=== PATIENT | male | born 1945 | race Caucasian/White ===

== ENCOUNTER 2022-10-22 15:25 | Observation (INO) | payer MEDICARE, OTHER, SELFPAY ==
[2022-10-22] VITALS (24 sets, daily range): BP systolic 127–140; BP diastolic 65–90; PULSE 69–89; RESP 16–28; TEMP 36.5–37; O2SAT 86–94; BMI 25.2
--- NOTE | ~2022-10-22 | CT_ITS ---
EXAMINATION: CT brain wo con DATE: 10/22/2022 16:47 INDICATION: Dizziness. Multiple falls. TECHNIQUE: Computed tomography (CT) of the head was performed without intravenous contrast. Sagittal and coronal reconstructions were performed. The mA was adjusted according to patient size. Iterative reconstruction technique was employed. The dose-length product was 681.00 mGy-cm. COMPARISON: head CT dated 12/22/2015 FINDINGS: No fracture. No acute intracranial hemorrhage, acute infarction or abnormal extra axial fluid collect ion. There is moderate scattered white matter hypoattenuation consistent with chronic small vessel is chemic disease. Ventricles are normal and symmetric. No mass/mass effect. Mild mucosal thickening th e bilateral maxillary and ethmoid sinuses as well as at the left frontoethmoidal recess. The orbits a nd mastoid air cells are normal. IMPRESSION: 1. No fracture or acute intracranial process. 2. Moderate scattered white matter hypoattenuation consistent with chronic small vessel ischemic dise ase. Reviewed, dictated and finalized at location A. IMPRESSION: 1. No fracture or acute intracranial process. 2. Moderate scattered white matter hypoattenuation consistent with chronic smal l vessel ischemic disease.
--- NOTE | ~2022-10-22 | XR_ITS ---
EXAMINATION: XR chest 1V portable Exam Date/Time: 10/22/2022 16:45 CDT HISTORY: low O2 saturations Comparison: None. RESULT: Lines, tubes, and devices: None. Lungs and pleura: Patchy mid and lower lung subsegmental airspace disease. Diffuse mild reticular op acities. Mild bilateral costophrenic angle blunting. Cardiomediastinal silhouette: Unremarkable. Other: No acute osseous or upper abdominal finding. IMPRESSION: Pulmonary opacities likely represent pulmonary edema with bibasilar atelectasis and small bilateral e ffusions. Infection is not excluded. Reviewed, dictated and finalized at location K. IMPRESSION: Pulmonary opacities likely represent pulmonary edema with bibasilar atelectasis and small bilateral effusions. Infection is not excluded.
--- NOTE | ~2022-10-22 | CT_ITS ---
EXAMINATION: CTA chest PE protocol DATE: 10/23/2022 12:25 INDICATION: Shortness of breath. TECHNIQUE: Computed tomography angiography (CTA) of the chest was performed with 100 mL Omnipaque-350 intravenous contrast timed to evaluate the pulmonary arteries. Coronal maximum intensity projection 3D-reconstructions were created by the technologist. Automated exposure control and iterative reconst ruction technique were employed. The dose-length product was 348.57 mGy-cm. COMPARISON: None. FINDINGS: There are airspace and groundglass opacities in posterior segment right upper lobe. There i s mild atelectasis bilaterally. Calcified right hilar nodules and calcified right hilar and mediastin al lymph nodes are consistent with old granulomatous disease. There is a small right pleural effusion . Cardiomegaly is noted. There is a small pericardial effusion. There are acute pulmonary emboli in l eft upper lobe, superior segment right lower lobe, and right upper lobe. There are changes of cholecy stectomy. There is mild thoracic spondylosis. IMPRESSION: 1. Acute bilateral pulmonary emboli. 2. Airspace and groundglass opacities in posterior segment right upper lobe, consistent with infarct. 3. Small right pleural effusion. 4. Small pericardial effusion. Reviewed, dictated and finalized at location A. IMPRESSION: 1. Acute bilateral pulmonary emboli. 2. Airspace and groundglass opacities in posterior segment right upper lobe, co nsistent with infarct. 3. Small right pleural effusion. 4. Small pericardial effusion.
--- NOTE | 2022-10-22 15:49 | ECG_ITS ---
Measurements Intervals [place] Rate: 71 P: 4 [place]: 157 QRS: 131 QRSD: 107 T: 28 QT: 304 QTc: 330 Interpretive Statements SINUS RHYTHM RIGHTWARD AXIS POSSIBLE RIGHT VENTRICULAR HYPERTROPHY [SOME/ALL OF: PROMINENT R IN V1, LATE TRANSITION, RAD, EDWIGE, SSS] ABNORMAL ECG NO PREVIOUS ECG AVAILABLE FOR COMPARISON Electronically Signed On 10-23-2022 7:47:27 CDT by Lukas Hoff M.D.
[2022-10-22] MEDS: SODIUM CHLORIDE 0.9% IV 1,000 ML 999 ML IV CONT (16:15)
[2022-10-22 16:32] LABS: Basophils Absolute Auto 0.02 K/mm3 (0.00-0.10); Basophils Percent Auto 0.3 % (0.0-1.0); Eosinophils Absolute Auto 0.02 K/mm3 (0.02-0.50); Eosinophils Percent Auto 0.3 % (1.0-6.0); Hematocrit 37.8 % (37.0-46.0); Hemoglobin 12.9 g/dL (12.4-15.3); Immature Granulocyte Absolute 0.02 K/mm3 (0.00-0.00); Immature Granulocyte Percent A 0.3 % (0.0-0.0); Lymphocytes Absolute Auto 0.65 K/mm3 (1.10-4.50); Lymphocytes Percent Auto 8.9 % (18.0-42.0); Mean Corpuscular HGB Conc 34.1 g/dL (32.0-36.0); Mean Corpuscular Hemoglobin 32.1 pg (27.0-31.0); Mean Platelet Volume 12.4 fl (8.7-11.0); Monocytes Absolute Auto 0.84 K/mm3 (0.10-0.90); Monocytes Percent Auto 11.5 % (2.0-11.0); Neutrophils Absolute Auto 5.8 K/mm3 (1.7-7.2); Neutrophils Percent Auto 78.7 % (50.0-70.0); Platelet Count Result 139 K/mm3 (150-420); Red Blood Count 4.02 M/mm3 (4.70-6.10); Red Cell Distribution Width 12.7 % (11.6-14.4); White Blood Count 7.3 K/mm3 (4.8-10.8)
[2022-10-22 16:46] LABS: Prothrombin Time 11.3 Seconds (9.50-12.10)
[2022-10-22 16:57] LABS: Alanine Aminotransferase 72 U/L (16-63); Albumin Level 2.9 g/dL (3.4-5.0); Alkaline Phosphatase 46 U/L (46-116); Ammonia 25 umol/L (11-32); Anion Gap 9 mmol/L (8-16); Aspartate Amino Transferase 32 U/L (15-37); Bilirubin,Total 1.5 mg/dL (0.00-1.00); Blood Urea Nitrogen 24 mg/dL (7-18); Carbon Dioxide 29 mmol/L (21-32); Chloride 107 mmol/L (98-108); Estimated CRCL calculation 38 ml/min; Estimated Glomerular Filt Rate 48; Glucose 151 mg/dL (70-99); Osmolality Calculated 307 mOsm/kg (285-295); Potassium 3.6 mmol/L (3.5-5.1); Sodium 145 mmol/L (136-145); Thyroid Stimulating Hormone 2.29 uIU/mL (0.36-3.74); Total Protein 6.9 g/dL (6.4-8.2); Troponin I 59.2 ng/L (0.00-60.4)
[2022-10-22 16:59] LABS: NT Pro B Type Natriuretic Pept 725 pg/mL (0-450)
[2022-10-22 17:16] LABS: Lactic Acid Reflex 0.9 mmol/L (0.4-2.0)
[2022-10-22] MEDS: methylPREDNISolone SOD SUCC 125 MG VIAL IV PUSH (17:20)
[2022-10-22] MEDS: FUROSEMIDE INJ 40 MG/4 ML VIAL IV PUSH (17:23)
[2022-10-22 17:25] LABS: Influenza A QL RT-PCR Negative (Negative); Influenza B QL RT-PCR Negative (Negative); RSV RNA, RT-PCR Negative (Negative); SARS-CoV-2 RNA PCR Negative (Negative)
[2022-10-22] MEDS: IPRATROPIUM 0.5 MG/ALBUTEROL SULFATE 2.5 MG AMPUL.NEB 3 ML INHALATION ×2 (17:25→22:21)
[2022-10-22] MEDS: AZITHROMYCIN 500 MG/NS 250 ML 500 MG/250 ML BAG 250 MG IVPB (17:30)
[2022-10-22 17:42] LABS: Creatine Kinase 110 U/L (39-308)
--- NOTE | 2022-10-22 18:01 | ED.WEAKNESS ---
HPI - Weakness General Chief complaint: Weakness Stated complaint: fall spells; dizziness Time Seen by Provider: 10/22/22 15:48 Source: patient and family Mode of arrival: wheelchair History of Present Illness Complaint: generalized weakness Onset (ago): day(s) Duration: constant Location: generalized Severity: moderate Related Data Home Medications Medication Instructions Recorded Confirmed amlodipine 10 mg tablet 10 mg PO DAILY 10/22/22 10/22/22 cholecalciferol (vitamin D3) 25 25 mcg PO DAILY 10/22/22 10/22/22 mcg (1,000 unit) capsule ezetimibe 10 mg tablet 10 mg PO DAILY 10/22/22 10/22/22 fluticasone propionate 50 1 spray intranasal DAILY 10/22/22 10/22/22 mcg/actuation nasal spray,suspension lisinopril 20 mg tablet 40 mg .Route .COMPLEX 10/22/22 10/22/22 loratadine 10 mg tablet 10 mg PO DAILY 10/22/22 10/22/22 Allergies Allergy/AdvReac Type Severity Reaction Status Date / Time tramadol Allergy Rash Verified 10/22/22 15:41 atorvastatin AdvReac Cough Verified 10/22/22 15:41 Review of Systems Review of Systems: All systems reviewed & are unremarkable except as noted in HPI and below PMFSH Past Medical History Medical History Seizure disorder (07/20/14) Type 2 diabetes mellitus without complication, without long-term current use of insulin Family History Family History Sibling Family history of malignant neoplasm of breast Other Diabetes mellitus Social History Social History Smoking status: Never smoker Alcohol intake: never Exam Const: General: no acute distress Nutritional Appearance: well nourished Orientation/consciousness: patient oriented x3 Limitations: no limitations HENMT: Head: normal to inspection Eyes: Conjunctivae: conjunctivae normal Pupils: Equal, round and reactive pupils present Neck: Neck: normal visual inspection Chest: Chest palpation & inspection: normal inspection of the chest Resp: Auscultation: clear to auscultation bilaterally Cardio: Rate: regular rate Rhythm: regular rhythm GI: GI Palp: Yes Soft to palpation Back/Spine/Pelvis: Back: no CVA tenderness Skin: General skin exam: normal color Rashes: no rashes Wounds: no wounds Course Course Emergency Course: patient resting comfortably initially O2 sats around 86% on room air at his primary care physician's office patient currently on 4 to 6 L of oxygen and satting at 92% had a chest x-ray performed which shows that he has a mild pulmonary edema with a BNP of 725 with bilateral infiltrates patient did receive nebulizer treatment and IV steroids along with some 40mg of IV Lasix. COVID is negative, his white count is 7.3 chest x-ray shows the bilateral opacities CT scan of the brain shows no acute abnormality. Vital Signs Vital signs: Vital Signs Temperature 37.0 C 10/22/22 15:25 Pulse Rate 81 10/22/22 15:25 Respiratory Rate 18 10/22/22 15:25 Blood Pressure 137/90 10/22/22 15:25 Pulse Oximetry 86 L 10/22/22 15:25 Oxygen Delivery Room Air 10/22/22 15:25 Temperature 36.9 C 10/22/22 17:37 Pulse Rate 89 10/22/22 17:37 Respiratory Rate 18 10/22/22 17:37 Blood Pressure 127/70 10/22/22 17:37 Pulse Oximetry 89 L 10/22/22 17:45 Oxygen Delivery Room Air 10/22/22 15:25 Oxygen Flow Rate 4 10/22/22 17:31 MDM - Weakness Lab Data 10/22/22 16:22 10/22/22 16:22 Labs: Lab Results 10/22/22 Range/Units 16:22 WBC 7.3 (4.8-10.8) K/mm3 RBC 4.02 L (4.70-6.10) M/mm3 Hgb 12.9 (12.4-15.3) g/dL Hct 37.8 (37.0-46.0) % MCV 94.0 (78.0-102.0) fL MCH 32.1 H (27.0-31.0) pg MCHC 34.1 (32.0-36.0) g/dL RDW 12.7 (11.6-14.4) % Plt Count 139 L (150-420) K/mm3 MPV 12.4 H (8.7-11.0) fl Immature Gran % (Auto) 0.3 H (0.0-0.0) % Ne
[2022-10-22 18:07] LABS: Appearance Urine Clear (Clear); Bilirubin Urine Negative (Negative); Blood Urine 1+ (Negative); Color Urine Light Yellow (Yellow); Glucose Urine UA Negative (Negative); Ketones Urine Negative (Negative); Leukocyte Esterase Ur Negative LEU/UL (Negative); Nitrate Urine Negative (Negative); Protein Urine Negative (Negative); Urobilinogen Urine 0.2 mg/dL (0.2-1.0)
[2022-10-22 18:13] LABS: Add Urine Microscopic? YES; Bacteria Urine None seen /hpf; Squamous Epithelial Cell Urine None seen /hpf (Few); WBC Urine 0-3 /hpf (0-3)
[2022-10-22 18:21] LABS: Amphetamine Screen Urine Negative (Negative); Barbiturate Screen Urine Negative (Negative); Benzodiazepines Screen Urine Negative (Negative); Cannabinoid Screen Urine Negative (Negative); Cocaine Screen Urine Negative (Negative); Methadone Screen Urine Negative (Negative); Opiate Screen Urine Negative (Negative); Phencyclidine Screen Urine Negative (Negative)
--- NOTE | 2022-10-22 20:19 | ADMGEN ---
This patient, Cecilio Amanda, was admitted to 2nd Floor Room 207-1. Patient/family oriented to hospital policies and general routines including ID bracelet, bed and alarms, visiting hours, pain management, procedures, bathroom and other care routines, personal items, smoking policy, room service/diet, and visiting hours. Son has dropped off hearing aid cable armorer, both hearing aids are on charge. pt notified of need to call for assistance when getting up and that he is not to take his home medications as we will provide them from pharmacy during his stay here. RT will titrate pt off 02 if possible per francisco conditioning yard supervisor Information on how to activate the Rapid Response Team has been discussed. Patient/Family are encouraged to report perceived risks to care and to ask questions if they do not understand what they are told or what they should do.
[2022-10-22] MEDS: levETIRAcetam 250 MG TABLET 750 MG BY MOUTH (20:52)
[2022-10-22] MEDS: traZODone HCL 50 MG TABLET PO (20:53)
--- NOTE | 2022-10-22 20:55 | PC.NURSE ---
pt given jello to take meds with per wifes request
[2022-10-22 20:57] LABS: Glucose Point of Care 167 mg/dl (65-105)
[2022-10-23] VITALS (11 sets, daily range): BP systolic 113–121; BP diastolic 75–77; PULSE 71–88; RESP 16–20; TEMP 35.9–36.4; O2SAT 87–92
--- NOTE | 2022-10-23 00:16 | PC.NURSE ---
Pt asleep and respirations are even and unlabored. SAO2 is 94% with oxygen at 5 liters. No signs of respiratory distress noted.
--- NOTE | 2022-10-23 00:53 | PC.NURSE ---
Pt asleep and no signs of shortness of breath noted. Oxygen remains on at 4 liters per nasal cannula.
--- NOTE | 2022-10-23 02:01 | PC.NURSE ---
Pt asleep and no signs of respiratory distress noted. Oxygen remains on at 4 liters per nasal cannula
--- NOTE | 2022-10-23 04:10 | PC.NURSE ---
Pt asleep and no signs of respiratory distress noted. oxygen remains on at 4 liters per nasal cannula.
--- NOTE | 2022-10-23 06:00 | PC.NURSE ---
Pt sitting up at bedside and said he needed to use the bathroom. Pt wanted to change is shirt and shorts and his duffle bag was brought over to him. Pt up to the bathroom with the walker and assist of one.
--- NOTE | 2022-10-23 06:35 | PC.NURSE ---
Pt back to the chair after using the bathroom. Pt taking a duoneb treatment at this time.
[2022-10-23] MEDS: IPRATROPIUM 0.5 MG/ALBUTEROL SULFATE 2.5 MG AMPUL.NEB 3 ML INHALATION (06:52)
[2022-10-23 07:38] LABS: Glucose Point of Care 202 mg/dl (65-105)
[2022-10-23] MEDS: INSULIN HUMAN LISPRO (*BKC) 1,000 UNITS/10 ML VIAL SUB-Q (08:11)
[2022-10-23] MEDS: FUROSEMIDE INJ 20 MG/2 ML VIAL IV PUSH (08:51)
[2022-10-23] MEDS: EZETIMIBE 10 MG TABLET PO (08:51)
[2022-10-23] MEDS: CHOLECALCIFEROL 1,000 UNITS TABLET 1000 UNITS PO (08:51)
[2022-10-23] MEDS: levETIRAcetam 250 MG TABLET 750 MG BY MOUTH (08:52)
[2022-10-23] MEDS: lisinopriL 20 MG TABLET BY MOUTH (08:52)
[2022-10-23] MEDS: LORATADINE 10 MG TABLET PO (08:52)
[2022-10-23] MEDS: amLODIPine BESYLATE 5 MG TABLET 10 MG PO (08:53)
--- NOTE | 2022-10-23 11:53 | PM.SD2 ---
Same Day Admit/Disch: HPI History of Present Illness Chief complaint: PULMONARY EDEMA PNEUMONIA WEAKNESS Narrative: Cecilio Amanda is a 77 year old male HPI - Weakness General Chief complaint: Weakness Stated complaint: fall spells; dizziness Time Seen by Provider: 10/22/22 15:48 Source: patient and family Mode of arrival: wheelchair History of Present Illness MD Complaint: generalized weakness Onset (ago): day(s) Duration: constant Location: generalized Severity: moderate Related Data [facility] Past Medical History Medical History Seizure disorder (07/20/14) Type 2 diabetes mellitus without complication, without long-term current use of insulin Family History Family History Sibling Family history of malignant neoplasm of breast Other Diabetes mellitus Social History Social History Smoking status: Never smoker Second hand tobacco smoke exposure: No Alcohol intake: never Substance use: never Substance use type: does not use Lack of Transportation: No Lack of Food: Never True Current Housing: I Have Housing Concerned About Future Housing: No Difficulty Paying Gas/Electric Bills: No Difficulty Paying for Meds: No Currently Unemployed: No Education: High School Diploma/GED Difficulty w/ Childcare or Family Care: No Spiritual care concerns: No Same Day Admit/Disch: Med Pre-admit Medications Home Medications Medication Instructions Recorded Confirmed Type levetiracetam 750 mg tablet See Rx Instructions .Route 12/14/19 10/22/22 Rx .COMPLEX #180 tabs metformin 500 mg tablet See Rx Instructions .Route 12/14/19 10/22/22 Rx .COMPLEX #180 tabs amlodipine 10 mg tablet 10 mg PO DAILY 10/22/22 10/22/22 History cholecalciferol (vitamin D3) 25 25 mcg PO DAILY 10/22/22 10/22/22 History mcg (1,000 unit) capsule ezetimibe 10 mg tablet 10 mg PO DAILY 10/22/22 10/22/22 History fluticasone propionate 50 1 spray intranasal DAILY 10/22/22 10/22/22 History mcg/actuation nasal spray,suspension lisinopril 20 mg tablet 40 mg .Route .COMPLEX 10/22/22 10/22/22 History loratadine 10 mg tablet 10 mg PO DAILY 10/22/22 10/22/22 History albuterol sulfate 90 mcg/actuation 2 puff inhalation QID PRN 10/23/22 Rx aerosol inhaler shortness of breath or wheezing #8.5 grams furosemide 20 mg tablet (Lasix) 20 mg PO DAILY #3 tabs 10/23/22 Rx apixaban 5 mg (74 tabs) tablets in See Rx Instructions PO .COMPLEX 11/17/22 Rx a dose pack (Eliquis DVT-PE Treat #74 ea 30D Start) Review of Systems Review of Systems Hypoxic, pneumonia, Pulmonary edema All systems reviewed & are unremarkable except as noted in HPI and below Exam Const: General: cooperative and healthy appearing Nutritional Appearance: well nourished Other: Patient insistent on going home but nice about it states he leaving regardless. HENMT: Head: normal to inspection Ears: hearing grossly normal bilaterally Mouth: Yes Normal oral and palatal mucosa present, Yes lip normal and Yes tongue normal DS: Data Data Completed and Pending Labs on day of discharge: Labs from last 24 hours 10/23/22 10/22/22 10/22/22 07:32 20:52 16:22 WBC 7.3 RBC 4.02 L Hgb 12.9 Hct 37.8 MCV 94.0 MCH 32.1 H MCHC 34.1 RDW 12.7 Plt Count 139 L MPV 12.4 H Immature Gran % (Auto) 0.3 H Neut % (Auto) 78.7 H Lymph % (Auto) 8.9 L Graves % (Auto) 11.5 H Eos % (Auto) 0.3 L Baso % (Auto) 0.3 Lymph # (Auto) 0.65 L Graves # (Auto) 0.84 Eos # (Auto) 0.02 Baso # (Auto) 0.02 Abs Immat Gran (auto) 0.02 H Absolute Neuts (auto) 5.8 Absolute Nucleated RBC 0.00 Nucleated RBC % 0.0 PT 11.3 INR 1.0 APTT 31.0 H Sodium 145 Potassium 3.6 Chloride 107 Carbon Dioxide 29 Anion Gap 9
[2022-10-23 11:57] LABS: Glucose Point of Care 277 mg/dl (65-105)
--- NOTE | 2022-10-23 12:18 | HOMEO2EVAL ---
Evaluation was performed at [facility] Home Oxygen Evaluation RC: Home Oxygen (O2) Evaluation Start: 10/23/22 10:46 Freq: ONCE Status: Active Protocol: RPE Activity Type Activity Date Activity User E-sign Co-sign Detail Recorded Client Recorded Date Recorded By Document 10/23/22 11:33 [id number] 10/23/22 12:17 CH Document 10/23/22 11:36 [id number] 10/23/22 12:17 Document 10/23/22 11:38 [id number] 10/23/22 12:17 Document 10/23/22 11:41 [id number] 10/23/22 12:17 Document 10/23/22 11:45 [id number] 10/23/22 12:17 Document 10/23/22 11:50 [id number] 10/23/22 12:17 10/23/22 10/23/22 10/23/22 11:33 11:36 11:38 Home O2 Evaluation [Oxygen] -Test Phase Resting Exercise Resting -Oxygen Delivery Room Air Nasal Cannula -Oxygen Flow Rate (L/min) 1 [Pulse Oximetry] -Pulse Oximetry (90-100 %) 89 L 87 L 89 L [Pulse Rate] -Pulse Rate (60-100 beats/min) 79 85 72 [Evaluation] -Activity Tolerance Good Good Good -Rating of Perceived Dyspnea (PD) +1 Mild, +2 Mild, Some +2 Mild, Some Noticeable to Difficulty, Difficulty, the Participant Noticeable to Noticeable to but Not to an the Observer the Observer Observer -Rate of Perceived Exertion (PE) 10 12 12 Query Text:Click the Protocol Button to View the RPE Scale [Exercise] -Ambulation Distance (feet) 50 -Ambulation Distance (meters) 15.23 [Comments] -Home Oxygen Evaluation Comments will beg[place] walk will place pt will increase on room air on 1LPM to 2LPM [Charges] -Treatment Charges O2 Evaluation - Inpatient 10/23/22 10/23/22 10/23/22 11:41 11:45 11:50 Home O2 Evaluation [Oxygen] -Test Phase Resting Resting Exercise -Oxygen Delivery Nasal Cannula Nasal Cannula -Oxygen Flow Rate (L/min) 2 4 4 [Pulse Oximetry] -Pulse Oximetry (90-100 %) 89 L 92 92 [Pulse Rate] -Pulse Rate (60-100 beats/min) 84 85 85 [Evaluation] -Activity Tolerance Good Good Good -Rating of Perceived Dyspnea (PD) +2 Mild, Some +2 Mild, Some +2 Mild, Some Difficulty, Difficulty, Difficulty, Noticeable to Noticeable to Noticeable to the Observer the Observer the Observer -Rate of Perceived Exertion (PE) 12 12 12 Query Text:Click the Protocol Button to View the RPE Scale [Exercise] -Ambulation Distance (feet) 200 -Ambulation Distance (meters) 60.95 [Comments] -Home Oxygen Evaluation Comments increased to will begin walk patient ended 3LPM while pt again on 4LPM walk on 4LPM. was still saturations resting oxygen remained 92% saturations heart rate 88. were still 89%. patient walked increased to a total of 250 4LPM, O2 feet. placed satirations patient back increased to 92 into bed and % allowed him to rest on 1LPM, checked patient at 1200pm and saturations were 91% heart rate 76. [Charges] -Treatment Charges
[2022-10-23] MEDS: APIXABAN 2.5 MG TABLET (14:15)
[2022-10-23] MEDS: APIXABAN 2.5 MG TABLET 5 MG PO (14:15)
--- NOTE | 2022-10-23 14:16 | PC.NURSE ---
Pt given 2, 2.5mg tabs of Eliquis for total of 5mg. Pt was not given the single dose of 2.5mg. RO
--- NOTE | 2022-10-23 14:21 | PC.NURSE ---
Pt discharged to home and family care. Pt's and granddaughter here to take pt home and receive discharge instructions. Pt discharged on oxygen at home. RN reviewed O2 precautions with pt and family. New medications reviewed. Purpose, dose, time and SE. Pt and family verbalized understanding. Follow up PCP appointment reviewed as well as lab appointment. Pt assisted to the car via wc by RN.
--- NOTE | 2022-10-26 14:05 | PC.NURSE ---
Follow up call made from mt 10/23/22, reports doing well, no questions or concerns regarding visit, no question regarding instructions, advised to call back for any questions
== END 2022-10-23 14:10 | disposition home or self-care (01) ==
LOC: CHSED 18:49 → CHS2ND 19:43
PROVIDERS: Admitting Provider Internal Medicine; Emergency Provider Emergency Medicine; PCP Family Medicine; Visit Provider Internal Medicine
DX: I26.99 Other pulmonary embolism without acute cor pulmonale (principal); J18.9 Pneumonia, unspecified organism; I50.9 Heart failure, unspecified; N18.9 Chronic kidney disease, unspecified; G40.909 Epilepsy, unspecified, not intractable, without status epilepticus; E11.9 Type 2 diabetes mellitus without complications; Z20.822 Contact with and (suspected) exposure to COVID-19; J96.91 Respiratory failure, unspecified with hypoxia
CPT/HCPCS: 36415; 70450; 71045; 71275; 80053; 80307; 81001; 82140; 82550; 82948; 83605; 83880; 84443; 84484; 85025; 85610; 85730; 87040; 87637; 93005; 94618; 94640; 96361; 96365; 96366; 96367; 96375; 99285; A9270; G0378; J0456; J0696; J1815; J1940; J2930; J7030; Q9967

== ENCOUNTER 2022-10-26 09:29 | Outpatient (CLI) | payer MEDICARE, OTHER, SELFPAY ==
[2022-10-26 09:39] LABS: Hematocrit 42.9 % (37.0-46.0); Hemoglobin 14.6 g/dL (12.4-15.3); Mean Corpuscular Hemoglobin 32.2 pg (27.0-31.0); Mean Corpuscular Volume 94.5 fL (78.0-102.0); Mean Platelet Volume 11.7 fl (8.7-11.0); Platelet Count Result 192 K/mm3 (150-420); Red Blood Count 4.54 M/mm3 (4.70-6.10); Red Cell Distribution Width 12.6 % (11.6-14.4); White Blood Count 5.5 K/mm3 (4.8-10.8)
[2022-10-26 10:22] LABS: Anion Gap 7 mmol/L (8-16); Blood Urea Nitrogen 25 mg/dL (7-18); Calcium 9.6 mg/dL (8.5-10.1); Carbon Dioxide 32 mmol/L (21-32); Chloride 106 mmol/L (98-108); Estimated Glomerular Filt Rate 48; Glucose 186 mg/dL (70-99); NT Pro B Type Natriuretic Pept 169 pg/mL (0-450); Osmolality Calculated 309 mOsm/kg (285-295); Potassium 4.3 mmol/L (3.5-5.1); Sodium 145 mmol/L (136-145)
== END 2022-10-26 09:30 | disposition home or self-care (01) ==
LOC: CHSLAB 09:31
PROVIDERS: PCP Family Medicine; Visit Provider Nurse Practitioner Family
DX: E11.9 Type 2 diabetes mellitus without complications (principal); J18.9 Pneumonia, unspecified organism; J81.1 Chronic pulmonary edema; I50.30 Unspecified diastolic (congestive) heart failure
CPT/HCPCS: 36415; 80048; 83880; 85027

== ENCOUNTER 2023-05-15 11:11 | Emergency (ER) | payer OTHER, MEDICARE, SELFPAY ==
[2023-05-15] VITALS (57 sets, daily range): BP systolic 138–184; BP diastolic 88–113; PULSE 53–72; RESP 13–23; TEMP 36.8–36.9; O2SAT 89–97
--- NOTE | ~2023-05-15 | CT_ITS ---
EXAMINATION: CTA chest PE protocol DATE: 05/15/2023 13:00 INDICATION: Elevated d-dimer TECHNIQUE: Computed tomography angiography (CTA) of the chest was performed with 200 CC Omnipaque 350 intravenous contrast timed to evaluate the pulmonary arteries. Coronal maximum intensity projection 3D-reconstructions were created by the technologist. Automated exposure control and iterative reconst ruction technique were employed. Exam dose: 601.12 mGy-cm total exam DLP. COMPARISON: 10/23/2022 CTA chest FINDINGS: There is diagnostic contrast enhancement of the pulmonary arteries and no evidence of pulmo nary emboli. Cardiomegaly. Coronary artery calcification. Trace pericardial fluid. No pleural effusions. No thoracic aortic aneurysm or dissection. No hilar or mediastinal mass lesion or lymphadenopathy. Minimal focal infiltrate or atelectasis in the dependent lateral right upper lobe. Mild discoid atele ctasis of the middle lobe and to a greater extent both lower lobes. Diffuse hepatic steatosis. Status post cholecystectomy. No suspicious osteolytic or osteoblastic lesions. IMPRESSION: No evidence of pulmonary embolism Minimal right upper lobe, mild middle lobe and mild to moderate bilateral lower lobe atelectasis Reviewed, dictated and finalized at [facility]. Reviewed, dictated and finalized at location A. 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
--- NOTE | ~2023-05-15 | CT_ITS ---
EXAMINATION: CTA brain carotid DATE: 05/15/2023 13:00 INDICATION: Dysarthria. Stroke. TECHNIQUE: Computed tomographic angiography (CTA) of the head was performed with 200 mL Omnipaque-350 intravenous contrast. CTA of the neck was performed with intravenous contrast. Automated exposure co ntrol and iterative reconstruction technique were employed. The dose-length product was 1089.65 mGy-c m. Maximum intensity projection and volume rendered 3D-reconstructions were created by the technologi st on a separate workstation. COMPARISON: Head CT 05/15/2023 FINDINGS: HEAD CTA: There are scattered areas of low attenuation in the cerebral white matter. There is no intr acranial hemorrhage, acute infarction, or abnormal intracranial mass lesion. The ventricles are letty l in size. There is mild mucosal thickening in the paranasal sinuses. The mastoid air cells are letty l. The orbits are normal. The vertebral arteries dominant. There is moderate stenosis of intracranial right vertebral artery. 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 The posterior communicating marshall cori are normal. There is no significant stenosis of the posterior cerebral arteries. There is no sig nificant stenosis of the intracranial internal carotid arteries or anterior or middle cerebral arteri es. Anterior communicating artery is normal. NECK CTA: There are no pathologically enlarged lymph nodes. There is no significant stenosis of the c ervical vertebral arteries. There is plaque in the proximal internal carotid arteries. There is 0% s tenosis of the proximal right internal carotid artery relative to normal distal artery lumen diameter (NASCET criteria). There is 0% stenosis of the proximal left internal carotid artery relative to nor mal distal artery lumen diameter. There is severe cervical spondylosis. There is a chronic fracture o f C7 spinous process. IMPRESSION: 1. Moderate nonspecific cerebral white matter disease, which likely represents chronic small vessel i schemic disease. 2. 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 3. 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 4. 0% stenosis of the proximal internal carotid arteries relative to normal distal artery lumen diame ters (NASCET criteria). Reviewed, dictated and finalized at location E. AL DELEGATE IMPRESSION: 1. Moderate nonspecific cerebral white matter disease, which likely represents chronic small vessel ischemic disease. 2. 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 3. 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 4. 0% stenosis of the proximal internal carotid arteries relative to normal dis alonso artery lumen diameters (NASCET criteria).
--- NOTE | ~2023-05-15 | CT_ITS ---
EXAMINATION: CT brain wo con DATE: 05/15/2023 11:51 INDICATION: Dysarthria. Stroke. TECHNIQUE: Computed tomography (CT) of the head was performed without intravenous contrast. The mA wa s adjusted according to patient size. Iterative reconstruction technique was employed. Exam dose: 60 5.33 mGy-cm total exam DLP. COMPARISON: 10/22/2022 CT brain FINDINGS: Prominent basilar artery calcification. Bilateral carotid siphon internal carotid artery ca lcifications. Minimal bilateral basal ganglia calcification. There is nonspecific diminished attenuat ion of the cerebral white matter, likely due to chronic small vessel ischemic changes. No intracranial mass lesion or hemorrhage, midline shift or mass effect is evident. No cerebrovascular accident is evident. CT is not sensitive for detection of hyperacute nonhemorrhagi c cerebrovascular accident. No subdural or epidural hematoma is detected. The mastoid air cells and included paranasal sinuses are unremarkable other than scattered minimal mu cosal thickening of left maxillary sinus, ethmoid air cells, left frontal sinus. No fracture or bone destruction of the cranial vault. IMPRESSION: No acute intracranial finding or hemorrhage Reviewed, dictated and finalized at Location A. Reviewed, dictated and finalized at location A. ATICS PROFESSOR
--- NOTE | 2023-05-15 11:19 | ECG_ITS ---
Measurements Intervals [place] Rate: 60 P: 30 [place]: 193 QRS: -53 QRSD: 117 T: 68 QT: 408 QTc: 411 Interpretive Statements SINUS RHYTHM LEFT ANTERIOR FASCICULAR BLOCK BORDERLINE ST-T WAVE ABNORMALITY- HIGH LATERAL LEADS BASELINE ARTIFACT- I, II, III, AVR, AVL, AVF, V1-V6 ABNORMAL ECG COMPARED TO ECG 10/22/2022 16:15:39 LEFT ANTERIOR FASCICULAR BLOCK NOW PRESENT Electronically Signed On 05-15-2023 13:12:27 AUDIOLOGY DIRECTOR by Amos Velasquez D.O.
[2023-05-15 11:31] LABS: Basophils Absolute Auto 0.02 K/mm3 (0.00-0.10); Basophils Percent Auto 0.4 % (0.0-1.0); Eosinophils Absolute Auto 0.14 K/mm3 (0.02-0.50); Eosinophils Percent Auto 2.9 % (1.0-6.0); Hematocrit 46.2 % (37.0-46.0); Hemoglobin 15.5 g/dL (12.4-15.3); Immature Granulocyte Absolute 0.01 K/mm3 (0.00-0.00); Immature Granulocyte Percent A 0.2 % (0.0-0.0); Lymphocytes Percent Auto 21.1 % (18.0-42.0); Mean Corpuscular HGB Conc 33.5 g/dL (32.0-36.0); Mean Corpuscular Hemoglobin 31.3 pg (27.0-31.0); Mean Corpuscular Volume 93.3 fL (78.0-102.0); Mean Platelet Volume 12.4 fl (8.7-11.0); Monocytes Absolute Auto 0.42 K/mm3 (0.10-0.90); Monocytes Percent Auto 8.8 % (2.0-11.0); Neutrophils Absolute Auto 3.2 K/mm3 (1.7-7.2); Neutrophils Percent Auto 66.6 % (50.0-70.0); Platelet Count Result 122 K/mm3 (150-420); Red Blood Count 4.95 M/mm3 (4.70-6.10); Red Cell Distribution Width 12.9 % (11.6-14.4); White Blood Count 4.8 K/mm3 (4.8-10.8)
[2023-05-15 11:44] LABS: Partial Thromboplastin Time 28.2 SEC (23.90-30.70); Prothrombin Time 10.9 Seconds (9.50-12.10)
[2023-05-15 11:48] LABS: Alanine Aminotransferase 38 U/L (16-63); Albumin Level 3.9 g/dL (3.4-5.0); Alkaline Phosphatase 42 U/L (46-116); Anion Gap 8 mmol/L (8-16); Aspartate Amino Transferase 24 U/L (15-37); Bilirubin,Total 1.1 mg/dL (0.00-1.00); Blood Urea Nitrogen 21 mg/dL (7-18); Calcium 8.8 mg/dL (8.5-10.1); Carbon Dioxide 31 mmol/L (21-32); Chloride 107 mmol/L (98-108); Estimated Glomerular Filt Rate 53; Glucose 126 mg/dL (70-99); Osmolality Calculated 307 mOsm/kg (285-295); Potassium 3.9 mmol/L (3.5-5.1); Sodium 146 mmol/L (136-145); Total Protein 7.2 g/dL (6.4-8.2); Troponin I 15.6 ng/L (0.00-60.4)
--- NOTE | 2023-05-15 12:02 | PC.NURSE ---
pt arrives to er [address] , stat stroke called overhead per tamanna in admitting pt return to room 1125 pt family in room 1140
--- NOTE | 2023-05-15 12:04 | PC.NURSE ---
call placed to beatriz, in xray, no read at this time for head ct. asked to call radiologist to read, stat stroke status head ct.
[2023-05-15 12:07] LABS: D Dimer 0.54 mg/L (0.19-0.50)
--- NOTE | 2023-05-15 12:24 | PC.NURSE ---
Addendum entered by Jeb Freedman RN 05/15/23 12:26: omit note Original Note: 1211 ct head results reviewed per dr villalta
--- NOTE | 2023-05-15 12:26 | PC.NURSE ---
1211 ct head read per dr alva 1225 results available to chart for dr villalta to review 1226 stat stroke cancelled per dr villalta
--- NOTE | 2023-05-15 12:31 | ED.NEUROSD ---
HPI - Neuro Symptoms/Deficit General Chief Complaint: Suspected CVA Stated Complaint: possible stroke Time Seen by Provider: 05/15/23 11:15 Source: patient and EMS Mode of arrival: EMS Limitations: physical limitation History of Present Illness HPI Narrative: this is a 77-year-old male presents via EMS with stroke-like symptoms of dysarthria and ataxia started around 1038 according to family they called EMS. Patient had no motor deficits upon exam by EMS. The patient with no shortness of breath no chest pain no fever chills no nausea vomiting, his glucose level was 126. Patient has a history of diabetes hyperlipidemia and hypertension initially blood pressure was 184/111. The patient recently diagnosed with a pulmonary embolism and curly on Eliquis nose diagnosed back in October of 1022. Onset (ago): minute(s) Time: 12:32 Last Observed Normal: 10:38 Timing confirmed by: spouse and family member Location: speech and ataxia History of same: No Severity: moderate Quality: improving Relieving factors: time Exacerbating factors: none Context: sudden onset Related Data Home Medications Medication Instructions Recorded Confirmed amlodipine 10 mg tablet 10 mg PO DAILY 10/22/22 05/15/23 cholecalciferol (vitamin D3) 25 25 mcg PO DAILY 10/22/22 05/15/23 mcg (1,000 unit) capsule ezetimibe 10 mg tablet 10 mg PO DAILY 10/22/22 05/15/23 fluticasone propionate 50 1 spray intranasal DAILY 10/22/22 05/15/23 mcg/actuation nasal spray,suspension lisinopril 20 mg tablet 20 mg PO DAILY 10/22/22 05/15/23 loratadine 10 mg tablet 10 mg PO DAILY 10/22/22 05/15/23 Allergies Allergy/AdvReac Type Severity Reaction Status Date / Time cyclobenzaprine Allergy Unknown Verified 05/15/23 12:08 [From Flexeril] diclofenac [From Cataflam] Allergy Rash Verified 05/15/23 12:08 tramadol Allergy Rash Verified 03/09/23 10:11 atorvastatin AdvReac Cough Verified 03/09/23 10:11 Review of Systems Review of Systems: All systems reviewed & are unremarkable except as noted in HPI and below PMFSH Past Medical History Medical History Pulmonary edema Seizure disorder (07/20/14) Type 2 diabetes mellitus without complication, without long-term current use of insulin Family History Family History Sibling Family history of malignant neoplasm of breast Other Diabetes mellitus Social History Social History Smoking status: Never smoker Second hand tobacco smoke exposure: No Alcohol intake: never Substance use: never Substance use type: does not use Lack of Transportation: No Lack of Food: Never True Current Housing: I Have Housing Concerned About Future Housing: No Difficulty Paying Gas/Electric Bills: No Difficulty Paying for Meds: No Currently Unemployed: No Education: High School Diploma/GED Difficulty w/ Childcare or Family Care: No Spiritual care concerns: No Exam Const: General: cooperative, comfortable and no acute distress HENMT: Head: normal to inspection Ears: hearing grossly normal bilaterally Face/Nose/Sinus: Normal external nose present Face and sinus: normal facial exam Eyes: General: appearance normal, both eyes and all related structures Visual Guzman: normal visual guzman by confrontation Conjunctivae: conjunctivae normal Sclera: sclerae normal Pupils: Equal, round and reactive pupils present EOM: EOMs intact bilaterally Direct Ophthalmoscopy: normal light reflex Neck: Neck: normal visual inspection, full ROM, no lymphadenopathy and no meningeal signs Chest: Chest palpation & inspection: normal inspection of the chest Resp: Effort & Inspection: normal respiratory effort and able to speak in complete sentences Auscultation: clear to auscultation bilaterally Cardio: Jugular venous distension: no JVD Palpation: no
[2023-05-15 12:56] LABS: Bilirubin Urine Negative (Negative); Blood Urine 3+ (Negative); Color Urine Light Yellow (Yellow); Glucose Urine UA Negative (Negative); Ketones Urine Negative (Negative); Leukocyte Esterase Ur Negative LEU/UL (Negative); Nitrate Urine Negative (Negative); Protein Urine Negative (Negative); Specific Grav Ur <= 1.005 (1.010-1.020); Urobilinogen Urine 0.2 mg/dL (0.2-1.0)
[2023-05-15 13:00] LABS: Add Urine Microscopic? YES; Appearance Urine Slightly Cloudy (Clear); RBC Urine 21-50 /hpf (0-2); Squamous Epithelial Cell Urine Rare /hpf (Few); WBC Urine None seen /hpf (0-3)
[2023-05-15 13:01] LABS: Bacteria Urine Trace /hpf
--- NOTE | 2023-05-15 14:01 | PC.NURSE ---
1343 call to beatriz in xray , regarding no results of head cta. will call 1400 dr villalta called xray spoke with beatriz, states the person that reads these is at lunch. awaiting results.
--- NOTE | 2023-05-15 14:17 | PC.NURSE ---
1415 results of cta head reviewed per dr villalta . call to joaquin per family request.
== END 2023-05-15 17:53 | disposition short-term general hospital (02) ==
PROVIDERS: Emergency Provider Emergency Medicine; PCP Family Medicine
DX: G45.0 Vertebro-basilar artery syndrome (principal); I63.9 Cerebral infarction, unspecified; E11.9 Type 2 diabetes mellitus without complications; Z79.01 Long term (current) use of anticoagulants; Z86.711 Personal history of pulmonary embolism
CPT/HCPCS: 36415; 70450; 70496; 70498; 71275; 80053; 81001; 84484; 85025; 85380; 85610; 85730; 93005; 99285; Q9967

== ENCOUNTER 2024-02-04 21:02 | Emergency (ER) | payer OTHER, SELFPAY ==
[2024-02-04] VITALS (11 sets, daily range): BP systolic 127–155; BP diastolic 76–95; PULSE 72–90; RESP 16–27; TEMP 37.7–38.5; O2SAT 88–96
--- NOTE | ~2024-02-04 | XR_ITS ---
XR chest 1V portable Ordering provider: Yovanny Garcia MD History: 78 years Male with . weakness . Comparison: None. FINDINGS: MEDIASTINUM: The cardiac silhouette is moderately enlarged. Congestive tyrone. LUNGS: No effusions or pneumothorax. Opacification in the left lung base medially which may indicate atelectasis versus pneumonia. Minimal bilateral interstitial thickening. OTHER: No free air under the diaphragm. IMPRESSION: Cardiomegaly with congestive tyrone. Cardiac decompensation is not excluded. Left medial basilar atelectasis versus pneumonia. Clinical correlation and follow-up advised. Reviewed, dictated and finalized at location A. IDE DIE MAKER IMPRESSION: Cardiomegaly with congestive tyrone. Cardiac decompensation is not excluded. Left medial basilar atelectasis versus pneumonia. Clinical correlation and foll ow-up advised.
--- NOTE | ~2024-02-04 | CT_ITS ---
CT cervical spine wo con Ordering provider: Yovanny Garcia MD History: . fall/NOT SURE WHERE ON HIS BODY HE HIT . Comparison: None. Technique: CT of the cervical spine was performed without contrast. Sagittal and coronal reformatted images were also obtained and reviewed. Automated exposure control and iterative reconstruction linda hnique were employed. The dose-length product was 449.80 mGy-cm. FINDINGS: VERTEBRAE: No subluxation or acute fracture. The occipital condyles are intact. Old fracture in the spinous process of C7. DISC SPACES: Narrowing of the disc C4-C5 and C5-C6. Multilevel facet joint disease. Multilevel uncove rtebral joint osteoarthritic changes. Narrowing of the left foramina at the level of C3-C4. Bilateral narrowing of the foramina at the level of C4-C5 and C5-C6 PARASPINOUS SOFT TISSUES: Normal. IMPRESSION: No acute osseous abnormality cervical spine. Reviewed, dictated and finalized at location A. OSOFT APPLICATION DEVELOPER
--- NOTE | ~2024-02-04 | CT_ITS ---
CT brain wo con Ordering provider: Yovanny Garcia MD History: 78 years Male with . fall/NOT SURE WHERE ON HIS BODY HE HIT . Comparison: None. Technique: CT of the head without contrast. Radiation reduction technique utilized.The dose-length pr oduct was 681 mGy-cm. FINDINGS: BRAIN PARENCHYMA AND CSF SPACES: Mild leukoaraiosis and diffuse cortical atrophy. Mild atheromatous d isease. No No midline shift, mass effect or hemorrhage. The brain parenchyma and CSF spaces are othe rwise normal. VISUALIZED PARANASAL SINUSES: Bilateral ethmoid sinus disease. MASTOIDS: Well aerated. BONES: The bones appear intact. SOFT TISSUES: Visualized nasopharynx is normal. Superficial soft tissues are normal. IMPRESSION: No acute intracranial findings. Reviewed, dictated and finalized at location A. OARRAY SPECIALIST
--- NOTE | 2024-02-04 21:04 | ED.HEATRA ---
HPI - Head Injury General Chief complaint: Head Injury Stated complaint: Fall Time Seen by Provider: 02/04/24 21:02 Source: patient Mode of arrival: ambulatory Limitations: no limitations History of Present Illness HPI Narrative: patient is a 78-year-old male with 2 falls this week and generalized weakness. Patient fell and hit his head. He is on Eliquis. Unclear reasoning at this time for Eliquis. he has hypertension and diabetes type 2. He is on Lasix. He has a seizure disorder. MD Complaint: head injury Onset (ago): day(s) (1) Arrival Conditions: C-spine immobilization present ( On entry to the emergency room) Mechanism of Injury: fall Place: home ( bathroom fall) Loss of Consciousness: unsure Location of injury: frontal Severity: mild Severity scale (1-10): 1 Quality: other ( no pain) Radiation: none Other Injuries: none Context: on aspirin and other anticoagulant use ( Eliquis) Associated symptoms: weakness Related Data Home Medications Medication Instructions Recorded Confirmed amlodipine 10 mg tablet 10 mg PO DAILY 10/22/22 05/15/23 cholecalciferol (vitamin D3) 25 25 mcg PO DAILY 10/22/22 05/15/23 mcg (1,000 unit) capsule ezetimibe 10 mg tablet 10 mg PO DAILY 10/22/22 05/15/23 fluticasone propionate 50 1 spray intranasal DAILY 10/22/22 05/15/23 mcg/actuation nasal spray,suspension lisinopril 20 mg tablet 20 mg PO DAILY 10/22/22 05/15/23 loratadine 10 mg tablet 10 mg PO DAILY 10/22/22 05/15/23 Allergies Allergy/AdvReac Type Severity Reaction Status Date / Time cyclobenzaprine Allergy Unknown Verified 05/15/23 12:08 [From Flexeril] diclofenac [From Cataflam] Allergy Rash Verified 05/15/23 12:08 tramadol Allergy Rash Verified 03/09/23 10:11 atorvastatin AdvReac Cough Verified 03/09/23 10:11 Review of Systems Review of Systems: All systems reviewed & are unremarkable except as noted in HPI and below Constitutional: Constitutional: Reports no additional constitutional complaints Eyes: Eyes: Reports no additional eye complaints ENT: Reports system reviewed and no additional complaints, except as documented Cardiovascular: Cardiovascular: Reports no additional cardiovascular complaints Respiratory: Respiratory: Reports no additional respiratory complaints Gastrointestinal: Gastrointestinal: Reports no additional gastrointestinal complaints Genitourinary: Genitourinary: Reports no additional male genitourinary complaints Musculoskeletal: Musculoskeletal: Reports no additional musculoskeletal complaints Integumentary/Breasts: Skin/Breast: Reports system reviewed and no additional complaints, except as docu Neurologic: Reports system reviewed and no additional complaints, except as documented Psychiatric: Psychiatric: Reports no additional psychiatric complaints Endocrine: Endocrine: Reports no additional endocrine complaints Hematologic/Lymphatic: Hematologic/Lymphatic: Reports no additional hematologic/lymphatic complaints Allergic/Immunologic: Allergic/Immunologic: Reports no additional allergic/immunologic complaints PMFSH Past Medical History Medical History Pulmonary edema Seizure disorder (07/20/14) Type 2 diabetes mellitus without complication, without long-term current use of insulin Family History Family History Sibling Family history of malignant neoplasm of breast Other Diabetes mellitus Social History Social History Smoking status: Never smoker Second hand tobacco smoke exposure: No Alcohol intake: never Substance use: never Substance use type: does not use Lack of Transportation: No Lack of Food: Never True Current Housing: I Have Housing Concerned About Future Housing: No Difficulty Paying Gas/Electric Bills: No Difficulty Paying for Meds: No Currently Unemployed: No Education: High School Diploma/GED Difficulty w/ Childcare or Family Care: No Spiritual care concerns: No Exam Const: General: healthy appearing Nutritional Appearance: well nourished Orientation/consciousness: patient oriented x3 Limitations: no limitations HENMT: Head: normal to inspection Ears: external ears normal Face/Nose/Sinus: Normal external nose present Eyes: Conjunctivae: conjunctivae normal Pupils: Equal, round and reactive pupils present EOM: EOMs intact bilaterally Neck: Neck: normal visual inspection Chest: Chest palpation & inspection: normal inspection of the chest Resp: Effort & Inspection: normal respiratory effort and not labored Auscultation: clear to auscultation bilaterally and no crackles Cardio: Rate: regular rate Rhythm: regular rhythm Heart sounds: no murmurs GI: Inspection: non-distended GI Palp: Yes Soft to palpation and No Tenderness to palpation present (GI) Auscultation: normal bowel sounds : General: Yes bladder normal to palpation Back/Spine/Pelvis: Back: no CVA tenderness Skin: General skin exam: normal color Rashes: no rashes Wounds: no wounds Neuro: General: patient oriented x3, moves all extremities, no meningeal signs and no focal motor deficits Cranial nerves: Yes CN's II-XII intact bilaterally and Yes Nystagmus not present Speech: normal speech Other: unclear gait due to arrival by ambulance from head injury; fast exam is negative, GCS is 15, NIH score 0; chronic tremors Extrem: General: normal to inspection Psych: Mental Status: mental status grossly normal Affect: normal affect Attitude: cooperative Course Vital Signs Vital signs: Vital Signs Temperature 38.5 C H 02/04/24 21:02 Pulse Rate 88 02/04/24 21:02 Respiratory Rate 20 02/04/24 21:02 Blood Pressure 149/88 H 02/04/24 21:02 Pulse Oximetry 88 L 02/04/24 21:02 Oxygen Delivery Room Air 02/04/24 21:02 Oxygen Flow Rate 2 02/04/24 21:02 Temperature 37.7 C H 02/04/24 23:04 Pulse Rate 83 02/04/24 22:46 Respiratory Rate 27 H 02/04/24 22:46 Blood Pressure 136/80 02/04/24 22:46 Pulse Oximetry 95 02/04/24 22:46 Oxygen Delivery Nasal Cannula 02/04/24 22:46 Oxygen Flow Rate 2 02/04/24 22:46 MDM - Head Injury MDM Narrative Medical decision making narrative: patient is an 78-year-old male with a fall and requires a workup for generalized weakness. We will do a general weakness workup at this time. Workup shows multiple findings but specifically left lower lobe pneumonia with sepsis and non-STEMI. We will transfer patient for higher level medical care. Lab Data Attestation: I reviewed the patient's lab results. 02/04/24 21:47 02/04/24 21:47 Labs: Lab Results 02/04/24 Range/Units 21:47 WBC 7.5 (4.8-10.8) K/mm3 RBC 4.44 L (4.70-6.10) M/mm3 Hgb 14.6 (12.4-15.3) g/dL Hct 40.8 (37.0-46.0) % MCV 91.9 (78.0-102.0) fL MCH 32.9 H (27.0-31.0) pg MCHC 35.8 (32-36) g/dL RDW 12.9 (11.6-14.4) % Plt Count 110 L (150-420) K/mm3 MPV 12.2 H (8.7-11.0) fl Immature Gran % (Auto) 0.4 H (0.0-0.0) % Neut % (Auto) 85.1 H (50.0-70.0) % Lymph % (Auto) 4.4 L (18.0-42.0) % [place] % (Auto) 9.8 (2.0-11.0) % Eos % (Auto) 0.0 L (1.0-6.0) % Baso % (Auto) 0.3 (0.0-1.0) % Lymph # (Auto) 0.33 L (1.10-4.50) K/mm3 [place] # (Auto) 0.73 (0.10-0.90) K/mm3 Eos # (Auto) 0.00 L (0.02-0.50) K/mm3 Baso # (Auto) 0.02 (0.00-0.10) K/mm3 Abs Immat Gran (auto) 0.03 H (0.00-0.00) K/mm3 Absolute Neuts (auto) 6.37 (1.70-7.20) K/mm3 Absolute Nucleated RBC 0.00 (0.00-0.00) K/mm3 Nucleated RBC % 0.0 (0-0.0) % Sodium 141 (136-145) mmol/L Potassium 4.0 (3.5-5.1) mmol/L Chloride 104 (98-108) mmol/L Carbon Dioxide 26 (21-32) mmol/L Anion Gap 11 (4-12) mmol/L BUN 26 H (7-18) mg/dL Creatinine 1.82 H (0.70-1.30) mg/dL Estim Creat Clear Calc 31 ml/min Estimated GFR 36 L (59 - ) Glucose 187 H (70-99) mg/dL Calculated Osmolality 301 H (285-295) mOsm/kg Lactic Acid 2.3 H (0.4-2.0) mmol/L Calcium 9.4 (8.5-10.1) mg/dL Magnesium 1.4 L (1.8-2.4) mg/dL Total Bilirubin 1.0 (0.00-1.00) mg/dL AST 17 (15-37) U/L ALT 22 (16-63) U/L Alkaline Phosphatase 51 (46-116) U/L Troponin I 81.4 H* (0.00-60.4) ng/L NT-Pro-B Natriuret Pep 696 H (0-450) pg/mL Total Protein 6.9 (6.4-8.2) g/dL Albumin 3.6 (3.4-5.0) g/dL Imaging Data Attestation: I personally reviewed and interpreted this imaging study as follows: Radiologist's impression: CT scan of the head and neck were both negative for acute process chest x-ray shows early CHF pattern and left lower lobe pneumonia ECG Data EKG #1: Attestation: I personally reviewed and interpreted this ECG as follows: ECG completion date: 02/04/24 ECG completion time: 23:08 EKG Interpretation: normal rate, sinus rhythm, non-specific ST changes, widened QRS, normal QT and left axis Critical Care Time Critical Care Time Critical Care Time: Yes Total Critical Care Time: 35 Discharge Plan Discharge Clinical Impression: Acute non-ST elevation myocardial infarction (NSTEMI), Acute dehydration, Thrombocytopenia, Hypomagnesemia, HENRRY (acute kidney injury), Seizure disorder, Anticoagulant long-term use Pneumonia Qualifiers: Pneumonia type: due to unspecified organism Laterality: left Lung location: lower lobe of lung Qualified Code(s): J18.9 - Pneumonia, unspecified organism Sepsis Qualifiers: Sepsis type: sepsis due to unspecified organism Sepsis acute organ dysfunction status: with acute organ dysfunction Severe sepsis acute organ dysfunction type: acute respiratory failure Acute respiratory failure type: with hypoxia Severe sepsis shock status: without septic shock Qualified Code(s): A41.9 - Sepsis, unspecified organism Head injury Qualifiers: Encounter type: initial encounter Qualified Code(s): S09.90XA - Unspecified injury of head, initial encounter Patient Disposition: Acute Care Hospital Condition: Serious Prescriptions: No Action fluticasone propionate 50 mcg/actuation [place],Suspension 1 spray INTRANASAL DAILY Rx Instructions: administer into each nostril at bedtime albuterol sulfate 90 mcg/actuation HFA aerosol inhaler 2 puff inhalation QID PRN (Reason: shortness of breath or wheezing) Qty: 8.5 0RF furosemide [Lasix] 20 mg tablet 20 mg PO DAILY Qty: 3 0RF lisinopril 20 mg tablet 20 mg PO DAILY Rx Instructions: 20 mg; ezetimibe 10 mg tablet 10 mg PO DAILY amlodipine 10 mg tablet 10 mg PO DAILY cholecalciferol (vitamin D3) 25 mcg (1,000 unit) capsule 25 mcg PO DAILY loratadine 10 mg tablet 10 mg PO DAILY levetiracetam 750 mg tablet See Rx Instructions .ROUTE .COMPLEX Qty: 180 3RF Dose Instruction: TAKE 1 TABLET BY MOUTH EVERY 12 HOURS Rx Instructions: TAKE 1 TABLET BY MOUTH EVERY 12 HOURS metformin 500 mg tablet See Rx Instructions .ROUTE .COMPLEX Qty: 180 3RF Dose Instruction: TAKE 1 TABLET BY MOUTH TWO TIMES DAILY Rx Instructions: TAKE 1 TABLET BY MOUTH TWO TIMES DAILY Eliquis DVT-PE Treat 30D Start 5 mg (74 tabs) tablets,dose pack See Rx Instructions .ROUTE .COMPLEX Qty: 74 0RF Rx Instructions: orally per package directions ciprofloxacin HCl 0.3 % drops See Rx Instructions EACH EYE .COMPLEX Qty: 2.5 0RF Rx Instructions: put 1-2 drps in affected eye(s) every 2hr up to 8 times/day x2days; then 4 times/day x5days EACH EYE Follow-up/Referrals: UNKNOWN,DOCTOR [Primary Care Provider] - Time of Disposition: 23:10
--- NOTE | 2024-02-04 21:16 | PC.NURSE ---
PATIENT TRANSPORTED TO CT VIA STRETCHER. C SPINE PRECAUTIONS INITIATED ON ARRIVAL
--- NOTE | 2024-02-04 21:35 | PC.NURSE ---
RETURNED TO ROOM VIA STRETCHER. C SPINE PRECAUTIONS IN PLACE. PATIENT IS ABLE TO MOVE ALL EXTREMITIES WITHOUT DIFFICULTY
--- NOTE | 2024-02-04 21:37 | PC.NURSE ---
AT THE BEDSIDE.
--- NOTE | 2024-02-04 21:46 | ECG_ITS ---
Test Date: 2024-02-04 22:17:03 Measurements Intervals [place] Rate: 86 P: 58 ME: 197 QRS: -46 QRSD: 114 T: 97 QT: 368 QTc: 442 Interpretive Statements SINUS RHYTHM LEFT ANTERIOR FASCICULAR BLOCK BORDERLINE ST-T WAVE ABNORMALITY- LAT/HIGH LAT LEADS BASELINE ARTIFACT- I, V4-V6 ABNORMAL ECG No previous ECG available for comparison Electronically Signed On 02-05-2024 06:42:11 AUTO TUNE UP MECHANIC by Amos Velasquez D.O.
--- NOTE | 2024-02-04 21:50 | PC.NURSE ---
BLOOD WORK DRAWN AND TAKEN DOWN TO LAB
[2024-02-04 21:55] LABS: Basophils Absolute Auto 0.02 K/mm3 (0.00-0.10); Basophils Percent Auto 0.3 % (0.0-1.0); Hematocrit 40.8 % (37.0-46.0); Hemoglobin 14.6 g/dL (12.4-15.3); Immature Granulocyte Absolute 0.03 K/mm3 (0.00-0.00); Immature Granulocyte Percent A 0.4 % (0.0-0.0); Lymphocytes Absolute Auto 0.33 K/mm3 (1.10-4.50); Lymphocytes Percent Auto 4.4 % (18.0-42.0); Mean Corpuscular HGB Conc 35.8 g/dL (32-36); Mean Corpuscular Hemoglobin 32.9 pg (27.0-31.0); Mean Corpuscular Volume 91.9 fL (78.0-102.0); Mean Platelet Volume 12.2 fl (8.7-11.0); Monocytes Absolute Auto 0.73 K/mm3 (0.10-0.90); Monocytes Percent Auto 9.8 % (2.0-11.0); Neutrophils Absolute Auto 6.37 K/mm3 (1.70-7.20); Neutrophils Percent Auto 85.1 % (50.0-70.0); Platelet Count Result 110 K/mm3 (150-420); Red Blood Count 4.44 M/mm3 (4.70-6.10); Red Cell Distribution Width 12.9 % (11.6-14.4); White Blood Count 7.5 K/mm3 (4.8-10.8)
--- NOTE | 2024-02-04 21:57 | PC.NURSE ---
XRAY AT THE BEDSIDE
--- NOTE | 2024-02-04 21:59 | PC.NURSE ---
C COLLAR REMOVED PER DR KELLY REQUEST.
--- NOTE | 2024-02-04 22:08 | PC.NURSE ---
LAB AT THE BEDSIDE.
[2024-02-04 22:13] LABS: Alanine Aminotransferase 22 U/L (16-63); Albumin Level 3.6 g/dL (3.4-5.0); Alkaline Phosphatase 51 U/L (46-116); Anion Gap 11 mmol/L (4-12); Aspartate Amino Transferase 17 U/L (15-37); Blood Urea Nitrogen 26 mg/dL (7-18); Calcium 9.4 mg/dL (8.5-10.1); Carbon Dioxide 26 mmol/L (21-32); Chloride 104 mmol/L (98-108); Estimated CRCL calculation 31 ml/min; Estimated Glomerular Filt Rate 36; Glucose 187 mg/dL (70-99); Magnesium 1.4 mg/dL (1.8-2.4); Osmolality Calculated 301 mOsm/kg (285-295); Sodium 141 mmol/L (136-145); Total Protein 6.9 g/dL (6.4-8.2)
[2024-02-04 22:15] LABS: Troponin I 81.4 ng/L (0.00-60.4)
[2024-02-04 22:16] LABS: Lactic Acid Reflex 2.3 mmol/L (0.4-2.0)
[2024-02-04] MEDS: PIPERACILLN/TAZ 3.375GM/NS50ML 3.375 GM/50 ML BAG IVPB (22:31)
[2024-02-04] MEDS: ACETAMINOPHEN 325 MG TABLET 650 MG PO (22:32)
[2024-02-04] MEDS: ASPIRIN 81 MG CHEWABLE TABLET 324 MG PO (22:32)
[2024-02-04] MEDS: SODIUM CHLORIDE 0.9% IV 1,000 ML 999 ML IV CONT (22:32)
[2024-02-04 22:47] LABS: NT Pro B Type Natriuretic Pept 696 pg/mL (0-450)
[2024-02-04] MEDS: MAGNESIUM SULF 2 GM/WATER 50ML 2 GM/50 ML BAG IVPB (23:08)
--- NOTE | 2024-02-04 23:59 | PC.NURSE ---
PATIENT, AND SON UPDATED ON CURRENT PLAN. AWAITING RETURN CALL FROM [facility] FOR POSSIBLE ADMISSION, TRANSFER. PATIENT IS A&OX3,
[2024-02-05] VITALS (12 sets, daily range): BP systolic 109–129; BP diastolic 58–79; PULSE 60–73; RESP 16–26; TEMP 36.8–37.3; O2SAT 94–97
[2024-02-05] MEDS: SODIUM CHLORIDE 0.9% IV 1,000 ML 999 ML IV CONT (00:29)
--- NOTE | 2024-02-05 00:31 | PC.NURSE ---
PATIENT AND FAMILY UPDATED THAT PATIENT WAS ACCEPTED AT [facility]. CURRENTLY WAITING ON RETURN CALL FROM [facility] FOR ROOM ASSIGNMENT
--- NOTE | 2024-02-05 00:34 | PC.NURSE ---
LAB AT THE BEDSIDE FOR SECOND TROP
[2024-02-05 00:52] LABS: Reflex Lactic Acid Yes or No Add Lactic
[2024-02-05 01:05] LABS: Troponin I 215.6 ng/L (0.00-60.4)
[2024-02-05 01:25] LABS: Lactic Acid 1.8 mmol/L (0.4-2.0)
--- NOTE | 2024-02-05 01:48 | ED.SKABFB ---
HPI - Skin/Abscess/Foreign Bdy General Chief complaint: Head Injury Stated complaint: Fall Time Seen by Provider: 02/04/24 21:02 Source: patient Mode of arrival: ambulatory Limitations: no limitations History of Present Illness HPI narrative: error MD complaint: other ( Closed head injury) Severity: mild Related Data Home Medications Medication Instructions Recorded Confirmed amlodipine 10 mg tablet 10 mg PO DAILY 10/22/22 02/05/24 cholecalciferol (vitamin D3) 25 25 mcg PO DAILY 10/22/22 02/05/24 mcg (1,000 unit) capsule ezetimibe 10 mg tablet 10 mg PO DAILY 10/22/22 02/05/24 fluticasone propionate 50 1 spray intranasal DAILY 10/22/22 02/05/24 mcg/actuation nasal spray,suspension lisinopril 20 mg tablet 20 mg PO DAILY 10/22/22 02/05/24 loratadine 10 mg tablet 10 mg PO DAILY 10/22/22 02/05/24 Allergies Allergy/AdvReac Type Severity Reaction Status Date / Time cyclobenzaprine Allergy Unknown Verified 05/15/23 12:08 [From Flexeril] diclofenac [From Cataflam] Allergy Rash Verified 05/15/23 12:08 tramadol Allergy Rash Verified 03/09/23 10:11 atorvastatin AdvReac Cough Verified 03/09/23 10:11 erythromycin base AdvReac Rash Verified 02/05/24 02:12 PMFSH Past Medical History Medical History Pulmonary edema Seizure disorder (07/20/14) Type 2 diabetes mellitus without complication, without long-term current use of insulin Family History Family History Sibling Family history of malignant neoplasm of breast Other Diabetes mellitus Social History Social History Smoking status: Never smoker Second hand tobacco smoke exposure: No Alcohol intake: never Substance use: never Substance use type: does not use Lack of Transportation: No Lack of Food: Never True Current Housing: I Have Housing Concerned About Future Housing: No Difficulty Paying Gas/Electric Bills: No Difficulty Paying for Meds: No Currently Unemployed: No Education: High School Diploma/GED Difficulty w/ Childcare or Family Care: No Spiritual care concerns: No Course Vital Signs Vital signs: Vital Signs Temperature 38.5 C H 02/04/24 21:02 Pulse Rate 88 02/04/24 21:02 Respiratory Rate 20 02/04/24 21:02 Blood Pressure 149/88 H 02/04/24 21:02 Pulse Oximetry 88 L 02/04/24 21:02 Oxygen Delivery Room Air 02/04/24 21:02 Oxygen Flow Rate 2 02/04/24 21:02 Temperature 36.8 C 02/05/24 04:45 Pulse Rate 62 02/05/24 04:01 Respiratory Rate 23 H 02/05/24 04:01 Blood Pressure 126/74 02/05/24 04:01 Pulse Oximetry 97 02/05/24 04:01 Oxygen Delivery Nasal Cannula 02/05/24 04:01 Oxygen Flow Rate 2 02/05/24 04:01 MDM - Skin/Abscess/Foreign Bdy Lab Data 02/04/24 21:47 02/04/24 21:47 Labs: Lab Results 02/04/24 02/05/24 Range/Units 21:47 00:36 WBC 7.5 (4.8-10.8) K/mm3 RBC 4.44 L (4.70-6.10) M/mm3 Hgb 14.6 (12.4-15.3) g/dL Hct 40.8 (37.0-46.0) % MCV 91.9 (78.0-102.0) fL MCH 32.9 H (27.0-31.0) pg MCHC 35.8 (32-36) g/dL RDW 12.9 (11.6-14.4) % Plt Count 110 L (150-420) K/mm3 MPV 12.2 H (8.7-11.0) fl Immature Gran % (Auto) 0.4 H (0.0-0.0) % Neut % (Auto) 85.1 H (50.0-70.0) % Lymph % (Auto) 4.4 L (18.0-42.0) % [place] % (Auto) 9.8 (2.0-11.0) % Eos % (Auto) 0.0 L (1.0-6.0) % Baso % (Auto) 0.3 (0.0-1.0) % Lymph # (Auto) 0.33 L (1.10-4.50) K/mm3 [place] # (Auto) 0.73 (0.10-0.90) K/mm3 Eos # (Auto) 0.00 L (0.02-0.50) K/mm3 Baso # (Auto) 0.02 (0.00-0.10) K/mm3 Abs Immat Gran (auto) 0.03 H (0.00-0.00) K/mm3 Absolute Neuts (auto) 6.37 (1.70-7.20) K/mm3 Absolute Nucleated RBC 0.00 (0.00-0.00) K/mm3 Nucleated RBC % 0.0 (0-0.0) % Sodium 141 (136-145) mmol/L Potassium 4.0 (3.5-5.1) mmol/L Chloride 104 (98-108) mmol/L Carbon Dioxide 26 (21-32) mmol/L Anion Gap 11 (4-12) mmol/L BUN 26 H (7-18) mg/dL Creatinine 1.82 H (0.70-1.30) mg/dL Estim Creat Clear Calc 31 ml/min Estimated GFR 36 L (59 - ) Glucose 187 H (70-99) mg/dL Calculated Osmolality 301 H (285-295) mOsm/kg Lactic Acid 2.3 H 1.8 (0.4-2.0) mmol/L Calcium 9.4 (8.5-10.1) mg/dL Magnesium 1.4 L (1.8-2.4) mg/dL Total Bilirubin 1.0 (0.00-1.00) mg/dL AST 17 (15-37) U/L ALT 22 (16-63) U/L Alkaline Phosphatase 51 (46-116) U/L Troponin I 81.4 H* 215.6 H* (0.00-60.4) ng/L NT-Pro-B Natriuret Pep 696 H (0-450) pg/mL Total Protein 6.9 (6.4-8.2) g/dL Albumin 3.6 (3.4-5.0) g/dL Discharge Plan Discharge Clinical Impression: Acute non-ST elevation myocardial infarction (NSTEMI), Acute dehydration, Thrombocytopenia, Hypomagnesemia, HENRRY (acute kidney injury), Seizure disorder, Anticoagulant long-term use Pneumonia Qualifiers: Pneumonia type: due to unspecified organism Laterality: left Lung location: lower lobe of lung Qualified Code(s): J18.9 - Pneumonia, unspecified organism Sepsis Qualifiers: Sepsis type: sepsis due to unspecified organism Sepsis acute organ dysfunction status: unspecified Qualified Code(s): A41.9 - Sepsis, unspecified organism Head injury Qualifiers: Encounter type: initial encounter Qualified Code(s): S09.90XA - Unspecified injury of head, initial encounter Patient Disposition: Acute Care Hospital Condition: Serious Prescriptions: No Action fluticasone propionate 50 mcg/actuation [place],Suspension 1 spray INTRANASAL DAILY Rx Instructions: administer into each nostril at bedtime albuterol sulfate 90 mcg/actuation HFA aerosol inhaler 2 puff inhalation QID PRN (Reason: shortness of breath or wheezing) Qty: 8.5 0RF lisinopril 20 mg tablet 20 mg PO DAILY Rx Instructions: 20 mg; ezetimibe 10 mg tablet 10 mg PO DAILY amlodipine 10 mg tablet 10 mg PO DAILY cholecalciferol (vitamin D3) 25 mcg (1,000 unit) capsule 25 mcg PO DAILY loratadine 10 mg tablet 10 mg PO DAILY levetiracetam 750 mg tablet See Rx Instructions .ROUTE .COMPLEX Qty: 180 3RF Dose Instruction: TAKE 1 TABLET BY MOUTH EVERY 12 HOURS Rx Instructions: TAKE 1 TABLET BY MOUTH EVERY 12 HOURS metformin 500 mg tablet See Rx Instructions .ROUTE .COMPLEX Qty: 180 3RF Dose Instruction: TAKE 1 TABLET BY MOUTH TWO TIMES DAILY Rx Instructions: TAKE 1 TABLET BY MOUTH TWO TIMES DAILY Eliquis DVT-PE Treat 30D Start 5 mg (74 tabs) tablets,dose pack See Rx Instructions .ROUTE .COMPLEX Qty: 74 0RF Rx Instructions: orally per package directions Follow-up/Referrals: UNKNOWN,DOCTOR [Primary Care Provider] - Time of Disposition: 23:10
--- NOTE | 2024-02-05 02:22 | PC.NURSE ---
PATIENT REPOSITIONED FOR COMFORT. CALL LIGHT IN REACH. WAITING ON BED ASSIGNMENT FROM [facility]
--- NOTE | 2024-02-05 02:43 | PC.NURSE ---
OFFERED PATIENT HOSPITAL BED WHILE WAITING FOR ROOM ASSIGNMENT. PATIENT DOES NOT WANT A HOSPITAL BED AT THIS TIME
--- NOTE | 2024-02-05 03:08 | PC.NURSE ---
PATIENT IS RESTING ON STRETCHER. CALL LIGHT IN REACH. URINAL AT HIS SIDE. DENIES ANY NEEDS AT THIS TIME. VITAL SIGNS CHANGED TO Q 1 HOUR.
--- NOTE | 2024-02-05 03:34 | PC.NURSE ---
ATTEMPTED TO NOTIFY , [facility]. NO ANSWER AT THIS TIME
--- NOTE | 2024-02-06 12:13 | PC.NURSE ---
preliminary blood culture report reviewed. no growth to date
--- NOTE | 2024-02-11 12:43 | PC.NURSE ---
no growth noted blood culture final report
== END 2024-02-05 04:46 | disposition short-term general hospital (02) ==
PROVIDERS: Emergency Provider Emergency Medicine
DX: I21.4 Non-ST elevation (NSTEMI) myocardial infarction (principal); A41.9 Sepsis, unspecified organism; S09.90XA Unspecified injury of head, initial encounter; E86.0 Dehydration; D69.6 Thrombocytopenia, unspecified; E83.42 Hypomagnesemia; N17.9 Acute kidney failure, unspecified; J18.9 Pneumonia, unspecified organism; G40.909 Epilepsy, unspecified, not intractable, without status epilepticus; I10 Essential (primary) hypertension; E11.9 Type 2 diabetes mellitus without complications; Z79.01 Long term (current) use of anticoagulants; W18.30XA Fall on same level, unspecified, initial encounter; Y92.002 Bathroom of unspecified non-institutional (private) residence as the place of occurrence of the external cause
CPT/HCPCS: 36415; 70450; 71045; 72125; 80053; 83605; 83735; 83880; 84484; 85025; 87040; 93005; 96361; 96365; 96367; 99291; A9270; J2543; J3475; J7030; L0150

== ENCOUNTER 2024-05-02 11:10 | Emergency (ER) | payer OTHER, SELFPAY ==
--- NOTE | ~2024-05-02 | XR_ITS ---
Left foot Technique: AP, oblique, and lateral views were obtained. Clinical History: Pain Findings: No acute fracture or dislocation is seen. Prior ORIF of the medial and lateral malleoli not ed. Osseous alignment is anatomic. Joint spaces are preserved without erosive or degenerative change. Soft tissues are unremarkable. Impression: No acute abnormality. Reviewed, dictated and finalized at location . S EXPEDITER Impression: No acute abnormality.
[2024-05-02 11:14] VITALS: BP 137/85; PULSE 65; RESP 16; TEMP 36.7; O2SAT 96
--- NOTE | 2024-05-02 11:14 | ED_ITS ---
HPI - Extremity Injury (Lower) General Chief Complaint: Extremity Injury, Lower Stated Complaint: left foot pain Time Seen by Provider: 05/02/24 11:14 Source: patient and family Mode of arrival: ambulatory Limitations: no limitations History of Present Illness HPI Narrative: patient is an 78-year-old male with a left foot slight injury putting a sink together under the counter 2 days ago. He was leaning on this left foot for some time and noted the pain and redness thereafter. He also has hardware in the left foot. MD complaint: foot injury ( Left dorsum) Onset (ago): day(s) (2) Injury: Left: foot Type of Injury: blunt Place: home Severity: moderate Severity scale (1-10): 4 Relieving factors: nothing Exacerbating factors: nothing Context: direct blow Associated symptoms: swelling and able to partially bear weight Other symptoms: none Treatments prior to arrival: cold therapy Related Data Home Medications ?Medication ?Instructions ?Recorded ?Confirmed ?Last Taken ?Type amlodipine 10 mg tablet 10 mg PO DAILY 10/22/22 02/05/24 Unknown History cholecalciferol (vitamin D3) 25 25 mcg PO DAILY 10/22/22 02/05/24 Unknown History mcg (1,000 unit) capsule ezetimibe 10 mg tablet 10 mg PO DAILY 10/22/22 02/05/24 Unknown History fluticasone propionate 50 1 spray intranasal DAILY 10/22/22 02/05/24 Unknown History mcg/actuation nasal spray,suspension lisinopril 20 mg tablet 20 mg PO DAILY 10/22/22 02/05/24 Unknown History loratadine 10 mg tablet 10 mg PO DAILY 10/22/22 02/05/24 Unknown History Allergies Allergy/AdvReac Type Severity Reaction Status Date / Time cyclobenzaprine (From Allergy Unknown Verified 05/02/24 11:15 Flexeril) diclofenac (From Cataflam) Allergy Rash Verified 05/02/24 11:15 tramadol Allergy Rash Verified 05/02/24 11:15 atorvastatin AdvReac Cough Verified 05/02/24 11:15 erythromycin base AdvReac Rash Verified 05/02/24 11:15 Review of Systems Review of Systems: All systems reviewed & are unremarkable except as noted in HPI and below Constitutional: Constitutional: Reports no additional constitutional complaints Eyes: Eyes: Reports no additional eye complaints ENT: Reports system reviewed and no additional complaints, except as documented Cardiovascular: Cardiovascular: Reports no additional cardiovascular complaints Respiratory: Respiratory: Reports no additional respiratory complaints Gastrointestinal: Gastrointestinal: Reports no additional gastrointestinal complaints Genitourinary: Genitourinary: Reports no additional male genitourinary complaints Musculoskeletal: Musculoskeletal: Reports no additional musculoskeletal complaints Integumentary/Breasts: Skin/Breast: Reports system reviewed and no additional complaints, except as docu Neurologic: Reports system reviewed and no additional complaints, except as documented Psychiatric: Psychiatric: Reports no additional psychiatric complaints Endocrine: Endocrine: Reports no additional endocrine complaints Hematologic/Lymphatic: Hematologic/Lymphatic: Reports no additional hematologic/lymphatic complaints Allergic/Immunologic: Allergic/Immunologic: Reports no additional allergic/immunologic complaints PMFSH Past Medical History Medical History Pulmonary edema Seizure disorder (07/20/14) Type 2 diabetes mellitus without complication, without long-term current use of insulin Family History Family History Sibling Family history of malignant neoplasm of breast Other Diabetes mellitus Social History Social History Smoking status: Never smoker Second hand tobacco smoke exposure: No Alcohol intake: never Substance use: never Substance use type: does not use Lack of Transportation: No Lack of Food: Never True Current Housing: I Have Housing Concerned About Future Housing: No Difficulty Paying Gas/Electric Bills: No Difficulty Paying for Meds: No Currently Unemployed: No Education: High School Diploma/GED Difficulty w/ Childcare or Family Care: No Spiritual care concerns: No Exam Const: General: healthy appearing Nutritional Appearance: well nourished Orientation/consciousness: patient oriented x3 HENMT: Head: normal to inspection Ears: external ears normal Face/Nose/Sinus: Normal external nose present Eyes: Conjunctivae: conjunctivae normal Pupils: Equal, round and reactive pupils present EOM: EOMs intact bilaterally Neck: Neck: normal visual inspection Chest: Chest palpation & inspection: normal inspection of the chest Resp: Effort & Inspection: normal respiratory effort and not labored Auscultation: clear to auscultation bilaterally and no crackles Cardio: Rate: regular rate Rhythm: regular rhythm Heart sounds: no murmu rs GI: Inspection: non-distended GI Palp: Yes Soft to palpation and No Tenderness to palpation present (GI) Auscultation: normal bowel sounds : General: Yes bladder normal to palpation Back/Spine/Pelvis: Back: no CVA tenderness Skin: General skin exam: No normal color, jaundice and pallor Rashes: no rashes Wounds: no wounds Other: dorsum of left foot midfoot great toe aspect but not at the great toe has erythema Neuro: General: patient oriented x3 Cranial nerves: Yes Nystagmus not present Speech: normal speech Gait exam (Neuro): Normal gait present Extrem: General: abnormal to inspection Other: see skin exam; tender left dorsal foot midfoot region Psych: Mental Status: mental status grossly normal Affect: normal affect Attitude: cooperative Course Vital Signs Vital signs: Vital Signs Temperature 36.7 C 05/02/24 11:14 Pulse Rate 65 05/02/24 11:14 Respiratory Rate 16 05/02/24 11:14 Blood Pressure 137/85 05/02/24 11:14 Pulse Oximetry 96 05/02/24 11:14 Oxygen Delivery Room Air 05/02/24 11:14 Temperature 36.7 C 05/02/24 11:14 Pulse Rate 65 05/02/24 11:14 Respiratory Rate 16 05/02/24 11:14 Blood Pressure 137/85 05/02/24 11:14 Pulse Oximetry 96 05/02/24 11:14 Oxygen Delivery Room Air 05/02/24 11:14 MDM - Extremity Injury (Lower) MDM Narrative Medical decision making narrative: patient is an 78-year-old male with a left foot injury/ pain for 2 days. We will start with an x-ray. 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, left ankle and foot Patient Disposition: Home, Self-Care Condition: Stable Instructions: Low Purine Diet (ED), Gout (ED) Patient Language: [place] Prescriptions: New colchicine 0.6 mg capsule 0.6 mg PO DAILY 5 Days Qty: 7 0RF Rx Instructions: take 2 now, then one in 2 hours, then one daily indomethacin 25 mg capsule 25 mg PO TID PRN (Reason: pain) Qty: 20 0RF Rx Instructions: administer with food or milk prednisone 20 mg tablet 40 mg PO DAILY 3 Days Qty: 6 0RF No Action fluticasone propionate 50 mcg/actuation [place],Suspension 1 spray INTRANASAL DAILY Rx Instructions: administer into each nostril at bedtime albuterol sulfate 90 mcg/actuation HFA aerosol inhaler 2 puff inhalation QID PRN (Reason: shortness of breath or wheezing) Qty: 8.5 0RF lisinopril 20 mg tablet 20 mg PO DAILY Rx Instructions: 20 mg; ezetimibe 10 mg tablet 10 mg PO DAILY amlodipine 10 mg tablet 10 mg PO DAILY cholecalciferol (vitamin D3) 25 mcg (1,000 unit) capsule 25 mcg PO DAILY loratadine 10 mg tablet 10 mg PO DAILY levetiracetam 750 mg tablet See Rx Instructions .ROUTE .COMPLEX Qty: 180 3RF Dose Instruction: TAKE 1 TABLET BY MOUTH EVERY 12 HOURS Rx Instructions: TAKE 1 TABLET BY MOUTH EVERY 12 HOURS metformin 500 mg tablet See Rx Instructions .ROUTE .COMPLEX Qty: 180 3RF Dose Instruction: TAKE 1 TABLET BY MOUTH TWO TIMES DAILY Rx Instructions: TAKE 1 TABLET BY MOUTH TWO TIMES DAILY Eliquis DVT-PE Treat 30D Start 5 mg (74 tabs) tablets,dose pack See Rx Instructions .ROUTE .COMPLEX Qty: 74 0RF Rx Instructions: orally per package directions Follow-up/Referrals: [facility] [Primary Care Provider] - Time of Disposition: 11:48
[2024-05-02 11:54] VITALS: BP 130/75; PULSE 65; RESP 17; TEMP 36.7; O2SAT 94
--- OUTSIDE RECORDS SUMMARY | 2024-05-02 13:16 | XMS_ITS | Data Portability ---
Author Organization [facility], [address] [facility] ([place]) Address [address] 4th [place] [address] Care Team Providers Care Doughnut Glazier Name Role Phone NIURKA BOYD Primary Care Provider NIURKA BOYD Referring Provider Assessment Encounter Date Assessment Date Assessment LastModified by Organization Details LastModified Time 10/12/2023 10/12/2023 Follow up with urologist. Has a history of prostate cancer plus a stone that they are following and may need to be surgically removed, but so far just observing. He is on new medicine, the Eliquis. [facility] and we will try and make referrals to get pelvic floor training, hematology, and neurology. Follow up here in six months for a med check, sooner for problems. elham chester Not available 10/12/2023 15:58:10 11/16/2023 11/16/2023 IMPRESSION: 1. 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 2. He has done well for over a decade, but then had a brief spell that I think was probably a seizure. He had speech arrest and confusion that only lasted a few minutes. Workup was unremarkable. 3. It is possible #2 above was a TIA, but I think that is unlikely. He is already on Eliquis. 4. 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 PLAN: 1. Continue Keppra at 750 mg twice a day. 2. I am going to order a CT angiogram of his head and neck at [facility]. I think we need some baseline imaging and then we will decide whether this needs to be followed, etc. 3. He is on Eliquis, which certainly is a worry with #2 above. We will have to make sure that he is safe for this. 4. I will see him back after his scan and go from there. 5. If he has another seizure, I will probably simply increase his Keppra. He seems to tolerate it okay. I will see how he is doing when he returns and discuss his angio at that time. eli parr Not available 11/17/2023 06:41:06 Plan of Treatment Reminders Order Date Submit Date Provider Last Modified By Organization Details Last Modified Time Details Appointments None recorded. Lab None recorded. Referral pelvic floor therapy referral - Patient with incontine nce after prostate cancer surgery they would like to try physical therapy to improve his continenc e. Thank you [id number] [place] [address] Ericka Weaverdith, [address] [facility], [place], [address], 4 09:21:52 hematolog ist referral - Patient with history of pulmonary embolism. Admitted to [facility]. His pulmonolo gist is Kit Alcantar with [facility] healthcar e and [facility] y physician s. I saw him for the first time today and he is using me as a primary care doctor because he has to come up here to [facility] to get [place] [facility]. Need to know if he needs lifelong anticoagu lation or if 6-month treatment is adequate. Thank you 2023 024 jarod Dennison MD, [address], [place], [address], 4 14:55:[address] referral - Patient with a history of seizure disorder for many years and needs follow-up for his seizures. Had an evaluatio n in May at [facility]. I am his new primary care doctor in this spring feel little annoyed because he had [facility]. He wants 1 primary care doctor and gets his blood work done through [facility] but all of his specialis ts are in the [place] region. He has been maintaine d on [facility] 2023 024 MICHELE Not available 15:30:46 Procedures None recorded. Surgeries None recorded. Imaging None recorded. Medication Orders None recorded. Patient TargetsNo targets recorded. Patient InstructionsNo instructions recorded. Reason for Referral Pelvic Floor Therapy Referra l for Male urinary stress incontinence Urine leakage and incontinence after prostate cancer surgery Patient with incontinence after prostate cancer surgery they would like to try physical therapy to improve his continence. Thank you Referring Physician: Niurka Boyd [facility], Encounter Date: 10/12/2023 Patient with history of pulm onary embolism. Admitted to [facility]. 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 I saw him for the first time today and he is using me as a primary care doctor because he has to come up here to [place] to get [place] [facility]. Need to know if he needs lifelong anticoagulation or if 6-month treatment is adequate. Thank you Referring Physician: [facility], Encounter Date: 10/12/2023 Neurologist Referral for Sei zure disorder Patient with a history of seizure disorder for many years and needs follow-up for his seizures. Had an evaluation in May at [facility]. I am his new primary care doctor in this spring feel little annoyed because he had [facility]. He wants 1 primary care doctor and gets his blood work done through [place] but all of his specialists are in the [place] region. He has been maintained on [facility] Referring Physician: Niurka Boyd Family [facility], Encounter Date: 10/12/2023 Problems Name Problem SNOMED Code Status Onset Date Resolution Date Notes Provider Name and Address Organization Details Recorded Time Urinary incontinence 420028874 Active 2023 Niurka Boyd MD [address] [place] [address], [phone] [place] [address] 4 14:32:26 Seizure disorder 510595139 Active 2023 Niurka Boyd MD [address] [place], [address], [facility] 4 14:32:39 Pulmonary embolism 07251477 Active 2023 Niurka Boyd MD [address] [place] [address], [phone], [facility] 4 14:32:49 Male urinary stress incontinence 529023256 Active 2023 Niurka Boyd MD [address] [place], [address], [facility] 4 14:35:53 Allergic rhinitis 98389466 Active 2023 [facility] 4 12:48:24 Transient ischemia 99453215 Active 2023 Yelena Duffy [facility] 4 09:40:39 Seizure 67864259 Active 2023 Anushka Arreola [facility] 4 06:59:46 Hypertensive disorder 15432620 Active 2023 Anushka Arreola [facility] 4 07:01:23 Hyperlipidemia 16911507 Active 2023 Anushka Arreola [facility] 4 07:01:33 Type 2 diabetes mellitus 08434881 Active 2023 Anushka Arreola 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 Procedures Surgical History Date Name Laterality Status Provider Name and Address Organization Details Recorded Time Removal of gallbladder completed Not Available Health Note 11/10/2023 14:47:03 Imaging Results None recorded. Procedure Notes None recorded. Medical Equipment None Reported. Allergies Allergen ID Allergen Name Allergen Category Reaction Reaction Severity Criticality Documentation Date Start Date Code Code System Note Provider Name and Address Organization Details Recorded Time 0299941 tramadol Not available Not available Not available Not available 04/07/20232020 46495 RxNorm Not Available Not Available Not Available Medications Name Sig Start Date Stop Date Status Note LastModified by Organization Details LastModified Time metformin 500 mg tablet twice per day [facility] Not Available Not Available Not Available atorvasta tin 20 mg tablet TAKE 1 TABLET BY MOUTH NIGHTLY 10/11 completed Not Available Not Available Not Available pravastat in 40 mg tablet Take 1 tablet every day by oral route for 30 days. 2023 active Not Available Not Available Not Avai lable lisinopri l 20 mg tablet active [facility] Not Available Not Available Not Available potassium chloride ER 10 mEq tablet,ex tended release TAKE 1 TABLET BY MOUTH EVERY DAY 10/11 completed Not Available Not Available Not Available erythromy conner 5 mg/gram (0.5 %) eye ointment APPLY 0.5 INCH INTO EACH EYE THREE TIMES A DAY 10/03 completed Not Available Not Available Not Available levetirac etam 750 mg tablet Take 1 tablet twice a day by oral route. 2023 active Not Available Not Available Not Avai lable furosemid e 20 mg tablet TAKE 1 TABLET BY MOUTH EVERY DAY 10/11 completed Not Available Not Available Not Available albuterol sulfate HFA 90 mcg/actua tion aerosol inhaler INHALE 2 PUFFS 4 TIMES A DAY NEEDED FOR SHORTNES S OF BREATH OR FOR WHEEZE 10/11 completed Not Available Not Available Not Available fluticaso ne propionat e 50 mcg/actua tion nasal spray,oscar pension [place] 2 sprays every day by intranas al route as needed. 2023 active Not Available Not Available Not Avai lable azithromy conner 500 mg tablet TAKE 1 TABLET BY MOUTH FOR 3 DAYS 10/03 completed Not Available Not Available Not Available rosuvasta tin 10 mg tablet Take 1 tablet every day by oral route. active [facility] Not Available Not Available Not Available Vitamin C active Not Available Not Joana ilable Not Available Co Q-10 active Not Available Not Avail able Not Available Eliquis 2.5 mg tablet Take 1 tablet twice a day by oral route. 2023 active Not Available Not Available Not Avai lable cholecalc iferol (vit D3) 1,000 unit-archana min K2 (MK4) 100 mcg tablet Take by oral route. active Not Available Not Available No t Available Eliquis DVT-PE Treatment 30-Day Starter 5 mg (74 tablets) in dose pack ORALLY PER PACKAGE DIRECTIO NS 02/11 completed * dosing changed to 2.5mg bid Not Available Not Available Not Available bitter melon extract active Not Available Not Available Not Available Vitals Date Recorded Body height Body mass index (BMI) Body weight Heart rate Oxygen saturation Oxygen saturation in Arterial blood by Pulse oximetry Systolic blood pressure Diastolic blood pressure Provider Name and Address Organization Details Last Updated DateTime 4 172.72 cm 26.1 kg/m2 29021.1 g 67 /min 94 % 94 % 110 mm[Hg] 72 mm[Hg] Anushka Arreola [facility] 4 12:21:30 Date Recorded Body height Body mass index (BMI) Body weight Heart rate Oxygen saturation Oxygen saturation in Arterial blood by Pulse oximetry Systolic blood pressure Diastolic blood pressure Provider Name and Address Organization Details Last Updated DateTime 4 172.72 cm 25.7 kg/m2 02729.3 9 g 67 /min 90 % 90 % 116 mm[Hg] 82 mm[Hg] Liz Newell [facility] 4 16:00:08 Social History Question Answer Notes LastModified by Organizat ion Details LastModified Time Tobacco Smoking Status Never Smoker Not Available Health Note 11/10/2023 14:47:03 Do You Have An Advance Directive? No [email or web address] Information not available 11/10/2023 What Is Your Level Of Alcohol Consumption? None [email or web address] Information not available 11/10/2023 What Is Your Level Of Caffeine Consumption? None [email or web address] Information not available 11/10/2023 Are You Currently Employed? No [email or web address] Information not available 11/10/2023 What Is Your Occupation? Retired [email or web address] Information not available 11/10/2023 How Many Times Per Week Do You Exercise? 3-4 Times Per Week [email or web address] Information not available 11/10/2023 Do You Have A Medical Power Of Medical Instrument Technician? Yes [email or web address] Information not available 11/10/2023 What Was The Date Of Your Most Recent Tobacco Screening? 11/16/2023 [email or web address] Information not available 11/10/2023 What Is Your Relationship Status? [email or web address] Information not available 11/10/2023 Do You Use Any Illicit Or Recreational Drugs? No [email or web address] Information not available 11/10/2023 Sex: Unknown Functional Status Question Answer Note LastModified by Organizat ion Details LastModified Time What is your exercise level? Occasional [email or web address] Information not available 11/10/2023 Mental Status None recorded. Family History Relationship Description Onset Age of this Age Resolved Age Notes LastModified by Organization Details LastModified Time Mother Alzheimer's disease [email or web address] Not available 2023 14:47:01 Mother Arthritis [email or web address] Not available 11/10/2023 14:47:01 Mother Heart disease [email or web address] Not available 2023 14:47:01 Mother Hypertensive disorder [email or web address] Not available 2023 14:47:01 Father Arthritis [email or web address] Not available 11/10/2023 14:47:01 Father Family history of malignant neoplasm [email or web address] Not available 2023 14:47:01 Father Diabetes mellitus [email or web address] Not available 2023 14:47:01 Father Heart disease [email or web address] Not available 2023 14:47:01 Father Hypertensive disorder [email or web address] Not available 2023 14:47:01 Father Hypercholest erolemia [email or web address] Not available 2023 14:47:01 Daughter Arthritis [email or web address] Not availab le 11/10/2023 14:47:01 Daughter Diabetes mellitus [email or web address] Not available 2023 14:47:01 Daughter Hypertensive disorder [email or web address] Not available 2023 14:47:01 Daughter Hypercholest erolemia [email or web address] Not available 2023 14:47:01 Sister Family history of malignant neoplasm [email or web address] Not available 2023 14:47:01 Brother Diabetes mellitus [email or web address] Not available 2023 14:47:01 Brother Heart disease [email or web address] Not available 2023 14:47:01 Brother Hypertensive disorder [email or web address] Not available 2023 14:47:01 Son Hyperchliu ramos [email or web address] Not available 2023 14:47:01 Medical History Condition Response Diabetes Y Anxiety Disorder N Bleeding Disorder N Attention-deficit Hyperactivity Disorder N High Blood Pressure Y Arthritis N Hyperlipidemia N Cancer Y Stroke N Thyroid Problems N Asthma N Depression N COPD N Anemia N Seizures Y Heart Disease N Fibromyalgia N Osteoporosis N Kidney Disease Y Past Encounters Encounter ID Performer Location Encounter Start Date Encounter Closed Date Diagnosis/Indication Diagnosis SNOMED-CT Code Diagnosis ICD10 Code Diagnosis Note [id number] [address] [facility]) [address] [place] [address] 10/12/2023 11:56:02 10/12/2023 13:42:10 Seizure disorder 526520627 G40.909 Pulmonary embolism 25365 003 I26.99 Male urina ry stress incontinence 975057968 N39.3 Adult [facility] th examination 058738995 Z00.00 Hypertensive disorder 38 784615 I10 History of malignant neoplasm of prostate 071360542 Z85.46 Type 2 christiano betes mellitus 03939015 E11.9 [id number] MD Norma Ascencio [facility] ([place]) [address] [facility] [place] [address] 11/16/2023 15:46:26 11/16/2023 16:43:44 Seizure disorder 418247084 G40.909 Long-term current use of anticoagulant 257865004 Z79.01 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 Health Concerns Section Related Observation LastModified by Organization Detai ls LastModified Time None Recorded Concern Status LastModified by Organization Details LastModified Time None Recorded Advance Directives Directive N: Payers Encounter Date Sequence Insurance Name Policy Number Policy Doe Covered Member ID Doe Member ID Guarantor Name 10/12/2023 [employer] [facility] ([facility]) Cecilio Amanda [id number] Cecilio Amanda 11/16/2023 [facility] ([facility]) Cecilio Amanda [id number] Cecilio Amanda Notes Date Note Type Note Provider Name and Address Organization Details Recorded Time 10/12/2023 text/html Seizure disorder , pulmonary embolism, male urinary stress incontinence, hypertension, history of prostate cancer, type 2 diabetes. The patient is here to establish me as PCP. He had been getting his primary [facility] the [facility] [place]. He had been in the [place] for four years. He lives in [place], [place] and gets most all of his healthcare in that region. It is usually the [facility] system associated with [facility]. At the [facility], he would get a new nurse practitioner every time he came, and so there was no continuity. This past May, there was a question of TIA versus a seizure disorder. He had evaluation at [facility], which no one has been able to get records from. The thought was that it was more of a seizure than a TIA. The patient has a longstanding history of seizures and has had recurrences when he got off of his medications. The patient has had prostate cancer. Now he has some urinary incontinence and leakage, and wondering what he can do about that. The patient recently had a pulmonary embolism approximately sometime in June and was in [facility] for that. 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 HISTORY OF PRESENT ILLNESS:Mr. Amanda is a middle-aged male we were asked to see today for seizure disorder and an incidental aneurysm. He has a history of seizures for about the last 15 years. He would initially have generalized seizures and shake, etc. Workup has been unremarkable and he has had MRIs, etc. and these were unremarkable. He got put on Keppra and he has been doing well ever since. He had a brief spell that only lasted a few minutes of speech arrest and being very confused. He ended up in a hospital in [place]. Workup there was unremarkable other than a possible incidental aneurysm. He has continued to take his Keppra. He feels good. They are not sure what to make out of this aneurysm story. They saw a doctor, but they did not really tell him much. I am not sure if they had any sort of imaging done and they are not sure where it was done at.kmb Yovanny Ball MD [address] [place] [address], [phone], [facility] 11/17/2023 15:29:54
--- OUTSIDE RECORDS SUMMARY | 2024-05-02 13:16 | XMS_ITS | Patient Health Record ---
Author Organization [facility] Address [address] [place], [place] [phone] Care Team Providers Care Methods Specialist Engineer Name Role Phone LUCIA CALDERON Unavailable Unavailable Allergies Allergen (clinical drug ingredient) Drug/Non Drug Allergy documented on EMR Reaction Allergy Type Onset Date Status diclofenac Cataflam Unknown Drug Allergy Active Flexeril Unknown Drug Allergy Active tramadol Tramadol Unknown Drug Allergy Active Reason For Referral No Information Plan Of Treatment No Information Insurance Providers Payer Name Payer Address Payer Phone Subscriber Number Group Number Insured Name Patient Relationship to Insured Coverage Start Date Coverage End Date [facility] [address] [address] [place] [id number] Cecilio Amanda Self - patient is the insured Medical (General) History Medical History History ICD Code kidney stones Diabetic hypertension varicose veins Leg/Feet cramps
--- OUTSIDE RECORDS SUMMARY | 2024-05-02 13:17 | XMS_ITS | Clinical Summary ---
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 Name Role Phone Kit Alcantar MD Unavailable Ministerio Harrison MD Primary Care Provider [phone] Allergies Active Allergy Reactions Criticality Noted Date Comments Atorvastatin Muscle pain Medium 10/07/2021 Cyclobenzaprine Other (See comments) Low 09/22/2022 Diclofenac Unknown 09/22/2022 Erythromycin Hives,Eye irritation Medium 03/12/2023 Tramadol Other (See comments) Low 09/22/2022 Medications amLODIPine (NORVASC) 10 mg tablet Take 1 tablet (10 mg total) by mouth daily Active levETIRAcetam (KEPPRA) 750 mg tablet Take 1 tablet (750 mg total) by mouth 2 (two) times a day Active cholecalciferol 25 mcg (1,000 unit) tablet Take 1 tablet (1,000 Units total) by mouth daily Active lutein 6 mg tablet Take 6 mg by mouth daily Active apixaban (ELIQUIS) 2.5 mg tablet Take 1 tablet (2.5 mg total) by mouth 2 (two) times a day Active fluticasone propionate (FLONASE) 50 mcg/actuation nasal spray Administer 1 spray into each nostril daily as needed for rhinitis Active loratadine (CLARITIN) 10 mg tablet Take 1 tablet (10 mg total) by mouth daily Active metFORMIN (GLUCOPHAGE) 500 mg tablet Take 1 tablet (500 mg total) by mouth 2 (two) times a day with meals Active ascorbic acid (VITAMIN C) 100 mg tablet Take 2 tablets (200 mg total) by mouth daily Active quercetin 500 mg capsule Take 1,000 mg by mouth daily Active lisinopriL (PRINIVIL,ZESTR IL) 20 mg tablet Take 1 tablet (20 mg total) by mouth daily Active Active Problems Problem Noted Date Diagnosed Date Pneumonia due to COVID-19 virus 02/08/2024 Age-related physical debility 02/08/2024 [place], acute, non ST segment elevation (CMS/HCC) Pneumonia of left lower lobe due to infectious o rganism 02/05/2024 History of pulmonary embolism 05/16/2023 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/16/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, right 05/16/2023 Diabetes mellitus type II, non insulin dependent (CMS/HCC) 05/16/2023 Transient ischemic attack (TIA) 05/15/2023 Elevated prostate specific antigen (PSA) 014 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 Encounters Date Type Department Care Team Description 02/05/2024 6:06 AM BUSINESS PROGRAMMER - 02/09/2024 11:40 AM BUSINESS PROGRAMMER Hospital Encounter [address] [address] Samir Salazar DO Khan, Fatima A., MD Reuter, Johnnie Harrell MD [place], acute, non ST segment elevation (CMS/HCC) (HCC) (Primary Dx); Pneumonia of left lower lobe due to infectious organism; Diabetes mellitus type II, non insulin dependent (CMS/HCC) (HCC); Age-related physical debility; Pneumonia due to COVID-19 virus [U07.1, J12.82] Discharge Disposition: Discharge to home or self care 02/05/2024 Orders Only [facility] Hospitalists [facility] [place] [address] Samir Salazar DO from Last 3 Months Immunizations Immunization Administration Dates Next Due Moderna SARS-CoV-2 Monovalen t Vaccination (12+ YRS) 07/16/2021,01/29/2021,05/16/2020,04/18 Pneumococcal Polysaccharide PPV23 03/08/1949 Td, adsorbed 03/08/2001 Surgical History Surgery Date Site/Laterality Comments ID CHOLECYSTECTOMY Cholecystectomy - (Added by TW Conv) INGUINAL HERNIA REPAIR Bilateral FOOT SURGERY PROSTATECTOMY 03/08/2009 - 03/07/2010 For prostate cancer Medical History Medical History Date Comments Diabetes mellitus (HCC) Hypertension Seizures (HCC) Prostate cancer (HCC) 2009 Nephrolithiasis 2010 Gout Pulmonary embolism (HCC) 10/2022 probabl e pulmonary infarct, and PE, discharged on eliquis and did require 2L oxygen at discharge. First episode of VTE. Did injure his hip few weeks before admission and was not as mobile but no other obvious risk factors. Grade I diastolic dysfunction Pe r echocardiogram of 02/2023 which showed preserved LVEF of 60-65%. Chronic kidney disease, stage 3 (HCC) Baseline creatinine is about 1.3, as of January,. Family History Medical History Relation Name Comments Diabetes type II Father = Heart disease Father Diabetes type II Mother Prostate cancer Other 4 Family histo ry of malignant neoplasm of prostate - Relation: Uncle (Added by TW Conv) Relation Name Status Comments Father Mother Other 1 Alive Other 2 Alive Other 3 Alive Other 4 Social History Tobacco Use Types Packs/Day Years Used Date Smoking Tobacco: Never Tobacco Cessation:Counseling Given: Not Answered Alcohol Use Standard Drinks/Week Comments Yes 0 (1 standard drink = 0.6 oz pur e alcohol) [facility] Utilities Answer Date Recorded In the past 12 months has [facility]JENT, gas, oil, or water Istpika threatened to shut off services in your home? No 02/08/2024 Social Connection and Isolat ion Panel [NHANES] Answer Date Recorded In a typical week, how many times do you talk on the phone with family, friends, or neighbors? More than three times a week 02/08/2024 How often do you get togethe r with friends or relatives? Once a week 02/08/2024 How often do you attend chur ch or restoration services? Never 02/08/2024 Do you belong to any clubs o r organizations such as judaism groups, unions, fraternal or athletic groups, or school groups? Yes 02/08/2024 How often do you attend meet ings of the clubs or organizations you belong to? More than 4 times per year 02/08/2024 Are you , , di vorced, , never , or living with a partner? 02/08/2024 Overall Financial Resource Strain (CARDIA) Answe r Date Recorded How hard is it for you to pa y for the very basics like food, housing, medical care, and heating? Not very hard 02/08/2024 Hunger Vital Sign Answer Date Recorded Within the past 12 months, y ou worried that your food would run out before you got the money to buy more. Never true 02/08/20 24 Within the past 12 months, t he food you bought just didn't last and you didn't have money to get more. Never true 02/08/2024 PRAPARE - Transportation Answer Date Re corded In the past 12 months, has l ack of transportation kept you from medical appointments or from getting medications? No 05/2023 In the past 12 months, has l ack of transportation kept you from meetings, work, or from getting things needed for daily living? No 02/08/2024 Housing Stability Vital Sign Answer Baudilio e Recorded In the last 12 months, was t here a time when you were not able to pay the mortgage or rent on time? No 02/08/2024 In the past 12 months, how m any times have you moved where you were living? 0 02/08/2024 At any time in the past 12 m [facility], were you homeless or living in a chcf (including now)? No 02/08/2024 Personal Safety Answer Date Recorded Have you ever been in or are you currently in a harmful physical or emotional relationship or is someone making you feel afraid or unsafe? Denies 02/05/2024 Sex and Gender Information Value Date Recorded Sex Assigned at Not on file Legal Sex Male 1:21 AM BUSINESS PROGRAMMER Gender Identity Not on file Sexual Orientation Not on file Obstetrics History Last Filed Vital Signs Vital Sign Reading Time Taken Comments Blood Pressure 154/62 02/09/2024 8:12 AM BUSINESS PROGRAMMER Pulse 50 02/09/2024 8:12 AM BUSINESS PROGRAMMER Temperature 36.6 C (97.9 F) 02/09/2024 8:12 AM BUSINESS PROGRAMMER Respiratory Rate 18 02/09/2024 8:12 AM BUSINESS PROGRAMMER Oxygen Saturation 92% 02/09/2024 8:12 AM BUSINESS PROGRAMMER Inhaled Oxygen Concentration - - Weight 79 kg (174 lb 2.6 oz) 02/08/2024 11:00 AM BUSINESS PROGRAMMER Height 180.3 cm (5' 11 ) 02/08/2024 11:00 AM BUSINESS PROGRAMMER Body Mass Index 24.29 02/08/2024 11:00 AM BUSINESS PROGRAMMER Plan of Treatment Health Maintenance Due Date Last Done Comments Albumin Creatinine Ratio, Urine 1943 Depression Screening 1945 Dilated Eye Exam 1943 Foot Exam 1943 Pneumococcal vaccine 65+ (2 of 2 - PCV) 03/08/1950 03/08/1949 Hepatitis B Screening 08/07/1961 Zoster Vaccine (1 of 2) 08/07/1993 DTaP/Tdap/Td Vaccine (1 - Tdap) 08/11/2003 4, 03/08/2001 Well Visit 65+ 08/07/2008 Covid-19 Vaccine (6 - 2023-2 5 season) 2023 01/19/2022, 07/16/2021, 01/29/2021, Additional history exists Influenza Vaccine (#1) 2023 02/01/2022, 2021 Hemoglobin A1C 11/16/2023 05/16/2023 Lipid Panel 02/04/2025 02/05/2024, 05/16/2023 eGFR 02/07/2025 02/08/2024, 1204/2023, 02/06/2024, Additional history exists Fall Risk Assessment 02/08/2025 02/09/2024 Procedures Procedure Name Priority Date/Time Associated Diagnosis Comments POCT GLUCOSE DEVICE Routine 02/09/2024 6 :40 AM BUSINESS PROGRAMMER POCT GLUCOSE DEVICE Routine 02/08/2024 8 :35 PM BUSINESS PROGRAMMER POCT GLUCOSE DEVICE Routine 02/08/2024 6 :01 PM BUSINESS PROGRAMMER POCT GLUCOSE DEVICE Routine 02/08/2024 1 2:17 PM BUSINESS PROGRAMMER POCT GLUCOSE DEVICE Routine 02/08/2024 6 :08 AM BUSINESS PROGRAMMER EGFR Routine 02/08/2024 4:35 AM BUSINESS PROGRAMMER DIFFERENTIAL AUTO STAT 02/08/2024 4:3 5 AM BUSINESS PROGRAMMER MAGNESIUM Routine 02/08/2024 4:35 AM BUSINESS PROGRAMMER BASIC METABOLIC PANEL Routine 02/08/2024 4:35 AM BUSINESS PROGRAMMER CBC WITH AUTO DIFFERENTIAL STAT 02/08/2024 4:35 AM BUSINESS PROGRAMMER MRI BRAIN MRA HEAD MRA NECK WO CONTRAST IP Routine 02/08/2024 1:18 AM BUSINESS PROGRAMMER POCT GLUCOSE DEVICE Routine 02/07/2024 9 :40 PM BUSINESS PROGRAMMER POCT GLUCOSE DEVICE Routine 02/07/2024 5 :52 PM BUSINESS PROGRAMMER POCT GLUCOSE DEVICE Routine 02/07/2024 1 2:19 PM BUSINESS PROGRAMMER EGFR Routine 02/07/2024 11:08 AM BUSINESS PROGRAMMER MAGNESIUM Routine 02/07/2024 11:08 AM BUSINESS PROGRAMMER BASIC METABOLIC PANEL Routine 02/07/2024 11:08 AM BUSINESS PROGRAMMER XR CHEST 1 VIEW IP Routine 02/07/2024 9:31 AM BUSINESS PROGRAMMER POCT GLUCOSE DEVICE Routine 02/07/2024 6 :17 AM BUSINESS PROGRAMMER URINALYSIS, MICROSCOPIC ONLY Routine 02/06/2024 11:26 PM BUSINESS PROGRAMMER URINALYSIS AND REFLEX TO MICROSCOPIC AND CULTURE Routine 02/06/2024 11:26 PM BUSINESS PROGRAMMER POCT GLUCOSE DEVICE Routine 02/06/2024 9 :04 PM BUSINESS PROGRAMMER POCT GLUCOSE DEVICE Routine 02/06/2024 5 :50 PM BUSINESS PROGRAMMER ADD ON LAB TEST Add-On 02/06/2024 1:06 PM BUSINESS PROGRAMMER POCT GLUCOSE DEVICE Routine 02/06/2024 1 2:41 PM BUSINESS PROGRAMMER POCT GLUCOSE DEVICE Routine 02/06/2024 6 :31 AM BUSINESS PROGRAMMER EGFR Routine 02/06/2024 5:26 AM BUSINESS PROGRAMMER DIFFERENTIAL AUTO Routine 02/06/2024 5:2 6 AM BUSINESS PROGRAMMER TROPONIN T HIGH-SENSITIVITY Routine 02/06/2024 5:26 AM BUSINESS PROGRAMMER MAGNESIUM Routine 02/06/2024 5:26 AM BUSINESS PROGRAMMER BASIC METABOLIC PANEL Routine 02/06/2024 5:26 AM BUSINESS PROGRAMMER CBC WITH AUTO DIFFERENTIAL Routine 02/06/2024 5:26 AM BUSINESS PROGRAMMER ECG 12-LEAD Routine 02/06/2024 3:29 AM BUSINESS PROGRAMMER POCT GLUCOSE DEVICE Routine 02/05/2024 8 :11 PM BUSINESS PROGRAMMER BLOOD CULTURE Routine 02/05/2024 7:02 PM BUSINESS PROGRAMMER BLOOD CULTURE Routine 02/05/2024 6:57 PM BUSINESS PROGRAMMER POCT GLUCOSE DEVICE Routine 02/05/2024 5 :32 PM BUSINESS PROGRAMMER RESPIRATORY PATHOGEN PANEL Routine 02/05/2024 4:27 PM BUSINESS PROGRAMMER TRANSTHORACIC ECHO (TTE) COMPLETE W DOPPLER/CF WO CONTRAST Routine 02/05/2024 2:34 PM BUSINESS PROGRAMMER ECG 12-LEAD Routine 02/05/2024 12:49 PM BUSINESS PROGRAMMER POCT GLUCOSE DEVICE Routine 02/05/2024 1 2:37 PM BUSINESS PROGRAMMER LIPID PANEL Routine 02/05/2024 10:09 AM BUSINESS PROGRAMMER THYROID FUNCTION CASCADE Routine 02/05/2024 10:09 AM BUSINESS PROGRAMMER TROPONIN T HIGH-SENSITIVITY Routine 02/05/2024 10:09 AM BUSINESS PROGRAMMER XR CHEST 1 VIEW IP Routine 02/05/2024 9:41 AM BUSINESS PROGRAMMER TROPONIN T HIGH-SENSITIVITY STAT 02/05/2024 8:47 AM BUSINESS PROGRAMMER EGFR Routine 02/05/2024 7:05 AM BUSINESS PROGRAMMER DIFFERENTIAL AUTO Routine 02/05/2024 7:0 5 AM BUSINESS PROGRAMMER LACTATE Routine 02/05/2024 7:05 AM BUSINESS PROGRAMMER CBC WITH AUTO DIFFERENTIAL Routine 02/05/2024 7:05 AM BUSINESS PROGRAMMER COMPREHENSIVE METABOLIC PANEL Routine 02/05/2024 7:05 AM BUSINESS PROGRAMMER HEMOGLOBIN A1C Routine 05/16/2023 4:38 AM CDT from Last 3 Months or Most Recently Relevant to Health Maintenance Results * POCT glucose (02/09/2024 6:40 AM BUSINESS PROGRAMMER) [facility] Signature Glucose, POC 136 70 - 199 mg/dL Comment: For Glucose values <35 mg/dl when Hematocrit is >60 mg/dl,the test may not accurately detect significant hypoglycemia,and testing in the Laboratory should be considered if clinically indicated. Blood 02/09/2024 6:40 AM BUSINESS PROGRAMMER 02/09/2024 6:40 AM BUSINESS PROGRAMMER us Johnnie Nassar MD LAB POCT ORDERABLES - D EVICE Final Result [facility] [address] [address] * (ABNORMAL) POCT glucose (02/08/2024 8:35 PM BUSINESS PROGRAMMER) Glucose, POC 288(H) 70 - 199 mg/dL Comment: For Glucose values <35 mg/dl when Hematocrit is >60 mg/dl,the test may not accurately detect significant hypoglycemia,and testing in the Laboratory should be considered if clinically indicated. Blood 02/08/2024 8:35 PM BUSINESS PROGRAMMER 02/08/2024 8:35 PM BUSINESS PROGRAMMER Johnnie Nassar MD LAB POCT ORDERABLES - D EVICE Final Result Performing Organization Address [facility] Co de Phone Number [facility] [address] [place] [address] * (ABNORMAL) POCT glucose (02/08/2024 6:01 PM BUSINESS PROGRAMMER) Glucose, POC 229(H) 70 - 199 mg/dL Comment: For Glucose values <35 mg/dl when Hematocrit is >60 mg/dl,the test may not accurately detect significant hypoglycemia,and testing in the Laboratory should be considered if clinically indicated. Blood 02/08/2024 6:01 PM BUSINESS PROGRAMMER 02/08/2024 6:01 PM BUSINESS PROGRAMMER Johnnie Nassar MD LAB POCT ORDERABLES - D EVICE Final Result Performing Organization Address City/[facility] Co de Phone Number [facility] [address] [place] [address] * POCT glucose (02/08/2024 12:17 PM BUSINESS PROGRAMMER) Glucose, POC 190 70 - 199 mg/dL Comment: For Glucose values <35 mg/dl when Hematocrit is >60 mg/dl,the test may not accurately detect significant hypoglycemia,and testing in the Laboratory should be considered if clinically indicated. Blood 02/08/2024 12:1 7 PM BUSINESS PROGRAMMER 02/08/2024 12:17 PM BUSINESS PROGRAMMER us Johnnie Nassar MD LAB POCT ORDERABLES - D EVICE Final Result Performing Organization Address [facility] Co de Phone Number [facility] [address] Department [place] [address] * POCT glucose (02/08/2024 6:08 AM BUSINESS PROGRAMMER) Pathologist [facility] Glucose, POC 119 70 - 199 mg/dL Comment: For Glucose values <35 mg/dl when Hematocrit is >60 mg/dl,the test may not accurately detect significant hypoglycemia,and testing in the Laboratory should be considered if clinically indicated. Blood 02/08/2024 6:08 AM BUSINESS PROGRAMMER 02/08/2024 6:08 AM BUSINESS PROGRAMMER Quynh Merchant MD LAB POCT ORDERABLES - DEVICE F inal Result Performing Organization Address [facility] Co de Phone Number [facility] [address] Department [place] [address] * (ABNORMAL) eGFR (02/08/2024 4:35 AM BUSINESS PROGRAMMER) [facility] eGFR 54(L) >=60 mL/min/1. 73 m2 Comment: Interpretive Data Reference Interval Normal >/= 90 mL/min/1.73m2 Mildly decreased* 60 - 89 mL/min/1.73m2 Mildly to moderately decreased 45 - 59 mL/min/1.73m2 Moderately to severely decreased 30 - 44 mL/min/1.73m2 Severely decreased 15 - 29 mL/min/1.73m2 Kidney Failure < 15 mL/min/1.73m2 *Relative to young adult level Estimated glomerular filtration rate is determined by the 2020 CKD-EPI equation recommended by the National Kidney Foundation (A Unifying Approach to GFR Estimation: Recommendations of the NKF-ASK Task Force on Reassessing the Inclusion of Race in Diagnosing Kidney Disease, JASN 2020). The CKD-EPI equation should not be used for patients with unstable renal function and has not been validated in children and those over 70. Current interpretive data was last reviewed 2021. Blood 02/08/2024 4:35 AM BUSINESS PROGRAMMER 02/08/2024 5:59 AM BUSINESS PROGRAMMER us Quynh Merchant MD LAB BLOOD ORDERABLES Final Res ult [facility] [address] Department [place] [address] * Differential, auto (02/08/2024 4:35 AM BUSINESS PROGRAMMER) Neutrophil abs 3.0 1.5 - 6.5 K/cumm Imm gran abs 0.0 0.0 - 0.1 K/cumm [facility] Lymphocyte abs 1.0 0.8 - 3.3 K/cumm [facility] Monocyte abs 0.4 0.2 - 0.8 K/cumm [facility] Eosinophil abs 0.0 0.0 - 0.5 K/cumm [facility] Basophil abs 0.0 0.0 - 0.1 K/cumm [facility] Neutrophil pct 68.9 % [facility] Comment: Interpretive Data Percent cell count reference ranges are not reported, since discordance with absolute values may lead to misinterpretation of CBC data. Current Interpretive Data was last revised on 2017. Imm gran pct 0.0 % [facility] Comment: Interpretive Data Percent cell count reference ranges are not reported, since discordance with absolute values may lead to misinterpretation of CBC data. Current Interpretive Data was last revised on 2017. Lymphocyte pct 21.6 % [facility] Comment: Interpretive Data Percent cell count reference ranges are not reported, since discordance with absolute values may lead to misinterpretation of CBC data. Current Interpretive Data was last revised on 2017. Monocyte pct 9.3 % [facility] Comment: Interpretive Data Percent cell count reference ranges are not reported, since discordance with absolute values may lead to misinterpretation of CBC data. Current Interpretive Data was last revised on 2017. Eosinophil pct 0.0 % [facility] Comment: Interpretive Data Percent cell count reference ranges are not reported, since discordance with absolute values may lead to misinterpretation of CBC data. Current Interpretive Data was last revised on 2017. Basophil pct 0.2 % [facility] Comment: Interpretive Data Percent cell count reference ranges are not reported, since discordance with absolute values may lead to misinterpretation of CBC data. Current Interpretive Data was last revised on 2017. Blood 02/08/2024 4:35 AM BUSINESS PROGRAMMER 02/08/2024 4:35 AM BUSINESS PROGRAMMER us Quynh Merchant MD LAB BLOOD ORDERABLES Final Res ult [facility] [address] Department [place] [address] * (ABNORMAL) CBC with auto differential (02/08/2024 4:35 AM BUSINESS PROGRAMMER) WBC 4.4 3.8 - 9.9 K/cumm Hgb 13.4 13.0 - 17.5 g/dL [facility] Hct 38.8(L) 38.9 - 50.3 % [facility] Plt 118(L) 150 - 400 K/cumm [facility] MPV 13.2(H) 9.1 - 12.3 fL [facility] RBC 4.14(L) 4.30 - 5.80 M/cumm [facility] MCV 93.7 81.3 - 96.4 fL [facility] MCH 32.4 27.1 - 33.3 pg [facility] MCHC 34.5 32.3 - 35.7 g/dL [facility] RDW CV 12.7 11.1 - 14.9 % [facility] RDW SD 44.1 35.7 - 48.1 fL [facility] NRBC abs 0.00 0.00 - 0.01 K/cumm [facility] Blood 02/08/2024 4:35 AM BUSINESS PROGRAMMER 02/08/2024 6:00 AM BUSINESS PROGRAMMER Quynh Merchant MD LAB BLOOD ORDERABLES Final Res ult Performing Organization Address City/[facility]/ZIP Co de Phone Number [facility] [address] [place] [address] * Magnesium (02/08/2024 4:35 AM BUSINESS PROGRAMMER) Pathologist [facility] Magnesium 1.8 1.4 - 2.5 mg/dL Blood 02/08/2024 4:35 AM BUSINESS PROGRAMMER 02/08/2024 5:59 AM BUSINESS PROGRAMMER Quynh Merchant MD LAB BLOOD ORDERABLES Final Res ult Performing Organization Address [facility] Co de Phone Number [facility] [address] Department [place] [address] * (ABNORMAL) Basic metabolic panel (02/08/2024 4:35 AM BUSINESS PROGRAMMER) Pathologist [facility] Sodium 145 135 - 145 mmol/L Potassium, pl 3.8 3.3 - 4.9 mmol/L [facility] Chloride 108 97 - 110 mmol/L [facility] CO2 27 22 - 32 mmol/L [facility] Anion gap 10 2 - 15 mmol/L [facility] BUN 23 6 - 25 mg/dL [facility] Creatinine 1.34(H) 0.80 - 1.30 mg/dL [facility] Glucose 127 70 - 199 mg/dL [facility] Comment: Interpretive Data Fasting glucose >/= 126 mg/dl is diagnostic for diabetes. Fasting is defined as no caloric intake for at least 8 hours. Fasting glucose between 100 mg/dl to 125 mg/dl is diagnostic of prediabetes. In a patient with classic symptoms of hyperglycemia or hyperglycemic crisis, a random glucose >/= 200 mg/dl is diagnostic for diabetes. In the absence of unequivocal hyperglycemia, results should be confirmed by repeat testing. The classification and Diagnosis of Diabetes Diabetes Care 2021; 46: S19-S40. Current interpretive data was last revised 2022. Calcium 9.3 8.5 - 10.3 mg/dL [facility] Blood 02/08/2024 4:35 AM BUSINESS PROGRAMMER 02/08/2024 5:59 AM BUSINESS PROGRAMMER us Quynh Merchant MD LAB BLOOD ORDERABLES Final Res ult [facility] [address] Department [place] [address] * MRI Brain MRA Head MRA Neck WO Contrast (02/08/2024 1:18 AM BUSINESS PROGRAMMER) Anatomical Region Laterality Modality Head and Neck N/A Magnetic Resonan ce 02/08/2024 7:39 AM BUSINESS PROGRAMMER Impressions 02/08/2024 8:33 AM BUSINESS PROGRAMMER 1. No acute intracranial abnormality. Stable severe chronic ischemic microangiopathy. 2. Unchanged S-shaped segment of severe basilar artery tortuosity. 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 Calcification within stenosis is been previously demonstrated on outside CTA (05/15/2023). Small caliber P1 segments arise from the dilated basilar apex with large caliber posterior communicators touching in the midline just before insertion on the proximal P1s; possible junctional fenestration below the spatial resolution of MRA. 3. Grossly normal limited unenhanced MRA of the neck degraded by flow artifacts. Dictated by: Felicita Murillo D.O. The radiology attending physician has personally reviewed this study, and had reviewed and/or edited this written report and agrees with it. Electronically signed by: Liliana Ricardo MD Narrative 02/08/2024 8:33 AM BUSINESS PROGRAMMER EXAMINATION: 1. Magnetic resonance imaging (MRI) of the brain and brainstem without contrast 2. Magnetic resonance angiography (MRA) of the [id number] without contrast 3. Magnetic resonance angiography (MRA) of the neck without contrast HISTORY: Ataxia. Suspected stroke. TECHNIQUE: Multiplanar multi-weighted MRI of the brain and brainstem was performed without intravenous contrast using the general brain protocol. Magnetic resonance angiography of the [id number] was performed using a separate data acquisition with a non-contrast [id number] technique to produce axial thin-slice source images. These images were then used to generate maximum intensity projection (MIP) images. Magnetic resonance angiography of the neck was performed using a separate data acquisition with a non-contrast [id number] technique to produce thin-slice source images. These images were then used to generate maximum intensity projection (MIP) images. COMPARISON: MR brain 05/15/2023, MRA brain 05/16/2023 FINDINGS: MRI BRAIN: The scalp and calvarium are normal. The superior sagittal sinus demonstrates normal venous flow. The corpus callosum is normal in shape and signal intensity. The posterior fossa is unremarkable. The pituitary and sella are normal. The brainstem and craniocervical junction are unremarkable. Diffusion weighted images reveal no hyperintensities to suggest acute cerebral infarction. 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 The susceptibility weighted sequences instrumented a small focus of microhemorrhage in the right luis fernando on series 14 image 38 that was not seen on the previous study but resolution and technique are different. No other evidence for acute or chronic hemorrhage. Global parenchymal volume loss with ex vacuo dilatation of the ventricular system. Stable periventricular, subcortical and patchy pontine T2/FLAIR hyperintensities are consistent with advanced microangiopathic ischemic changes. Mucosal thickening of the bilateral maxillary sinuses.. The mucosal thickening of the bilateral anterior and posterior ethmoidal air cells.. Partial opacification of the bilateral mastoid air cells. The orbits appear normal. MRA NECK: Limitations: The study is limited by flow artifacts adherent to noncontrast technique. This limits sensitivity for the detection of arterial dissections. The aortic arch and origins of the great vessels are normal. A typical three-vessel arch is present. The common carotid and cervical internal carotid arteries of the neck are of normal caliber. The carotid bifurcations are of normal caliber without vascular narrowing. Cervical vertebral arteries are of normal caliber. Dominant left vertebral artery. Although MRA is a screening examination, catheter angiography remains the definitive study for small aneurysms, vasculitis, and other vascular abnormalities. There is no soft tissue abnormality in the neck on limited imaging of the neck included in this MR angiogram. MRA HEAD: There is an S-shaped segment of severe basilar artery tortuosity. At the apex of the more superior turn, there is severe stenosis followed by a short 4.5 mm longitudinal segment of irregular poststenotic aneurysmal dilatation measuring up to 2.4 mm AP. Calcification within stenosis is been previously demonstrated on outside CTA (05/15/2023). Small caliber P1 segments arise from the dilated basilar apex with large caliber posterior communicators touching in the midline just before insertion on the proximal P1s with possible junctional fenestration below the spatial resolution of MRA. The appearance of the basilar artery is unchanged compared to 05/16/2023 MRA. 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 The dominant left vertebral artery is normal throughout its course. The left inferior cerebellum is fed by a variant large caliber AICA-PICA branch. Posterior cerebral arteries are normal. Within the anterior circulation, there is minor atherosclerotic irregularity of the carotid siphons without stenosis the intracranial internal carotid arteries are otherwise normal. Incidental tortuous loop of the distal cervical right ICA just inferior to the skull base. 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 The right A2 is fed marrow a by a large caliber anterior communicator from left to right. The left A1 is large caliber. PHIL, MCA and branches are otherwise unremarkable as visualized. No other aneurysm or MR evidence for arteriovenous shunting. Procedure Note Liliana Ricardo MD PhD - 02/08/2024 EXAMINATION: 1. Magnetic resonance imaging (MRI) of the brain and brainstem without contrast 2. Magnetic resonance angiography (MRA) of the [id number]-zk-[id number] without contrast 3. Magnetic resonance angiography (MRA) of the neck without contrast HISTORY: Ataxia. Suspected stroke. TECHNIQUE: Multiplanar multi-weighted MRI of the brain and brainstem was performed without intravenous contrast using the general brain protocol. Magnetic resonance angiography of the [id number]-ph-[id number] was performed using a separate data acquisition with a non-contrast qzjv-bm-[id number] technique to produce axial thin-slice source images. These images were then used to generate maximum intensity projection (MIP) images. Magnetic resonance angiography of the neck was performed using a separate data acquisition with a non-contrast [id number] technique to produce thin-slice source images. These images were then used to generate maximum intensity projection (MIP) images. COMPARISON: MR brain 05/15/2023, MRA brain 05/16/2023 FINDINGS: MRI BRAIN: The scalp and calvarium are normal. The superior sagittal sinus demonstrates normal venous flow. The corpus callosum is normal in shape and signal intensity. The posterior fossa is unremarkable. The pituitary and sella are normal. The brainstem and craniocervical junction are unremarkable. Diffusion weighted images reveal no hyperintensities to suggest acute cerebral infarction. 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 The susceptibility weighted sequences instrumented a small focus of microhemorrhage in the right luis fernando on series 14 image 38 that was not seen on the previous study but resolution and technique are different. No other evidence for acute or chronic hemorrhage. Global parenchymal volume loss with ex vacuo dilatation of the ventricular system. Stable periventricular, subcortical and patchy pontine T2/FLAIR hyperintensities are consistent with advanced microangiopathic ischemic changes. Mucosal thickening of the bilateral maxillary sinuses.. The mucosal thickening of the bilateral anterior and posterior ethmoidal air cells.. Partial opacification of the bilateral mastoid air cells. The orbits appear normal. MRA NECK: Limitations: The study is limited by flow artifacts adherent to noncontrast technique. This limits sensitivity for the detection of arterial dissections. The aortic arch and origins of the great vessels are normal. A typical three-vessel arch is present. The common carotid and cervical internal carotid arteries of the neck are of normal caliber. The carotid bifurcations are of normal caliber without vascular narrowing. Cervical vertebral arteries are of normal caliber. Dominant left vertebral artery. Although MRA is a screening examination, catheter angiography remains the definitive study for small aneurysms, vasculitis, and other vascular abnormalities. There is no soft tissue abnormality in the neck on limited imaging of the neck included in this MR angiogram. MRA HEAD: There is an S-shaped segment of severe basilar artery tortuosity. At the apex of the more superior turn, there is severe stenosis followed by a short 4.5 mm longitudinal segment of irregular poststenotic aneurysmal dilatation measuring up to 2.4 mm AP. Calcification within stenosis is been previously demonstrated on outside CTA (05/15/2023). Small caliber P1 segments arise from the dilated basilar apex with large caliber posterior communicators touching in the midline just before insertion on the proximal P1s with possible junctional fenestration below the spatial resolution of MRA. The appearance of the basilar artery is unchanged compared to 05/16/2023 MRA. 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 The dominant left vertebral artery is normal throughout its course. The left inferior cerebellum is fed by a variant large caliber AICA-PICA branch. Posterior cerebral arteries are normal. Within the anterior circulation, there is minor atherosclerotic irregularity of the carotid siphons without stenosis the intracranial internal carotid arteries are otherwise normal. Incidental tortuous loop of the distal cervical right ICA just inferior to the skull base. 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 The right A2 is fed marrow a by a large caliber anterior communicator from left to right. The left A1 is large caliber. PHIL, MCA and branches are otherwise unremarkable as visualized. No other aneurysm or MR evidence for arteriovenous shunting. IMPRESSION: 1. No acute intracranial abnormality. Stable severe chronic ischemic microangiopathy. 2. Unchanged S-shaped segment of severe basilar artery tortuosity. 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 Calcification within stenosis is been previously demonstrated on outside CTA (05/15/2023). Small caliber P1 segments arise from the dilated basilar apex with large caliber posterior communicators touching in the midline just before insertion on the proximal P1s; possible junctional fenestration below the spatial resolution of MRA. 3. Grossly normal limited unenhanced MRA of the neck degraded by flow artifacts. Dictated by: Felicita Murillo D.O. The radiology attending physician has personally reviewed this study, and had reviewed and/or edited this written report and agrees with it. Electronically signed by: Liliana Ricardo MD Jose Spaulding NP IMG MRI PROCEDURES Final Result * POCT glucose (02/07/2024 9:40 PM BUSINESS PROGRAMMER) [facility] Signature Glucose, POC 174 70 - 199 mg/dL Comment: For Glucose values <35 mg/dl when Hematocrit is >60 mg/dl,the test may not accurately detect significant hypoglycemia,and testing in the Laboratory should be considered if clinically indicated. Blood 02/07/2024 9:40 PM BUSINESS PROGRAMMER 02/07/2024 9:40 PM BUSINESS PROGRAMMER Quynh Merchant MD LAB POCT ORDERABLES - DEVICE F inal Result Performing Organization Address [facility] Co de Phone Number [facility] [address] [place] [address] * (ABNORMAL) POCT glucose (02/07/2024 5:52 PM BUSINESS PROGRAMMER) Glucose, POC 248(H) 70 - 199 mg/dL Comment: For Glucose values <35 mg/dl when Hematocrit is >60 mg/dl,the test may not accurately detect significant hypoglycemia,and testing in the Laboratory should be considered if clinically indicated. Blood 02/07/2024 5:52 PM BUSINESS PROGRAMMER 02/07/2024 5:52 PM BUSINESS PROGRAMMER Result [facility] Quynh Merchant MD LAB POCT ORDERABLES - DEVICE F inal Result Performing Organization Address [facility] de Phone Number [facility] [address] [place] [place] [address] * POCT glucose (02/07/2024 12:19 PM BUSINESS PROGRAMMER) [facility] Signature Glucose, POC 193 70 - 199 mg/dL Comment: For Glucose values <35 mg/dl when Hematocrit is >60 mg/dl,the test may not accurately detect significant hypoglycemia,and testing in the Laboratory should be considered if clinically indicated. Blood 02/07/2024 12:1 9 PM BUSINESS PROGRAMMER 02/07/2024 12:19 PM BUSINESS PROGRAMMER Result [facility] Quynh Merchant MD LAB POCT ORDERABLES - DEVICE F inal Result Performing Organization Address [facility] Co de Phone Number [facility] [address] [place] [address] * (ABNORMAL) eGFR (02/07/2024 11:08 AM BUSINESS PROGRAMMER) eGFR 55(L) >=60 mL/min/1. 73 m2 Comment: Interpretive Data Reference Interval Normal >/= 90 mL/min/1.73m2 Mildly decreased* 60 - 89 mL/min/1.73m2 Mildly to moderately decreased 45 - 59 mL/min/1.73m2 Moderately to severely decreased 30 - 44 mL/min/1.73m2 Severely decreased 15 - 29 mL/min/1.73m2 Kidney Failure < 15 mL/min/1.73m2 *Relative to young adult level Estimated glomerular filtration rate is determined by the 2020 CKD-EPI equation recommended by the National Kidney [employer] (A Unifying Approach to GFR Estimation: Recommendations of the NKF-ASK Task Force on Reassessing the Inclusion of Race in Diagnosing Kidney Disease, JASN 2020). The CKD-EPI equation should not be used for patients with unstable renal function and has not been validated in children and those over 70. Current interpretive data was last reviewed 2021. Blood 02/07/2024 11:0 8 AM BUSINESS PROGRAMMER 02/07/2024 11:56 AM BUSINESS PROGRAMMER Quynh Merchant MD LAB BLOOD ORDERABLES Final Res ult Performing Organization Address City/[facility]/ZIP Co de Phone Number [facility] [address] [employer] [place], [place] [id number] * Magnesium (02/07/2024 11:08 AM BUSINESS PROGRAMMER) Pathologist [facility] Magnesium 1.8 1.4 - 2.5 mg/dL Blood 02/07/2024 11:0 8 AM BUSINESS PROGRAMMER 02/07/2024 11:56 AM BUSINESS PROGRAMMER Quynh Merchant MD LAB BLOOD ORDERABLES Final Res ult [facility] [address] [place] [employer] [place] [address] * (ABNORMAL) Basic metabolic panel (02/07/2024 11:08 AM BUSINESS PROGRAMMER) Sodium 143 135 - 145 mmol/L Potassium, pl 3.6 3.3 - 4.9 mmol/L [facility] Chloride 107 97 - 110 mmol/L [facility] CO2 25 22 - 32 mmol/L [facility] Anion gap 11 2 - 15 mmol/L [facility] BUN 24 6 - 25 mg/dL [facility] Creatinine 1.32(H) 0.80 - 1.30 mg/dL [facility] Glucose 216(H) 70 - 199 mg/dL [facility] Comment: Interpretive Data Fasting glucose >/= 126 mg/dl is diagnostic for diabetes. Fasting is defined as no caloric intake for at least 8 hours. Fasting glucose between 100 mg/dl to 125 mg/dl is diagnostic of prediabetes. In a patient with classic symptoms of hyperglycemia or hyperglycemic crisis, a random glucose >/= 200 mg/dl is diagnostic for diabetes. In the absence of unequivocal hyperglycemia, results should be confirmed by repeat testing. The classification and Diagnosis of Diabetes Diabetes Care 2021; 46: S19-S40. Current interpretive data was last revised 2022. Calcium 9.2 8.5 - 10.3 mg/dL [facility] Blood 02/07/2024 11:0 8 AM BUSINESS PROGRAMMER 02/07/2024 11:56 AM BUSINESS PROGRAMMER us Quynh Merchant MD LAB BLOOD ORDERABLES Final Res ult [facility] [address] Department [place] [address] * XR Chest 1 Vw (02/07/2024 9:31 AM BUSINESS PROGRAMMER) Anatomical Region Laterality Modality Body, Chest N/A Computed Radiogr aphy 02/07/2024 10:1 0 AM BUSINESS PROGRAMMER Impressions 02/07/2024 10:24 AM BUSINESS PROGRAMMER Small lung volume. No pneumothorax. No focal consolidation. No pleural effusion. Right greater than left basilar atelectasis. Stable cardiomediastinal silhouette. Dictated by: Valentine Acuña MD The radiology attending physician has personally reviewed this study, and had reviewed and/or edited this written report and agrees with it. Electronically signed by: Cayetano Guzman M.D. Narrative 02/07/2024 10:24 AM BUSINESS PROGRAMMER EXAMINATION: XR CHEST 1 VIEW HISTORY: Fever COMPARISON: Multiple prior studies most recently 02/05/2024 radiograph and 05/15/2023 CT Procedure Note Cayetano Guzman MD - 02/07/2024 EXAMINATION: XR CHEST 1 VIEW HISTORY: Fever COMPARISON: Multiple prior studies most recently 02/05/2024 radiograph and 05/15/2023 CT IMPRESSION: Small lung volume. No pneumothorax. No focal consolidation. No pleural effusion. Right greater than left basilar atelectasis. Stable cardiomediastinal silhouette. Dictated by: Valentine Acuña MD The radiology attending physician has personally reviewed this study, and had reviewed and/or edited this written report and agrees with it. Electronically signed by: Cayetano Guzman M.D. Quynh Merchant MD IMG XR PROCEDURES Final Result * POCT glucose (02/07/2024 6:17 AM BUSINESS PROGRAMMER) [facility] Glucose, POC 126 70 - 199 mg/dL Comment: For Glucose values <35 mg/dl when Hematocrit is >60 mg/dl,the test may not accurately detect significant hypoglycemia,and testing in the Laboratory should be considered if clinically indicated. Blood 02/07/2024 6:17 AM BUSINESS PROGRAMMER 02/07/2024 6:17 AM BUSINESS PROGRAMMER Quynh Merchant MD LAB POCT ORDERABLES - DEVICE F inal Result [facility] [address] Department [place] [address] * (ABNORMAL) Urinalysis reflex to microscopic and culture Urine, in and out catheter (02/06/2024 11:26 PM BUSINESS PROGRAMMER) Color, ur Mitzi Yellow Clarity, ur Turbid(A) Clear [facility] Specific gravity, ur 1.026 1.003 - 1.030 [facility] pH, urine 5.5 [facility] Comment: Interpretive Data U rine pH is affected by diet, medications, systemic acid-base disturbances, and renal tubular function. pH may affect urinary stone formation. For example, urine pH below 6.0 may help reduce the tendency for calcium phosphate stones and pH greater than 6.0 may reduce the tendency for uric acid stone formation. Source: [facility] Current Interpretive Data was last revised on 2017 Protein, ur ql 2+(A) Negative [facility] Glucose, ur ql 4+(A) Negative [facility] Ketones, ur Negative Negative [facility] Bilirubin, ur Negative Negative [facility] Blood, ur 3+(A) Negative [facility] Urobilinogen, ur <2.0 <2.0 mg/dL [facility] Nitrite, ur Negative Negative [facility] Leukocyte esterase, ur Negative Negative [facility] UA reflex comment Reflex to microscopic UA will be performed. [facility] Urine, in and out catheter 02/06/2024 11:26 PM BUSINESS PROGRAMMER 02/06/2024 11:42 PM BUSINESS PROGRAMMER us Quynh Merchant MD LAB MICROBIOLOGY - GENERAL ORD ERABLES Final Result [facility] [address] Department [place] [address] * (ABNORMAL) Urinalysis, microscopic only (02/06/2024 11:26 PM BUSINESS PROGRAMMER) WBC, ur 0-5 0 - 5 /HPF RBC, ur >50(A) 0 - 2 /HPF [facility] Mucous, ur Present(A) [facility] Uric acid crystals, ur 2+(A) [facility] Culture Reflex Comment Reflex conditions for urine culture (WBC >10) not met. [facility] Urine, in and out catheter 02/06/2024 11:26 PM BUSINESS PROGRAMMER 02/06/2024 11:42 PM BUSINESS PROGRAMMER us Quynh Merchant MD LAB URINE ORDERABLES Final Res ult Performing Organization Address [facility] Co de Phone Number [facility] [id number] [facility] [place] [place] [address] * (ABNORMAL) POCT glucose (02/06/2024 9:04 PM BUSINESS PROGRAMMER) Glucose, POC 287(H) 70 - 199 mg/dL Comment: For Glucose values <35 mg/dl when Hematocrit is >60 mg/dl,the test may not accurately detect significant hypoglycemia,and testing in the Laboratory should be considered if clinically indicated. Blood 02/06/2024 9:04 PM BUSINESS PROGRAMMER 02/06/2024 9:04 PM BUSINESS PROGRAMMER Quynh Merchant MD LAB POCT ORDERABLES - DEVICE F inal Result Performing Organization Address [facility] de Phone Number [facility] [address] [employer] [place], [place] [id number] * (ABNORMAL) POCT glucose (02/06/2024 5:50 PM BUSINESS PROGRAMMER) Glucose, POC 210(H) 70 - 199 mg/dL Comment: For Glucose values <35 mg/dl when Hematocrit is >60 mg/dl,the test may not accurately detect significant hypoglycemia,and testing in the Laboratory should be considered if clinically indicated. Blood 02/06/2024 5:50 PM BUSINESS PROGRAMMER 02/06/2024 5:50 PM BUSINESS PROGRAMMER Quynh Merchant MD LAB POCT ORDERABLES - DEVICE F inal Result Performing Organization Address [facility] Co de Phone Number [facility] [address] [facility] [place] [place] [address] * Troponin T HS (single order) - Add on lab test (02/06/2024 1:06 PM BUSINESS PROGRAMMER) Acceptable No Comment:Trop has already bee n run on earlier sample Blood 02/06/2024 1:06 PM BUSINESS PROGRAMMER 02/06/2024 1:06 PM BUSINESS PROGRAMMER Narrative [facility] - 02/06/2024 1:08 PM BUSINESS PROGRAMMER Name of Test->Troponin T HS (single order) Result [facility] Rocky Oscar MD LAB BLOOD ORDERABLES Fin al Result Performing Organization Address [facility] Co de Phone Number [facility] [address] [place] [place] [place] [address] * POCT glucose (02/06/2024 12:41 PM BUSINESS PROGRAMMER) Glucose, POC 146 70 - 199 mg/dL Comment: For Glucose values <35 mg/dl when Hematocrit is >60 mg/dl,the test may not accurately detect significant hypoglycemia,and testing in the Laboratory should be considered if clinically indicated. Blood 02/06/2024 12:4 1 PM BUSINESS PROGRAMMER 02/06/2024 12:41 PM BUSINESS PROGRAMMER Result [facility] Quynh Merchant MD LAB POCT ORDERABLES - DEVICE F inal Result Performing Organization Address [facility] de Phone Number [facility] [address] [facility] [place] [place] [address] * POCT glucose (02/06/2024 6:31 AM BUSINESS PROGRAMMER) Glucose, POC 115 70 - 199 mg/dL Comment: For Glucose values <35 mg/dl when Hematocrit is >60 mg/dl,the test may not accurately detect significant hypoglycemia,and testing in the Laboratory should be considered if clinically indicated. Blood 02/06/2024 6:31 AM BUSINESS PROGRAMMER 02/06/2024 6:31 AM BUSINESS PROGRAMMER Result [facility] Quynh Merchant MD LAB POCT ORDERABLES - DEVICE F inal Result Performing Organization Address [facility] Co de Phone Number [facility] [address] [facility] [place] [place] [address] * (ABNORMAL) Troponin T high-sensitivity (02/06/2024 5:26 AM BUSINESS PROGRAMMER) Trop T hs 46(H) <=22 ng/L Comment: Interpretive Data For further hscTnT resources including the diagnostic algorithm and an aid in interpretation, copy and paste this link: https://nrl.testcatalog.org/show/hsTrop Current Interpretive Data last revised 2020. Blood 02/06/2024 5:26 AM BUSINESS PROGRAMMER 02/06/2024 7:03 AM BUSINESS PROGRAMMER Rocky Oscar MD LAB BLOOD ORDERABLES Fin al Result [facility] [address] Department [place] [address] * (ABNORMAL) eGFR (02/06/2024 5:26 AM BUSINESS PROGRAMMER) eGFR 49(L) >=60 mL/min/1. 73 m2 Comment: Interpretive Data Reference Interval Normal >/= 90 mL/min/1.73m2 Mildly decreased* 60 - 89 mL/min/1.73m2 Mildly to moderately decreased 45 - 59 mL/min/1.73m2 Moderately to severely decreased 30 - 44 mL/min/1.73m2 Severely decreased 15 - 29 mL/min/1.73m2 Kidney Failure < 15 mL/min/1.73m2 *Relative to young adult level Estimated glomerular filtration rate is determined by the 2020 CKD-EPI equation recommended by the National Kidney Foundation (A Unifying Approach to GFR Estimation: Recommendations of the NKF-ASK Task Force on Reassessing the Inclusion of Race in Diagnosing Kidney Disease, JASN 2020). The CKD-EPI equation should not be used for patients with unstable renal function and has not been validated in children and those over 70. Current interpretive data was last reviewed 2021. Blood 02/06/2024 5:26 AM BUSINESS PROGRAMMER 02/06/2024 7:09 AM BUSINESS PROGRAMMER us Quynh Merchant MD LAB BLOOD ORDERABLES Final Res ult [facility] [address] Department [place] [address] * Differential, auto (02/06/2024 5:26 AM BUSINESS PROGRAMMER) Neutrophil abs 2.4 1.5 - 6.5 K/cumm Imm gran abs 0.0 0.0 - 0.1 K/cumm [facility] Lymphocyte abs 0.8 0.8 - 3.3 K/cumm [facility] Monocyte abs 0.6 0.2 - 0.8 K/cumm [facility] Eosinophil abs 0.0 0.0 - 0.5 K/cumm [facility] Basophil abs 0.0 0.0 - 0.1 K/cumm [facility] Neutrophil pct 62.9 % [facility] Comment: Interpretive Data Percent cell count reference ranges are not reported, since discordance with absolute values may lead to misinterpretation of CBC data. Current Interpretive Data was last revised on 2017. Imm gran pct 0.3 % [facility] Comment: Interpretive Data Percent cell count reference ranges are not reported, since discordance with absolute values may lead to misinterpretation of CBC data. Current Interpretive Data was last revised on 2017. Lymphocyte pct 20.6 % [facility] Comment: Interpretive Data Percent cell count reference ranges are not reported, since discordance with absolute values may lead to misinterpretation of CBC data. Current Interpretive Data was last revised on 2017. Monocyte pct 15.4 % [facility] Comment: Interpretive Data Percent cell count reference ranges are not reported, since discordance with absolute values may lead to misinterpretation of CBC data. Current Interpretive Data was last revised on 2017. Eosinophil pct 0.5 % [facility] Comment: Interpretive Data Percent cell count reference ranges are not reported, since discordance with absolute values may lead to misinterpretation of CBC data. Current Interpretive Data was last revised on 2017. Basophil pct 0.3 % [facility] Comment: Interpretive Data Percent cell count reference ranges are not reported, since discordance with absolute values may lead to misinterpretation of CBC data. Current Interpretive Data was last revised on 2017. Blood 02/06/2024 5:26 AM BUSINESS PROGRAMMER 02/06/2024 7:03 AM BUSINESS PROGRAMMER Quynh Merchant MD LAB BLOOD ORDERABLES Final Res ult Performing Organization Address [facility]/ZIP Co de Phone Number [facility] [address] [place] [address] * (ABNORMAL) CBC with auto differential (02/06/2024 5:26 AM BUSINESS PROGRAMMER) WBC 3.8 3.8 - 9.9 K/cumm Hgb 13.0 13.0 - 17.5 g/dL [facility] Hct 37.9(L) 38.9 - 50.3 % [facility] Plt 103(L) 150 - 400 K/cumm [facility] MPV 12.8(H) 9.1 - 12.3 fL [facility] RBC 3.97(L) 4.30 - 5.80 M/cumm [facility] MCV 95.5 81.3 - 96.4 fL [facility] MCH 32.7 27.1 - 33.3 pg [facility] MCHC 34.3 32.3 - 35.7 g/dL [facility] RDW CV 13.2 11.1 - 14.9 % [facility] RDW SD 46.4 35.7 - 48.1 fL [facility] NRBC abs 0.00 0.00 - 0.01 K/cumm [facility] Blood 02/06/2024 5:26 AM BUSINESS PROGRAMMER 02/06/2024 7:03 AM BUSINESS PROGRAMMER Quynh Merchant MD LAB BLOOD ORDERABLES Final Res ult Performing Organization Address [facility]/ZIP Co de Phone Number [facility] [address] [place] [place] [address] * Magnesium (02/06/2024 5:26 AM BUSINESS PROGRAMMER) Pathologist [facility] Magnesium 2.0 1.4 - 2.5 mg/dL Blood 02/06/2024 5:26 AM BUSINESS PROGRAMMER 02/06/2024 7:03 AM BUSINESS PROGRAMMER Quynh Merchant MD LAB BLOOD ORDERABLES Final Res ult Performing Organization Address City/[facility]/ZIP Co de Phone Number [facility] [address] [place] [place] [address] * (ABNORMAL) Basic metabolic panel (02/06/2024 5:26 AM BUSINESS PROGRAMMER) [facility] Sodium 140 135 - 145 mmol/L Potassium, pl 3.5 3.3 - 4.9 mmol/L [facility] Chloride 105 97 - 110 mmol/L [facility] CO2 24 22 - 32 mmol/L [facility] Anion gap 11 2 - 15 mmol/L [facility] BUN 20 6 - 25 mg/dL [facility] Creatinine 1.45(H) 0.80 - 1.30 mg/dL [facility] Glucose 144 70 - 199 mg/dL [facility] Comment: Interpretive Data Fasting glucose >/= 126 mg/dl is diagnostic for diabetes. Fasting is defined as no caloric intake for at least 8 hours. Fasting glucose between 100 mg/dl to 125 mg/dl is diagnostic of prediabetes. In a patient with classic symptoms of hyperglycemia or hyperglycemic crisis, a random glucose >/= 200 mg/dl is diagnostic for diabetes. In the absence of unequivocal hyperglycemia, results should be confirmed by repeat testing. The classification and Diagnosis of Diabetes Diabetes Care 2021; 46: S19-S40. Current interpretive data was last revised 2022. Calcium 9.0 8.5 - 10.3 mg/dL [facility] Blood 02/06/2024 5:26 AM BUSINESS PROGRAMMER 02/06/2024 7:03 AM BUSINESS PROGRAMMER Quynh Merchant MD LAB BLOOD ORDERABLES Final Res ult Performing Organization Address City/[facility]/ZIP Co de Phone Number [facility] [address] [place] [address] * ECG 12 lead (02/06/2024 3:29 AM BUSINESS PROGRAMMER) 02/06/2024 3:29 AM BUSINESS PROGRAMMER Narrative [facility] - 02/07/2024 7:32 PM BUSINESS PROGRAMMER Vent Rate: 56 bpm RR Interval: 1063 msec ID Interval: 188 msec QRS Duration: 120 msec QT Interval: 424 msec QTC Interval: 415 msec P-R-T Vici: 44 - -47 - 128 degrees IMPRESSION: SINUS BRADYCARDIA LEFT ANTERIOR FASCICULAR BLOCK [QRS AXIS <= -45, QR IN I, RS IN II] Nonspecific ST-T abnormality Electronically Signed By: Julio Cesar Vasquez MD PhD us Rocky Oscar MD ECG ORDERABLES Final Re sult Performing Organization Address City/[facility]/ZIP Co de Phone Number [facility] * POCT glucose (02/05/2024 8:11 PM BUSINESS PROGRAMMER) Glucose, POC 152 70 - 199 mg/dL Comment: For Glucose values <35 mg/dl when Hematocrit is >60 mg/dl,the test may not accurately detect significant hypoglycemia,and testing in the Laboratory should be considered if clinically indicated. Blood 02/05/2024 8:11 PM BUSINESS PROGRAMMER 02/05/2024 8:11 PM BUSINESS PROGRAMMER us Quynh Merchant MD LAB POCT ORDERABLES - DEVICE F inal Result Performing Organization Address City/[facility]/ZIP Co de Phone Number [facility] [address] [place] [address] * Blood culture Blood (02/05/2024 7:02 PM BUSINESS PROGRAMMER) Report Final Report: No growth Blood 02/05/2024 7:02 PM BUSINESS PROGRAMMER 02/05/2024 7:11 PM BUSINESS PROGRAMMER Narrative [facility] - 02/11/2024 7:01 AM BUSINESS PROGRAMMER From a different site than #1. Collection->Peripheral Interpretive Data 1. Blood cultures are incubated and monitored continuously for 5 days (120 hours). The first negative report is issued within 24 hours of receipt in the laboratory. 2. All positive cultures are resulted and called to physicians/care providers as soon as they are detected. 3. A rapid molecular test for organism identification may be performed using the [employer] FilmArray Blood Culture Identification panel. This assay detects microbial DNA in a blood culture broth. This assay has been cleared by the [place] Food and Drug Administration and its performance characteristics have been verified by the [facility]. Interpretive data was last revised on April 09, 2022. Quynh Merchant MD LAB MICROBIOLOGY - GENERAL ORD ERABLES Final Result Performing Organization Address City/[facility]/ZIP Co de Phone Number [facility] [address] [place] [address] * Blood culture Blood (02/05/2024 6:57 PM BUSINESS PROGRAMMER) Report Final Report: No growth Blood 02/05/2024 6:57 PM BUSINESS PROGRAMMER 02/05/2024 7:11 PM BUSINESS PROGRAMMER Narrative [facility] - 02/11/2024 7:01 AM BUSINESS PROGRAMMER Collection->Peripheral Interpretive Data 1. Blood cultures are incubated and monitored continuously for 5 days (120 hours). The first negative report is issued within 24 hours of receipt in the laboratory. 2. All positive cultures are resulted and called to physicians/care providers as soon as they are detected. 3. A rapid molecular test for organism identification may be performed using the [employer] FilmArray Blood Culture Identification panel. This assay detects microbial DNA in a blood culture broth. This assay has been cleared by the [place] Food and Drug Administration and its performance characteristics have been verified by the [facility]. Interpretive data was last revised on April 09, 2022. Qyunh Merchant MD LAB MICROBIOLOGY - GENERAL ORD ERABLES Final Result Performing Organization Address City/[facility]/ZIP Co de Phone Number [facility] [address] [place] [place] [address] * POCT glucose (02/05/2024 5:32 PM BUSINESS PROGRAMMER) [facility] Glucose, POC 156 70 - 199 mg/dL Comment: For Glucose values <35 mg/dl when Hematocrit is >60 mg/dl,the test may not accurately detect significant hypoglycemia,and testing in the Laboratory should be considered if clinically indicated. Blood 02/05/2024 5:32 PM BUSINESS PROGRAMMER 02/05/2024 5:32 PM BUSINESS PROGRAMMER us Quynh Merchant MD LAB POCT ORDERABLES - DEVICE F inal Result [facility] [address] Department [place] [address] * (ABNORMAL) Respiratory pathogen panel Nasopharyngeal (02/05/2024 4:27 PM BUSINESS PROGRAMMER) [facility] Influenza A RNA Not Detected Not Detected [facility] Influenza B RNA Not Detected Not Detected [facility] RSV RNA Not Detected Not Detected [facility] COVID-19 RNA Detected(A) Not Detected [facility] Coronavirus 229E RNA Not Detected Not Detected [facility] Coronavirus HKU1 RNA Not Detected Not Detected [facility] Coronavirus NL63 RNA Not Detected Not Detected [facility] Coronavirus OC43 RNA Not Detected Not Detected [facility] Adenovirus DNA Not Detected Not Detected [facility] Metapneumovirus RNA Not Detected Not Detected [facility] Rhinovirus/Enterov irus RNA Not Detected Not Detected [facility] Parainfluenza 1 RNA Not Detected Not Detected [facility] Parainfluenza 2 RNA Not Detected Not Detected [facility] Parainfluenza 3 RNA Not Detected Not Detected [facility] Parainfluenza 4 RNA Not Detected Not Detected [facility] B. pertussis DNA Not Detected Not Detected [facility] B. parapertussis DNA Not Detected Not Detected [facility] C. pneumoniae DNA Not Detected Not Detected [facility] M. pneumoniae DNA Not Detected Not Detected [facility] Comment: Interpretive Data The [employer] FilmArray Respiratory Panel (RP2.1) assay is a multiplexed real-time PCR based nucleic acid test capable of simultaneous qualitative detection and identification of multiple respiratory viral and bacterial nucleic acids, including SARS Coronavirus 2 (the causative agent of COVID-19). The following bacteria, viruses and virus subtypes can be identified using the FilmArray RP2.1 assay: Bordetella pertussis, Bordetella parapertussis, Chlamydia pneumoniae, Mycoplasma pneumoniae, Adenovirus, SARS Coronavirus 2, seasonal coronaviruses (Coronavirus HKU1, Coronavirus NL63, Coronavirus 229E, and Coronavirus OC43), Influenza A, Influenza A subtype H1, Influenza A subtype H3, Influenza A subtype 2009 H1, Influenza B, Metapneumovirus, Parainfluenza 1, Parainfluenza 2, Parainfluenza 3, Parainfluenza 4, RSV, Rhinovirus/Enterovirus. Due to the genetic similarity between human Rhinovirus and Enterovirus, the FilmArray RP2.1 assay cannot reliably differentiate them. Coronavirus OC43 may cross-react with some isolates of Coronavirus HKU1. A dual positive result may be due to cross-reactivity or may indicate a co- infection. The detection and identification of specific viral and bacterial nucleic acids from individuals exhibiting signs and symptoms of a respiratory infection aids in the diagnosis of respiratory infection if used in conjunction with other clinical and epidemiological information. The results of this test should not be used as the sole basis for diagnosis, treatment, or other management decisions. Negative results in the setting of a respiratory illness may be due to infection with pathogens that are not detected by this test. Positive results do not rule out infection/co-infection with other organisms. The agent(s) detected by the FilmArray RP2.1 may not be the definite cause of disease. Additional testing (lab, imaging, etc.) may be necessary when evaluating a patient with possible respiratory tract infection. The FilmArray RP2.1 assay has FDA clearance for testing of R[employer] SITE [employer] swabs. The performance characteristics of this assay have been determined by [facility]. Current interpretive data was last revised on 2020. Nasopharyngeal 02/05/2024 4: 27 PM BUSINESS PROGRAMMER 02/05/2024 4:30 PM BUSINESS PROGRAMMER Jaqui PEREZ [facility] - 02/05/2024 5:27 PM BUSINESS PROGRAMMER Is the Patient experiencing symptoms consistent with COVID?->Unknown Surveillance testing for transplant patient?->No Quynh Merchant MD LAB MICROBIOLOGY - GENERAL ORD ERABLES Final Result [facility] [address] [place] [address] [facility] * TRANSTHORACIC ECHO (TTE) COMPLETE W DOPPLER/CF WO CONTRAST (02/05/2024 2:34 PM BUSINESS PROGRAMMER) Anatomical Region Laterality Modality Ultrasound 02/05/2024 11:4 7 AM BUSINESS PROGRAMMER Narrative 02/05/2024 7:20 PM BUSINESS PROGRAMMER [facility] [address] [address] ECHOCARDIOGRAM Patient Name: LILIANA AMANDA F : 1945 Study Date: 02/05/2024 11:47:52 AM Gender: M Tech: US[facility] Location: [id number] Ref Provider: QUYNH MERCHANT Height(Cm): 180 BSA: 1.99 Weight(Kg): 78.9 BP: 161/82 Order Provider: QUYNH MERCHANT - PROCEDURES: Echocardiographic Report: Transthoracic Echocardiogram with complete 2D, M-Mode, Spectral and Color Flow Doppler examination. INDICATIONS: Acute coronary syndrome. Measurements: 2D/M Mode Doppler Measurement Value Normal Range Measurement Value Normal Range IVSd 2D 0.98 [ 0.60 - 1.00 ] cm AV Peak Sloan 1.2 [ 1.0 - 1.7 ] m/s LVIDd 2D 5.09 [ 4.20 - 5.80 ] cm AV Peak PG 6 mmHg LVIDs 2D 3.37 [ 2.50 - 4.00 ] cm AV Mean PG 4 mmHg LVPWd 2D 1.20 [ 0.60 - 1.00 ] cm AV VTI 22.8 cm LA Dimension 2D 4.31 [ 3.00 - 4.00 ] cm NASIM Vmax 3.2 cm2 AoR Diam 2D 3.01 [ 3.10 - 3.70 ] cm NASIM VTI 3.0 cm2 AoR Diam 2D Index 1.51 LVOT Peak Slaon 1.02 [ 0.70 - 1.10 ] m/s LA Volume Index 47.15 [ 16.00 - 34.00 ] ml/m2 LVOT Diam 2.2 cm TAPSE 1.27 [ >= 1.71 ] cm LVOT Peak PG 4.1 mmHg ___ ___ ___ LVOT VTI 17.9 cm ___ ___ ___ MV Peak PG 4 mmHg ___ ___ ___ MV Mean PG 1 mmHg ___ ___ ___ MV E Peak Sloan 0.6 [ 0.6 - 1.3 ] m/s ___ ___ ___ MV A Peak Sloan 0.9 [ 1.0 - 1.2 ] m/s ___ ___ ___ MV PHT 56.4 [ 20.0 - 100.0 ] ms ___ ___ ___ MV Decel Time 173.5 [ 104.0 - 258.0 ] ms ___ ___ ___ MVA PHT 3.9 ms MV E/A Ratio 0.7 RA Pressure 3.0 mmHg PV Peak Sloan 1.0 [ 0.4 - 0.8 ] m/s PV Peak PG 4 mmHg Lat E` Sloan 0.04 [ 0.10 - 0.15 ] m/s Septal E` 0.05 [ 0.08 - 0.15 ] m/s E/E` 15.00 RV S` 0.10 m/s Measurement Value Normal Range Measurement Value Normal Range 2D/M Mode Doppler - FINDINGS: Study Quality: The study was technically adequate. BP: Blood pressure: 161/82 mmHg. Left Ventricle: Normal global and regional left ventricular systolic function. Ejection Fraction is estimated at 55-60 %. There is at least grade I diastolic dysfunction (impaired myocardial relaxation). Normal left ventricular cavity size. LV wall thickness is within normal limits. Right Ventricle: Low normal right ventricular systolic function. Normal right ventricular size. Left Atrium: There is moderate enlargement of the left atrium. Right Atrium: There is mild enlargement of the right atrium. Atrial Septum: The interatrial septum bows towards the right atrium consistent with elevated left atrial pressures. Mitral Valve: Normal appearance of the mitral valve leaflets. Trace mitral valve regurgitation. Aortic Valve: Normal appearance of the aortic valve. Aortic valve appears tricuspid in configuration. There is no aortic stenosis. There is no aortic regurgitation. Tricuspid Valve: Normal appearance of the tricuspid leaflets. Trace tricuspid regurgitation. TR envelope inadequate to estimate RVSP. Pulmonic Valve: Normal appearance and function of the pulmonic valve. Pericardium: No significant pericardial effusion. Aortic Root and Aorta: The sinuses of Valsalva are normal. Aortic Arch: Normal caliber aortic arch. IVC: The IVC is not well visualized. Exam Interpreted: Read by Professor Of Public Administration of the day to expedite patient care. CONCLUSIONS: 1. Normal global and regional left ventricular systolic function. Ejection Fraction is estimated at 55-60 %. There is at least grade I diastolic dysfunction (impaired myocardial relaxation). Normal left ventricular cavity size. LV wall thickness is within normal limits. 2. Low normal right ventricular systolic function. Normal right ventricular size. 3. There is moderate enlargement of the left atrium. 4. There is mild enlargement of the right atrium. 5. The interatrial septum bows towards the right atrium consistent with elevated left atrial pressures. 6. Normal appearance of the mitral valve leaflets. Trace mitral valve regurgitation. 7. Normal appearance of the aortic valve. Aortic valve appears tricuspid in configuration. There is no aortic stenosis. There is no aortic regurgitation. 8. Normal appearance of the tricuspid leaflets. Trace tricuspid regurgitation. TR envelope inadequate to estimate RVSP. 9. Normal appearance and function of the pulmonic valve. Electronically Signed By: Brenton Cantu MD [facility] 2024-02-05 19:19:58 BUSINESS PROGRAMMER Procedure Note Brenton Cantu MD - 02/05/2024 [place] [id number] [place] [address] ECHOCARDIOGRAM Patient Name: LILIANA AMANDA F : 1945 Study Date: 02/05/2024 11:47:52 AM Gender: M Tech: [facility] Location: [address] Ref Provider: QUYNH MERCHANT Height(Cm): 180 BSA: 1.99 Weight(Kg): 78.9 BP: 161/82 Order Provider: QUYNH MERCHANT - PROCEDURES: Echocardiographic Report: Transthoracic Echocardiogram with complete 2D, M-Mode, Spectral and ColorFlow Doppler examination. INDICATIONS: Acute coronary syndrome. Measurements: 2D/M ModeDoppler Measurement Value Normal RangeMeasurement Value Normal Range IVSd 2D 0.98 [ 0.60 - 1.00 ] cm AV PeakVel 1.2 [ 1.0 - 1.7 ] m/s LVIDd 2D 5.09 [ 4.20 - 5.80 ] cm AV Peak PG6 mmHg LVIDs 2D 3.37 [ 2.50 - 4.00 ] cm AV Mean PG4 mmHg LVPWd 2D 1.20 [ 0.60 - 1.00 ] cm AV VTI22.8 cm LA Dimension 2D 4.31 [ 3.00 - 4.00 ] cm NASIM Vmax3.2 cm2 AoR Diam 2D 3.01 [ 3.10 - 3.70 ] cm NASIM VTI3.0 cm2 AoR Diam 2D Index 1.51 LVOT PeakVel 1.02 [ 0.70 - 1.10 ] m/s LA Volume Index 47.15 [ 16.00 - 34.00 ] ml/m2 LVOT Diam2.2 cm TAPSE 1.27 [ >= 1.71 ] cm LVOT PeakPG 4.1 mmHg ___ ___ ___ LVOT VTI17.9 cm ___ ___ ___ MV Peak PG4 mmHg ___ ___ ___ MV Mean PG1 mmHg ___ ___ ___ MV E PeakVel 0.6 [ 0.6 - 1.3 ] m/s ___ ___ ___ MV A PeakVel 0.9 [ 1.0 - 1.2 ] m/s ___ ___ ___ MV PHT56.4 [ 20.0 - 100.0 ] ms ___ ___ ___ MV DecelTime 173.5 [ 104.0 - 258.0 ] ms ___ ___ ___ MVA PHT3.9 ms MV E/A Ratio 0.7 RA Pressure 3.0 mmHg PV Peak Sloan 1.0 [ 0.4 - 0.8 ] m/s PV Peak PG 4 mmHg Lat E` Sloan 0.04 [ 0.10 - 0.15 ] m/s Septal E` 0.05 [ 0.08 - 0.15 ] m/s E/E` 15.00 RV S` 0.10 m/s Measurement Value Normal RangeMeasurement Value Normal Range 2D/M ModeDoppler - FINDINGS: Study Quality: The study was technically adequate. BP: Blood pressure: 161/82 mmHg. Left Ventricle: Normal global and regional left ventricular systolic function. EjectionFraction is estimated at 55-60 %. There is at least grade I diastolic dysfunction(impaired myocardial relaxation). Normal left ventricular cavity size. LV wallthickness is within normal limits. Right Ventricle: Low normal right ventricular systolic function. Normal right ventricularsize. Left Atrium: There is moderate enlargement of the left atrium. Right Atrium: There is mild enlargement of the right atrium. Atrial Septum: The interatrial septum bows towards the right atrium consistent withelevated left atrial pressures. Mitral Valve: Normal appearance of the mitral valve leaflets. Trace mitral valveregurgitation. Aortic Valve: Normal appearance of the aortic valve. Aortic valve appears tricuspid inconfiguration. There is no aortic stenosis. There is no aortic regurgitation. Tricuspid Valve: Normal appearance of the tricuspid leaflets. Trace tricuspidregurgitation. TR envelope inadequate to estimate RVSP. Pulmonic Valve: Normal appearance and function of the pulmonic valve. Pericardium: No significant pericardial effusion. Aortic Root and Aorta: The sinuses of Valsalva are normal. Aortic Arch: Normal caliber aortic arch. IVC: The IVC is not well visualized. Exam Interpreted: Read by Professor Of Public Administration of the day to expedite patient care. CONCLUSIONS: 1. Normal global and regional left ventricular systolic function. EjectionFraction is estimated at 55-60 %. There is at least grade I diastolic dysfunction(impaired myocardial relaxation). Normal left ventricular cavity size. LV wallthickness is within normal limits. 2. Low normal right ventricular systolic function. Normal rightventricular size. 3. There is moderate enlargement of the left atrium. 4. There is mild enlargement of the right atrium. 5. The interatrial septum bows towards the right atrium consistent withelevated left atrial pressures. 6. Normal appearance of the mitral valve leaflets. Trace mitral valveregurgitation. 7. Normal appearance of the aortic valve. Aortic valve appears tricuspidin configuration. There is no aortic stenosis. There is no aorticregurgitation. 8. Normal appearance of the tricuspid leaflets. Trace tricuspidregurgitation. TR envelope inadequate to estimate RVSP. 9. Normal appearance and function of the pulmonic valve. Electronically Signed By: Brenton Cantu MD [facility] 2024-02-05 19:19:58 BUSINESS PROGRAMMER Quynh Merchant MD CV ECHO PROCEDURES Final Resul t * ECG 12 lead (02/05/2024 12:49 PM BUSINESS PROGRAMMER) 02/05/2024 12:4 9 PM BUSINESS PROGRAMMER Narrative [facility] - 02/05/2024 9:31 PM BUSINESS PROGRAMMER Vent Rate: 70 bpm RR Interval: 848 msec ID Interval: 204 msec QRS Duration: 120 msec QT Interval: 375 msec QTC Interval: 396 msec P-R-T Vici: 42 - -57 - 117 degrees IMPRESSION: SINUS RHYTHM LEFT ANTERIOR FASCICULAR BLOCK [QRS AXIS <= -45, QR IN I, RS IN II] ST DEVIATION AND MODERATE T-WAVE ABNORMALITY, CONSIDER LATERAL ISCHEMIA [-0.1+ mV T WAVE IN I/aVL/V5/V6] ABNORMAL ECG Electronically Signed By: Rocky Oscar MD, [facility] Quynh Merchant MD ECG ORDERABLES Final Result [facility] * POCT glucose (02/05/2024 12:37 PM BUSINESS PROGRAMMER) Pathologist [facility] [facility] [place] Glucose, POC 131 70 - 199 mg/dL Comment: For Glucose values <35 mg/dl when Hematocrit is >60 mg/dl,the test may not accurately detect significant hypoglycemia,and testing in the Laboratory should be considered if clinically indicated. Blood 02/05/2024 12:3 7 PM BUSINESS PROGRAMMER 02/05/2024 12:37 PM BUSINESS PROGRAMMER Quynh Merchant MD LAB POCT ORDERABLES - DEVICE F inal Result [facility] [address] Department [place] [address] * (ABNORMAL) Troponin T high-sensitivity (02/05/2024 10:09 AM BUSINESS PROGRAMMER) Trop T hs 61(H) <=22 ng/L Comment: Interpretive Data For further hscTnT resources including the diagnostic algorithm and an aid in interpretation, copy and paste this link: https://nrl.testcatalog.org/show/hsTrop Current Interpretive Data last revised 2020. Blood 02/05/2024 10:0 9 AM BUSINESS PROGRAMMER 02/05/2024 10:21 AM BUSINESS PROGRAMMER Quynh Merchant MD LAB BLOOD ORDERABLES Final Res ult Performing Organization Address City/[facility] Co de Phone Number [facility] [address] Department of Laboratories [place], [place] [id number] * Thyroid Function Miner (02/05/2024 10:09 AM BUSINESS PROGRAMMER) TSH 1.12 0.30 - 4.20 mcIUnit/mL Blood 02/05/2024 10:0 9 AM BUSINESS PROGRAMMER 02/05/2024 10:21 AM BUSINESS PROGRAMMER Quynh Merchant MD LAB BLOOD ORDERABLES Final Res ult Performing Organization Address [facility] Co de Phone Number [facility] [address] [employer] [place], [place] [id number] * (ABNORMAL) Lipid panel (02/05/2024 10:09 AM BUSINESS PROGRAMMER) Cholesterol 222(H) 30 - 199 mg/dL Comment: Interpretive Data Ages < or = 19 years Acceptable: <170 mg/dL Borderline high: 170-199 mg/dL High: >or= 200 mg/dL Ages > or = 20 years Desirable: <200 mg/dL Borderline high: 200-239 mg/dL High: >or= 240 mg/dL Literature References: 1. Expert Panel on Integrated Guidelines for Cardiovascular Health and Risk Reduction in Children and Adolescents. Pediatrics 2011;128:S213 2. NCEP Expert Panel. Circulation 2004;110:227 Current Interpretive Data was last revised on 2017. Triglycerides 114 <=149 mg/dL [facility] Comment: Interpretive Data Ages < or = 9 years Acceptable: <75 mg/dL Borderline high: 75-99 mg/dL High: >or= 100 mg/dL Ages 10 to 20 years Acceptable: <90 mg/dL Borderline high: 90-129 mg/dL High: >or= 130 mg/dL Ages > or = 20 years Desirable: <150 mg/dL Borderline high: 150-199 mg/dL High: 200-499 mg/dL Very high: >or= 499 mg/dL Literature References: 1. Expert Panel on Integrated Guidelines for Cardiovascular Health and Risk Reduction in Children and Adolescents. Pediatrics 2011;128:S213 2. NCEP Expert Panel. Circulation 2004;110:227 Current Interpretive Data was last revised on 2017. HDL 45 >=40 mg/dL [facility] Comment: Interpretive Data Ages < or = 19 years Acceptable: >45 mg/dL Borderline low: 40-45 mg/dL Low: <40 mg/dL Ages > or = 20 years Desirable: >or= 60 mg/dL Low: <40 mg/dL Literature References: 1. Expert Panel on Integrated Guidelines for Cardiovascular Health and Risk Reduction in Children and Adolescents. Pediatrics 2011;128:S213 2. NCEP Expert Panel. Circulation 2004;110:227 Current Interpretive Data was last revised on 2017. LDL, calculated 156(H) <=129 mg/dL [facility] Comment: Interpretive Data Ages < or = 19 years Acceptable: <110 mg/dL Borderline high: 110-129 mg/dL High: >or= 130 mg/dL Ages > or = 20 years Optimal: <100 mg/dL Near optimal: 100-129 mg/dL Borderline high: 130-159 mg/dL High: >160 mg/dL Calculated using the Joseluis LDL-C estimating equation. This equation was implemented on 2023. Prior to this date LDL-C was estimated using the Friedewald equation. Literature References: 1. Expert Panel on Integrated Guidelines for Cardiovascular Health and Risk Reduction in Children and Adolescents. Pediatrics 2011;128:S213 2. NCEP Expert Panel. Circulation 2004;110:227 3. Joseluis Rodriguez al. DUANE Cardiol. 2020 July 06;5(5):540-548. doi: 10.1001/[email or web address] Current Interpretive Data was last revised on 2023. Non-HDL Cholesterol 177 mg/dL [facility] Comment: Interpretive Data Ages < or = 19 years Acceptable: <120 mg/dL Borderline high: 120-144 mg/dL High: >145 mg/dL Ages > or = 20 years When triglycerides are >200 mg/dL, Non-HDL cholesterol is a secondary target of therapy with treatment goals that are 30 mg/dL greater than the LDL cholesterol target. Literature References: 1. Expert Panel on Integrated Guidelines for Cardiovascular Health and Risk Reduction in Children and Adolescents. Pediatrics 2011;128:S213 2. NCEP Expert Panel. Circulation 2004;110:227 Current Interpretive Data was last revised on 2017. Chol/HDL ratio 5 [facility] Blood 02/05/2024 10:0 9 AM BUSINESS PROGRAMMER 02/05/2024 10:21 AM BUSINESS PROGRAMMER us Quynh Merchant MD LAB BLOOD ORDERABLES Final Res ult [facility] [address] Department [place] [address] * XR Chest 1 Vw (02/05/2024 9:41 AM BUSINESS PROGRAMMER) Anatomical Region Laterality Modality Body, Chest N/A Computed Radiogr aphy 02/05/2024 9:47 AM BUSINESS PROGRAMMER Impressions 02/05/2024 9:47 AM BUSINESS PROGRAMMER The lines are small. There is no pneumonic consolidation, pleural effusion, pulmonary edema or pneumothorax. Heart and mediastinal contours are within normal limits. Electronically signed by: Portillo Herring MD, PHD Narrative 02/05/2024 9:47 AM BUSINESS PROGRAMMER EXAMINATION: XR CHEST 1 VIEW HISTORY: hypoxia COMPARISON: CT chest 05/15/2023 Procedure Note Portillo Herring MD PhD - 02/05/2024 EXAMINATION: XR CHEST 1 VIEW HISTORY: hypoxia COMPARISON: CT chest 05/15/2023 IMPRESSION: The lines are small. There is no pneumonic consolidation, pleural effusion, pulmonary edema or pneumothorax. Heart and mediastinal contours are within normal limits. Electronically signed by: Portillo Herring MD, PHD Quynh Merchant MD IMG XR PROCEDURES Final Result * (ABNORMAL) Troponin T high-sensitivity (02/05/2024 8:47 AM BUSINESS PROGRAMMER) Pathologist [facility] [place] Trop T hs 60(H) <=22 ng/L Comment: Interpretive Data For further hscTnT resources including the diagnostic algorithm and an aid in interpretation, copy and paste this link: https://nrl.testcatalog.org/show/hsTrop Current Interpretive Data last revised 2020. Blood 02/05/2024 8:47 AM BUSINESS PROGRAMMER 02/05/2024 8:47 AM BUSINESS PROGRAMMER Quynh Merchant MD LAB BLOOD ORDERABLES Final Res ult Performing Organization Address [facility] Co de Phone Number [facility] [address] [place] [address] * Lactate (02/05/2024 7:05 AM BUSINESS PROGRAMMER) [facility] Lactate 1.0 0.7 - 2.0 mmol/L Blood 02/05/2024 7:05 AM BUSINESS PROGRAMMER 02/05/2024 7:05 AM BUSINESS PROGRAMMER Samir Salazar DO LAB BLOOD ORDERABLES F inal Result Performing Organization Address [facility] Co de Phone Number [facility] [address] [place] [place] [address] * (ABNORMAL) eGFR (02/05/2024 7:05 AM BUSINESS PROGRAMMER) [facility] eGFR 43(L) >=60 mL/min/1. 73 m2 Comment: Interpretive Data Reference Interval Normal >/= 90 mL/min/1.73m2 Mildly decreased* 60 - 89 mL/min/1.73m2 Mildly to moderately decreased 45 - 59 mL/min/1.73m2 Moderately to severely decreased 30 - 44 mL/min/1.73m2 Severely decreased 15 - 29 mL/min/1.73m2 Kidney Failure < 15 mL/min/1.73m2 *Relative to young adult level Estimated glomerular filtration rate is determined by the 2020 CKD-EPI equation recommended by the National Kidney Foundation (A Unifying Approach to GFR Estimation: Recommendations of the NKF-ASK Task Force on Reassessing the Inclusion of Race in Diagnosing Kidney Disease, JASN 202). The CKD-EPI equation should not be used for patients with unstable renal function and has not been validated in children and those over 70. Current interpretive data was last reviewed 2021. Blood 02/05/2024 7:05 AM BUSINESS PROGRAMMER 02/05/2024 7:13 AM BUSINESS PROGRAMMER us Samir Salazar DO LAB BLOOD ORDERABLES F inal Result [facility] [address] Department [place] [address] * (ABNORMAL) Differential, auto (02/05/2024 7:05 AM BUSINESS PROGRAMMER) Neutrophil abs 3.4 1.5 - 6.5 K/cumm Imm gran abs 0.0 0.0 - 0.1 K/cumm [facility] Lymphocyte abs 0.7(L) 0.8 - 3.3 K/cumm [facility] Monocyte abs 0.7 0.2 - 0.8 K/cumm [facility] Eosinophil abs 0.0 0.0 - 0.5 K/cumm [facility] Basophil abs 0.0 0.0 - 0.1 K/cumm [facility] Neutrophil pct 71.0 % [facility] Comment: Interpretive Data Percent cell count reference ranges are not reported, since discordance with absolute values may lead to misinterpretation of CBC data. Current Interpretive Data was last revised on 2017. Imm gran pct 0.2 % [facility] Comment: Interpretive Data Percent cell count reference ranges are not reported, since discordance with absolute values may lead to misinterpretation of CBC data. Current Interpretive Data was last revised on 2017. Lymphocyte pct 14.3 % [facility] Comment: Interpretive Data Percent cell count reference ranges are not reported, since discordance with absolute values may lead to misinterpretation of CBC data. Current Interpretive Data was last revised on 2017. Monocyte pct 14.1 % [facility] Comment: Interpretive Data Percent cell count reference ranges are not reported, since discordance with absolute values may lead to misinterpretation of CBC data. Current Interpretive Data was last revised on 2017. Eosinophil pct 0.0 % [facility] Comment: Interpretive Data Percent cell count reference ranges are not reported, since discordance with absolute values may lead to misinterpretation of CBC data. Current Interpretive Data was last revised on 2017. Basophil pct 0.4 % [facility] Comment: Interpretive Data Percent cell count reference ranges are not reported, since discordance with absolute values may lead to misinterpretation of CBC data. Current Interpretive Data was last revised on 2017. Blood 02/05/2024 7:05 AM BUSINESS PROGRAMMER 02/05/2024 7:05 AM BUSINESS PROGRAMMER us Samir Salazar DO LAB BLOOD ORDERABLES F inal Result [facility] [address] Department [place] [address] * (ABNORMAL) CBC with auto differential (02/05/2024 7:05 AM BUSINESS PROGRAMMER) WBC 4.8 3.8 - 9.9 K/cumm Hgb 13.7 13.0 - 17.5 g/dL [facility] Hct 40.3 38.9 - 50.3 % [facility] Plt 115(L) 150 - 400 K/cumm [facility] MPV 12.8(H) 9.1 - 12.3 fL [facility] RBC 4.18(L) 4.30 - 5.80 M/cumm [facility] MCV 96.4 81.3 - 96.4 fL [facility] MCH 32.8 27.1 - 33.3 pg [facility] MCHC 34.0 32.3 - 35.7 g/dL [facility] RDW CV 13.2 11.1 - 14.9 % [facility] RDW SD 47.3 35.7 - 48.1 fL [facility] NRBC abs 0.00 0.00 - 0.01 K/cumm [facility] Blood 02/05/2024 7:05 AM BUSINESS PROGRAMMER 02/05/2024 7:05 AM BUSINESS PROGRAMMER us Samir Salazar DO LAB BLOOD ORDERABLES F inal Result [facility] [address] [place] [address] * (ABNORMAL) Comprehensive metabolic panel (02/05/2024 7:05 AM BUSINESS PROGRAMMER) Sodium 142 135 - 145 mmol/L Potassium, pl 4.3 3.3 - 4.9 mmol/L [facility] Comment:Hemolyzed; potassium value may be falsely elevated by as much as 0.6 - 1.0 mmol/L. Suggest redraw and reanalysis Chloride 108 97 - 110 mmol/L [facility] CO2 24 22 - 32 mmol/L [facility] Anion gap 10 2 - 15 mmol/L [facility] BUN 23 6 - 25 mg/dL [facility] Creatinine 1.62(H) 0.80 - 1.30 mg/dL [facility] Glucose 107 70 - 199 mg/dL [facility] Comment: Interpretive Data Fasting glucose >/= 126 mg/dl is diagnostic for diabetes. Fasting is defined as no caloric intake for at least 8 hours. Fasting glucose between 100 mg/dl to 125 mg/dl is diagnostic of prediabetes. In a patient with classic symptoms of hyperglycemia or hyperglycemic crisis, a random glucose >/= 200 mg/dl is diagnostic for diabetes. In the absence of unequivocal hyperglycemia, results should be confirmed by repeat testing. The classification and Diagnosis of Diabetes Diabetes Care 2021; 46: S19-S40. Current interpretive data was last revised 2022. Calcium 8.9 8.5 - 10.3 mg/dL [facility] Bilirubin, total 0.7 0.1 - 1.2 mg/dL [facility] Protein, pl 6.3(L) 6.5 - 8.5 g/dL [facility] Albumin 3.8 3.5 - 5.0 g/dL [facility] Alk phos 40 40 - 130 Units/L [facility] ALT 23 7 - 55 Units/L [facility] Comment:Moderately Hemolyzed Specimen AST 53(H) 10 - 50 Units/L [facility] Comment:Moderately Hemolyzed Specimen Blood 02/05/2024 7:05 AM BUSINESS PROGRAMMER 02/05/2024 7:05 AM BUSINESS PROGRAMMER Samir Salazar DO LAB BLOOD ORDERABLES F inal Result Performing Organization Address [facility] Co de Phone Number [facility] [address] [place] [place] [address] * (ABNORMAL) Hemoglobin A1c (05/16/2023 4:38 AM CDT) [facility] Hgb A1C 6.8(H) 4.0 - 5.6 % Estimated Average Glucose 148 mg/dL [facility] Comment: The ADA recommends reporting an estimated Average Glucose (eAG) with all Hemoglobin A1c results using the equation derived from a study of 507 normal and diabetic adults. Minority populations were underrepresented and children were not included. (Diabetes Care 31:4589-1942, 2008). The eAG is not equivalent to a fasting glucose. Blood 05/16/2023 4:38 AM CDT 05/16/2023 5:21 AM CDT Kanchan Merchant DO LAB BLOOD ORDERABLES Final Result Performing Organization Address City/[facility]/ZIP Co de Phone Number [facility] [address] [place] [place] [address] from Last 3 Months or Most Recently Relevant to Health Maintenance Insurance [place] [employer] [place] [employer] Advance Directives For more information, please contact: [phone] * Full Code (Latest Code Status on File) Date Activated Date Inactivated Comments 02/05/2024 6:07 AM 02/09/2024 3:45 PM * Full Code Date Activated Date Inactivated Comments 05/15/2023 7:34 PM 05/16/2023 10:03 PM Care Teams Hoisting Engine Operator Relationship Specialty Start Date End Date Ministerio Harrison MD [address] [place] [id number] PCP - General Family Medicine 02/08/24 Kit Alcantar MD [facility] [address] [address] Consulting Physician Pulmonary Disease 12/07/22
--- OUTSIDE RECORDS SUMMARY | 2024-05-02 13:17 | XMS_ITS | Encounter Summary ---
Author Organization [facility] Address [address] [place] [address] Care Team Providers Care Mining Analyst Name Role Phone Yovanny Archer PA-C Primary Care Provider [phone] Ministerio Harrison MD Primary Care Provider [phone] Encounter Details Date Type Department Care Team (Late Contact Info) Description 07/26/2023 MyChart Message Enc [facility] - [address] [place] [address] Maile Gay MD [address] [place] [id number] Kidney Function Social History Tobacco Use Types Packs/Day Years Used Date Smoking Tobacco: Never Passive Smoke Exposure: Never Smokeless Tobacco: Never Alcohol Use Standard Drinks/Week Comments Yes 0 (1 standard drink = 0.6 oz pur e alcohol) seldom PHQ-2 Answer Date Recorded Patient Health Questionnaire-2 Score 0 01/26/2023 Sex and Gender Information Value Date Recorded Sex Assigned at Not on file Legal Sex Male 11:11 PM 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 AIDE TEACHER Gender Identity Not on file Sexual Orientation Not on file documented as of this encounter Plan of Treatment Upcoming Encounters Date Type Department Care Team (Late Contact Info) Description 02/12/2025 1:00 PM CORRECTIVE THERAPY AIDE TEACHER Office Visit [facility] [address] [place] [address] Pati Longo APNP [address] [place] [phone] documented as of this encounter Visit Diagnoses Not on filedocumented in this encounter Care Teams Mining Analyst Relationship Specialty Start Date End Date Yovanny Archer PA-C [address] [place] [address] PCP - General PHYSICIAN GARDEN IMPLEMENT MECHANIC 06/30/22 12/14/23 Ministerio Harrison MD [address] [place] [address] PCP - General FAMILY PRACTICE 12/15/23 documented as of this encounter
--- OUTSIDE RECORDS SUMMARY | 2024-05-02 13:17 | XMS_ITS | Clinical Summary ---
Author Organization [facility] Address [address] [place] [address] Care Team Providers Care Mangle Tender Cloth Name Role Phone Ministerio Harrison MD Primary Care Provider [phone] Allergies Active Allergy Reactions Criticality Noted Date Comments Cyclobenzaprine Other (see comment) 09/22/2022 Diclofenac Unknown 09/22/2022 Tramadol Other (see comment) 09/22/2022 Medications metFORMIN ER, OSM, (FORTAMET) 500 MG 24 hr tablet Take 1 tablet (500 mg total) by mouth 2 (two) times a day. Active levETIRAcetam (KEPPRA) 750 MG tablet Take 1 tablet (750 mg total) by mouth 2 (two) times daily. Active lisinopril (PRINIVIL) 20 MG tablet Take 1 tablet (20 mg total) by mouth daily. Active amLODIPine (NORVASC) 10 MG tablet Take 1 tablet (10 mg total) by mouth daily. Active apixaban (ELIQUIS) 5 MG tablet Take 1 tablet (5 mg total) by mouth. Active cholecalciferol (VITAMIN D-[address]) 25 mcg Tab tablet Take 1 tablet (1,000 Units total) by mouth daily. Active ezetimibe (ZETIA) 10 MG tablet Take 1 tablet (10 mg total) by mouth daily. Active furosemide (LASIX) 20 MG tablet Take 1 tablet (20 mg total) by mouth daily. 10/23/2022 Active Lutein 6 MG Tab Take by mouth Active Multiple Vitamins-Minera ls (SAVISION) Tab Take by mouth Active albuterol sulfate HFA 108 (90 Base) MCG/ACT inhaler Inhale 2 puffs into the lungs. 10/23/2022 Active loratadine (CLARITIN) 10 MG tablet Take 1 tablet (10 mg total) by mouth daily. Active rosuvastatin (CRESTOR) 10 MG tablet Take 1 tablet (10 mg total) by mouth nightly at bedtime. Active Active Problems Problem Noted Date Diagnosed Date History of pulmonary embolus (PE) 02/01/2024 Encounters Date Type Department Care Team Description 04/14/2024 8:00 AM ADVERTISEMENT DISTRIBUTOR - 04/14/2024 11:59 PM ADVERTISEMENT DISTRIBUTOR Hospital Encounter [facility] [place] [address] Zulay Mcmanus FNP-BC Discharge Disposition: Home or Self Care (Routine Discharge) 04/14/2024 Orders Only [facility] [place] [address] Zulay Mcmanus FNP-BC 04/14/2024 Travel 02/01/2024 1:10 PM ADVERTISEMENT DISTRIBUTOR - 02/01/2024 11:59 PM ADVERTISEMENT DISTRIBUTOR Hospital Encounter [facility] [place] [address] Stephany English MD Discharge Disposition: Home or Self Care (Routine Discharge) 02/01/2024 12:00 PM ADVERTISEMENT DISTRIBUTOR Initial Consult [facility] [place] [address] [id number] Stephany English MD New Patient (PE) 02/01/2024 Orders Only [facility] [place] [id number] Stephany English MD 02/01/2024 Orders Only [facility] [place] [id number] Stephany English MD 02/01/2024 Travel from Last 3 Months Social History Tobacco Use Types Packs/Day Years Used Date Smoking Tobacco: Never Passive Smoke Exposure: Never Smokeless Tobacco: Never Tobacco Cessation:Counseling Given: No Alcohol Use Standard Drinks/Week Comments Yes 0 (1 standard drink = 0.6 oz pur e alcohol) seldom PHQ-2 Answer Date Recorded Patient Health Questionnaire-2 Score 0 01/26/2023 Sex and Gender Information Value Date Recorded Sex Assigned at Not on file Legal Sex Male 11:11 PM ADVERTISEMENT DISTRIBUTOR Gender Identity Not on file Sexual Orientation Not on file Last Filed Vital Signs Vital Sign Reading Time Taken Comments Blood Pressure 132/74 02/01/2024 12:14 PM ADVERTISEMENT DISTRIBUTOR Pulse 56 02/01/2024 12:14 PM ADVERTISEMENT DISTRIBUTOR Temperature 36.1 C (96.9 F) 02/01/2024 12:14 PM ADVERTISEMENT DISTRIBUTOR Respiratory Rate 18 02/01/2024 12:14 PM ADVERTISEMENT DISTRIBUTOR Oxygen Saturation 99% 02/01/2024 12:14 PM ADVERTISEMENT DISTRIBUTOR Inhaled Oxygen Concentration - - Weight 76.3 kg (168 lb 3.2 oz) 02/01/2024 12:14 PM ADVERTISEMENT DISTRIBUTOR Height 172.7 cm (5' 8 ) 02/01/2024 12:14 PM ADVERTISEMENT DISTRIBUTOR Body Mass Index 25.57 02/01/2024 12:14 PM ADVERTISEMENT DISTRIBUTOR Plan of Treatment Upcoming Encounters Date Type Department Care Team (Late st Contact Info) Description 02/12/2025 1:00 PM ADVERTISEMENT DISTRIBUTOR Office Visit [address] [place] [address] Pati Longo, APNP [address] [place] [id number] Health Maintenance Due Date Last Done Comments Zoster Vaccines (1 of 2) 08/07/1993 DTaP, Tdap and Td Vaccines (1 - Tdap) 08/11/2003 08/10/2003, 03/08/2001 Annual Medicare Wellness Visit 08/07/2008 Pneumococcal Vaccine: 65+ Years (1 of 1 - PCV) 08/07/2008 03/08/1949 RSV Immunization or 60+ Years (1 - 1-dose 75+ series) 08/07/2018 COVID-19 Vaccine ( - season) 2023 01/19/2022, 07/16/2021, 01/29/2021, Additional history exists Influenza Adult (#1) 2023 PHQ-2 (Physician Lorraine) 03/08/2024 01/26/2023 Meningococcal B Vaccine Aged Out No l onger eligible based on patient's age to complete this topic Meningococcal Vaccine Aged Out No eve enoc eligible based on patient's age to complete this topic RSV Immunizations Under 20 Months Aged Out No longer eligible based on patient's age to complete this topic Procedures Procedure Name Priority Date/Time Associated Diagnosis Comments HC URINALYSIS AUTO W/MICRO Routine 04/14/2024 8:30 AM ADVERTISEMENT DISTRIBUTOR Hyperlipidemia ALBUMIN URINE RANDOM W/CREATININE Routine 04/14/2024 8:30 AM ADVERTISEMENT DISTRIBUTOR Hyperlipidemia HEMOGLOBIN, GLYCOSYLATED Routine 04/14/2024 8:28 AM ADVERTISEMENT DISTRIBUTOR VITAMIN D, 25 OH Routine 04/14/2024 8:28 AM ADVERTISEMENT DISTRIBUTOR MAGNESIUM Routine 04/14/2024 8:28 AM ADVERTISEMENT DISTRIBUTOR Hyperlipidemia FOLIC ACID SERUM Routine 04/14/2024 8:28 AM ADVERTISEMENT DISTRIBUTOR Hyperlipidemia VITAMIN B-12 Routine 04/14/2024 8:28 AM ADVERTISEMENT DISTRIBUTOR Hyperlipidemia LIPID PANEL Routine 04/14/2024 8:28 AM ADVERTISEMENT DISTRIBUTOR Hyperlipidemia THYROID STIM HORMONE TSH Routine 04/14/2024 8:28 AM ADVERTISEMENT DISTRIBUTOR Hyperlipidemia COMPREHENSIVE METABOLIC PANEL Routine 04/14/2024 8:28 AM ADVERTISEMENT DISTRIBUTOR Hyperlipidemia CBC W/DIFF AUTOMATED Routine 04/14/2024 8:28 AM ADVERTISEMENT DISTRIBUTOR Hyperlipidemia FERRITIN Routine 02/01/2024 1:32 PM ADVERTISEMENT DISTRIBUTOR Abnormal blood chemistry HEMOCHROMATOSIS DNA Routine 02/01/2024 1 :32 PM ADVERTISEMENT DISTRIBUTOR 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 IRON SAT PANEL (IRON,IBC,%SAT) Routine 02/01/2024 1:32 PM ADVERTISEMENT DISTRIBUTOR History of pulmonary embolus (PE) Other specified abnormal findings of blood chemistry PROSTATE SPECIFIC ANTIGEN,TOTAL Routine 02/01/2024 1:32 PM ADVERTISEMENT DISTRIBUTOR History of pulmonary embolus (PE) 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 COMPREHENSIVE METABOLIC PANEL Routine 02/01/2024 1:32 PM ADVERTISEMENT DISTRIBUTOR History of pulmonary embolus (PE) CBC W/DIFF AUTOMATED Routine 02/01/2024 1:32 PM ADVERTISEMENT DISTRIBUTOR History of pulmonary embolus (PE) from Last 3 Months Results * (ABNORMAL) URINALYSIS (04/14/2024 8:30 AM ADVERTISEMENT DISTRIBUTOR) COLOR (U) DARK YELLOW 04/14/2024 8:59 AM ADVERTISEMENT DISTRIBUTOR [facility] TRANSPARENCY CLOUDY 04/14/2024 8:59 AM ADVERTISEMENT DISTRIBUTOR [facility] SPECIFIC GRAVITY (U) 1.020 1.000 - 1.025 04/14/2024 8:59 AM ADVERTISEMENT DISTRIBUTOR [facility] U PH 7.0 5.0 - 8.0 04/14/2024 8:59 AM ADVERTISEMENT DISTRIBUTOR [facility] LEUKOCYTES (U) NEGATIVE NEGATIVE 04/14/2024 8:59 AM ADVERTISEMENT DISTRIBUTOR [facility] NITRITES NEGATIVE NEGATIVE 04/14/2024 8:59 AM ADVERTISEMENT DISTRIBUTOR [facility] PROTEIN RANDOM (U) 2+(A) NEGATIVE 04/14/2024 8:59 AM ADVERTISEMENT DISTRIBUTOR [facility] GLUCOSE (U) NEGATIVE NEGATIVE 04/14/2024 8:59 AM ADVERTISEMENT DISTRIBUTOR [facility] KETONES MG/DL (U) NEGATIVE NEGATIVE 04/14/2024 8:59 AM ADVERTISEMENT DISTRIBUTOR [facility] UROBILINOGEN 0.2 <1.0 EU/DL 04/14/2024 8:59 AM ADVERTISEMENT DISTRIBUTOR [facility] BILIRUBIN (U) NEGATIVE NEGATIVE 04/14/2024 8:59 AM ADVERTISEMENT DISTRIBUTOR [facility] BLOOD (U) 3+(A) NEGATIVE 04/14/2024 8:59 AM ADVERTISEMENT DISTRIBUTOR [facility] WBC/HPF RARE(A) 0 - 5 /HPF 04/14/2024 8:59 AM ADVERTISEMENT DISTRIBUTOR [facility] RBC/HPF 50-100(A) 0 - 5 /HPF 04/14/2024 8:59 AM ADVERTISEMENT DISTRIBUTOR [facility] AMORPHOUS SEDIMENT PHOSPHATES 04/14/2024 8:59 AM ADVERTISEMENT DISTRIBUTOR [facility] COMMENT (U) TOTAL URINE VOLUME IS 3.0 MLS. 04/14/2024 8:59 AM ADVERTISEMENT DISTRIBUTOR [facility] URINE SPECIMEN OBTAINED BY CLEAN CATCH PROCEDURE / Unknown 04/14/2024 8:30 AM ADVERTISEMENT DISTRIBUTOR Zulay Mcmanus METAL MINE INSPECTOR-BC URINE ORDERABLES Final Result Performing Organization Address [facility] [place] [place] [address], * (ABNORMAL) ALBUMIN CREATININE URINE RANDOM (04/14/2024 8:30 AM ADVERTISEMENT DISTRIBUTOR) ALBUMIN (U) 14.2 MG/DL 04/14/2024 9:14 AM [facility] Comment:REFERENCE RANGE NOT ESTABLISHED CREATININE RANDOM (U) 122.8 MG/DL 04/14/2024 9:14 AM [facility] Comment:REFERENCE RANGE NOT ESTABLISHED ALBUMIN/CREAT RATIO 115.7(H) <30 MG/G 04/14/2024 9:14 AM [facility] Comment: NORMAL TO MILDLY INCREASED ALBUMINURIA: <30 MG/G MODERATELY INCREASED ALBUMINURIA: 30 TO 300 MG/G SEVERELY INCREASED ALBUMINURIA: >300 MG/G PER KDIGO URINE SPECIMEN / Unknown 04/14/2024 8:30 AM ADVERTISEMENT DISTRIBUTOR Zulay Mcmanus METAL MINE INSPECTOR-BC URINE ORDERABLES Final Result Performing Organization Address [facility] Co de Phone Number [facility] [address] [place] [address], [place] [phone] * (ABNORMAL) HEMOGLOBIN, GLYCOSYLATED (04/14/2024 8:28 AM ADVERTISEMENT DISTRIBUTOR) HGB A1C 6.1(H) <5.7 % 04/14/2024 7:04 PM ADVERTISEMENT DISTRIBUTOR [facility] ESTIMATED AVG GLUCOSE 128(H) 74 - 114 MG/DL 04/14/2024 7:04 PM [facility] 04/14/2024 8:28 AM ADVERTISEMENT DISTRIBUTOR Zulay Lujansolitario [facility] Final Result Performing Organization Address City/[facility] Co de Phone Number [facility] [address] [place] [address], [place] [phone] * VITAMIN B-12 (04/14/2024 8:28 AM ADVERTISEMENT DISTRIBUTOR) Pathologist [facility] [place] VITAMIN B12 S/P/B 227 193 - 986 PG/ML 04/14/2024 4:01 PM [facility] 04/14/2024 8:28 AM ADVERTISEMENT DISTRIBUTOR Zulay Andrews Yonathan [facility] Final Result Performing Organization Address [facility] de Phone Number [facility] [address] [place] [address], [place] [phone] * (ABNORMAL) COMPREHENSIVE METABOLIC PANEL (04/14/2024 8:28 AM ADVERTISEMENT DISTRIBUTOR) Only the most recent of2 resultswithin the time period is included. SODIUM S/P/B 149(H) 136 - 145 MMOL/L 04/14/2024 9:26 AM [facility] POTASSIUM S/P/B 4.2 3.5 - 5.1 MMOL/L 04/14/2024 9:26 AM [facility] CHLORIDE S/P/B 111(H) 98 - 107 MMOL/L 04/14/2024 9:26 AM [facility] CO2 30.6 21.0 - 32.0 MMOL/L 04/14/2024 9:26 AM [facility] GLUCOSE 117(H) 70 - 99 MG/DL 04/14/2024 9:26 AM [facility] Comment: FASTING GLUCOSE 100 TO 125 MG/DL IS CONSISTENT WITH IMPAIRED FASTING GLUCOSE. FASTING GLUCOSE >125 MG/DL IS CONSISTENT WITH DIABETES. RANDOM GLUCOSE >200 MG/DL WITH HYPERGLYCEMIC SYMPTOMS IS CONSISTENT WITH DIABETES. PER ADA GUIDELINES BUN 26(H) 6 - 24 MG/DL 04/14/2024 9:26 AM [facility] CREATININE S/P/B 1.39(H) 0.70 - 1.30 MG/DL 04/14/2024 9:26 AM [facility] CALCIUM S/P/B 9.0 8.4 - 10.5 MG/DL 04/14/2024 9:26 AM [facility] BILIRUBIN TOTAL S/P/B 0.9 0.2 - 1.0 MG/DL 04/14/2024 9:26 AM [facility] Comment: THIS ASSAY IS NOT RECOMMENDED FOR PATIENTS UNDERGOING TREATMENT WITH ELTROMBOPAG DUE TO THE POTENTIAL FOR FALSELY ELEVATED RESULTS. ALKALINE PHOSPHATASE S/P/B 42(L) 45 - 115 U/L 04/14/2024 9:26 AM [facility] AST 14(L) 15 - 37 U/L 04/14/2024 9:26 AM [facility] ALT 20 16 - 63 U/L 04/14/2024 9:26 AM [facility] TOTAL PROTEIN S/P/B 7.2 6.4 - 8.2 G/DL 04/14/2024 9:26 AM [facility] ALBUMIN S/P/B 3.7 3.4 - 5.0 G/DL 04/14/2024 9:26 AM [facility] ANION GAP 7.4 5.0 - 15.0 MMOL/L 04/14/2024 9:26 AM [facility] OSMOLALITY (CALC) 314 MOSM/KG 025 9:26 AM [facility] Comment:REFERENCE RANGE NOT ESTABLISHED GFR ESTIMATE 51(L) >89 ML/MIN/1. 73 M2 04/14/2024 9:26 AM ADVERTISEMENT DISTRIBUTOR [facility] GFR NOTES GFR REFERENCE S: 04/14/2024 9:26 AM ADVERTISEMENT DISTRIBUTOR [facility] Comment: THE ESTIMATED GFR IS CALCULATED USING THE 2020 CKD-EPI EQUATION. THE FOLLOWING CATEGORIES FOR GRADING RENAL FUNCTION ARE RECOMMENDED BY THE INTERNATIONAL SOCIETY OF NEPHROLOGY (KDIGO 2012 CLINICAL PRACTICE GUIDELINE). G1,NORMAL OR HIGH: >89 ml/min/1.73 m2 G2,MILDLY DECREASED: 60-89 ml/min/1.73 m2 G3A,MILDLY TO MODERATELY DECREASED: 45-59 ml/min/1.73 m2 G3B,MODERATELY TO SEVERELY DECREASED: 30-44 ml/min/1.73 m2 G4,SEVERELY DECREASED: 15-29 ml/min/1.73 m2 G5,KIDNEY FAILURE: <15 ml/min/1.73 m2 04/14/2024 8:28 AM ADVERTISEMENT DISTRIBUTOR Zulay Mcmanus [facility] Final Result [facility] [place] [address], * LIPID PANEL (04/14/2024 8:28 AM ADVERTISEMENT DISTRIBUTOR) CHOLESTEROL 258 MG/DL 04/14/2024 12:27 PM [facility] Comment:HIGH: > OR = 240 TRIGLYCERIDES 145 MG/DL 04/14/2024 12:27 PM [facility] Comment:<150 NORMAL HDL 55 >39 MG/DL 04/14/2024 12:27 PM [facility] LDL-C 174 MG/DL 04/14/2024 12:27 PM [facility] Comment:160-189 HIGH VLDL CALCULATION 29 MG/DL 04/14/19 12:27 PM [facility] Comment:REFERENCE RANGE NOT ESTABLISHED CHOL/HDL RATIO 4.7 04/14/2024 12:27 PM [facility] Comment:REFERENCE RANGE NOT ESTABLISHED LDL/HDL 3.2 04/14/2024 12:27 PM ADVERTISEMENT DISTRIBUTOR [facility] Comment:REFERENCE RANGE NOT ESTABLISHED NON HDL CHOLESTEROL 203 MG/DL 04/14/2024 12:27 PM ADVERTISEMENT DISTRIBUTOR [facility] Comment:REFERENCE RANGE NOT ESTABLISHED 04/14/2024 8:28 AM ADVERTISEMENT DISTRIBUTOR Zulay Lujansolitario [facility] Final Result Performing Organization Address [facility]/ZIP Co de Phone Number [facility] [address] [place] [address], [place] [phone] * FOLIC ACID SERUM (04/14/2024 8:28 AM ADVERTISEMENT DISTRIBUTOR) Pathologist [facility] [place] FOLATE 8.4 3.1 - 17.5 NG/ML 04/14/2024 4:01 PM ADVERTISEMENT DISTRIBUTOR [facility] 04/14/2024 8:28 AM ADVERTISEMENT DISTRIBUTOR Zulay Andrews oYnathan [facility] Final Result Performing Organization Address [facility] de Phone Number [facility] [address] [place] [address], [place] [phone] * (ABNORMAL) CBC W/DIFF AUTOMATED (04/14/2024 8:28 AM ADVERTISEMENT DISTRIBUTOR) Only the most recent of2 resultswithin the time period is included. WBC 4.70 4.00 - 10.80 x10'3/uL 04/14/2024 8:42 AM ADVERTISEMENT DISTRIBUTOR [facility] RBC 4.55 4.50 - 6.10 x10'6/uL 04/14/2024 8:42 AM [facility] HGB 14.6 13.0 - 18.0 G/DL 04/14/2024 8:42 AM [facility] HCT 43.1 37.0 - 52.0 % 04/14/2024 8:42 AM [facility] MCV 94.7 78.0 - 100.0 FL 04/14/2024 8:42 AM [facility] MCH 32.1(H) 27.0 - 31.0 PG 04/14/2024 8:42 AM [facility] MCHC 33.9 33.0 - 36.0 G/DL 04/14/2024 8:42 AM [facility] RDW 13.2 11.5 - 14.5 % 04/14/2024 8:42 AM [facility] PLT 131(L) 150 - 350 x10'3/uL 04/14/2024 8:42 AM [facility] MPV 12.4(H) 7.4 - 10.4 FL 04/14/2024 8:42 AM [facility] CBC COMMENT NORMAL REFERENCE RANGE NOT ESTABLISHED FOR THE PROPORTIONAL LEUKOCYTE DIFFERENTIAL. 04/14/2024 8:42 AM [facility] NEUTROPHILS % 66.4 % 04/14/2024 8:42 AM [facility] LYMPHOCYTES % 20.0 % 04/14/2024 8:42 AM [facility] MONOCYTES % 10.2 % 04/14/2024 8:42 AM [facility] EOSINOPHILS % 2.8 % 04/14/2024 8:42 AM [facility] BASOPHILS % 0.4 % 04/14/2024 8:42 AM [facility] IMMATURE GRANS % 0.2 % 04/14/19 8:42 AM [facility] NRBC % 0.0 % 04/14/2024 8:42 AM [facility] ABS. NEUTROPHILS 3.12 1.60 - 8.30 x10'3/uL 04/14/2024 8:42 AM [facility] ABS. LYMPHOCYTES 0.94 0.80 - 4.70 x10'3/uL 04/14/2024 8:42 AM [facility] ABS. MONOCYTES 0.48 0.00 - 1.50 x10'3/uL 04/14/2024 8:42 AM [facility] ABS. EOSINOPHILS 0.13 0.00 - 0.40 x10'3/uL 04/14/2024 8:42 AM ADVERTISEMENT DISTRIBUTOR [facility] ABS. BASOPHILS 0.02 0.00 - 0.20 x10'3/uL 04/14/2024 8:42 AM ADVERTISEMENT DISTRIBUTOR [facility] ABS. IMMATURE GRANULOCYTES 0.01 0.00 - 0.03 x10'3/uL 04/14/2024 8:42 AM ADVERTISEMENT DISTRIBUTOR [facility] ABS. NUCLEATED RBC'S 0.00 0.00 - 0.01 x10'3/uL 04/14/2024 8:42 AM ADVERTISEMENT DISTRIBUTOR [facility] 04/14/2024 8:28 AM ADVERTISEMENT DISTRIBUTOR Zulay Mcmanus [facility] Final Result Performing Organization Address [facility]/ZIP Co de Phone Number [facility] [address] [place] [address], * THYROID STIM HORMONE TSH (04/14/2024 8:28 AM ADVERTISEMENT DISTRIBUTOR) TSH 2.852 0.358 - 3.740 uIU/ML 04/14/2024 9:26 AM [facility] Comment: ASSAY PERFORMED BY CHEMILUMINESCENT IMMUNOASSAY METHODOLOGY USING SIEMENS DIMENSION REAGENT. PATIENT RESULTS DETERMINED BY ASSAYS FROM DIFFERENT MANUFACTURERS AND/OR BY DIFFERENT METHODS MAY NOT BE COMPARABLE. 04/14/2024 8:28 AM ADVERTISEMENT DISTRIBUTOR Zulay Mcmanus [facility] Final Result Performing Organization Address [facility]/ZIP Co de Phone Number [facility] [address] [place] [address], * VITAMIN D, 25 OH (04/14/2024 8:28 AM ADVERTISEMENT DISTRIBUTOR) VITAMIN D 25 HYDROXY TOTAL S/P/B 35.9 20.0 - 50.0 NG/ML 04/14/2024 6:55 PM ADVERTISEMENT DISTRIBUTOR [facility] Comment: <10 ng/mL (Severe deficiency) 10 TO 19 ng/mL (Mild to Moderate deficiency) 20 TO 50 ng/mL (Optimum levels) 51 TO 80 ng/mL (Increased risk of hypercalciuria) >80 ng/mL (Toxicity possible) 04/14/2024 8:28 AM ADVERTISEMENT DISTRIBUTOR Zulay Broussardkadie METAL MINE INSPECTOR- LABORATORY Final Result Performing Organization Address City/[facility]/ZIP Co de Phone Number [facility] [address] [place] [address], [place] [phone] * MAGNESIUM (04/14/2024 8:28 AM ADVERTISEMENT DISTRIBUTOR) Pathologist [facility] [place] MAGNESIUM 1.9 1.8 - 2.4 MG/DL 04/14/2024 9:26 AM ADVERTISEMENT DISTRIBUTOR [facility] 04/14/2024 8:28 AM ADVERTISEMENT DISTRIBUTOR Zulay Lujansolitario [facility] Final Result Performing Organization Address City/[facility] Co de Phone Number [facility] [address] [place] [address], [place] [phone] * HEMOCHROMATOSIS DNA (02/01/2024 1:32 PM ADVERTISEMENT DISTRIBUTOR) Pathologist [facility] [place] HEMOCHROMATOSIS DNA REPORT 02/16 12:22 PM ADVERTISEMENT DISTRIBUTOR [employer] ANGELES JACOBO Comment: 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 Approximately 3%-8% of individuals with a biochemical diagnosis of hereditary hemochromatosis (HH) have this genotype. Therefore, this result is consistent with a diagnosis of HH in an individual with clinical evidence of HH. However, this genotype does not predict a diagnosis of HH in an asymptomatic individual, as only 0.5% to 2% of individuals with this genotype will develop symptoms or clinical evidence of this disorder. Disease diagnosis can only be made by demonstration of elevated iron stores. Genetic counseling is recommended to discuss the potential clinical implications of this result. Laboratory results and submitted clinical information reviewed by Pamella Chavez, Ph.D., KRISTIN. DETAILED ASSAY INFORMATION: Hereditary hemochromatosis (HH) is an autosomal recessive disorder of iron metabolism that can result in iron overload and potential organ failure. It is one of the most common genetic disorders in individuals of - ancestry, with an estimated carrier frequency of 10%. HH is caused by pathogenic variants in the HFE gene. Most individuals with HH (60-90%) are homozygous for the C282Y pathogenic variant. A smaller percentage of affected individuals are either compound heterozygous for the C282Y and H63D pathogenic variants (3%-8%), or homozygous for the H63D pathogenic variant (approximately 1%). METHODOLOGY: This assay detects two pathogenic variants in the HFE gene, C282Y (NM 656262.2: c.845G>A, p.[id number]) and H63D (NM 751369.2: c.187C>G, p.[id number]), that are commonly associated with HH. These variants are detected by multiplex-polymerase chain reaction (PCR) amplification, followed by restriction enzyme digestion and capillary electrophoresis. LIMITATIONS: This assay does not detect other pathogenic variants in the HFE gene that may be associated with HH. Although rare, false positive or false negative results may occur. All results should be interpreted in the context of clinical findings, relevant history, and other laboratory data. Health care providers, please contact your local [employer]' genetic counselor or call [phone] for assistance with the interpretation of these results. This test was developed and its analytical performance characteristics have been determined by [employer] [facility]. It has not been cleared or approved by FDA. This assay has been validated pursuant to the CLIA regulations and is used for clinical purposes. For more information, please refer to [email or web address]/[email or web address] matosis. (This link is being provided for informational/educational purposes only.) A portion of the testing [place] [facility] Reviewed and signed by Laboratory results and submitted clinical information reviewed by Pamella Chavez, Ph.D., KRISTIN, Signed on 02/17/2024 at 08:58 Test performed by [employer] [place] [address] [place] [address] Marketing Services Coordinator: Argelia Melgar MD,PHD,GOLDIE Test Reported by [facility] [place], [employer] [facility], [address] [place] [address] Irving Duque M.D., Ph.D., Director of Laboratories , [facility] [id number] 02/01/2024 1:32 PM ADVERTISEMENT DISTRIBUTOR Stephany English MD LABORATORY Final Result [facility] [address] , [place] [phone] * IRON SATURATION PNL (FE/TIBC/SAT) (02/01/2024 1:32 PM ADVERTISEMENT DISTRIBUTOR) IRON 134 65 - 175 MCG/DL 02/01/2024 2:30 PM ADVERTISEMENT DISTRIBUTOR [facility] IRON BINDING CAPACITY 335 250 - 450 MCG/DL 02/01/2024 2:30 PM ADVERTISEMENT DISTRIBUTOR [facility] IRON SATURATION 40 % 2:30 PM ADVERTISEMENT DISTRIBUTOR [facility] Comment:REFERENCE RANGE NOT ESTABLISHED 02/01/2024 1:32 PM ADVERTISEMENT DISTRIBUTOR Stephany English MD LABORATORY Final Result [facility] [facility] [address] [place] [address], [place] [phone] * PROSTATE SPECIFIC ANTIGEN, DIAG (02/01/2024 1:32 PM ADVERTISEMENT DISTRIBUTOR) PSA 0.37 <4.00 NG/ML 02/01/2024 2:04 PM ADVERTISEMENT DISTRIBUTOR [facility] Comment: ASSAY PERFORMED BY [employer] IMMUNOASSAY METHODOLOGY USING [employer] DIMENSION REAGENT. PATIENT RESULTS DETERMINED BY ASSAYS FROM DIFFERENT MANUFACTURERS AND/OR BY DIFFERENT METHODS MAY NOT BE COMPARABLE. 02/01/2024 1:32 PM ADVERTISEMENT DISTRIBUTOR Stephany English MD LABORATORY Final Result [facility] [address] [place] [address], [place] [phone] * FERRITIN (02/01/2024 1:32 PM ADVERTISEMENT DISTRIBUTOR) FERRITIN 59.4 26 - 388 NG/ML 02/01/2024 2:04 PM ADVERTISEMENT DISTRIBUTOR [facility] 02/01/2024 1:32 PM ADVERTISEMENT DISTRIBUTOR Stephany English MD LABORATORY Final Result Performing Organization Address City/[facility]/ZIP Co de Phone Number [facility] [address] [place] [address], from Last 3 Months Insurance [facility] OFFICE OF COMMUNITY CARE Care Teams Mangle Tender Cloth Relationship Specialty Start Date End Date Ministerio Harrison MD [address] [facility] [address] [place] [id number] PCP - General FAMILY PRACTICE 12/15/23
--- OUTSIDE RECORDS SUMMARY | 2024-05-02 13:17 | XMS_ITS | Referral Summary ---
Author Organization [facility] [address] Address [address] [place] [id number] Care Team Providers Care Hydroblaster Name Role Phone Kit Alcantar MD Unavailable [phone] Ministerio Harrison MD Primary Care Provider [phone] Encounters Date Type Department Care Team Description 02/05/2024 6:06 AM COMPOSITION MIXER - 02/09/2024 11:40 AM COMPOSITION MIXER Hospital Encounter [address] [phone] Samir Salazar DO Khan, Fatima A., MD Reuter, Johnnie Harrell MD SD, acute, non ST segment elevation (CMS/HCC) (HCC) (Primary Dx); Pneumonia of left lower lobe due to infectious organism; Diabetes mellitus type II, non insulin dependent (CMS/HCC) (HCC); Age-related physical debility; Pneumonia due to COVID-19 virus [U07.1, J12.82] Discharge Disposition: Discharge to home or self care 02/05/2024 Orders Only [facility] [address] [place] [phone] Samir Salazar DO from Last 3 Months Allergies Active Allergy Reactions Criticality Noted Date [...] COVID-19 virus 02/08/2024 Age-related physical debility 02/08/2024 SD, acute, non ST segment elevation (CMS/HCC) Pneumonia of left lower lobe due to infectious o rganism 02/05/2024 History of pulmonary embolism 05/16/2023 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/16/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, right 05/16/2023 Diabetes mellitus type II, non insulin dependent ([facility]) 05/16/2023 Transient ischemic attack (TIA) 05/15/2023 Elevated prostate specific antigen (PSA) 014 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] often do you attend chur ch or denominational services? Never 02/08/2024 Do you belong to any clubs o r organizations such as amish groups, unions, fraternal or athletic groups, or [...] any time in the past 12 m [facility], were you homeless or living in a [place] health care facility (including now)? No 02/08/2024 Personal Safety Answer Date Recorded Have you ever been in or are you currently in a harmful physical or emotional relationship or is someone making you feel afraid or unsafe? Denies 02/05/2024 Sex and Gender Information Value Date Recorded Sex Assigned at Not on file Legal Sex Male 1:21 AM COMPOSITION MIXER Gender Identity Not on file Sexual Orientation Not on file Last Filed Vital Signs Vital Sign Reading Time Taken Comments Blood Pressure 154/62 02/09/2024 8:12 AM COMPOSITION MIXER Pulse 50 02/09/2024 8:12 AM COMPOSITION MIXER Temperature 36.6 C (97.9 F) 02/09/2024 8:12 AM COMPOSITION MIXER Respiratory Rate 18 02/09/2024 8:12 AM COMPOSITION MIXER Oxygen Saturation 92% 02/09/2024 8:12 AM COMPOSITION MIXER Inhaled Oxygen Concentration - - Weight 79 kg (174 lb 2.6 oz) 02/08/2024 11:00 AM COMPOSITION MIXER Height 180.3 cm (5' 11 ) 02/08/2024 11:00 AM COMPOSITION MIXER Body Mass Index 24.29 02/08/2024 11:00 AM COMPOSITION MIXER Plan of Treatment Not on file Procedures Procedure Name Priority Date/Time Associated Diagnosis Comments POCT GLUCOSE DEVICE Routine 02/09/2024 6 :40 AM COMPOSITION MIXER POCT GLUCOSE DEVICE Routine 02/08/2024 8 :35 PM COMPOSITION MIXER POCT GLUCOSE DEVICE Routine 02/08/2024 6 :01 PM COMPOSITION MIXER POCT GLUCOSE DEVICE Routine 02/08/2024 1 2:17 PM COMPOSITION MIXER POCT GLUCOSE DEVICE Routine 02/08/2024 6 :08 AM COMPOSITION MIXER EGFR Routine 02/08/2024 4:35 AM COMPOSITION MIXER DIFFERENTIAL AUTO STAT 02/08/2024 4:3 5 AM COMPOSITION MIXER MAGNESIUM Routine 02/08/2024 4:35 AM COMPOSITION MIXER BASIC METABOLIC PANEL Routine 02/08/2024 4:35 AM COMPOSITION MIXER CBC WITH AUTO DIFFERENTIAL STAT 02/08/2024 4:35 AM COMPOSITION MIXER MRI BRAIN MRA HEAD MRA NECK WO CONTRAST IP Routine 02/08/2024 1:18 AM COMPOSITION MIXER POCT GLUCOSE DEVICE Routine 02/07/2024 9 :40 PM COMPOSITION MIXER POCT GLUCOSE DEVICE Routine 02/07/2024 5 :52 PM COMPOSITION MIXER POCT GLUCOSE DEVICE Routine 02/07/2024 1 2:19 PM COMPOSITION MIXER EGFR Routine 02/07/2024 11:08 AM COMPOSITION MIXER MAGNESIUM Routine 02/07/2024 11:08 AM COMPOSITION MIXER BASIC METABOLIC PANEL Routine 02/07/2024 11:08 AM COMPOSITION MIXER XR CHEST 1 VIEW IP Routine 02/07/2024 9:31 AM COMPOSITION MIXER POCT GLUCOSE DEVICE Routine 02/07/2024 6 :17 AM COMPOSITION MIXER URINALYSIS, MICROSCOPIC ONLY Routine 02/06/2024 11:26 PM COMPOSITION MIXER URINALYSIS AND REFLEX TO MICROSCOPIC AND CULTURE Routine 02/06/2024 11:26 PM COMPOSITION MIXER POCT GLUCOSE DEVICE Routine 02/06/2024 9 :04 PM COMPOSITION MIXER POCT GLUCOSE DEVICE Routine 02/06/2024 5 :50 PM COMPOSITION MIXER ADD ON LAB TEST Add-On 02/06/2024 1:06 PM COMPOSITION MIXER POCT GLUCOSE DEVICE Routine 02/06/2024 1 2:41 PM COMPOSITION MIXER POCT GLUCOSE DEVICE Routine 02/06/2024 6 :31 AM COMPOSITION MIXER EGFR Routine 02/06/2024 5:26 AM COMPOSITION MIXER DIFFERENTIAL AUTO Routine 02/06/2024 5:2 6 AM COMPOSITION MIXER TROPONIN T HIGH-SENSITIVITY Routine 02/06/2024 5:26 AM COMPOSITION MIXER MAGNESIUM Routine 02/06/2024 5:26 AM COMPOSITION MIXER BASIC METABOLIC PANEL Routine 02/06/2024 5:26 AM COMPOSITION MIXER CBC WITH AUTO DIFFERENTIAL Routine 02/06/2024 5:26 AM COMPOSITION MIXER ECG 12-LEAD Routine 02/06/2024 3:29 AM COMPOSITION MIXER POCT GLUCOSE DEVICE Routine 02/05/2024 8 :11 PM COMPOSITION MIXER BLOOD CULTURE Routine 02/05/2024 7:02 PM COMPOSITION MIXER BLOOD CULTURE Routine 02/05/2024 6:57 PM COMPOSITION MIXER POCT GLUCOSE DEVICE Routine 02/05/2024 5 :32 PM COMPOSITION MIXER RESPIRATORY PATHOGEN PANEL Routine 02/05/2024 4:27 PM COMPOSITION MIXER TRANSTHORACIC ECHO (TTE) COMPLETE W DOPPLER/CF WO CONTRAST Routine 02/05/2024 2:34 PM COMPOSITION MIXER ECG 12-LEAD Routine 02/05/2024 12:49 PM COMPOSITION MIXER POCT GLUCOSE DEVICE Routine 02/05/2024 1 2:37 PM COMPOSITION MIXER LIPID PANEL Routine 02/05/2024 10:09 AM COMPOSITION MIXER THYROID FUNCTION CASCADE Routine 02/05/2024 10:09 AM COMPOSITION MIXER TROPONIN T HIGH-SENSITIVITY Routine 02/05/2024 10:09 AM COMPOSITION MIXER XR CHEST 1 VIEW IP Routine 02/05/2024 9:41 AM COMPOSITION MIXER TROPONIN T HIGH-SENSITIVITY STAT 02/05/2024 8:47 AM COMPOSITION MIXER EGFR Routine 02/05/2024 7:05 AM COMPOSITION MIXER DIFFERENTIAL AUTO Routine 02/05/2024 7:0 5 AM COMPOSITION MIXER LACTATE Routine 02/05/2024 7:05 AM COMPOSITION MIXER CBC WITH AUTO DIFFERENTIAL Routine 02/05/2024 7:05 AM COMPOSITION MIXER COMPREHENSIVE METABOLIC PANEL Routine 02/05/2024 7:05 AM COMPOSITION MIXER HEMOGLOBIN A1C Routine 05/16/2023 4:38 AM CDT from Last 3 Months or Most Recently Relevant to Health Maintenance Results * POCT glucose (02/09/2024 6:40 AM COMPOSITION MIXER) [facility] Glucose, POC 136 70 - 199 mg/dL Comment: For Glucose values <35 mg/dl when Hematocrit is >60 mg/dl,the test may not accurately detect significant hypoglycemia,and testing in the Laboratory should be considered if clinically indicated. Blood 02/09/2024 6:40 AM COMPOSITION MIXER 02/09/2024 6:40 AM COMPOSITION MIXER us Johnnie Nassar MD LAB POCT ORDERABLES - D EVICE Final Result ANA [facility] [address] [place] [address] * (ABNORMAL) POCT glucose (02/08/2024 8:35 PM COMPOSITION MIXER) Glucose, POC 288(H) 70 - 199 mg/dL Comment: For Glucose values <35 mg/dl when Hematocrit is >60 mg/dl,the test may not accurately detect significant hypoglycemia,and testing in the Laboratory should be considered if clinically indicated. Blood 02/08/2024 8:35 PM COMPOSITION MIXER 02/08/2024 8:35 PM COMPOSITION MIXER Johnnie Nassar MD LAB POCT ORDERABLES - D EVICE Final Result Performing Organization Address [facility] de Phone Number [facility] [address] [place] [address] * (ABNORMAL) POCT glucose (02/08/2024 6:01 PM COMPOSITION MIXER) Glucose, POC 229(H) 70 - 199 mg/dL Comment: For Glucose values <35 mg/dl when Hematocrit is >60 mg/dl,the test may not accurately detect significant hypoglycemia,and testing in the Laboratory should be considered if clinically indicated. Blood 02/08/2024 6:01 PM COMPOSITION MIXER 02/08/2024 6:01 PM COMPOSITION MIXER Johnnie Nassar MD LAB POCT ORDERABLES - D EVICE Final Result Performing Organization Address [facility] de Phone Number [facility] [address] [place] [address] * POCT glucose (02/08/2024 12:17 PM COMPOSITION MIXER) Glucose, POC 190 70 - 199 mg/dL Comment: For Glucose values <35 mg/dl when Hematocrit is >60 mg/dl,the test may not accurately detect significant hypoglycemia,and testing in the Laboratory should be considered if clinically indicated. Blood 02/08/2024 12:1 7 PM COMPOSITION MIXER 02/08/2024 12:17 PM COMPOSITION MIXER us Johnnie Nassar MD LAB POCT ORDERABLES - D EVICE Final Result Performing Organization Address [facility]/ZIP Co de Phone Number ANA [facility] [address] [place] [address] * POCT glucose (02/08/2024 6:08 AM COMPOSITION MIXER) [facility] Glucose, POC 119 70 - 199 mg/dL Comment: For Glucose values <35 mg/dl when Hematocrit is >60 mg/dl,the test may not accurately detect significant hypoglycemia,and testing in the Laboratory should be considered if clinically indicated. Blood 02/08/2024 6:08 AM COMPOSITION MIXER 02/08/2024 6:08 AM COMPOSITION MIXER Quynh Merchant MD LAB POCT ORDERABLES - DEVICE F inal Result Performing Organization Address [facility] Co de Phone Number ANA [facility] [address] [place] [address] * (ABNORMAL) eGFR (02/08/2024 4:35 AM COMPOSITION MIXER) [facility] eGFR 54(L) >=60 mL/min/1. 73 m2 Comment: [...] last reviewed 2021. Blood 02/08/2024 4:35 AM COMPOSITION MIXER 02/08/2024 5:59 AM COMPOSITION MIXER us Quynh Merchant MD LAB BLOOD ORDERABLES Final Res ult [facility] [address] Department [place] [address] * Differential, auto (02/08/2024 4:35 AM COMPOSITION MIXER) Neutrophil abs 3.0 1.5 - 6.5 K/cumm Imm gran abs 0.0 0.0 - 0.1 K/cumm [facility] Lymphocyte abs 1.0 0.8 - 3.3 K/cumm [facility] Monocyte abs 0.4 0.2 - 0.8 K/cumm [facility] Eosinophil abs 0.0 0.0 - 0.5 K/cumm [facility] Basophil abs 0.0 0.0 - 0.1 K/cumm [facility] Neutrophil pct 68.9 % [facility] Comment: Interpretive Data Percent cell count reference ranges are not reported, since discordance with absolute values may lead to misinterpretation of CBC data. Current Interpretive Data was last revised on 2017. Imm gran pct 0.0 % [facility] Comment: Interpretive Data Percent cell count reference ranges are not reported, since discordance with absolute values may lead to misinterpretation of CBC data. Current Interpretive Data was last revised on 2017. Lymphocyte pct 21.6 % [facility] Comment: Interpretive Data Percent cell count reference ranges are not reported, since discordance with absolute values may lead to misinterpretation of CBC data. Current Interpretive Data was last revised on 2017. Monocyte pct 9.3 % [facility] Comment: Interpretive Data Percent cell count reference ranges are not reported, since discordance with absolute values may lead to misinterpretation of CBC data. Current Interpretive Data was last revised on 2017. Eosinophil pct 0.0 % [facility] Comment: Interpretive Data Percent cell count reference ranges are not reported, since discordance with absolute values may lead to misinterpretation of CBC data. Current Interpretive Data was last revised on 2017. Basophil pct 0.2 % [facility] Comment: Interpretive Data Percent cell count reference ranges are not reported, since discordance with absolute values may lead to misinterpretation of CBC data. Current Interpretive Data was last revised on 2017. Blood 02/08/2024 4:35 AM COMPOSITION MIXER 02/08/2024 4:35 AM COMPOSITION MIXER Quynh Merchant MD LAB BLOOD ORDERABLES Final Res ult [facility] [address] Department of Laboratories [place], [place] [id number] * (ABNORMAL) CBC with auto differential (02/08/2024 4:35 AM COMPOSITION MIXER) WBC 4.4 3.8 - 9.9 K/cumm Hgb 13.4 13.0 - 17.5 g/dL [facility] Hct 38.8(L) 38.9 - 50.3 % [facility] Plt 118(L) 150 - 400 K/cumm [facility] MPV 13.2(H) 9.1 - 12.3 fL [facility] RBC 4.14(L) 4.30 - 5.80 M/cumm [facility] MCV 93.7 81.3 - 96.4 fL [facility] MCH 32.4 27.1 - 33.3 pg [facility] MCHC 34.5 32.3 - 35.7 g/dL [facility] RDW CV 12.7 11.1 - 14.9 % [facility] RDW SD 44.1 35.7 - 48.1 fL [facility] NRBC abs 0.00 0.00 - 0.01 K/cumm [facility] Blood 02/08/2024 4:35 AM COMPOSITION MIXER 02/08/2024 6:00 AM COMPOSITION MIXER Quynh Merchant MD LAB BLOOD ORDERABLES Final Res ult Performing Organization Address City/[facility]/ZIP Co de Phone Number [facility] [address] [place] [address] * Magnesium (02/08/2024 4:35 AM COMPOSITION MIXER) [facility] Magnesium 1.8 1.4 - 2.5 mg/dL Blood 02/08/2024 4:35 AM COMPOSITION MIXER 02/08/2024 5:59 AM COMPOSITION MIXER Quynh Merchant MD LAB BLOOD ORDERABLES Final Res ult Performing Organization Address [facility] Co de Phone Number [facility] [address] [place] [address] * (ABNORMAL) Basic metabolic panel (02/08/2024 4:35 AM COMPOSITION MIXER) [facility] Sodium 145 135 - 145 mmol/L Potassium, pl 3.8 3.3 - 4.9 mmol/L [facility] Chloride 108 97 - 110 mmol/L [facility] CO2 27 22 - 32 mmol/L [facility] Anion gap 10 2 - 15 mmol/L [facility] BUN 23 6 - 25 mg/dL [facility] Creatinine 1.34(H) 0.80 - 1.30 mg/dL [facility] Glucose 127 70 - 199 mg/dL [facility] Comment: Interpretive Data Fasting glucose >/= 126 [...] classification and Diagnosis of Diabetes Diabetes Care 202; 46: S19-S40. Current interpretive data was last revised 2022. Calcium 9.3 8.5 - 10.3 mg/dL [facility] Blood 02/08/2024 4:35 AM COMPOSITION MIXER 02/08/2024 5:59 AM COMPOSITION MIXER us Quynh Merchant MD LAB BLOOD ORDERABLES Final Res ult [facility] [address] Department [place] [address] * MRI Brain MRA Head MRA Neck WO Contrast (02/08/2024 1:18 AM COMPOSITION MIXER) Anatomical Region Laterality Modality Head and Neck N/A Magnetic Resonan ce 02/08/2024 7:39 AM COMPOSITION MIXER Impressions 02/08/2024 8:33 AM COMPOSITION MIXER 1. No acute intracranial abnormality. Stable severe [...] Liliana Ricardo MD Narrative 02/08/2024 8:33 AM COMPOSITION MIXER EXAMINATION: 1. Magnetic resonance imaging (MRI) of the brain and brainstem without contrast 2. Magnetic resonance angiography (MRA) of the vhdmpy-[id number] without contrast 3. Magnetic resonance angiography (MRA) of the neck without contrast HISTORY: Ataxia. Suspected stroke. TECHNIQUE: Multiplanar multi-weighted MRI of the brain and brainstem was performed without intravenous contrast using the general brain protocol. Magnetic resonance angiography of the [id number]-[id number] was performed using a separate data acquisition with a non-contrast ltcw-pb-auoldn technique to produce axial thin-slice source images. These images were then used to generate maximum intensity projection (MIP) images. Magnetic resonance angiography of the neck was performed using a separate data acquisition with a non-contrast kvfq-ij-adcgar technique to produce thin-slice source images. These [...] 2. Magnetic resonance angiography (MRA) of the [id number]-yl-[id number] without contrast 3. Magnetic resonance angiography (MRA) of the neck without contrast HISTORY: Ataxia. Suspected stroke. TECHNIQUE: Multiplanar multi-weighted MRI of the brain and brainstem was performed without intravenous contrast using the general brain protocol. Magnetic resonance angiography of the uboheq-rf-Gvepwm was performed using a separate data acquisition with a non-contrast wljc-ks-vilpnc technique to produce axial thin-slice source images. These images were then used to generate maximum intensity projection (MIP) images. Magnetic resonance angiography of the neck was performed using a separate data acquisition with a non-contrast gktp-qx-mlzvrn technique to produce thin-slice source images. These [...] Result * POCT glucose (02/07/2024 9:40 PM COMPOSITION MIXER) Glucose, POC 174 70 - 199 mg/dL Comment: For Glucose values <35 mg/dl when Hematocrit is >60 mg/dl,the test may not accurately detect significant hypoglycemia,and testing in the Laboratory should be considered if clinically indicated. Blood 02/07/2024 9:40 PM COMPOSITION MIXER 02/07/2024 9:40 PM COMPOSITION MIXER Quynh Merchant MD LAB POCT ORDERABLES - DEVICE F inal Result Performing Organization Address [facility] de Phone Number [facility] [address] Department [place] [address] * (ABNORMAL) POCT glucose (02/07/2024 5:52 PM COMPOSITION MIXER) Glucose, POC 248(H) 70 - 199 mg/dL Comment: For Glucose values <35 mg/dl when Hematocrit is >60 mg/dl,the test may not accurately detect significant hypoglycemia,and testing in the Laboratory should be considered if clinically indicated. Blood 02/07/2024 5:52 PM COMPOSITION MIXER 02/07/2024 5:52 PM COMPOSITION MIXER Quynh Merchant MD LAB POCT ORDERABLES - DEVICE F inal Result Performing Organization Address [facility] de Phone Number [facility] [address] [place] [address] * POCT glucose (02/07/2024 12:19 PM COMPOSITION MIXER) [facility] Glucose, POC 193 70 - 199 mg/dL Comment: For Glucose values <35 mg/dl when Hematocrit is >60 mg/dl,the test may not accurately detect significant hypoglycemia,and testing in the Laboratory should be considered if clinically indicated. Blood 02/07/2024 12:1 9 PM COMPOSITION MIXER 02/07/2024 12:19 PM COMPOSITION MIXER Result [facility] Quynh Merchant MD LAB POCT ORDERABLES - DEVICE F inal Result Performing Organization Address [facility] de Phone Number [facility] [address] [place] [address] * (ABNORMAL) eGFR (02/07/2024 11:08 AM COMPOSITION MIXER) eGFR 55(L) >=60 mL/min/1. 73 m2 Comment: [...] reviewed 2021. Blood 02/07/2024 11:0 8 AM COMPOSITION MIXER 02/07/2024 11:56 AM COMPOSITION MIXER Quynh Merchant MD LAB BLOOD ORDERABLES Final Res ult Performing Organization Address City/[facility] Co de Phone Number [facility] [address] [employer] [place], [place] [id number] * Magnesium (02/07/2024 11:08 AM COMPOSITION MIXER) Magnesium 1.8 1.4 - 2.5 mg/dL Blood 02/07/2024 11:0 8 AM COMPOSITION MIXER 02/07/2024 11:56 AM COMPOSITION MIXER Quynh Merchant MD LAB BLOOD ORDERABLES Final Res ult [facility] [address] [place] [address] * (ABNORMAL) Basic metabolic panel (02/07/2024 11:08 AM COMPOSITION MIXER) Sodium 143 135 - 145 mmol/L Potassium, pl 3.6 3.3 - 4.9 mmol/L [facility] Chloride 107 97 - 110 mmol/L [facility] CO2 25 22 - 32 mmol/L [facility] Anion gap 11 2 - 15 mmol/L [facility] BUN 24 6 - 25 mg/dL [facility] Creatinine 1.32(H) 0.80 - 1.30 mg/dL [facility] Glucose 216(H) 70 - 199 mg/dL [facility] Comment: Interpretive Data Fasting glucose >/= 126 [...] 2022. Calcium 9.2 8.5 - 10.3 mg/dL [facility] Blood 02/07/2024 11:0 8 AM COMPOSITION MIXER 02/07/2024 11:56 AM COMPOSITION MIXER us Quynh Merchnat MD LAB BLOOD ORDERABLES Final Res ult [facility] [address] Department [place] [address] * XR Chest 1 Vw (02/07/2024 9:31 AM COMPOSITION MIXER) Anatomical Region Laterality Modality Body, Chest N/A Computed Radiogr aphy 02/07/2024 10:1 0 AM COMPOSITION MIXER Impressions 02/07/2024 10:24 AM COMPOSITION MIXER Small lung volume. No pneumothorax. No focal consolidation. No pleural effusion. Right greater than left basilar atelectasis. Stable cardiomediastinal silhouette. Dictated by: Valentine Acuña MD The radiology attending physician has personally reviewed this study, and had reviewed and/or edited this written report and agrees with it. Electronically signed by: Cayetano Guzman M.D. Narrative 02/07/2024 10:24 AM COMPOSITION MIXER EXAMINATION: XR CHEST 1 VIEW HISTORY: Fever [...] Result * POCT glucose (02/07/2024 6:17 AM COMPOSITION MIXER) [facility] Glucose, POC 126 70 - 199 mg/dL Comment: For Glucose values <35 mg/dl when Hematocrit is >60 mg/dl,the test may not accurately detect significant hypoglycemia,and testing in the Laboratory should be considered if clinically indicated. Blood 02/07/2024 6:17 AM COMPOSITION MIXER 02/07/2024 6:17 AM COMPOSITION MIXER Quynh Merchant MD LAB POCT ORDERABLES - DEVICE F inal Result [facility] [address] Department [place] [address] * (ABNORMAL) Urinalysis reflex to microscopic and culture Urine, in and out catheter (02/06/2024 11:26 PM COMPOSITION MIXER) Color, ur Mitzi Yellow Clarity, ur Turbid(A) Clear [facility] Specific gravity, ur 1.026 1.003 - 1.030 [facility] pH, urine 5.5 [facility] Comment: Interpretive Data U rine pH is affected by diet, medications, systemic acid-base disturbances, and renal tubular function. pH may affect urinary stone formation. For example, urine pH below 6.0 may help reduce the tendency for calcium phosphate stones and pH greater than 6.0 may reduce the tendency for uric acid stone formation. Source: [facility] Current Interpretive Data was last revised on 2017 Protein, ur ql 2+(A) Negative [facility] Glucose, ur ql 4+(A) Negative [facility] Ketones, ur Negative Negative [facility] [facility] Bilirubin, ur Negative Negative [facility] Blood, ur 3+(A) Negative [facility] Urobilinogen, ur <2.0 <2.0 mg/dL [facility] Nitrite, ur Negative Negative [facility] Leukocyte esterase, ur Negative Negative [facility] UA reflex comment Reflex to microscopic UA will be performed. [facility] Urine, in and out catheter 02/06/2024 11:26 PM COMPOSITION MIXER 02/06/2024 11:42 PM COMPOSITION MIXER Quynh Merchant MD LAB MICROBIOLOGY - GENERAL ORD ERABLES Final Result [facility] [address] Department [place] [address] * (ABNORMAL) Urinalysis, microscopic only (02/06/2024 11:26 PM COMPOSITION MIXER) WBC, ur 0-5 0 - 5 /HPF RBC, ur >50(A) 0 - 2 /HPF [facility] Mucous, ur Present(A) [facility] Uric acid crystals, ur 2+(A) [facility] Culture Reflex Comment Reflex conditions for urine culture (WBC >10) not met. [facility] Urine, in and out catheter 02/06/2024 11:26 PM COMPOSITION MIXER 02/06/2024 11:42 PM COMPOSITION MIXER Quynh Merchant MD LAB URINE ORDERABLES Final Res ult Performing Organization Address [facility] Co de Phone Number ANA [facility] [address] [facility] [place] [address] * (ABNORMAL) POCT glucose (02/06/2024 9:04 PM COMPOSITION MIXER) Glucose, POC 287(H) 70 - 199 mg/dL Comment: For Glucose values <35 mg/dl when Hematocrit is >60 mg/dl,the test may not accurately detect significant hypoglycemia,and testing in the Laboratory should be considered if clinically indicated. Blood 02/06/2024 9:04 PM COMPOSITION MIXER 02/06/2024 9:04 PM COMPOSITION MIXER Quynh Merchant MD LAB POCT ORDERABLES - DEVICE F inal Result Performing Organization Address [facility] Co de Phone Number ANA [facility] [address] [facility] [employer] [place], [place] [phone] * (ABNORMAL) POCT glucose (02/06/2024 5:50 PM COMPOSITION MIXER) Glucose, POC 210(H) 70 - 199 mg/dL Comment: For Glucose values <35 mg/dl when Hematocrit is >60 mg/dl,the test may not accurately detect significant hypoglycemia,and testing in the Laboratory should be considered if clinically indicated. Blood 02/06/2024 5:50 PM COMPOSITION MIXER 02/06/2024 5:50 PM COMPOSITION MIXER Quynh Merchant MD LAB POCT ORDERABLES - DEVICE F inal Result Performing Organization Address [facility] Co de Phone Number [facility] [address] [facility] [place] [address] * Troponin T HS (single order) - Add on lab test (02/06/2024 1:06 PM COMPOSITION MIXER) Acceptable No Comment:Trop has already bee n run on earlier sample Blood 02/06/2024 1:06 PM COMPOSITION MIXER 02/06/2024 1:06 PM COMPOSITION MIXER Narrative [facility] - 02/06/2024 1:08 PM COMPOSITION MIXER Name of Test->Troponin T HS (single order) Result [facility] Rocky Oscar MD LAB BLOOD ORDERABLES Fin al Result Performing Organization Address [facility] Co de Phone Number [facility] [address] Department [employer] [place], [place] [phone] * POCT glucose (02/06/2024 12:41 PM COMPOSITION MIXER) Glucose, POC 146 70 - 199 mg/dL Comment: For Glucose values <35 mg/dl when Hematocrit is >60 mg/dl,the test may not accurately detect significant hypoglycemia,and testing in the Laboratory should be considered if clinically indicated. Blood 02/06/2024 12:4 1 PM COMPOSITION MIXER 02/06/2024 12:41 PM COMPOSITION MIXER Result [facility] Quynh Merchant MD LAB POCT ORDERABLES - DEVICE F inal Result Performing Organization Address [facility] de Phone Number [facility] [address] [facility] [employer] [place], [place] [phone] * POCT glucose (02/06/2024 6:31 AM COMPOSITION MIXER) Glucose, POC 115 70 - 199 mg/dL Comment: For Glucose values <35 mg/dl when Hematocrit is >60 mg/dl,the test may not accurately detect significant hypoglycemia,and testing in the Laboratory should be considered if clinically indicated. Blood 02/06/2024 6:31 AM COMPOSITION MIXER 02/06/2024 6:31 AM COMPOSITION MIXER Result [facility] Quynh Merchant MD LAB POCT ORDERABLES - DEVICE F inal Result Performing Organization Address [facility] Co de Phone Number [facility] [address] Department [employer] [place], [place] [phone] * (ABNORMAL) Troponin T high-sensitivity (02/06/2024 5:26 AM COMPOSITION MIXER) Trop T hs 46(H) <=22 ng/L Comment: Interpretive Data For further hscTnT resources including the diagnostic algorithm and an aid in interpretation, copy and paste this link: https://nrl.testcatalog.org/show/[email or web address] Current Interpretive Data last revised 2020. Blood 02/06/2024 5:26 AM COMPOSITION MIXER 02/06/2024 7:03 AM COMPOSITION MIXER us Rocky Oscar MD LAB BLOOD ORDERABLES Fin al Result [facility] [address] Department [place] [address] * (ABNORMAL) eGFR (02/06/2024 5:26 AM COMPOSITION MIXER) eGFR 49(L) >=60 mL/min/1. 73 m2 Comment: [...] last reviewed 2021. Blood 02/06/2024 5:26 AM COMPOSITION MIXER 02/06/2024 7:09 AM COMPOSITION MIXER us Quynh Merchant MD LAB BLOOD ORDERABLES Final Res ult [facility] [address] Department [place] [address] * Differential, auto (02/06/2024 5:26 AM COMPOSITION MIXER) Neutrophil abs 2.4 1.5 - 6.5 K/cumm Imm gran abs 0.0 0.0 - 0.1 K/cumm [facility] Lymphocyte abs 0.8 0.8 - 3.3 K/cumm [facility] Monocyte abs 0.6 0.2 - 0.8 K/cumm [facility] Eosinophil abs 0.0 0.0 - 0.5 K/cumm [facility] Basophil abs 0.0 0.0 - 0.1 K/cumm [facility] Neutrophil pct 62.9 % [facility] Comment: Interpretive Data Percent cell count reference ranges are not reported, since discordance with absolute values may lead to misinterpretation of CBC data. Current Interpretive Data was last revised on 2017. Imm gran pct 0.3 % [facility] Comment: Interpretive Data Percent cell count reference ranges are not reported, since discordance with absolute values may lead to misinterpretation of CBC data. Current Interpretive Data was last revised on 2017. Lymphocyte pct 20.6 % [facility] Comment: Interpretive Data Percent cell count reference ranges are not reported, since discordance with absolute values may lead to misinterpretation of CBC data. Current Interpretive Data was last revised on 2017. Monocyte pct 15.4 % [facility] Comment: Interpretive Data Percent cell count reference ranges are not reported, since discordance with absolute values may lead to misinterpretation of CBC data. Current Interpretive Data was last revised on 2017. Eosinophil pct 0.5 % [facility] Comment: Interpretive Data Percent cell count reference ranges are not reported, since discordance with absolute values may lead to misinterpretation of CBC data. Current Interpretive Data was last revised on 2017. Basophil pct 0.3 % [facility] Comment: Interpretive Data Percent cell count reference ranges are not reported, since discordance with absolute values may lead to misinterpretation of CBC data. Current Interpretive Data was last revised on 2017. Blood 02/06/2024 5:26 AM COMPOSITION MIXER 02/06/2024 7:03 AM COMPOSITION MIXER Quynh Merchant MD LAB BLOOD ORDERABLES Final Res ult Performing Organization Address City/[facility]/ZIP Co de Phone Number [facility] [address] [place] [address] * (ABNORMAL) CBC with auto differential (02/06/2024 5:26 AM COMPOSITION MIXER) WBC 3.8 3.8 - 9.9 K/cumm Hgb 13.0 13.0 - 17.5 g/dL [facility] Hct 37.9(L) 38.9 - 50.3 % [facility] Plt 103(L) 150 - 400 K/cumm [facility] MPV 12.8(H) 9.1 - 12.3 fL [facility] RBC 3.97(L) 4.30 - 5.80 M/cumm [facility] MCV 95.5 81.3 - 96.4 fL [facility] MCH 32.7 27.1 - 33.3 pg [facility] MCHC 34.3 32.3 - 35.7 g/dL [facility] RDW CV 13.2 11.1 - 14.9 % [facility] RDW SD 46.4 35.7 - 48.1 fL [facility] NRBC abs 0.00 0.00 - 0.01 K/cumm [facility] Blood 02/06/2024 5:26 AM COMPOSITION MIXER 02/06/2024 7:03 AM COMPOSITION MIXER us Quynh Merchant MD LAB BLOOD ORDERABLES Final Res ult [facility] [address] [place] [address] * Magnesium (02/06/2024 5:26 AM COMPOSITION MIXER) Pathologist [facility] Magnesium 2.0 1.4 - 2.5 mg/dL Blood 02/06/2024 5:26 AM COMPOSITION MIXER 02/06/2024 7:03 AM COMPOSITION MIXER Quynh Merchant MD LAB BLOOD ORDERABLES Final Res ult Performing Organization Address City/[facility]/ZIP Co de Phone Number [facility] [address] [place] [address] * (ABNORMAL) Basic metabolic panel (02/06/2024 5:26 AM COMPOSITION MIXER) [facility] Sodium 140 135 - 145 mmol/L Potassium, pl 3.5 3.3 - 4.9 mmol/L [facility] Chloride 105 97 - 110 mmol/L [facility] CO2 24 22 - 32 mmol/L [facility] Anion gap 11 2 - 15 mmol/L [facility] BUN 20 6 - 25 mg/dL [facility] Creatinine 1.45(H) 0.80 - 1.30 mg/dL [facility] Glucose 144 70 - 199 mg/dL [facility] Comment: Interpretive Data Fasting glucose >/= 126 [...] 2022. Calcium 9.0 8.5 - 10.3 mg/dL [facility] Blood 02/06/2024 5:26 AM COMPOSITION MIXER 02/06/2024 7:03 AM COMPOSITION MIXER Quynh Merchant MD LAB BLOOD ORDERABLES Final Res ult Performing Organization Address City/[facility] Co de Phone Number [facility] [address] Department [place] [address] * ECG 12 lead (02/06/2024 3:29 AM COMPOSITION MIXER) 02/06/2024 3:29 AM COMPOSITION MIXER Narrative [facility] - 02/07/2024 7:32 PM COMPOSITION MIXER Vent Rate: 56 bpm RR Interval: [address] Interval: 188 msec QRS Duration: 120 msec QT Interval: 424 msec QTC Interval: 415 msec P-R-T [place]: 44 - -[phone] 128 degrees IMPRESSION: SINUS BRADYCARDIA LEFT ANTERIOR FASCICULAR BLOCK [QRS AXIS <= -45, QR IN I, RS IN II] Nonspecific ST-T abnormality Electronically Signed By: Julio Cesar Vasquez MD PhD us Rocky Oscar MD ECG ORDERABLES Final Re sult Performing Organization Address City/[facility] Co de Phone Number [facility] * POCT glucose (02/05/2024 8:11 PM COMPOSITION MIXER) Glucose, POC 152 70 - 199 mg/dL Comment: For Glucose values <35 mg/dl when Hematocrit is >60 mg/dl,the test may not accurately detect significant hypoglycemia,and testing in the Laboratory should be considered if clinically indicated. Blood 02/05/2024 8:11 PM COMPOSITION MIXER 02/05/2024 8:11 PM COMPOSITION MIXER Quynh Merchant MD LAB POCT ORDERABLES - DEVICE F inal Result [facility] [address] Department [place] [address] * Blood culture Blood (02/05/2024 7:02 PM COMPOSITION MIXER) Report Final Report: No growth Blood 02/05/2024 7:02 PM COMPOSITION MIXER 02/05/2024 7:11 PM COMPOSITION MIXER Narrative [facility] - 02/11/2024 7:01 AM COMPOSITION MIXER From a different site than #1. Collection->Peripheral [...] organism identification may be performed using the [employer] FilmArray Blood Culture Identification panel. This assay detects microbial DNA in a blood culture broth. This assay has been cleared by the [facility] Food and Drug Administration and its performance characteristics have been verified by the [facility] Laboratory. Interpretive data was last revised on April 09, 2022. Quynh Merchant MD LAB MICROBIOLOGY - GENERAL ORD ERABLES Final Result Performing Organization Address City/[facility]/ZIP Co de Phone Number [facility] [address] [place] [address] * Blood culture Blood (02/05/2024 6:57 PM COMPOSITION MIXER) Report Final Report: No growth Blood 02/05/2024 6:57 PM COMPOSITION MIXER 02/05/2024 7:11 PM [facility]POSITION MIXER [facility] - 02/11/2024 7:01 AM COMPOSITION MIXER Collection->Peripheral Interpretive Data 1. Blood cultures are incubated and monitored continuously for 5 days (120 hours). The first negative report is issued within 24 hours of receipt in the laboratory. 2. All positive cultures are resulted and called to physicians/care providers as soon as they are detected. 3. A rapid molecular test for organism identification may be performed using the [employer] FilmArray Blood Culture Identification panel. This assay detects microbial DNA in a blood culture broth. This assay has been cleared by the [place] Food and Drug Administration and its performance characteristics have been verified by the [facility]. Interpretive data was last revised on April 09, 2022. Quynh Merchant MD LAB MICROBIOLOGY - GENERAL ORD ERABLES Final Result Performing Organization Address City/[facility]/ZIP Co de Phone Number [facility] [address] [place] [address] * POCT glucose (02/05/2024 5:32 PM COMPOSITION MIXER) [facility] Glucose, POC 156 70 - 199 mg/dL Comment: For Glucose values <35 mg/dl when Hematocrit is >60 mg/dl,the test may not accurately detect significant hypoglycemia,and testing in the Laboratory should be considered if clinically indicated. Blood 02/05/2024 5:32 PM COMPOSITION MIXER 02/05/2024 5:32 PM COMPOSITION MIXER us Quynh Merchant MD LAB POCT ORDERABLES - DEVICE F inal Result [facility] [address] Department [place] [address] * (ABNORMAL) Respiratory pathogen panel Nasopharyngeal (02/05/2024 4:27 PM COMPOSITION MIXER) [facility] Influenza A RNA Not Detected Not Detected [facility] Influenza B RNA Not Detected Not Detected [facility] RSV RNA Not Detected Not Detected [facility] COVID-19 RNA Detected(A) Not Detected [facility] Coronavirus 229E RNA Not Detected Not Detected [facility] Coronavirus HKU1 RNA Not Detected Not Detected [facility] Coronavirus NL63 RNA Not Detected Not Detected [facility] Coronavirus OC43 RNA Not Detected Not Detected [facility] Adenovirus DNA Not Detected Not Detected [facility] Metapneumovirus RNA Not Detected Not Detected [facility] Rhinovirus/Enterov irus RNA Not Detected Not Detected [facility] Parainfluenza 1 RNA Not Detected Not Detected [facility] Parainfluenza 2 RNA Not Detected Not Detected [facility] Parainfluenza 3 RNA Not Detected Not Detected [facility] Parainfluenza 4 RNA Not Detected Not Detected [facility] B. pertussis DNA Not Detected Not Detected [facility] B. parapertussis DNA Not Detected Not Detected [facility] C. pneumoniae DNA Not Detected Not Detected [facility] M. pneumoniae DNA Not Detected Not Detected [facility] Comment: Interpretive Data The [employer] FilmArray Respiratory Panel (RP2.1) assay is a [...] assay has FDA clearance for testing of SMT TECHNICIAN swabs. The performance characteristics of this assay have been determined by [facility]. Current interpretive data was last revised on 2020. Nasopharyngeal 02/05/2024 4: 27 PM COMPOSITION MIXER 02/05/2024 4:30 PM COMPOSITION MIXER Jaqui PEREZ [facility] - 02/05/2024 5:27 PM COMPOSITION MIXER Is the Patient experiencing symptoms consistent with COVID?->Unknown Surveillance testing for transplant patient?->No us Quynh Merchant MD LAB MICROBIOLOGY - GENERAL ORD ERABLES Final Result [facility] [address] [place] [address] [facility] * TRANSTHORACIC ECHO (TTE) COMPLETE W DOPPLER/CF WO CONTRAST (02/05/2024 2:34 PM COMPOSITION MIXER) Anatomical Region Laterality Modality Ultrasound 02/05/2024 11:4 7 AM COMPOSITION MIXER Narrative 02/05/2024 7:20 PM COMPOSITION MIXER [facility] [address] [address] ECHOCARDIOGRAM Patient Name: LILIANA AMANDA F : 1945 Study Date: 02/05/2024 11:47:52 AM Gender: M Tech: US[employer] Location: [id number] Ref Provider: QUYNH MERCHANT Height(Cm): 180 BSA: [...] AoR Diam 2D Index 1.51 LVOT Peak Sloan 1.02 [ 0.70 - 1.10 ] m/s [...] not well visualized. Exam Interpreted: Read by Chemical Waste Management Technician of the day to expedite patient care. [...] valve. Electronically Signed By: Brenton Cantu MD [facility] 2024-02-05 19:19:58 COMPOSITION MIXER Procedure Note Brenton Cantu MD - 02/05/2024 [place] [id number] [place] [address] ECHOCARDIOGRAM Patient Name: LILIANA AMANDA F : 1945 Study Date: 02/05/2024 11:47:52 AM Gender: M Tech: [facility] Location: [id number] Ref Provider: QUYNH MERCHANT Height(Cm): 180 BSA: [...] not well visualized. Exam Interpreted: Read by Chemical Waste Management Technician of the day to expedite patient care. [...] valve. Electronically Signed By: Brenton Cantu MD [facility] 2024-02-05 19:19:58 COMPOSITION MIXER Quynh Merchant MD CV ECHO PROCEDURES Final Resul t * ECG 12 lead (02/05/2024 12:49 PM COMPOSITION MIXER) 02/05/2024 12:4 9 PM COMPOSITION MIXER Narrative [facility] - 02/05/2024 9:31 PM COMPOSITION MIXER Vent Rate: 70 bpm RR Interval: [address] Interval: 204 msec QRS Duration: 120 msec QT Interval: 375 msec QTC Interval: 396 msec P-R-T [place]: 42 - -57 - 117 degrees IMPRESSION: SINUS RHYTHM LEFT ANTERIOR FASCICULAR BLOCK [QRS AXIS <= -45, QR IN I, RS IN II] ST DEVIATION AND MODERATE T-WAVE ABNORMALITY, CONSIDER LATERAL ISCHEMIA [-0.1+ mV T WAVE IN I/aVL/V5/V6] ABNORMAL ECG Electronically Signed By: Rocky Oscar MD, [facility] Quynh Merchant MD ECG ORDERABLES Final Result [facility] * POCT glucose (02/05/2024 12:37 PM COMPOSITION MIXER) Glucose, POC 131 70 - 199 mg/dL Comment: For Glucose values <35 mg/dl when Hematocrit is >60 mg/dl,the test may not accurately detect significant hypoglycemia,and testing in the Laboratory should be considered if clinically indicated. Blood 02/05/2024 12:3 7 PM COMPOSITION MIXER 02/05/2024 12:37 PM COMPOSITION MIXER Quynh Merchant MD LAB POCT ORDERABLES - DEVICE F inal Result [facility] [address] Department [place] [address] * (ABNORMAL) Troponin T high-sensitivity (02/05/2024 10:09 AM COMPOSITION MIXER) Trop T hs 61(H) <=22 ng/L Comment: Interpretive Data For further hscTnT resources including the diagnostic algorithm and an aid in interpretation, copy and paste this link: https://nrl.testcatalog.org/show/[email or web address] Current Interpretive Data last revised 2020. Blood 02/05/2024 10:0 9 AM COMPOSITION MIXER 02/05/2024 10:21 AM COMPOSITION MIXER Quyhn Merchant MD LAB BLOOD ORDERABLES Final Res ult Performing Organization Address City/[facility]/ZIP Co de Phone Number [facility] [address] Department of [employer] [place], [place] [id number] * Thyroid Function Ada (02/05/2024 10:09 AM COMPOSITION MIXER) TSH 1.12 0.30 - 4.20 mcIUnit/mL Blood 02/05/2024 10:0 9 AM COMPOSITION MIXER 02/05/2024 10:21 AM COMPOSITION MIXER Quynh Merchant MD LAB BLOOD ORDERABLES Final Res ult Performing Organization Address [facility] Co de Phone Number [facility] [address] [employer] [place], [place] [id number] * (ABNORMAL) Lipid panel (02/05/2024 10:09 AM COMPOSITION MIXER) Cholesterol 222(H) 30 - 199 mg/dL Comment: [...] revised on 2017. Triglycerides 114 <=149 mg/dL [facility] Comment: Interpretive Data Ages < or = [...] revised on 2017. HDL 45 >=40 mg/dL [facility] Comment: Interpretive Data Ages < or = [...] on 2017. LDL, calculated 156(H) <=129 mg/dL [facility] Comment: Interpretive Data Ages < or = [...] revised on 2023. Non-HDL Cholesterol 177 mg/dL [facility] Comment: Interpretive Data Ages < or = [...] last revised on 2017. Chol/HDL ratio 5 [facility] Blood 02/05/2024 10:0 9 AM COMPOSITION MIXER 02/05/2024 10:21 AM COMPOSITION MIXER us Quynh Merchant MD LAB BLOOD ORDERABLES Final Res ult [facility] [address] Department [place] [address] * XR Chest 1 Vw (02/05/2024 9:41 AM COMPOSITION MIXER) Anatomical Region Laterality Modality Body, Chest N/A Computed Radiogr aphy 02/05/2024 9:47 AM COMPOSITION MIXER Impressions 02/05/2024 9:47 AM COMPOSITION MIXER The lines are small. There is no pneumonic consolidation, pleural effusion, pulmonary edema or pneumothorax. Heart and mediastinal contours are within normal limits. Electronically signed by: Portillo Herring MD, PHD Narrative 02/05/2024 9:47 AM COMPOSITION MIXER EXAMINATION: XR CHEST 1 VIEW HISTORY: hypoxia [...] (ABNORMAL) Troponin T high-sensitivity (02/05/2024 8:47 AM COMPOSITION MIXER) Pathologist [facility] Trop T hs 60(H) <=22 ng/L Comment: Interpretive Data For further hscTnT resources including the diagnostic algorithm and an aid in interpretation, copy and paste this link: https://nrl.testcatalog.org/show/[email or web address] Current Interpretive Data last revised 2020. Blood 02/05/2024 8:47 AM COMPOSITION MIXER 02/05/2024 8:47 AM COMPOSITION MIXER Quynh Merchant MD LAB BLOOD ORDERABLES Final Res ult Performing Organization Address [facility] Co de Phone Number [facility] [address] [place] [address] * Lactate (02/05/2024 7:05 AM COMPOSITION MIXER) [facility] Lactate 1.0 0.7 - 2.0 mmol/L Blood 02/05/2024 7:05 AM COMPOSITION MIXER 02/05/2024 7:05 AM COMPOSITION MIXER Samir Salazar DO LAB BLOOD ORDERABLES F inal Result Performing Organization Address [facility] Systems/[facility] Co de Phone Number [facility] [address] [place] [address] * (ABNORMAL) eGFR (02/05/2024 7:05 AM COMPOSITION MIXER) [facility] eGFR 43(L) >=60 mL/min/1. 73 m2 Comment: [...] last reviewed 2021. Blood 02/05/2024 7:05 AM COMPOSITION MIXER 02/05/2024 7:13 AM COMPOSITION MIXER Samir Salazar DO LAB BLOOD ORDERABLES F inal Result [facility] [address] [place] [address] * (ABNORMAL) Differential, auto (02/05/2024 7:05 AM COMPOSITION MIXER) Neutrophil abs 3.4 1.5 - 6.5 K/cumm Imm gran abs 0.0 0.0 - 0.1 K/cumm [facility] Lymphocyte abs 0.7(L) 0.8 - 3.3 K/cumm [facility] Monocyte abs 0.7 0.2 - 0.8 K/cumm [facility] Eosinophil abs 0.0 0.0 - 0.5 K/cumm [facility] Basophil abs 0.0 0.0 - 0.1 K/cumm [facility] Neutrophil pct 71.0 % [facility] Comment: Interpretive Data Percent cell count reference ranges are not reported, since discordance with absolute values may lead to misinterpretation of CBC data. Current Interpretive Data was last revised on 2017. Imm gran pct 0.2 % [facility] Comment: Interpretive Data Percent cell count reference ranges are not reported, since discordance with absolute values may lead to misinterpretation of CBC data. Current Interpretive Data was last revised on 2017. Lymphocyte pct 14.3 % [facility] Comment: Interpretive Data Percent cell count reference ranges are not reported, since discordance with absolute values may lead to misinterpretation of CBC data. Current Interpretive Data was last revised on 2017. Monocyte pct 14.1 % [facility] Comment: Interpretive Data Percent cell count reference ranges are not reported, since discordance with absolute values may lead to misinterpretation of CBC data. Current Interpretive Data was last revised on 2017. Eosinophil pct 0.0 % [facility] Comment: Interpretive Data Percent cell count reference ranges are not reported, since discordance with absolute values may lead to misinterpretation of CBC data. Current Interpretive Data was last revised on 2017. Basophil pct 0.4 % [facility] Comment: Interpretive Data Percent cell count reference ranges are not reported, since discordance with absolute values may lead to misinterpretation of CBC data. Current Interpretive Data was last revised on 2017. Blood 02/05/2024 7:05 AM COMPOSITION MIXER 02/05/2024 7:05 AM COMPOSITION MIXER us Samir Salazar DO LAB BLOOD ORDERABLES F inal Result [facility] [address] [place] [address] * (ABNORMAL) CBC with auto differential (02/05/2024 7:05 AM COMPOSITION MIXER) WBC 4.8 3.8 - 9.9 K/cumm Hgb 13.7 13.0 - 17.5 g/dL [facility] Hct 40.3 38.9 - 50.3 % [facility] Plt 115(L) 150 - 400 K/cumm [facility] MPV 12.8(H) 9.1 - 12.3 fL [facility] RBC 4.18(L) 4.30 - 5.80 M/cumm [facility] MCV 96.4 81.3 - 96.4 fL [facility] MCH 32.8 27.1 - 33.3 pg [facility] MCHC 34.0 32.3 - 35.7 g/dL [facility] RDW CV 13.2 11.1 - 14.9 % [facility] RDW SD 47.3 35.7 - 48.1 fL [facility] NRBC abs 0.00 0.00 - 0.01 K/cumm [facility] Blood 02/05/2024 7:05 AM COMPOSITION MIXER 02/05/2024 7:05 AM COMPOSITION MIXER us Samir Salazar DO LAB BLOOD ORDERABLES F inal Result [facility] [address] [place] [address] * (ABNORMAL) Comprehensive metabolic panel (02/05/2024 7:05 AM COMPOSITION MIXER) Sodium 142 135 - 145 mmol/L Potassium, pl 4.3 3.3 - 4.9 mmol/L [facility] Comment:Hemolyzed; potassium value may be falsely elevated by as much as 0.6 - 1.0 mmol/L. Suggest redraw and reanalysis Chloride 108 97 - 110 mmol/L [facility] CO2 24 22 - 32 mmol/L [facility] Anion gap 10 2 - 15 mmol/L [facility] BUN 23 6 - 25 mg/dL [facility] Creatinine 1.62(H) 0.80 - 1.30 mg/dL [facility] Glucose 107 70 - 199 mg/dL [facility] Comment: Interpretive Data Fasting glucose >/= 126 [...] 2022. Calcium 8.9 8.5 - 10.3 mg/dL [facility] Bilirubin, total 0.7 0.1 - 1.2 mg/dL [facility] Protein, pl 6.3(L) 6.5 - 8.5 g/dL [facility] Albumin 3.8 3.5 - 5.0 g/dL [facility] Alk phos 40 40 - 130 Units/L [facility] ALT 23 7 - 55 Units/L [facility] Comment:Moderately Hemolyzed Specimen AST 53(H) 10 - 50 Units/L [facility] Comment:Moderately Hemolyzed Specimen Blood 02/05/2024 7:05 AM COMPOSITION MIXER 02/05/2024 7:05 AM COMPOSITION MIXER Samir Salazar DO LAB BLOOD ORDERABLES F inal Result Performing Organization Address [facility]/ZIP Co de Phone Number [facility] [address] [place] [address] * (ABNORMAL) Hemoglobin A1c (05/16/2023 4:38 AM CDT) Hgb A1C 6.8(H) 4.0 - 5.6 % Estimated Average Glucose 148 mg/dL [facility] Comment: The ADA recommends reporting an estimated Average Glucose (eAG) with all Hemoglobin A1c results using the equation derived from a study of 507 normal and diabetic adults. Minority populations were underrepresented and children were not included. (Diabetes Care 31:4939-0642, 2008). The eAG is not equivalent to a fasting glucose. Blood 05/16/2023 4:38 AM CDT 05/16/2023 5:21 AM CDT Kanchan Merchant DO LAB BLOOD ORDERABLES Final Result [facility] [address] [place] [address] from Last 3 Months or Most Recently Relevant to Health Maintenance Insurance [place] [employer] [facility] Address: [facility] [address] [place] [address] [place] [employer] [facility] Address: [address] [address] [place] [address] Advance Directives For more information, please contact: [phone] * Full Code (Latest Code Status on File) Date Activated Date Inactivated Comments 02/05/2024 6:07 AM 02/09/2024 3:45 PM * Full Code Date Activated Date Inactivated Comments 05/15/2023 7:34 PM 05/16/2023 10:03 PM Care Teams Hydroblaster Relationship Specialty Start Date End Date Ministerio Harrison MD [facility] [place] [id number] PCP - General Family Medicine 02/08/24 Kit Alcantar MD [address] [place] [address] [address] Consulting Physician Pulmonary Disease 12/07/22
--- OUTSIDE RECORDS SUMMARY | 2024-05-02 13:17 | XMS_ITS | Encounter Summary ---
Author Organization [facility] Address [facility] [place] [address] Care Team Providers Care Ceramics Teacher Name Role Phone Yovanny Archer PA-C Primary Care Provider Ministerio Harrison MD Primary Care Provider [phone] Encounter Details Date Type Department Care Team (Late Contact Info) Description 05/28/2023 Taggify Message Enc [facility] Multispecialty Care - [facility] [address] [address] Joanna, [facility] Provider Add to HIPPA Social History Tobacco Use Types Packs/Day Years [...] on file Legal Sex Male 11:11 PM CPA TAX Gender Identity Not on file Sexual Orientation Not on file documented as of this encounter Plan of Treatment Upcoming Encounters Date Type Department Care Team (Late Contact Info) Description 02/12/2025 1:00 PM CPA TAX Office Visit [address] [place] [address] Pati Longo, AMELAINP [address] [place] [phone] documented as of this encounter Visit Diagnoses Not on filedocumented in this encounter Care Teams Ceramics Teacher Relationship Specialty Start Date End Date Yovanny Archer PA-C [address] [place] [address] PCP - General PHYSICIAN VP STRATEGIC PLANNING 06/30/22 12/14/23 Ministerio Harrison MD [address] [facility] [address] [place] [phone] PCP - General FAMILY PRACTICE 12/15/23 documented as of this encounter
--- OUTSIDE RECORDS SUMMARY | 2024-05-02 13:17 | XMS_ITS | Clinical Summary ---
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
--- OUTSIDE RECORDS SUMMARY | 2024-05-02 13:17 | XMS_ITS | Patient Health Record ---
Author Organization [facility] Address [address] [address] Support Name Relationship Address Phone LILIANA URBANO Guarantor Unknown [phone] Reason For Referral No Information Problems Problem Type SNOMED Code ICD Code Onset Dates Problem Status W/U Status Risk Notes Problem Inguinal hernia (285928113) Unilateral inguinal hernia, without obstruction or gangrene, not specified as recurrent (K40.90) Active confirmed [id number] -Snomed Descriptio n:Inguinal hernia Plan Of Treatment No Information Insurance Providers Payer Name Payer Address Payer Phone Subscriber Number Group Number Insured Name Patient Relationship to Insured Coverage Start Date Coverage End Date [employer] /Medicare Part B [facility] [address] [place] [phone] [id number] LILIANA URBANO Self - patient is the insured
--- OUTSIDE RECORDS SUMMARY | 2024-05-02 13:17 | XMS_ITS | Encounter Summary ---
Author Organization [facility] Address [address] [place] [address] Care Team Providers Care Marketing Editor Name Role Phone Unavailable Primary Care Provider Unavailabl e Encounter Details Date Type Department Care Team (Late st Contact Info) Description 03/20/2004 Outpatient [facility] [address] [facility] 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
--- OUTSIDE RECORDS SUMMARY | 2024-05-02 13:17 | XMS_ITS | Encounter Summary ---
Author Organization [facility] [facility] Address [address] [place] [address] Care Team Providers Care Manufacturing Supervisor 2Nd Shift Name Role Phone Yovanny Archer PA-C Primary Care Provider Ministerio Harrison MD Primary Care Provider [phone] Encounter Details Date Type Department Care Team (Late Contact Info) Description 05/17/[address] 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 Gender Identity Not on file Sexual Orientation Not on file documented as of this encounter Plan of Treatment Upcoming Encounters Date Type Department Care Team (Late Contact Info) Description 02/12/2025 1:00 PM UPPER LINING CEMENTER Office Visit [facility] [address] [place] [address] Pati Longo APNP [address] [place] [phone] documented as of this encounter Visit Diagnoses Not on filedocumented in this encounter Care Teams Manufacturing Supervisor 2Nd Shift Relationship Specialty Start Date End Date Yovanny Archer PACristianoC [address] [place], [place] [phone] PCP - General PHYSICIAN RIPENING ROOM HAND 06/30/22 12/14/23 Ministerio Harrison MD [address] [place] [address] PCP - General FAMILY PRACTICE 12/15/23 documented as of this encounter
--- OUTSIDE RECORDS SUMMARY | 2024-05-02 13:39 | XMS_ITS | Referral Summary ---
Author Organization [facility] [address] Address [address] [place] [id number] Care Team Providers Care Retail Operations Manager Name Role Phone Kit Alcantar MD Unavailable [phone] Ministerio Harrison MD Primary Care Provider [phone] Encounters Date Type Department Care Team Description 02/05/2024 6:06 AM CAMOUFLAGE SPECIALIST - 02/09/2024 11:40 AM CAMOUFLAGE SPECIALIST Hospital Encounter [address] [id number] Samir Salazar DO Khan, Fatima A., MD Reuter, Johnnie Harrell MD [place], acute, non ST segment elevation (CMS/HCC) (HCC) (Primary Dx); Pneumonia of left lower lobe due to infectious organism; Diabetes mellitus type II, non insulin dependent (CMS/HCC) (HCC); Age-related physical debility; Pneumonia due to COVID-19 virus [U07.1, J12.82] Discharge Disposition: Discharge to home or self care 02/05/2024 Orders Only [facility] Hospitalists [address] [place] [id number] Samir Salazar DO from Last 3 [...] COVID-19 virus 02/08/2024 Age-related physical debility 02/08/2024 NH, acute, non ST segment elevation (CMS/HCC) Pneumonia of left lower lobe due to infectious o rganism 02/05/2024 History of pulmonary embolism 05/16/2023 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 Never 02/08/2024 Do you belong to any clubs o r organizations such as sabianist groups, unions, fraternal or athletic groups, or [...] any time in the past 12 [facility], were you homeless or living in a fdc (including now)? No 02/08/2024 Personal Safety Answer Date Recorded Have you ever been in or are you currently in a harmful physical or emotional relationship or is someone making you feel afraid or unsafe? Denies 02/05/2024 Sex and Gender Information Value Date Recorded Sex Assigned at Not on file Legal Sex Male 1:21 AM CAMOUFLAGE SPECIALIST Gender Identity Not on file Sexual Orientation Not on file Last Filed Vital Signs Vital Sign Reading Time Taken Comments Blood Pressure 154/62 02/09/2024 8:12 AM CAMOUFLAGE SPECIALIST Pulse 50 02/09/2024 8:12 AM CAMOUFLAGE SPECIALIST Temperature 36.6 C (97.9 F) 02/09/2024 8:12 AM CAMOUFLAGE SPECIALIST Respiratory Rate 18 02/09/2024 8:12 AM CAMOUFLAGE SPECIALIST Oxygen Saturation 92% 02/09/2024 8:12 AM CAMOUFLAGE SPECIALIST Inhaled Oxygen Concentration - - Weight 79 kg (174 lb 2.6 oz) 02/08/2024 11:00 AM CAMOUFLAGE SPECIALIST Height 180.3 cm (5' 11 ) 02/08/2024 11:00 AM CAMOUFLAGE SPECIALIST Body Mass Index 24.29 02/08/2024 11:00 AM CAMOUFLAGE SPECIALIST Plan of Treatment Not on file Procedures Procedure Name Priority Date/Time Associated Diagnosis Comments POCT GLUCOSE DEVICE Routine 02/09/2024 6 :40 AM CAMOUFLAGE SPECIALIST POCT GLUCOSE DEVICE Routine 02/08/2024 8 :35 PM CAMOUFLAGE SPECIALIST POCT GLUCOSE DEVICE Routine 02/08/2024 6 :01 PM CAMOUFLAGE SPECIALIST POCT GLUCOSE DEVICE Routine 02/08/2024 1 2:17 PM CAMOUFLAGE SPECIALIST POCT GLUCOSE DEVICE Routine 02/08/2024 6 :08 AM CAMOUFLAGE SPECIALIST EGFR Routine 02/08/2024 4:35 AM CAMOUFLAGE SPECIALIST DIFFERENTIAL AUTO STAT 02/08/2024 4:3 5 AM CAMOUFLAGE SPECIALIST MAGNESIUM Routine 02/08/2024 4:35 AM CAMOUFLAGE SPECIALIST BASIC METABOLIC PANEL Routine 02/08/2024 4:35 AM CAMOUFLAGE SPECIALIST CBC WITH AUTO DIFFERENTIAL STAT 02/08/2024 4:35 AM CAMOUFLAGE SPECIALIST MRI BRAIN MRA HEAD MRA NECK WO CONTRAST IP Routine 02/08/2024 1:18 AM CAMOUFLAGE SPECIALIST POCT GLUCOSE DEVICE Routine 02/07/2024 9 :40 PM CAMOUFLAGE SPECIALIST POCT GLUCOSE DEVICE Routine 02/07/2024 5 :52 PM CAMOUFLAGE SPECIALIST POCT GLUCOSE DEVICE Routine 02/07/2024 1 2:19 PM CAMOUFLAGE SPECIALIST EGFR Routine 02/07/2024 11:08 AM CAMOUFLAGE SPECIALIST MAGNESIUM Routine 02/07/2024 11:08 AM CAMOUFLAGE SPECIALIST BASIC METABOLIC PANEL Routine 02/07/2024 11:08 AM CAMOUFLAGE SPECIALIST XR CHEST 1 VIEW IP Routine 02/07/2024 9:31 AM CAMOUFLAGE SPECIALIST POCT GLUCOSE DEVICE Routine 02/07/2024 6 :17 AM CAMOUFLAGE SPECIALIST URINALYSIS, MICROSCOPIC ONLY Routine 02/06/2024 11:26 PM CAMOUFLAGE SPECIALIST URINALYSIS AND REFLEX TO MICROSCOPIC AND CULTURE Routine 02/06/2024 11:26 PM CAMOUFLAGE SPECIALIST POCT GLUCOSE DEVICE Routine 02/06/2024 9 :04 PM CAMOUFLAGE SPECIALIST POCT GLUCOSE DEVICE Routine 02/06/2024 5 :50 PM CAMOUFLAGE SPECIALIST ADD ON LAB TEST Add-On 02/06/2024 1:06 PM CAMOUFLAGE SPECIALIST POCT GLUCOSE DEVICE Routine 02/06/2024 1 2:41 PM CAMOUFLAGE SPECIALIST POCT GLUCOSE DEVICE Routine 02/06/2024 6 :31 AM CAMOUFLAGE SPECIALIST EGFR Routine 02/06/2024 5:26 AM CAMOUFLAGE SPECIALIST DIFFERENTIAL AUTO Routine 02/06/2024 5:2 6 AM CAMOUFLAGE SPECIALIST TROPONIN T HIGH-SENSITIVITY Routine 02/06/2024 5:26 AM CAMOUFLAGE SPECIALIST MAGNESIUM Routine 02/06/2024 5:26 AM CAMOUFLAGE SPECIALIST BASIC METABOLIC PANEL Routine 02/06/2024 5:26 AM CAMOUFLAGE SPECIALIST CBC WITH AUTO DIFFERENTIAL Routine 02/06/2024 5:26 AM CAMOUFLAGE SPECIALIST ECG 12-LEAD Routine 02/06/2024 3:29 AM CAMOUFLAGE SPECIALIST POCT GLUCOSE DEVICE Routine 02/05/2024 8 :11 PM CAMOUFLAGE SPECIALIST BLOOD CULTURE Routine 02/05/2024 7:02 PM CAMOUFLAGE SPECIALIST BLOOD CULTURE Routine 02/05/2024 6:57 PM CAMOUFLAGE SPECIALIST POCT GLUCOSE DEVICE Routine 02/05/2024 5 :32 PM CAMOUFLAGE SPECIALIST RESPIRATORY PATHOGEN PANEL Routine 02/05/2024 4:27 PM CAMOUFLAGE SPECIALIST TRANSTHORACIC ECHO (TTE) COMPLETE W DOPPLER/CF WO CONTRAST Routine 02/05/2024 2:34 PM CAMOUFLAGE SPECIALIST ECG 12-LEAD Routine 02/05/2024 12:49 PM CAMOUFLAGE SPECIALIST POCT GLUCOSE DEVICE Routine 02/05/2024 1 2:37 PM CAMOUFLAGE SPECIALIST LIPID PANEL Routine 02/05/2024 10:09 AM CAMOUFLAGE SPECIALIST THYROID FUNCTION CASCADE Routine 02/05/2024 10:09 AM CAMOUFLAGE SPECIALIST TROPONIN T HIGH-SENSITIVITY Routine 02/05/2024 10:09 AM CAMOUFLAGE SPECIALIST XR CHEST 1 VIEW IP Routine 02/05/2024 9:41 AM CAMOUFLAGE SPECIALIST TROPONIN T HIGH-SENSITIVITY STAT 02/05/2024 8:47 AM CAMOUFLAGE SPECIALIST EGFR Routine 02/05/2024 7:05 AM CAMOUFLAGE SPECIALIST DIFFERENTIAL AUTO Routine 02/05/2024 7:0 5 AM CAMOUFLAGE SPECIALIST LACTATE Routine 02/05/2024 7:05 AM CAMOUFLAGE SPECIALIST CBC WITH AUTO DIFFERENTIAL Routine 02/05/2024 7:05 AM CAMOUFLAGE SPECIALIST COMPREHENSIVE METABOLIC PANEL Routine 02/05/2024 7:05 AM CAMOUFLAGE SPECIALIST HEMOGLOBIN A1C Routine 05/16/2023 4:38 AM CDT from Last 3 Months or Most Recently Relevant to Health Maintenance Results * POCT glucose (02/09/2024 6:40 AM CAMOUFLAGE SPECIALIST) [facility] Glucose, POC 136 70 - 199 mg/dL Comment: For Glucose values <35 mg/dl when Hematocrit is >60 mg/dl,the test may not accurately detect significant hypoglycemia,and testing in the Laboratory should be considered if clinically indicated. Blood 02/09/2024 6:40 AM CAMOUFLAGE SPECIALIST 02/09/2024 6:40 AM CAMOUFLAGE SPECIALIST us Johnnie Nassar MD LAB POCT ORDERABLES - D EVICE Final Result [facility]NA [facility] [address] [place] [address] * (ABNORMAL) POCT glucose (02/08/2024 8:35 PM CAMOUFLAGE SPECIALIST) Glucose, POC 288(H) 70 - 199 mg/dL Comment: For Glucose values <35 mg/dl when Hematocrit is >60 mg/dl,the test may not accurately detect significant hypoglycemia,and testing in the Laboratory should be considered if clinically indicated. Blood 02/08/2024 8:35 PM CAMOUFLAGE SPECIALIST 02/08/2024 8:35 PM CAMOUFLAGE SPECIALIST Johnnie Nassar MD LAB POCT ORDERABLES - D EVICE Final Result Performing Organization Address [facility] de Phone Number [facility] [address] [place] [address] * (ABNORMAL) POCT glucose (02/08/2024 6:01 PM CAMOUFLAGE SPECIALIST) Glucose, POC 229(H) 70 - 199 mg/dL Comment: For Glucose values <35 mg/dl when Hematocrit is >60 mg/dl,the test may not accurately detect significant hypoglycemia,and testing in the Laboratory should be considered if clinically indicated. Blood 02/08/2024 6:01 PM CAMOUFLAGE SPECIALIST 02/08/2024 6:01 PM CAMOUFLAGE SPECIALIST Johnnie Nassar MD LAB POCT ORDERABLES - D EVICE Final Result Performing Organization Address [facility] de Phone Number [facility] [address] [place] [address] * POCT glucose (02/08/2024 12:17 PM CAMOUFLAGE SPECIALIST) Glucose, POC 190 70 - 199 mg/dL Comment: For Glucose values <35 mg/dl when Hematocrit is >60 mg/dl,the test may not accurately detect significant hypoglycemia,and testing in the Laboratory should be considered if clinically indicated. Blood 02/08/2024 12:1 7 PM CAMOUFLAGE SPECIALIST 02/08/2024 12:17 PM CAMOUFLAGE SPECIALIST us Johnnie Nassar MD LAB POCT ORDERABLES - D EVICE Final Result Performing Organization Address [facility]/ZIP Co de Phone Number [facility] [address] [place] [address] * POCT glucose (02/08/2024 6:08 AM CAMOUFLAGE SPECIALIST) [facility] Glucose, POC 119 70 - 199 mg/dL Comment: For Glucose values <35 mg/dl when Hematocrit is >60 mg/dl,the test may not accurately detect significant hypoglycemia,and testing in the Laboratory should be considered if clinically indicated. Blood 02/08/2024 6:08 AM CAMOUFLAGE SPECIALIST 02/08/2024 6:08 AM CAMOUFLAGE SPECIALIST Quynh Merchant MD LAB POCT ORDERABLES - DEVICE F inal Result Performing Organization Address [facility] Co de Phone Number [facility] [address] [place] [address] * (ABNORMAL) eGFR (02/08/2024 4:35 AM CAMOUFLAGE SPECIALIST) [facility] eGFR 54(L) >=60 mL/min/1. 73 m2 Comment: [...] last reviewed 2021. Blood 02/08/2024 4:35 AM CAMOUFLAGE SPECIALIST 02/08/2024 5:59 AM CAMOUFLAGE SPECIALIST us Quynh Merchant MD LAB BLOOD ORDERABLES Final Res ult [facility] [address] [place] [address] * Differential, auto (02/08/2024 4:35 AM CAMOUFLAGE SPECIALIST) Neutrophil abs 3.0 1.5 - 6.5 K/cumm Imm gran abs 0.0 0.0 - 0.1 K/cumm [facility] Lymphocyte abs 1.0 0.8 - 3.3 K/cumm [facility] Monocyte abs 0.4 0.2 - 0.8 K/cumm [facility] Eosinophil abs 0.0 0.0 - 0.5 K/cumm [facility] Basophil abs 0.0 0.0 - 0.1 K/cumm [facility] Neutrophil pct 68.9 % [facility] Comment: Interpretive Data Percent cell count reference ranges are not reported, since discordance with absolute values may lead to misinterpretation of CBC data. Current Interpretive Data was last revised on 2017. Imm gran pct 0.0 % [facility] Comment: Interpretive Data Percent cell count reference ranges are not reported, since discordance with absolute values may lead to misinterpretation of CBC data. Current Interpretive Data was last revised on 2017. Lymphocyte pct 21.6 % [facility] Comment: Interpretive Data Percent cell count reference ranges are not reported, since discordance with absolute values may lead to misinterpretation of CBC data. Current Interpretive Data was last revised on 2017. Monocyte pct 9.3 % [facility] Comment: Interpretive Data Percent cell count reference ranges are not reported, since discordance with absolute values may lead to misinterpretation of CBC data. Current Interpretive Data was last revised on 2017. Eosinophil pct 0.0 % [facility] Comment: Interpretive Data Percent cell count reference ranges are not reported, since discordance with absolute values may lead to misinterpretation of CBC data. Current Interpretive Data was last revised on 2017. Basophil pct 0.2 % [facility] Comment: Interpretive Data Percent cell count reference ranges are not reported, since discordance with absolute values may lead to misinterpretation of CBC data. Current Interpretive Data was last revised on 2017. Blood 02/08/2024 4:35 AM CAMOUFLAGE SPECIALIST 02/08/2024 4:35 AM CAMOUFLAGE SPECIALIST Quynh Merchant MD LAB BLOOD ORDERABLES Final Res ult [facility] [address] Department of Laboratories [place], [place] [id number] * (ABNORMAL) CBC with auto differential (02/08/2024 4:35 AM CAMOUFLAGE SPECIALIST) WBC 4.4 3.8 - 9.9 K/cumm Hgb 13.4 13.0 - 17.5 g/dL [facility] Hct 38.8(L) 38.9 - 50.3 % [facility] Plt 118(L) 150 - 400 K/cumm [facility] MPV 13.2(H) 9.1 - 12.3 fL [facility] RBC 4.14(L) 4.30 - 5.80 M/cumm [facility] MCV 93.7 81.3 - 96.4 fL [facility] MCH 32.4 27.1 - 33.3 pg [facility] MCHC 34.5 32.3 - 35.7 g/dL [facility] RDW CV 12.7 11.1 - 14.9 % [facility] RDW SD 44.1 35.7 - 48.1 fL [facility] NRBC abs 0.00 0.00 - 0.01 K/cumm [facility] Blood 02/08/2024 4:35 AM CAMOUFLAGE SPECIALIST 02/08/2024 6:00 AM CAMOUFLAGE SPECIALIST Quynh Merchant MD LAB BLOOD ORDERABLES Final Res ult Performing Organization Address City/[facility]/ZIP Co de Phone Number [facility] [address] [place] [address] * Magnesium (02/08/2024 4:35 AM CAMOUFLAGE SPECIALIST) [facility] Magnesium 1.8 1.4 - 2.5 mg/dL Blood 02/08/2024 4:35 AM CAMOUFLAGE SPECIALIST 02/08/2024 5:59 AM CAMOUFLAGE SPECIALIST Quynh Merchant MD LAB BLOOD ORDERABLES Final Res ult Performing Organization Address [facility] Co de Phone Number [facility] [address] [place] [address] * (ABNORMAL) Basic metabolic panel (02/08/2024 4:35 AM CAMOUFLAGE SPECIALIST) [facility] Sodium 145 135 - 145 mmol/L Potassium, pl 3.8 3.3 - 4.9 mmol/L [facility] Chloride 108 97 - 110 mmol/L [facility] CO2 27 22 - 32 mmol/L [facility] Anion gap 10 2 - 15 mmol/L [facility] BUN 23 6 - 25 mg/dL [facility] Creatinine 1.34(H) 0.80 - 1.30 mg/dL [facility] Glucose 127 70 - 199 mg/dL [facility] Comment: Interpretive Data Fasting glucose >/= 126 [...] 2022. Calcium 9.3 8.5 - 10.3 mg/dL [facility] Blood 02/08/2024 4:35 AM CAMOUFLAGE SPECIALIST 02/08/2024 5:59 AM CAMOUFLAGE SPECIALIST us Quynh Merchant MD LAB BLOOD ORDERABLES Final Res ult [facility] [address] Department [place] [address] * MRI Brain MRA Head MRA Neck WO Contrast (02/08/2024 1:18 AM CAMOUFLAGE SPECIALIST) Anatomical Region Laterality Modality Head and Neck N/A Magnetic Resonan ce 02/08/2024 7:39 AM CAMOUFLAGE SPECIALIST Impressions 02/08/2024 8:33 AM CAMOUFLAGE SPECIALIST 1. No acute intracranial abnormality. Stable severe [...] Liliana Ricardo MD Narrative 02/08/2024 8:33 AM CAMOUFLAGE SPECIALIST EXAMINATION: 1. Magnetic resonance imaging (MRI) of the brain and brainstem without contrast 2. Magnetic resonance angiography (MRA) of the wtvxsb-io-Sojenw without contrast 3. Magnetic resonance angiography (MRA) of the neck without contrast HISTORY: Ataxia. Suspected stroke. TECHNIQUE: Multiplanar multi-weighted MRI of the brain and brainstem was performed without intravenous contrast using the general brain protocol. Magnetic resonance angiography of the cjibnj-lq-Xobpey was performed using a separate data acquisition with a non-contrast fbmt-tg-oesgae technique to produce axial thin-slice source images. These images were then used to generate maximum intensity projection (MIP) images. Magnetic resonance angiography of the neck was performed using a separate data acquisition with a non-contrast uzfx-jn-nxxojc technique to produce thin-slice source images. These [...] 2. Magnetic resonance angiography (MRA) of the bskudu-wr-Gppjpe without contrast 3. Magnetic resonance angiography (MRA) of the neck without contrast HISTORY: Ataxia. Suspected stroke. TECHNIQUE: Multiplanar multi-weighted MRI of the brain and brainstem was performed without intravenous contrast using the general brain protocol. Magnetic resonance angiography of the wagbfz-fo-Kohxsa was performed using a separate data acquisition with a non-contrast ixov-vw-eeppxa technique to produce axial thin-slice source images. These images were then used to generate maximum intensity projection (MIP) images. Magnetic resonance angiography of the neck was performed using a separate data acquisition with a non-contrast lfwa-ko-erwpij technique to produce thin-slice source images. These [...] Result * POCT glucose (02/07/2024 9:40 PM CAMOUFLAGE SPECIALIST) Glucose, POC 174 70 - 199 mg/dL Comment: For Glucose values <35 mg/dl when Hematocrit is >60 mg/dl,the test may not accurately detect significant hypoglycemia,and testing in the Laboratory should be considered if clinically indicated. Blood 02/07/2024 9:40 PM CAMOUFLAGE SPECIALIST 02/07/2024 9:40 PM CAMOUFLAGE SPECIALIST Quynh Merchant MD LAB POCT ORDERABLES - DEVICE F inal Result Performing Organization Address [facility] de Phone Number [facility] [address] [place] [address] * (ABNORMAL) POCT glucose (02/07/2024 5:52 PM CAMOUFLAGE SPECIALIST) Glucose, POC 248(H) 70 - 199 mg/dL Comment: For Glucose values <35 mg/dl when Hematocrit is >60 mg/dl,the test may not accurately detect significant hypoglycemia,and testing in the Laboratory should be considered if clinically indicated. Blood 02/07/2024 5:52 PM CAMOUFLAGE SPECIALIST 02/07/2024 5:52 PM CAMOUFLAGE SPECIALIST Quynh Merchant MD LAB POCT ORDERABLES - DEVICE F inal Result Performing Organization Address [facility] de Phone Number [facility] [address] [place] [address] * POCT glucose (02/07/2024 12:19 PM CAMOUFLAGE SPECIALIST) [facility] Glucose, POC 193 70 - 199 mg/dL Comment: For Glucose values <35 mg/dl when Hematocrit is >60 mg/dl,the test may not accurately detect significant hypoglycemia,and testing in the Laboratory should be considered if clinically indicated. Blood 02/07/2024 12:1 9 PM CAMOUFLAGE SPECIALIST 02/07/2024 12:19 PM CAMOUFLAGE SPECIALIST Result [facility] Quynh Merchant MD LAB POCT ORDERABLES - DEVICE F inal Result Performing Organization Address [facility] de Phone Number [facility] [address] [place] [address] * (ABNORMAL) eGFR (02/07/2024 11:08 AM CAMOUFLAGE SPECIALIST) eGFR 55(L) >=60 mL/min/1. 73 m2 Comment: [...] reviewed 2021. Blood 02/07/2024 11:0 8 AM CAMOUFLAGE SPECIALIST 02/07/2024 11:56 AM CAMOUFLAGE SPECIALIST Quynh Merchant MD LAB BLOOD ORDERABLES Final Res ult Performing Organization Address City/[facility] Co de Phone Number [facility] [address] [employer] [place], [place] [id number] * Magnesium (02/07/2024 11:08 AM CAMOUFLAGE SPECIALIST) Magnesium 1.8 1.4 - 2.5 mg/dL Blood 02/07/2024 11:0 8 AM CAMOUFLAGE SPECIALIST 02/07/2024 11:56 AM CAMOUFLAGE SPECIALIST Quynh Merchant MD LAB BLOOD ORDERABLES Final Res ult [facility] [address] [place] [address] * (ABNORMAL) Basic metabolic panel (02/07/2024 11:08 AM CAMOUFLAGE SPECIALIST) Sodium 143 135 - 145 mmol/L Potassium, pl 3.6 3.3 - 4.9 mmol/L [facility] Chloride 107 97 - 110 mmol/L [facility] CO2 25 22 - 32 mmol/L [facility] Anion gap 11 2 - 15 mmol/L [facility] BUN 24 6 - 25 mg/dL [facility] Creatinine 1.32(H) 0.80 - 1.30 mg/dL [facility] Glucose 216(H) 70 - 199 mg/dL [facility] Comment: Interpretive Data Fasting glucose >/= 126 [...] 2022. Calcium 9.2 8.5 - 10.3 mg/dL [facility] Blood 02/07/2024 11:0 8 AM CAMOUFLAGE SPECIALIST 02/07/2024 11:56 AM CAMOUFLAGE SPECIALIST us Quynh Merchant MD LAB BLOOD ORDERABLES Final Res ult [facility] [address] Department [place] [address] * XR Chest 1 Vw (02/07/2024 9:31 AM CAMOUFLAGE SPECIALIST) Anatomical Region Laterality Modality Body, Chest N/A Computed Radiogr aphy 02/07/2024 10:1 0 AM CAMOUFLAGE SPECIALIST Impressions 02/07/2024 10:24 AM CAMOUFLAGE SPECIALIST Small lung volume. No pneumothorax. No focal consolidation. No pleural effusion. Right greater than left basilar atelectasis. Stable cardiomediastinal silhouette. Dictated by: Valentine Acuña MD The radiology attending physician has personally reviewed this study, and had reviewed and/or edited this written report and agrees with it. Electronically signed by: Cayetano Guzman M.D. Narrative 02/07/2024 10:24 AM CAMOUFLAGE SPECIALIST EXAMINATION: XR CHEST 1 VIEW HISTORY: Fever [...] Result * POCT glucose (02/07/2024 6:17 AM CAMOUFLAGE SPECIALIST) [facility] Glucose, POC 126 70 - 199 mg/dL Comment: For Glucose values <35 mg/dl when Hematocrit is >60 mg/dl,the test may not accurately detect significant hypoglycemia,and testing in the Laboratory should be considered if clinically indicated. Blood 02/07/2024 6:17 AM CAMOUFLAGE SPECIALIST 02/07/2024 6:17 AM CAMOUFLAGE SPECIALIST Quynh Merchant MD LAB POCT ORDERABLES - DEVICE F inal Result [facility] [address] Department [place] [address] * (ABNORMAL) Urinalysis reflex to microscopic and culture Urine, in and out catheter (02/06/2024 11:26 PM CAMOUFLAGE SPECIALIST) Color, ur Mitzi Yellow Clarity, ur Turbid(A) Clear [facility] Specific gravity, ur 1.026 1.003 - 1.030 [facility], urine 5.5 [facility] Comment: Interpretive Data U rine pH is affected by diet, medications, systemic acid-base disturbances, and renal tubular function. pH may affect urinary stone formation. For example, urine pH below 6.0 may help reduce the tendency for calcium phosphate stones and pH greater than 6.0 may reduce the tendency for uric acid stone formation. Source: [facility] Current Interpretive Data was last revised on 2017 Protein, ur ql 2+(A) Negative [facility] Glucose, ur ql 4+(A) Negative [facility] Ketones, ur Negative Negative [facility] Bilirubin, ur Negative Negative [facility] Blood, ur 3+(A) Negative [facility] Urobilinogen, ur <2.0 <2.0 mg/dL [facility] Nitrite, ur Negative Negative [facility] Leukocyte esterase, ur Negative Negative [facility] UA reflex comment Reflex to microscopic UA will be performed. [facility] Urine, in and out catheter 02/06/2024 11:26 PM [employer]OUFLAGE SPECIALIST 02/06/2024 11:42 PM [employer]OUFLAGE SPECIALIST Quynh Merchant MD LAB MICROBIOLOGY - GENERAL ORD ERABLES Final Result [facility] [address] [place] [address] * (ABNORMAL) Urinalysis, microscopic only (02/06/2024 11:26 PM CAMOUFLAGE SPECIALIST) WBC, ur 0-5 0 - 5 /HPF RBC, ur >50(A) 0 - 2 /HPF [facility] Mucous, ur Present(A) [facility] Uric acid crystals, ur 2+(A) [facility] Culture Reflex Comment Reflex conditions for urine culture (WBC >10) not met. [facility] Urine, in and out catheter 02/06/2024 11:26 PM CAMOUFLAGE SPECIALIST 02/06/2024 11:42 PM [employer]OUFLAGE SPECIALIST Quynh Merchant MD LAB URINE ORDERABLES Final Res ult Performing Organization Address [facility] Co de Phone Number ANA [facility] [address] [facility] [address] * (ABNORMAL) POCT glucose (02/06/2024 9:04 PM CAMOUFLAGE SPECIALIST) Glucose, POC 287(H) 70 - 199 mg/dL Comment: For Glucose values <35 mg/dl when Hematocrit is >60 mg/dl,the test may not accurately detect significant hypoglycemia,and testing in the Laboratory should be considered if clinically indicated. Blood 02/06/2024 9:04 PM CAMOUFLAGE SPECIALIST 02/06/2024 9:04 PM [employer]OUFLAGE SPECIALIST Quynh Merchant MD LAB POCT ORDERABLES - DEVICE F inal Result Performing Organization Address [facility] Co de Phone Number ANA [facility] [address] [facility] [place], [place] [id number] * (ABNORMAL) POCT glucose (02/06/2024 5:50 PM CAMOUFLAGE SPECIALIST) Glucose, POC 210(H) 70 - 199 mg/dL Comment: For Glucose values <35 mg/dl when Hematocrit is >60 mg/dl,the test may not accurately detect significant hypoglycemia,and testing in the Laboratory should be considered if clinically indicated. Blood 02/06/2024 5:50 PM CAMOUFLAGE SPECIALIST 02/06/2024 5:50 PM CAMOUFLAGE SPECIALIST Quynh Merchant MD LAB POCT ORDERABLES - DEVICE F inal Result Performing Organization Address [facility] Co de Phone Number [facility] [address] [facility] [address] * Troponin T HS (single order) - Add on lab test (02/06/2024 1:06 PM CAMOUFLAGE SPECIALIST) Acceptable No Comment:Trop has already bee n run on earlier sample Blood 02/06/2024 1:06 PM CAMOUFLAGE SPECIALIST 02/06/2024 1:06 PM CAMOUFLAGE SPECIALIST Narrative [facility] - 02/06/2024 1:08 PM CAMOUFLAGE SPECIALIST Name of Test->Troponin T HS (single order) Result [facility] Rocky Oscar MD LAB BLOOD ORDERABLES Fin al Result Performing Organization Address [facility] Co de Phone Number [facility] [address] Department [place], [place] [id number] * POCT glucose (02/06/2024 12:41 PM CAMOUFLAGE SPECIALIST) Glucose, POC 146 70 - 199 mg/dL Comment: For Glucose values <35 mg/dl when Hematocrit is >60 mg/dl,the test may not accurately detect significant hypoglycemia,and testing in the Laboratory should be considered if clinically indicated. Blood 02/06/2024 12:4 1 PM CAMOUFLAGE SPECIALIST 02/06/2024 12:41 PM CAMOUFLAGE SPECIALIST Result [facility] Quynh Merchant MD LAB POCT ORDERABLES - DEVICE F inal Result Performing Organization Address [facility] de Phone Number [facility] [address] [facility] [place], [place] [id number] * POCT glucose (02/06/2024 6:31 AM CAMOUFLAGE SPECIALIST) Glucose, POC 115 70 - 199 mg/dL Comment: For Glucose values <35 mg/dl when Hematocrit is >60 mg/dl,the test may not accurately detect significant hypoglycemia,and testing in the Laboratory should be considered if clinically indicated. Blood 02/06/2024 6:31 AM CAMOUFLAGE SPECIALIST 02/06/2024 6:31 AM CAMOUFLAGE SPECIALIST Result [facility] Quynh Merchant MD LAB POCT ORDERABLES - DEVICE F inal Result Performing Organization Address [facility] Co de Phone Number [facility] [address] Department [place], [place] [phone] * (ABNORMAL) Troponin T high-sensitivity (02/06/2024 5:26 AM CAMOUFLAGE SPECIALIST) Trop T hs 46(H) <=22 ng/L Comment: Interpretive Data For further hscTnT resources including the diagnostic algorithm and an aid in interpretation, copy and paste this link: https://nrl.testcatalog.org/show/hsTrop Current Interpretive Data last revised 2020. Blood 02/06/2024 5:26 AM CAMOUFLAGE SPECIALIST 02/06/2024 7:03 AM CAMOUFLAGE SPECIALIST us Rocky Oscar MD LAB BLOOD ORDERABLES Fin al Result [facility]NA [facility] [address] [place] [address] * (ABNORMAL) eGFR (02/06/2024 5:26 AM CAMOUFLAGE SPECIALIST) eGFR 49(L) >=60 mL/min/1. 73 m2 Comment: [...] last reviewed 2021. Blood 02/06/2024 5:26 AM CAMOUFLAGE SPECIALIST 02/06/2024 7:09 AM CAMOUFLAGE SPECIALIST us Quynh Merchant MD LAB BLOOD ORDERABLES Final Res ult [facility] [address] [place] [address] * Differential, auto (02/06/2024 5:26 AM CAMOUFLAGE SPECIALIST) Neutrophil abs 2.4 1.5 - 6.5 K/cumm Imm gran abs 0.0 0.0 - 0.1 K/cumm [facility] Lymphocyte abs 0.8 0.8 - 3.3 K/cumm [facility] Monocyte abs 0.6 0.2 - 0.8 K/cumm [facility] Eosinophil abs 0.0 0.0 - 0.5 K/cumm [facility] Basophil abs 0.0 0.0 - 0.1 K/cumm [facility] Neutrophil pct 62.9 % [facility] Comment: Interpretive Data Percent cell count reference ranges are not reported, since discordance with absolute values may lead to misinterpretation of CBC data. Current Interpretive Data was last revised on 2017. Imm gran pct 0.3 % [facility] Comment: Interpretive Data Percent cell count reference ranges are not reported, since discordance with absolute values may lead to misinterpretation of CBC data. Current Interpretive Data was last revised on 2017. Lymphocyte pct 20.6 % [facility] Comment: Interpretive Data Percent cell count reference ranges are not reported, since discordance with absolute values may lead to misinterpretation of CBC data. Current Interpretive Data was last revised on 2017. Monocyte pct 15.4 % [facility] Comment: Interpretive Data Percent cell count reference ranges are not reported, since discordance with absolute values may lead to misinterpretation of CBC data. Current Interpretive Data was last revised on 2017. Eosinophil pct 0.5 % [facility] Comment: Interpretive Data Percent cell count reference ranges are not reported, since discordance with absolute values may lead to misinterpretation of CBC data. Current Interpretive Data was last revised on 2017. Basophil pct 0.3 % [facility] Comment: Interpretive Data Percent cell count reference ranges are not reported, since discordance with absolute values may lead to misinterpretation of CBC data. Current Interpretive Data was last revised on 2017. Blood 02/06/2024 5:26 AM CAMOUFLAGE SPECIALIST 02/06/2024 7:03 AM CAMOUFLAGE SPECIALIST Quynh Merchant MD LAB BLOOD ORDERABLES Final Res ult Performing Organization Address City/[facility]/ZIP Co de Phone Number [facility] [address] [place] [address] * (ABNORMAL) CBC with auto differential (02/06/2024 5:26 AM CAMOUFLAGE SPECIALIST) WBC 3.8 3.8 - 9.9 K/cumm Hgb 13.0 13.0 - 17.5 g/dL [facility] Hct 37.9(L) 38.9 - 50.3 % [facility] Plt 103(L) 150 - 400 K/cumm [facility] MPV 12.8(H) 9.1 - 12.3 fL [facility] RBC 3.97(L) 4.30 - 5.80 M/cumm [facility] MCV 95.5 81.3 - 96.4 fL [facility] MCH 32.7 27.1 - 33.3 pg [facility] MCHC 34.3 32.3 - 35.7 g/dL [facility] RDW CV 13.2 11.1 - 14.9 % [facility] RDW SD 46.4 35.7 - 48.1 fL [facility] NRBC abs 0.00 0.00 - 0.01 K/cumm [facility] Blood 02/06/2024 5:26 AM CAMOUFLAGE SPECIALIST 02/06/2024 7:03 AM CAMOUFLAGE SPECIALIST us Quynh Merchant MD LAB BLOOD ORDERABLES Final Res ult [facility] [address] [place] [address] * Magnesium (02/06/2024 5:26 AM CAMOUFLAGE SPECIALIST) Pathologist [facility] Magnesium 2.0 1.4 - 2.5 mg/dL Blood 02/06/2024 5:26 AM CAMOUFLAGE SPECIALIST 02/06/2024 7:03 AM CAMOUFLAGE SPECIALIST Quynh Merchant MD LAB BLOOD ORDERABLES Final Res ult Performing Organization Address City/[facility]/ZIP Co de Phone Number [facility] [address] [place] [address] * (ABNORMAL) Basic metabolic panel (02/06/2024 5:26 AM CAMOUFLAGE SPECIALIST) [facility] Sodium 140 135 - 145 mmol/L Potassium, pl 3.5 3.3 - 4.9 mmol/L [facility] Chloride 105 97 - 110 mmol/L [facility] CO2 24 22 - 32 mmol/L [facility] Anion gap 11 2 - 15 mmol/L [facility] BUN 20 6 - 25 mg/dL [facility] Creatinine 1.45(H) 0.80 - 1.30 mg/dL [facility] Glucose 144 70 - 199 mg/dL [facility] Comment: Interpretive Data Fasting glucose >/= 126 [...] 2022. Calcium 9.0 8.5 - 10.3 mg/dL [facility] Blood 02/06/2024 5:26 AM CAMOUFLAGE SPECIALIST 02/06/2024 7:03 AM CAMOUFLAGE SPECIALIST Quynh Merchant MD LAB BLOOD ORDERABLES Final Res ult Performing Organization Address City/[facility] Co de Phone Number [facility] [address] [place] [address] * ECG 12 lead (02/06/2024 3:29 AM CAMOUFLAGE SPECIALIST) 02/06/2024 3:29 AM CAMOUFLAGE SPECIALIST Narrative [facility] - 02/07/2024 7:32 PM CAMOUFLAGE SPECIALIST Vent Rate: 56 bpm RR Interval: 1063 msec [place] Interval: 188 msec QRS Duration: 120 msec QT Interval: 424 msec QTC Interval: 415 msec P-R-T [place]: 44 - -47 - 128 degrees IMPRESSION: SINUS BRADYCARDIA LEFT ANTERIOR FASCICULAR BLOCK [QRS AXIS <= -45, QR IN I, RS IN II] Nonspecific ST-T abnormality Electronically Signed By: Julio Cesar Vasquez MD PhD us Rocky Oscar MD ECG ORDERABLES Final Re sult Performing Organization Address City/[facility] Co de Phone Number [facility] * POCT glucose (02/05/2024 8:11 PM CAMOUFLAGE SPECIALIST) Glucose, POC 152 70 - 199 mg/dL Comment: For Glucose values <35 mg/dl when Hematocrit is >60 mg/dl,the test may not accurately detect significant hypoglycemia,and testing in the Laboratory should be considered if clinically indicated. Blood 02/05/2024 8:11 PM CAMOUFLAGE SPECIALIST 02/05/2024 8:11 PM CAMOUFLAGE SPECIALIST Quynh Merchant MD LAB POCT ORDERABLES - DEVICE F inal Result [facility] [address] [place] [address] * Blood culture Blood (02/05/2024 7:02 PM CAMOUFLAGE SPECIALIST) Report Final Report: No growth Blood 02/05/2024 7:02 PM CAMOUFLAGE SPECIALIST 02/05/2024 7:11 PM CAMOUFLAGE SPECIALIST Narrative [facility] - 02/11/2024 7:01 AM CAMOUFLAGE SPECIALIST From a different site than #1. Collection->Peripheral [...] organism identification may be performed using the Digi[employer] FilmArray Blood Culture Identification panel. This assay detects microbial DNA in a blood culture broth. This assay has been cleared by the [facility] Food and Drug Administration and its performance characteristics have been verified by the [facility]. Interpretive data was last revised on April 09, 2022. Quynh Merchant MD LAB MICROBIOLOGY - GENERAL ORD ERABLES Final Result Performing Organization Address City/[facility]/ZIP Co de Phone Number [facility] [address] [place] [address] * Blood culture Blood (02/05/2024 6:57 PM CAMOUFLAGE SPECIALIST) Report Final Report: No growth Blood 02/05/2024 6:57 PM CAMOUFLAGE SPECIALIST 02/05/2024 7:11 PM CAMOUFLAGE SPECIALIST [facility] - 02/11/2024 7:01 AM CAMOUFLAGE SPECIALIST Collection->Peripheral Interpretive Data 1. Blood cultures are incubated and monitored continuously for 5 days (120 hours). The first negative report is issued within 24 hours of receipt in the laboratory. 2. All positive cultures are resulted and called to physicians/care providers as soon as they are detected. 3. A rapid molecular test for organism identification may be performed using the DigiPath FilmArray Blood Culture Identification panel. This assay [...] ORD ERABLES Final Result Performing Organization Address City/[facility]/ZIP Co de Phone Number [facility] [address] [place] [address] * POCT glucose (02/05/2024 5:32 PM CAMOUFLAGE SPECIALIST) [facility] Glucose, POC 156 70 - 199 mg/dL Comment: For Glucose values <35 mg/dl when Hematocrit is >60 mg/dl,the test may not accurately detect significant hypoglycemia,and testing in the Laboratory should be considered if clinically indicated. Blood 02/05/2024 5:32 PM CAMOUFLAGE SPECIALIST 02/05/2024 5:32 PM CAMOUFLAGE SPECIALIST us Quynh Merchant MD LAB POCT ORDERABLES - DEVICE F inal Result [facility] [address] [place] [address] * (ABNORMAL) Respiratory pathogen panel Nasopharyngeal (02/05/2024 4:27 PM CAMOUFLAGE SPECIALIST) [facility] Influenza A RNA Not Detected Not Detected [facility] Influenza B RNA Not Detected Not Detected [facility] RSV RNA Not Detected Not Detected [facility] COVID-19 RNA Detected(A) Not Detected [facility] Coronavirus 229E RNA Not Detected Not Detected [facility] Coronavirus HKU1 RNA Not Detected Not Detected [facility] Coronavirus NL63 RNA Not Detected Not Detected [facility] Coronavirus OC43 RNA Not Detected Not Detected [facility] Adenovirus DNA Not Detected Not Detected [facility] Metapneumovirus RNA Not Detected Not Detected [facility] Rhinovirus/Enterov irus RNA Not Detected Not Detected [facility] Parainfluenza 1 RNA Not Detected Not Detected [facility] Parainfluenza 2 RNA Not Detected Not Detected [facility] Parainfluenza 3 RNA Not Detected Not Detected [facility] Parainfluenza 4 RNA Not Detected Not Detected [facility] B. pertussis DNA Not Detected Not Detected [facility] B. parapertussis DNA Not Detected Not Detected [facility] C. pneumoniae DNA Not Detected Not Detected [facility] M. pneumoniae DNA Not Detected Not Detected [facility] Comment: Interpretive Data The [employer] FilmArray Respiratory Panel (RP2.1) assay is a [...] assay has FDA clearance for testing of UNIT AIDE swabs. The performance characteristics of this assay have been determined by [facility]. Current interpretive data was last revised on 2020. Nasopharyngeal 02/05/2024 4: 27 PM CAMOUFLAGE SPECIALIST 02/05/2024 4:30 PM CAMOUFLAGE SPECIALIST Jaqui PEREZ [facility] - 02/05/2024 5:27 PM CAMOUFLAGE SPECIALIST Is the Patient experiencing symptoms consistent with COVID?->Unknown Surveillance testing for transplant patient?->No us Quynh Merchant MD LAB MICROBIOLOGY - GENERAL ORD ERABLES Final Result ANA [facility] [address] [place] [address] [facility] * TRANSTHORACIC ECHO (TTE) COMPLETE W DOPPLER/CF WO CONTRAST (02/05/2024 2:34 PM CAMOUFLAGE SPECIALIST) Anatomical Region Laterality Modality Ultrasound 02/05/2024 11:4 7 AM CAMOUFLAGE SPECIALIST Narrative 02/05/2024 7:20 PM CAMOUFLAGE SPECIALIST [facility] [address] [address] ECHOCARDIOGRAM Patient Name: LILIANA AMANDA F : 1945 Study Date: 02/05/2024 11:47:52 AM Gender: M Tech: [employer] Location: [id number] Ref Provider: QUYNH MRECHANT Height(Cm): 180 BSA: 1.99 Weight(Kg): 78.9 BP: [...] not well visualized. Exam Interpreted: Read by Bagger And Stock Handler Helper of the day to expedite patient care. [...] valve. Electronically Signed By: Brenton Cantu MD [facility] 2024-02-05 19:19:58 CAMOUFLAGE SPECIALIST Procedure Note Brenton Cantu MD - 02/05/2024 [place] [id number] [place] [address] ECHOCARDIOGRAM Patient Name: LILIANA AMANDA F : 1945 Study Date: 02/05/2024 11:47:52 AM Gender: M Tech: [facility] Location: [id number] Ref Provider: QUYNH MERCHANT Height(Cm): 180 BSA: [...] not well visualized. Exam Interpreted: Read by Bagger And Stock Handler Helper of the day to expedite patient care. [...] valve. Electronically Signed By: Brenton Cantu MD [facility] 2024-02-05 19:19:58 CAMOUFLAGE SPECIALIST Quynh Merchant MD CV ECHO PROCEDURES Final Resul t * ECG 12 lead (02/05/2024 12:49 PM CAMOUFLAGE SPECIALIST) 02/05/2024 12:4 9 PM CAMOUFLAGE SPECIALIST Narrative [facility] - 02/05/2024 9:31 PM CAMOUFLAGE SPECIALIST Vent Rate: 70 bpm RR Interval: 848 msec [place] Interval: 204 msec QRS Duration: 120 msec QT Interval: 375 msec QTC Interval: 396 msec P-R-T [place]: 42 - -57 - 117 degrees IMPRESSION: SINUS RHYTHM LEFT ANTERIOR FASCICULAR BLOCK [QRS AXIS <= -45, QR IN I, RS IN II] ST DEVIATION AND MODERATE T-WAVE ABNORMALITY, CONSIDER LATERAL ISCHEMIA [-0.1+ mV T WAVE IN I/aVL/V5/V6] ABNORMAL ECG Electronically Signed By: Rocky Oscar MD, [facility] Quynh Merchant MD ECG ORDERABLES Final Result [facility] * POCT glucose (02/05/2024 12:37 PM CAMOUFLAGE SPECIALIST) Glucose, POC 131 70 - 199 mg/dL Comment: For Glucose values <35 mg/dl when Hematocrit is >60 mg/dl,the test may not accurately detect significant hypoglycemia,and testing in the Laboratory should be considered if clinically indicated. Blood 02/05/2024 12:3 7 PM CAMOUFLAGE SPECIALIST 02/05/2024 12:37 PM CAMOUFLAGE SPECIALIST uQynh Merchant MD LAB POCT ORDERABLES - DEVICE F inal Result [facility] [address] [place] [address] * (ABNORMAL) Troponin T high-sensitivity (02/05/2024 10:09 AM CAMOUFLAGE SPECIALIST) Trop T hs 61(H) <=22 ng/L Comment: Interpretive Data For further hscTnT resources including the diagnostic algorithm and an aid in interpretation, copy and paste this link: https://nrl.testcatalog.org/show/hsTrop Current Interpretive Data last revised 2020. Blood 02/05/2024 10:0 9 AM CAMOUFLAGE SPECIALIST 02/05/2024 10:21 AM CAMOUFLAGE SPECIALIST Quynh Merchant MD LAB BLOOD ORDERABLES Final Res ult Performing Organization Address City/[facility]/ZIP Co de Phone Number [facility] [address] [place], [place] [id number] * Thyroid Function [place] (02/05/2024 10:09 AM CAMOUFLAGE SPECIALIST) TSH 1.12 0.30 - 4.20 mcIUnit/mL Blood 02/05/2024 10:0 9 AM CAMOUFLAGE SPECIALIST 02/05/2024 10:21 AM CAMOUFLAGE SPECIALIST Quynh Merchant MD LAB BLOOD ORDERABLES Final Res ult Performing Organization Address [facility] Co de Phone Number [facility] [address] [place], [place] [id number] * (ABNORMAL) Lipid panel (02/05/2024 10:09 AM CAMOUFLAGE SPECIALIST) Cholesterol 222(H) 30 - 199 mg/dL Comment: [...] revised on 2017. Triglycerides 114 <=149 mg/dL [facility] Comment: Interpretive Data Ages < or = [...] revised on 2017. HDL 45 >=40 mg/dL [facility] Comment: Interpretive Data Ages < or = [...] on 2017. LDL, calculated 156(H) <=129 mg/dL [facility] Comment: Interpretive Data Ages < or = [...] revised on 2023. Non-HDL Cholesterol 177 mg/dL [facility] Comment: Interpretive Data Ages < or = [...] last revised on 2017. Chol/HDL ratio 5 [facility] Blood 02/05/2024 10:0 9 AM CAMOUFLAGE SPECIALIST 02/05/2024 10:21 AM CAMOUFLAGE SPECIALIST us Quynh Merchant MD LAB BLOOD ORDERABLES Final Res ult [facility] [address] [place] [address] * XR Chest 1 Vw (02/05/2024 9:41 AM CAMOUFLAGE SPECIALIST) Anatomical Region Laterality Modality Body, Chest N/A Computed Radiogr aphy 02/05/2024 9:47 AM CAMOUFLAGE SPECIALIST Impressions 02/05/2024 9:47 AM CAMOUFLAGE SPECIALIST The lines are small. There is no pneumonic consolidation, pleural effusion, pulmonary edema or pneumothorax. Heart and mediastinal contours are within normal limits. Electronically signed by: Portillo Herring MD, PHD Narrative 02/05/2024 9:47 AM CAMOUFLAGE SPECIALIST EXAMINATION: XR CHEST 1 VIEW HISTORY: hypoxia [...] (ABNORMAL) Troponin T high-sensitivity (02/05/2024 8:47 AM CAMOUFLAGE SPECIALIST) Pathologist [facility] Trop T hs 60(H) <=22 ng/L Comment: Interpretive Data For further hscTnT resources including the diagnostic algorithm and an aid in interpretation, copy and paste this link: https://nrl.testcatalog.org/show/hsTrop Current Interpretive Data last revised 2020. Blood 02/05/2024 8:47 AM CAMOUFLAGE SPECIALIST 02/05/2024 8:47 AM CAMOUFLAGE SPECIALIST Quynh Merchant MD LAB BLOOD ORDERABLES Final Res ult Performing Organization Address [facility] Co de Phone Number [facility] [address] [place] [address] * Lactate (02/05/2024 7:05 AM CAMOUFLAGE SPECIALIST) [facility] Lactate 1.0 0.7 - 2.0 mmol/L Blood 02/05/2024 7:05 AM CAMOUFLAGE SPECIALIST 02/05/2024 7:05 AM CAMOUFLAGE SPECIALIST Samir Salazar DO LAB BLOOD ORDERABLES F inal Result Performing Organization Address [facility] Co de Phone Number [facility] [address] [place] [address] * (ABNORMAL) eGFR (02/05/2024 7:05 AM CAMOUFLAGE SPECIALIST) [facility] eGFR 43(L) >=60 mL/min/1. 73 m2 Comment: [...] last reviewed 2021. Blood 02/05/2024 7:05 AM CAMOUFLAGE SPECIALIST 02/05/2024 7:13 AM CAMOUFLAGE SPECIALIST Samir Salazar DO LAB BLOOD ORDERABLES F inal Result [facility] [address] [place] [address] * (ABNORMAL) Differential, auto (02/05/2024 7:05 AM CAMOUFLAGE SPECIALIST) Neutrophil abs 3.4 1.5 - 6.5 K/cumm Imm gran abs 0.0 0.0 - 0.1 K/cumm [facility] Lymphocyte abs 0.7(L) 0.8 - 3.3 K/cumm [facility] Monocyte abs 0.7 0.2 - 0.8 K/cumm [facility] Eosinophil abs 0.0 0.0 - 0.5 K/cumm [facility] Basophil abs 0.0 0.0 - 0.1 K/cumm [facility] Neutrophil pct 71.0 % [facility] Comment: Interpretive Data Percent cell count reference ranges are not reported, since discordance with absolute values may lead to misinterpretation of CBC data. Current Interpretive Data was last revised on 2017. Imm gran pct 0.2 % [facility] Comment: Interpretive Data Percent cell count reference ranges are not reported, since discordance with absolute values may lead to misinterpretation of CBC data. Current Interpretive Data was last revised on 2017. Lymphocyte pct 14.3 % [facility] Comment: Interpretive Data Percent cell count reference ranges are not reported, since discordance with absolute values may lead to misinterpretation of CBC data. Current Interpretive Data was last revised on 2017. Monocyte pct 14.1 % [facility] Comment: Interpretive Data Percent cell count reference ranges are not reported, since discordance with absolute values may lead to misinterpretation of CBC data. Current Interpretive Data was last revised on 2017. Eosinophil pct 0.0 % [facility] Comment: Interpretive Data Percent cell count reference ranges are not reported, since discordance with absolute values may lead to misinterpretation of CBC data. Current Interpretive Data was last revised on 2017. Basophil pct 0.4 % [facility] Comment: Interpretive Data Percent cell count reference ranges are not reported, since discordance with absolute values may lead to misinterpretation of CBC data. Current Interpretive Data was last revised on 2017. Blood 02/05/2024 7:05 AM CAMOUFLAGE SPECIALIST 02/05/2024 7:05 AM CAMOUFLAGE SPECIALIST us Samir Salazar DO LAB BLOOD ORDERABLES F inal Result [facility] [address] [place] [address] * (ABNORMAL) CBC with auto differential (02/05/2024 7:05 AM CAMOUFLAGE SPECIALIST) WBC 4.8 3.8 - 9.9 K/cumm Hgb 13.7 13.0 - 17.5 g/dL [facility] Hct 40.3 38.9 - 50.3 % [facility] Plt 115(L) 150 - 400 K/cumm [facility] MPV 12.8(H) 9.1 - 12.3 fL [facility] RBC 4.18(L) 4.30 - 5.80 M/cumm [facility] MCV 96.4 81.3 - 96.4 fL [facility] MCH 32.8 27.1 - 33.3 pg [facility] MCHC 34.0 32.3 - 35.7 g/dL [facility] RDW CV 13.2 11.1 - 14.9 % [facility] RDW SD 47.3 35.7 - 48.1 fL [facility] NRBC abs 0.00 0.00 - 0.01 K/cumm [facility] Blood 02/05/2024 7:05 AM CAMOUFLAGE SPECIALIST 02/05/2024 7:05 AM CAMOUFLAGE SPECIALIST us Samir Salazar DO LAB BLOOD ORDERABLES F inal Result [facility] [address] [place] [address] * (ABNORMAL) Comprehensive metabolic panel (02/05/2024 7:05 AM CAMOUFLAGE SPECIALIST) Sodium 142 135 - 145 mmol/L Potassium, pl 4.3 3.3 - 4.9 mmol/L [facility] Comment:Hemolyzed; potassium value may be falsely elevated by as much as 0.6 - 1.0 mmol/L. Suggest redraw and reanalysis Chloride 108 97 - 110 mmol/L [facility] CO2 24 22 - 32 mmol/L [facility] Anion gap 10 2 - 15 mmol/L [facility] BUN 23 6 - 25 mg/dL [facility] Creatinine 1.62(H) 0.80 - 1.30 mg/dL [facility] Glucose 107 70 - 199 mg/dL [facility] Comment: Interpretive Data Fasting glucose >/= 126 [...] 2022. Calcium 8.9 8.5 - 10.3 mg/dL [facility] Bilirubin, total 0.7 0.1 - 1.2 mg/dL [facility] Protein, pl 6.3(L) 6.5 - 8.5 g/dL [facility] Albumin 3.8 3.5 - 5.0 g/dL [facility] Alk phos 40 40 - 130 Units/L [facility] ALT 23 7 - 55 Units/L [facility] Comment:Moderately Hemolyzed Specimen AST 53(H) 10 - 50 Units/L [facility] Comment:Moderately Hemolyzed Specimen Blood 02/05/2024 7:05 AM CAMOUFLAGE SPECIALIST 02/05/2024 7:05 AM CAMOUFLAGE SPECIALIST Samir Salazar DO LAB BLOOD ORDERABLES F inal Result Performing Organization Address [facility]/ZIP Co de Phone Number [facility] [address] [place] [address] * (ABNORMAL) Hemoglobin A1c (05/16/2023 4:38 AM CDT) Hgb A1C 6.8(H) 4.0 - 5.6 % Estimated Average Glucose 148 mg/dL [facility] Comment: The ADA recommends reporting an estimated Average Glucose (eAG) with all Hemoglobin A1c results using the equation derived from a study of 507 normal and diabetic adults. Minority populations were underrepresented and children were not included. (Diabetes Care 31:7045-5681, 2008). The eAG is not equivalent to a fasting glucose. Blood 05/16/2023 4:38 AM CDT 05/16/2023 5:21 AM CDT Kanchan Merchant DO LAB BLOOD ORDERABLES Final Result [facility] [address] [place] [address] from Last 3 Months or Most Recently Relevant to Health Maintenance Insurance [employer] Advance Directives For more information, please contact: [phone] * Full Code (Latest Code Status on File) Date Activated Date Inactivated Comments 02/05/2024 6:07 AM 02/09/2024 3:45 PM * Full Code Date Activated Date Inactivated Comments 05/15/2023 7:34 PM 05/16/2023 10:03 PM Care Teams Retail Operations Manager Relationship Specialty Start Date End Date Ministerio Harrison MD [facility] [place] [id number] PCP - General Family Medicine 02/08/24 Kit Alcantar MD [address] [place] [address] [address] Consulting Physician Pulmonary Disease 12/07/22
--- OUTSIDE RECORDS SUMMARY | 2024-05-02 13:40 | XMS_ITS | Encounter Summary ---
Author Organization [employer] Address [address] [place] [address] Care Team Providers Care Transaction Processor Name Role Phone Unavailable Primary Care Provider Unavailabl e Encounter Details Date Type Department Care Team (Late st Contact Info) Description 03/20/2004 Outpatient [facility] [address] [facility] 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
--- OUTSIDE RECORDS SUMMARY | 2024-05-02 13:40 | XMS_ITS | Clinical Summary ---
Author Organization [facility] [address] Address [facility] [place] [address] Care Team Providers Care Glass Curvature Gauger Name Role Phone Kit Alcantar MD Unavailable [phone] Ministerio Harrison MD Primary Care Provider [phone] Allergies Active Allergy Reactions Criticality Noted Date [...] COVID-19 virus 02/08/2024 Age-related physical debility 02/08/2024 MA, acute, non ST segment elevation (CMS/HCC) Pneumonia [...] Department Care Team Description 02/05/2024 6:06 AM CAREER PROFESSIONAL - 02/09/2024 11:40 AM CAREER PROFESSIONAL Hospital Encounter [address] [address] Samir Salazar DO Khan, Fatima A., MD Reuter, Johnnie Harrell MD MA, acute, non ST segment elevation (CMS/HCC) (HCC) (Primary Dx); Pneumonia of left lower lobe due to infectious organism; Diabetes mellitus type II, non insulin dependent (CMS/HCC) (HCC); Age-related physical debility; Pneumonia due to COVID-19 virus [U07.1, J12.82] Discharge Disposition: Discharge to home or self care 02/05/2024 Orders Only [facility] Hospitalists [facility] [place] [address] Samir Salazar DO from Last 3 Months Immunizations Immunization Administration Dates Next Due Moderna SARS-CoV-2 Monovalen t Vaccination (12+ YRS) 07/16/2021,01/29/2021,05/16/2020,04/18 Pneumococcal Polysaccharide PPV23 03/08/1949 Td, adsorbed 03/08/2001 Surgical History Surgery Date Site/Laterality Comments DC CHOLECYSTECTOMY Cholecystectomy - (Added by TW Conv) [...] drink = 0.6 oz pur e alcohol) [facility] Utilities Answer Date Recorded In the past 12 months has [facility] Just Eat, gas, oil, or water [employer] threatened to shut off services in your [...] often do you attend chur ch or methodist services? Never 02/08/2024 Do you belong to any clubs o r organizations such as sikh groups, unions, fraternal or athletic groups, or [...] any time in the past 12 m [facility], were you homeless or living in [...] on file Legal Sex Male 1:21 AM CAREER PROFESSIONAL Gender Identity Not on file Sexual Orientation Not on file Obstetrics History Last Filed Vital Signs Vital Sign Reading Time Taken Comments Blood Pressure 154/62 02/09/2024 8:12 AM CAREER PROFESSIONAL Pulse 50 02/09/2024 8:12 AM CAREER PROFESSIONAL Temperature 36.6 C (97.9 F) 02/09/2024 8:12 AM CAREER PROFESSIONAL Respiratory Rate 18 02/09/2024 8:12 AM CAREER PROFESSIONAL Oxygen Saturation 92% 02/09/2024 8:12 AM CAREER PROFESSIONAL Inhaled Oxygen Concentration - - Weight 79 kg (174 lb 2.6 oz) 02/08/2024 11:00 AM CAREER PROFESSIONAL Height 180.3 cm (5' 11 ) 02/08/2024 11:00 AM CAREER PROFESSIONAL Body Mass Index 24.29 02/08/2024 11:00 AM CAREER PROFESSIONAL Plan of Treatment Health Maintenance Due Date [...] GLUCOSE DEVICE Routine 02/09/2024 6 :40 AM CAREER PROFESSIONAL POCT GLUCOSE DEVICE Routine 02/08/2024 8 :35 PM CAREER PROFESSIONAL POCT GLUCOSE DEVICE Routine 02/08/2024 6 :01 PM CAREER PROFESSIONAL POCT GLUCOSE DEVICE Routine 02/08/2024 1 2:17 PM CAREER PROFESSIONAL POCT GLUCOSE DEVICE Routine 02/08/2024 6 :08 AM CAREER PROFESSIONAL EGFR Routine 02/08/2024 4:35 AM CAREER PROFESSIONAL DIFFERENTIAL AUTO STAT 02/08/2024 4:3 5 AM CAREER PROFESSIONAL MAGNESIUM Routine 02/08/2024 4:35 AM CAREER PROFESSIONAL BASIC METABOLIC PANEL Routine 02/08/2024 4:35 AM CAREER PROFESSIONAL CBC WITH AUTO DIFFERENTIAL STAT 02/08/2024 4:35 AM CAREER PROFESSIONAL MRI BRAIN MRA HEAD MRA NECK WO CONTRAST IP Routine 02/08/2024 1:18 AM CAREER PROFESSIONAL POCT GLUCOSE DEVICE Routine 02/07/2024 9 :40 PM CAREER PROFESSIONAL POCT GLUCOSE DEVICE Routine 02/07/2024 5 :52 PM CAREER PROFESSIONAL POCT GLUCOSE DEVICE Routine 02/07/2024 1 2:19 PM CAREER PROFESSIONAL EGFR Routine 02/07/2024 11:08 AM CAREER PROFESSIONAL MAGNESIUM Routine 02/07/2024 11:08 AM CAREER PROFESSIONAL BASIC METABOLIC PANEL Routine 02/07/2024 11:08 AM CAREER PROFESSIONAL XR CHEST 1 VIEW IP Routine 02/07/2024 9:31 AM CAREER PROFESSIONAL POCT GLUCOSE DEVICE Routine 02/07/2024 6 :17 AM CAREER PROFESSIONAL URINALYSIS, MICROSCOPIC ONLY Routine 02/06/2024 11:26 PM CAREER PROFESSIONAL URINALYSIS AND REFLEX TO MICROSCOPIC AND CULTURE Routine 02/06/2024 11:26 PM CAREER PROFESSIONAL POCT GLUCOSE DEVICE Routine 02/06/2024 9 :04 PM CAREER PROFESSIONAL POCT GLUCOSE DEVICE Routine 02/06/2024 5 :50 PM CAREER PROFESSIONAL ADD ON LAB TEST Add-On 02/06/2024 1:06 PM CAREER PROFESSIONAL POCT GLUCOSE DEVICE Routine 02/06/2024 1 2:41 PM CAREER PROFESSIONAL POCT GLUCOSE DEVICE Routine 02/06/2024 6 :31 AM CAREER PROFESSIONAL EGFR Routine 02/06/2024 5:26 AM CAREER PROFESSIONAL DIFFERENTIAL AUTO Routine 02/06/2024 5:2 6 AM CAREER PROFESSIONAL TROPONIN T HIGH-SENSITIVITY Routine 02/06/2024 5:26 AM CAREER PROFESSIONAL MAGNESIUM Routine 02/06/2024 5:26 AM CAREER PROFESSIONAL BASIC METABOLIC PANEL Routine 02/06/2024 5:26 AM CAREER PROFESSIONAL CBC WITH AUTO DIFFERENTIAL Routine 02/06/2024 5:26 AM CAREER PROFESSIONAL ECG 12-LEAD Routine 02/06/2024 3:29 AM CAREER PROFESSIONAL POCT GLUCOSE DEVICE Routine 02/05/2024 8 :11 PM CAREER PROFESSIONAL BLOOD CULTURE Routine 02/05/2024 7:02 PM CAREER PROFESSIONAL BLOOD CULTURE Routine 02/05/2024 6:57 PM CAREER PROFESSIONAL POCT GLUCOSE DEVICE Routine 02/05/2024 5 :32 PM CAREER PROFESSIONAL RESPIRATORY PATHOGEN PANEL Routine 02/05/2024 4:27 PM CAREER PROFESSIONAL TRANSTHORACIC ECHO (TTE) COMPLETE W DOPPLER/CF WO CONTRAST Routine 02/05/2024 2:34 PM CAREER PROFESSIONAL ECG 12-LEAD Routine 02/05/2024 12:49 PM CAREER PROFESSIONAL POCT GLUCOSE DEVICE Routine 02/05/2024 1 2:37 PM CAREER PROFESSIONAL LIPID PANEL Routine 02/05/2024 10:09 AM CAREER PROFESSIONAL THYROID FUNCTION CASCADE Routine 02/05/2024 10:09 AM CAREER PROFESSIONAL TROPONIN T HIGH-SENSITIVITY Routine 02/05/2024 10:09 AM CAREER PROFESSIONAL XR CHEST 1 VIEW IP Routine 02/05/2024 9:41 AM CAREER PROFESSIONAL TROPONIN T HIGH-SENSITIVITY STAT 02/05/2024 8:47 AM CAREER PROFESSIONAL EGFR Routine 02/05/2024 7:05 AM CAREER PROFESSIONAL DIFFERENTIAL AUTO Routine 02/05/2024 7:0 5 AM CAREER PROFESSIONAL LACTATE Routine 02/05/2024 7:05 AM CAREER PROFESSIONAL CBC WITH AUTO DIFFERENTIAL Routine 02/05/2024 7:05 AM CAREER PROFESSIONAL COMPREHENSIVE METABOLIC PANEL Routine 02/05/2024 7:05 AM CAREER PROFESSIONAL HEMOGLOBIN A1C Routine 05/16/2023 4:38 AM CDT from Last 3 Months or Most Recently Relevant to Health Maintenance Results * POCT glucose (02/09/2024 6:40 AM CAREER PROFESSIONAL) [facility] Signature Glucose, POC 136 70 - 199 mg/dL Comment: For Glucose values <35 mg/dl when Hematocrit is >60 mg/dl,the test may not accurately detect significant hypoglycemia,and testing in the Laboratory should be considered if clinically indicated. Blood 02/09/2024 6:40 AM CAREER PROFESSIONAL 02/09/2024 6:40 AM CAREER PROFESSIONAL us Johnnie Nassar MD LAB POCT ORDERABLES - D EVICE Final Result [facility] [address] [address] * (ABNORMAL) POCT glucose (02/08/2024 8:35 PM CAREER PROFESSIONAL) Glucose, POC 288(H) 70 - 199 mg/dL Comment: For Glucose values <35 mg/dl when Hematocrit is >60 mg/dl,the test may not accurately detect significant hypoglycemia,and testing in the Laboratory should be considered if clinically indicated. Blood 02/08/2024 8:35 PM CAREER PROFESSIONAL 02/08/2024 8:35 PM CAREER PROFESSIONAL Johnnie Nassar MD LAB POCT ORDERABLES - D EVICE Final Result Performing Organization Address [place]/[facility] Co de Phone Number [facility] [address] [place] [address] * (ABNORMAL) POCT glucose (02/08/2024 6:01 PM CAREER PROFESSIONAL) Glucose, POC 229(H) 70 - 199 mg/dL Comment: For Glucose values <35 mg/dl when Hematocrit is >60 mg/dl,the test may not accurately detect significant hypoglycemia,and testing in the Laboratory should be considered if clinically indicated. Blood 02/08/2024 6:01 PM CAREER PROFESSIONAL 02/08/2024 6:01 PM CAREER PROFESSIONAL Johnnie Nassar MD LAB POCT ORDERABLES - D EVICE Final Result Performing Organization Address City/[facility] Co de Phone Number [facility] [address] [place] [address] * POCT glucose (02/08/2024 12:17 PM CAREER PROFESSIONAL) Glucose, POC 190 70 - 199 mg/dL Comment: For Glucose values <35 mg/dl when Hematocrit is >60 mg/dl,the test may not accurately detect significant hypoglycemia,and testing in the Laboratory should be considered if clinically indicated. Blood 02/08/2024 12:1 7 PM CAREER PROFESSIONAL 02/08/2024 12:17 PM CAREER PROFESSIONAL us Johnnie Nassar MD LAB POCT ORDERABLES - D EVICE Final Result Performing Organization Address [place]/[facility] Co de Phone Number [facility] [address] Department [place] [address] * POCT glucose (02/08/2024 6:08 AM CAREER PROFESSIONAL) Pathologist [facility] Glucose, POC 119 70 - 199 mg/dL Comment: For Glucose values <35 mg/dl when Hematocrit is >60 mg/dl,the test may not accurately detect significant hypoglycemia,and testing in the Laboratory should be considered if clinically indicated. Blood 02/08/2024 6:08 AM CAREER PROFESSIONAL 02/08/2024 6:08 AM CAREER PROFESSIONAL Quynh Merchant MD LAB POCT ORDERABLES - DEVICE F inal Result Performing Organization Address [place]/[facility] Co de Phone Number [facility] [address] Department [place] [address] * (ABNORMAL) eGFR (02/08/2024 4:35 AM CAREER PROFESSIONAL) [facility] eGFR 54(L) >=60 mL/min/1. 73 m2 Comment: [...] last reviewed 2021. Blood 02/08/2024 4:35 AM CAREER PROFESSIONAL 02/08/2024 5:59 AM CAREER PROFESSIONAL us Quynh Merchant MD LAB BLOOD ORDERABLES Final Res ult [facility] [address] Department [place] [address] * Differential, auto (02/08/2024 4:35 AM CAREER PROFESSIONAL) Neutrophil abs 3.0 1.5 - 6.5 K/cumm Imm gran abs 0.0 0.0 - 0.1 K/cumm [facility] Lymphocyte abs 1.0 0.8 - 3.3 K/cumm [facility] Monocyte abs 0.4 0.2 - 0.8 K/cumm [facility] Eosinophil abs 0.0 0.0 - 0.5 K/cumm [facility] Basophil abs 0.0 0.0 - 0.1 K/cumm [facility] Neutrophil pct 68.9 % [facility] Comment: Interpretive Data Percent cell count reference ranges are not reported, since discordance with absolute values may lead to misinterpretation of CBC data. Current Interpretive Data was last revised on 2017. Imm gran pct 0.0 % [facility] Comment: Interpretive Data Percent cell count reference ranges are not reported, since discordance with absolute values may lead to misinterpretation of CBC data. Current Interpretive Data was last revised on 2017. Lymphocyte pct 21.6 % [facility] Comment: Interpretive Data Percent cell count reference ranges are not reported, since discordance with absolute values may lead to misinterpretation of CBC data. Current Interpretive Data was last revised on 2017. Monocyte pct 9.3 % [facility] Comment: Interpretive Data Percent cell count reference ranges are not reported, since discordance with absolute values may lead to misinterpretation of CBC data. Current Interpretive Data was last revised on 2017. Eosinophil pct 0.0 % [facility] Comment: Interpretive Data Percent cell count reference ranges are not reported, since discordance with absolute values may lead to misinterpretation of CBC data. Current Interpretive Data was last revised on 2017. Basophil pct 0.2 % [facility] Comment: Interpretive Data Percent cell count reference ranges are not reported, since discordance with absolute values may lead to misinterpretation of CBC data. Current Interpretive Data was last revised on 2017. Blood 02/08/2024 4:35 AM CAREER PROFESSIONAL 02/08/2024 4:35 AM CAREER PROFESSIONAL us Quynh Merchant MD LAB BLOOD ORDERABLES Final Res ult [facility] [address] Department [place] [address] * (ABNORMAL) CBC with auto differential (02/08/2024 4:35 AM CAREER PROFESSIONAL) WBC 4.4 3.8 - 9.9 K/cumm Hgb 13.4 13.0 - 17.5 g/dL [facility] Hct 38.8(L) 38.9 - 50.3 % [facility] Plt 118(L) 150 - 400 K/cumm [facility] MPV 13.2(H) 9.1 - 12.3 fL [facility] RBC 4.14(L) 4.30 - 5.80 M/cumm [facility] MCV 93.7 81.3 - 96.4 fL [facility] MCH 32.4 27.1 - 33.3 pg [facility] MCHC 34.5 32.3 - 35.7 g/dL [facility] RDW CV 12.7 11.1 - 14.9 % [facility] RDW SD 44.1 35.7 - 48.1 fL [facility] NRBC abs 0.00 0.00 - 0.01 K/cumm [facility] Blood 02/08/2024 4:35 AM CAREER PROFESSIONAL 02/08/2024 6:00 AM CAREER PROFESSIONAL Quynh Merchant MD LAB BLOOD ORDERABLES Final Res ult Performing Organization Address City/[facility]/ZIP Co de Phone Number [facility] [address] Department [place] [address] * Magnesium (02/08/2024 4:35 AM CAREER PROFESSIONAL) Pathologist [facility] Magnesium 1.8 1.4 - 2.5 mg/dL Blood 02/08/2024 4:35 AM CAREER PROFESSIONAL 02/08/2024 5:59 AM CAREER PROFESSIONAL Quynh Merchant MD LAB BLOOD ORDERABLES Final Res ult Performing Organization Address [place]/[facility] Co de Phone Number [facility] [address] Department [place] [address] * (ABNORMAL) Basic metabolic panel (02/08/2024 4:35 AM CAREER PROFESSIONAL) Pathologist [facility] Sodium 145 135 - 145 mmol/L Potassium, pl 3.8 3.3 - 4.9 mmol/L [facility] Chloride 108 97 - 110 mmol/L [facility] CO2 27 22 - 32 mmol/L [facility] Anion gap 10 2 - 15 mmol/L [facility] BUN 23 6 - 25 mg/dL [facility] Creatinine 1.34(H) 0.80 - 1.30 mg/dL [facility] Glucose 127 70 - 199 mg/dL [facility] Comment: Interpretive Data Fasting glucose [...] 2022. Calcium 9.3 8.5 - 10.3 mg/dL [facility] Blood 02/08/2024 4:35 AM CAREER PROFESSIONAL 02/08/2024 5:59 AM CAREER PROFESSIONAL us Quynh Merchant MD LAB BLOOD ORDERABLES Final Res ult [facility] [address] Department [place] [address] * MRI Brain MRA Head MRA Neck WO Contrast (02/08/2024 1:18 AM CAREER PROFESSIONAL) Anatomical Region Laterality Modality Head and Neck N/A Magnetic Resonan ce 02/08/2024 7:39 AM CAREER PROFESSIONAL Impressions 02/08/2024 8:33 AM CAREER PROFESSIONAL 1. No acute intracranial abnormality. Stable severe [...] Liliana Ricardo MD Narrative 02/08/2024 8:33 AM CAREER PROFESSIONAL EXAMINATION: 1. Magnetic resonance imaging (MRI) of the brain and brainstem without contrast 2. Magnetic resonance angiography (MRA) of the rrjrau-wc-Hinwzi without contrast 3. Magnetic resonance angiography (MRA) of the neck without contrast HISTORY: Ataxia. Suspected stroke. TECHNIQUE: Multiplanar multi-weighted MRI of the brain and brainstem was performed without intravenous contrast using the general brain protocol. Magnetic resonance angiography of the jajjxs-jg-Fxtpfy was performed using a separate data acquisition with a non-contrast gviu-ki-csabtx technique to produce axial thin-slice source images. These images were then used to generate maximum intensity projection (MIP) images. Magnetic resonance angiography of the neck was performed using a separate data acquisition with a non-contrast ulvd-xa-pcjkjm technique to produce thin-slice source images. These [...] 2. Magnetic resonance angiography (MRA) of the bdqcit-wi-Phqvjy without contrast 3. Magnetic resonance angiography (MRA) of the neck without contrast HISTORY: Ataxia. Suspected stroke. TECHNIQUE: Multiplanar multi-weighted MRI of the brain and brainstem was performed without intravenous contrast using the general brain protocol. Magnetic resonance angiography of the qvhhwj-dx-Eizfsh was performed using a separate data acquisition with a non-contrast zbku-mo-xpjdwo technique to produce axial thin-slice source images. These images were then used to generate maximum intensity projection (MIP) images. Magnetic resonance angiography of the neck was performed using a separate data acquisition with a non-contrast zgjr-bj-evclle technique to produce thin-slice source images. These [...] Result * POCT glucose (02/07/2024 9:40 PM CAREER PROFESSIONAL) [facility] Signature Glucose, POC 174 70 - 199 mg/dL Comment: For Glucose values <35 mg/dl when Hematocrit is >60 mg/dl,the test may not accurately detect significant hypoglycemia,and testing in the Laboratory should be considered if clinically indicated. Blood 02/07/2024 9:40 PM CAREER PROFESSIONAL 02/07/2024 9:40 PM CAREER PROFESSIONAL Quynh Merchant MD LAB POCT ORDERABLES - DEVICE F inal Result Performing Organization Address [place]/[facility] Co de Phone Number [facility] [address] Department [place] [address] * (ABNORMAL) POCT glucose (02/07/2024 5:52 PM CAREER PROFESSIONAL) Glucose, POC 248(H) 70 - 199 mg/dL Comment: For Glucose values <35 mg/dl when Hematocrit is >60 mg/dl,the test may not accurately detect significant hypoglycemia,and testing in the Laboratory should be considered if clinically indicated. Blood 02/07/2024 5:52 PM CAREER PROFESSIONAL 02/07/2024 5:52 PM CAREER PROFESSIONAL Result [facility] Quynh Merchant MD LAB POCT ORDERABLES - DEVICE F inal Result Performing Organization Address [facility] de Phone Number [facility] [address] Department [place] [address] * POCT glucose (02/07/2024 12:19 PM CAREER PROFESSIONAL) [facility] Signature Glucose, POC 193 70 - 199 mg/dL Comment: For Glucose values <35 mg/dl when Hematocrit is >60 mg/dl,the test may not accurately detect significant hypoglycemia,and testing in the Laboratory should be considered if clinically indicated. Blood 02/07/2024 12:1 9 PM CAREER PROFESSIONAL 02/07/2024 12:19 PM CAREER PROFESSIONAL Result [facility] Quynh Merchant MD LAB POCT ORDERABLES - DEVICE F inal Result Performing Organization Address [place]/[facility] Co de Phone Number [facility] [address] Department [place] [address] * (ABNORMAL) eGFR (02/07/2024 11:08 AM CAREER PROFESSIONAL) eGFR 55(L) >=60 mL/min/1. 73 m2 Comment: [...] reviewed 2021. Blood 02/07/2024 11:0 8 AM CAREER PROFESSIONAL 02/07/2024 11:56 AM CAREER PROFESSIONAL Quynh Merchant MD LAB BLOOD ORDERABLES Final Res ult Performing Organization Address City/[facility]/ZIP Co de Phone Number [facility] [address] [employer] [place], [place] [id number] * Magnesium (02/07/2024 11:08 AM CAREER PROFESSIONAL) Pathologist [facility] Magnesium 1.8 1.4 - 2.5 mg/dL Blood 02/07/2024 11:0 8 AM CAREER PROFESSIONAL 02/07/2024 11:56 AM CAREER PROFESSIONAL Quynh Merchant MD LAB BLOOD ORDERABLES Final Res ult [facility] [address] Department [place] [address] * (ABNORMAL) Basic metabolic panel (02/07/2024 11:08 AM CAREER PROFESSIONAL) Sodium 143 135 - 145 mmol/L Potassium, pl 3.6 3.3 - 4.9 mmol/L [facility] Chloride 107 97 - 110 mmol/L [facility] CO2 25 22 - 32 mmol/L [facility] Anion gap 11 2 - 15 mmol/L [facility] BUN 24 6 - 25 mg/dL [facility] Creatinine 1.32(H) 0.80 - 1.30 mg/dL [facility] Glucose 216(H) 70 - 199 mg/dL [facility] Comment: Interpretive Data Fasting glucose [...] 2022. Calcium 9.2 8.5 - 10.3 mg/dL [facility] Blood 02/07/2024 11:0 8 AM CAREER PROFESSIONAL 02/07/2024 11:56 AM CAREER PROFESSIONAL us Quynh Merchant MD LAB BLOOD ORDERABLES Final Res ult [facility] [address] Department [place] [address] * XR Chest 1 Vw (02/07/2024 9:31 AM CAREER PROFESSIONAL) Anatomical Region Laterality Modality Body, Chest N/A Computed Radiogr aphy 02/07/2024 10:1 0 AM CAREER PROFESSIONAL Impressions 02/07/2024 10:24 AM CAREER PROFESSIONAL Small lung volume. No pneumothorax. No focal consolidation. No pleural effusion. Right greater than left basilar atelectasis. Stable cardiomediastinal silhouette. Dictated by: Valentine Acuña MD The radiology attending physician has personally reviewed this study, and had reviewed and/or edited this written report and agrees with it. Electronically signed by: Cayetano Guzman M.D. Narrative 02/07/2024 10:24 AM CAREER PROFESSIONAL EXAMINATION: XR CHEST 1 VIEW HISTORY: Fever [...] Result * POCT glucose (02/07/2024 6:17 AM CAREER PROFESSIONAL) [facility] Glucose, POC 126 70 - 199 mg/dL Comment: For Glucose values <35 mg/dl when Hematocrit is >60 mg/dl,the test may not accurately detect significant hypoglycemia,and testing in the Laboratory should be considered if clinically indicated. Blood 02/07/2024 6:17 AM CAREER PROFESSIONAL 02/07/2024 6:17 AM CAREER PROFESSIONAL Quynh Merchant MD LAB POCT ORDERABLES - DEVICE F inal Result [facility] [address] Department [place] [address] * (ABNORMAL) Urinalysis reflex to microscopic and culture Urine, in and out catheter (02/06/2024 11:26 PM CAREER PROFESSIONAL) Color, ur Mitzi Yellow Clarity, ur Turbid(A) Clear [facility] Specific gravity, ur 1.026 1.003 - 1.030 [facility] pH, urine 5.5 [facility] Comment: Interpretive Data U rine pH is affected by diet, medications, systemic acid-base disturbances, and renal tubular function. pH may affect urinary stone formation. For example, urine pH below 6.0 may help reduce the tendency for calcium phosphate stones and pH greater than 6.0 may reduce the tendency for uric acid stone formation. Source: [facility] Current Interpretive Data was last revised on 2017 Protein, ur ql 2+(A) Negative [facility] Glucose, ur ql 4+(A) Negative [facility] Ketones, ur Negative Negative [facility] Bilirubin, ur Negative Negative [facility] Blood, ur 3+(A) Negative [facility] Urobilinogen, ur <2.0 <2.0 mg/dL [facility] Nitrite, ur Negative Negative [facility] Leukocyte esterase, ur Negative Negative [facility] [facility] UA reflex comment Reflex to microscopic UA will be performed. [facility] Urine, in and out catheter 02/06/2024 11:26 PM CAREER PROFESSIONAL 02/06/2024 11:42 PM CAREER PROFESSIONAL us Quynh Merchant MD LAB MICROBIOLOGY - GENERAL ORD ERABLES Final Result [facility] [address] Department [place] [address] * (ABNORMAL) Urinalysis, microscopic only (02/06/2024 11:26 PM CAREER PROFESSIONAL) WBC, ur 0-5 0 - 5 /HPF RBC, ur >50(A) 0 - 2 /HPF [facility] Mucous, ur Present(A) [facility] Uric acid crystals, ur 2+(A) [facility] Culture Reflex Comment Reflex conditions for urine culture (WBC >10) not met. [facility] Urine, in and out catheter 02/06/2024 11:26 PM CAREER PROFESSIONAL 02/06/2024 11:42 PM CAREER PROFESSIONAL us Quynh Merchant MD LAB URINE ORDERABLES Final Res ult Performing Organization Address [place] Co de Phone Number ANA [facility] [id number] AdarshRahel dArienne Scott [facility] [place] [address] * (ABNORMAL) POCT glucose (02/06/2024 9:04 PM CAREER PROFESSIONAL) Glucose, POC 287(H) 70 - 199 mg/dL Comment: For Glucose values <35 mg/dl when Hematocrit is >60 mg/dl,the test may not accurately detect significant hypoglycemia,and testing in the Laboratory should be considered if clinically indicated. Blood 02/06/2024 9:04 PM CAREER PROFESSIONAL 02/06/2024 9:04 PM CAREER PROFESSIONAL Quynh Merchant MD LAB POCT ORDERABLES - DEVICE F inal Result Performing Organization Address [facility] de Phone Number [facility] [address] [employer] [place], [place] [id number] * (ABNORMAL) POCT glucose (02/06/2024 5:50 PM CAREER PROFESSIONAL) Glucose, POC 210(H) 70 - 199 mg/dL Comment: For Glucose values <35 mg/dl when Hematocrit is >60 mg/dl,the test may not accurately detect significant hypoglycemia,and testing in the Laboratory should be considered if clinically indicated. Blood 02/06/2024 5:50 PM CAREER PROFESSIONAL 02/06/2024 5:50 PM CAREER PROFESSIONAL Quynh Merchant MD LAB POCT ORDERABLES - DEVICE F inal Result Performing Organization Address [place]/[facility] Co de Phone Number [facility] [address] [facility] [place] [address] * Troponin T HS (single order) - Add on lab test (02/06/2024 1:06 PM CAREER PROFESSIONAL) Acceptable No Comment:Trop has already bee n run on earlier sample Blood 02/06/2024 1:06 PM CAREER PROFESSIONAL 02/06/2024 1:06 PM CAREER PROFESSIONAL Narrative [facility] - 02/06/2024 1:08 PM CAREER PROFESSIONAL Name of Test->Troponin T HS (single order) Result [facility] Rocky Oscar MD LAB BLOOD ORDERABLES Fin al Result Performing Organization Address [place]/[facility] Co de Phone Number [facility] [address] Department [place] [address] * POCT glucose (02/06/2024 12:41 PM CAREER PROFESSIONAL) Glucose, POC 146 70 - 199 mg/dL Comment: For Glucose values <35 mg/dl when Hematocrit is >60 mg/dl,the test may not accurately detect significant hypoglycemia,and testing in the Laboratory should be considered if clinically indicated. Blood 02/06/2024 12:4 1 PM CAREER PROFESSIONAL 02/06/2024 12:41 PM CAREER PROFESSIONAL Result [facility] Quynh Merchant MD LAB POCT ORDERABLES - DEVICE F inal Result Performing Organization Address [facility] de Phone Number [facility] [address] [facility] [place] [address] * POCT glucose (02/06/2024 6:31 AM CAREER PROFESSIONAL) Glucose, POC 115 70 - 199 mg/dL Comment: For Glucose values <35 mg/dl when Hematocrit is >60 mg/dl,the test may not accurately detect significant hypoglycemia,and testing in the Laboratory should be considered if clinically indicated. Blood 02/06/2024 6:31 AM CAREER PROFESSIONAL 02/06/2024 6:31 AM CAREER PROFESSIONAL Result [facility] Quynh Merchant MD LAB POCT ORDERABLES - DEVICE F inal Result Performing Organization Address [place]/[facility] Co de Phone Number [facility] [address] [facility] [place] [address] * (ABNORMAL) Troponin T high-sensitivity (02/06/2024 5:26 AM CAREER PROFESSIONAL) Trop T hs 46(H) <=22 ng/L Comment: Interpretive Data For further hscTnT resources including the diagnostic algorithm and an aid in interpretation, copy and paste this link: https://nrl.testcatalog.org/show/hsTrop Current Interpretive Data last revised 2020. Blood 02/06/2024 5:26 AM CAREER PROFESSIONAL 02/06/2024 7:03 AM CAREER PROFESSIONAL Rocky Oscar MD LAB BLOOD ORDERABLES Fin al Result [facility]NA [facility] [address] Department [place] [address] * (ABNORMAL) eGFR (02/06/2024 5:26 AM CAREER PROFESSIONAL) eGFR 49(L) >=60 mL/min/1. 73 m2 Comment: [...] last reviewed 2021. Blood 02/06/2024 5:26 AM CAREER PROFESSIONAL 02/06/2024 7:09 AM CAREER PROFESSIONAL us Quynh Merchant MD LAB BLOOD ORDERABLES Final Res ult [facility] [address] Department [place] [address] * Differential, auto (02/06/2024 5:26 AM CAREER PROFESSIONAL) Neutrophil abs 2.4 1.5 - 6.5 K/cumm Imm gran abs 0.0 0.0 - 0.1 K/cumm [facility] Lymphocyte abs 0.8 0.8 - 3.3 K/cumm [facility] Monocyte abs 0.6 0.2 - 0.8 K/cumm [facility] Eosinophil abs 0.0 0.0 - 0.5 K/cumm [facility] Basophil abs 0.0 0.0 - 0.1 K/cumm [facility] Neutrophil pct 62.9 % [facility] Comment: Interpretive Data Percent cell count reference ranges are not reported, since discordance with absolute values may lead to misinterpretation of CBC data. Current Interpretive Data was last revised on 2017. Imm gran pct 0.3 % [facility] Comment: Interpretive Data Percent cell count reference ranges are not reported, since discordance with absolute values may lead to misinterpretation of CBC data. Current Interpretive Data was last revised on 2017. Lymphocyte pct 20.6 % [facility] Comment: Interpretive Data Percent cell count reference ranges are not reported, since discordance with absolute values may lead to misinterpretation of CBC data. Current Interpretive Data was last revised on 2017. Monocyte pct 15.4 % [facility] Comment: Interpretive Data Percent cell count reference ranges are not reported, since discordance with absolute values may lead to misinterpretation of CBC data. Current Interpretive Data was last revised on 2017. Eosinophil pct 0.5 % [facility] Comment: Interpretive Data Percent cell count reference ranges are not reported, since discordance with absolute values may lead to misinterpretation of CBC data. Current Interpretive Data was last revised on 2017. Basophil pct 0.3 % [facility] Comment: Interpretive Data Percent cell count reference ranges are not reported, since discordance with absolute values may lead to misinterpretation of CBC data. Current Interpretive Data was last revised on 2017. Blood 02/06/2024 5:26 AM CAREER PROFESSIONAL 02/06/2024 7:03 AM CAREER PROFESSIONAL Quynh Merchant MD LAB BLOOD ORDERABLES Final Res ult Performing Organization Address [place]/[facility]/ZIP Co de Phone Number [facility] [address] [place] [address] * (ABNORMAL) CBC with auto differential (02/06/2024 5:26 AM CAREER PROFESSIONAL) WBC 3.8 3.8 - 9.9 K/cumm Hgb 13.0 13.0 - 17.5 g/dL [facility] Hct 37.9(L) 38.9 - 50.3 % [facility] Plt 103(L) 150 - 400 K/cumm [facility] MPV 12.8(H) 9.1 - 12.3 fL [facility] RBC 3.97(L) 4.30 - 5.80 M/cumm [facility] MCV 95.5 81.3 - 96.4 fL [facility] MCH 32.7 27.1 - 33.3 pg [facility] MCHC 34.3 32.3 - 35.7 g/dL [facility] RDW CV 13.2 11.1 - 14.9 % [facility] RDW SD 46.4 35.7 - 48.1 fL [facility] NRBC abs 0.00 0.00 - 0.01 K/cumm [facility] Blood 02/06/2024 5:26 AM CAREER PROFESSIONAL 02/06/2024 7:03 AM CAREER PROFESSIONAL Quynh Merchant MD LAB BLOOD ORDERABLES Final Res ult Performing Organization Address [place]/[facility]/ZIP Co de Phone Number [facility] [address] Department [place] [address] * Magnesium (02/06/2024 5:26 AM CAREER PROFESSIONAL) Pathologist [facility] Magnesium 2.0 1.4 - 2.5 mg/dL Blood 02/06/2024 5:26 AM CAREER PROFESSIONAL 02/06/2024 7:03 AM CAREER PROFESSIONAL Quynh Merchant MD LAB BLOOD ORDERABLES Final Res ult Performing Organization Address [place]/[facility]/ZIP Co de Phone Number [facility] [address] Department [place] [place] [address] * (ABNORMAL) Basic metabolic panel (02/06/2024 5:26 AM CAREER PROFESSIONAL) [facility] Sodium 140 135 - 145 mmol/L Potassium, pl 3.5 3.3 - 4.9 mmol/L [facility] Chloride 105 97 - 110 mmol/L [facility] CO2 24 22 - 32 mmol/L [facility] Anion gap 11 2 - 15 mmol/L [facility] BUN 20 6 - 25 mg/dL [facility] Creatinine 1.45(H) 0.80 - 1.30 mg/dL [facility] Glucose 144 70 - 199 mg/dL [facility] Comment: Interpretive Data Fasting glucose [...] 2022. Calcium 9.0 8.5 - 10.3 mg/dL [facility] Blood 02/06/2024 5:26 AM CAREER PROFESSIONAL 02/06/2024 7:03 AM CAREER PROFESSIONAL Quynh Merchant MD LAB BLOOD ORDERABLES Final Res ult Performing Organization Address [place]/[facility]/ZIP Co de Phone Number [facility] [address] Department [place] [address] * ECG 12 lead (02/06/2024 3:29 AM CAREER PROFESSIONAL) 02/06/2024 3:29 AM CAREER PROFESSIONAL Narrative [facility] - 02/07/2024 7:32 PM CAREER PROFESSIONAL Vent Rate: 56 bpm RR Interval: 1063 msec DC Interval: 188 msec QRS Duration: 120 msec QT Interval: 424 msec QTC Interval: 415 msec P-R-T Edmore: 44 - -47 - 128 degrees IMPRESSION: SINUS BRADYCARDIA LEFT ANTERIOR FASCICULAR BLOCK [QRS AXIS <= -45, QR IN I, RS IN II] Nonspecific ST-T abnormality Electronically Signed By: Julio Cesar Vasquez MD PhD us Rocky Oscar MD ECG ORDERABLES Final Re sult Performing Organization Address [place]/[facility]/ZIP Co de Phone Number [facility] * POCT glucose (02/05/2024 8:11 PM CAREER PROFESSIONAL) Glucose, POC 152 70 - 199 mg/dL Comment: For Glucose values <35 mg/dl when Hematocrit is >60 mg/dl,the test may not accurately detect significant hypoglycemia,and testing in the Laboratory should be considered if clinically indicated. Blood 02/05/2024 8:11 PM CAREER PROFESSIONAL 02/05/2024 8:11 PM CAREER PROFESSIONAL us Quynh Merchant MD LAB POCT ORDERABLES - DEVICE F inal Result Performing Organization Address [place]/[facility]/ZIP Co de Phone Number [facility] [address] Department [place] [address] * Blood culture Blood (02/05/2024 7:02 PM CAREER PROFESSIONAL) Report Final Report: No growth Blood 02/05/2024 7:02 PM CAREER PROFESSIONAL 02/05/2024 7:11 PM CAREER PROFESSIONAL Narrative ANA [facility] - 02/11/2024 7:01 AM CAREER PROFESSIONAL From a different site than #1. Collection->Peripheral [...] organism identification may be performed using the [employer] FilmArray Blood Culture Identification panel. This assay detects microbial DNA in a blood culture broth. This assay has been cleared by the [place] Food and Drug Administration and its performance characteristics have been verified by the [facility]. Interpretive data was last revised on April 09, 2022. Quynh Merchant MD LAB MICROBIOLOGY - GENERAL ORD ERABLES Final Result Performing Organization Address [place]/[facility]/ZIP Co de Phone Number [facility] [address] [place] [address] * Blood culture Blood (02/05/2024 6:57 PM CAREER PROFESSIONAL) Report Final Report: No growth Blood 02/05/2024 6:57 PM CAREER PROFESSIONAL 02/05/2024 7:11 PM CAREER PROFESSIONAL Narrative [facility] - 02/11/2024 7:01 AM CAREER PROFESSIONAL Collection->Peripheral Interpretive Data 1. Blood cultures are incubated and monitored continuously for 5 days (120 hours). The first negative report is issued within 24 hours of receipt in the laboratory. 2. All positive cultures are resulted and called to physicians/care providers as soon as they are detected. 3. A rapid molecular test for organism identification may be performed using the [employer] FilmArray Blood Culture Identification panel. This assay detects microbial DNA in a blood culture broth. This assay has been cleared by the [place] Food and Drug Administration and its performance characteristics have been verified by the [facility]. Interpretive data was last revised on April 09, 2022. Quynh Merchant MD LAB MICROBIOLOGY - GENERAL ORD ERABLES Final Result Performing Organization Address [place]/[facility]/ZIP Co de Phone Number [facility] [address] [place] [address] * POCT glucose (02/05/2024 5:32 PM CAREER PROFESSIONAL) [facility] Glucose, POC 156 70 - 199 mg/dL Comment: For Glucose values <35 mg/dl when Hematocrit is >60 mg/dl,the test may not accurately detect significant hypoglycemia,and testing in the Laboratory should be considered if clinically indicated. Blood 02/05/2024 5:32 PM CAREER PROFESSIONAL 02/05/2024 5:32 PM CAREER PROFESSIONAL us Quynh Merchant MD LAB POCT ORDERABLES - DEVICE F inal Result [facility] [address] Department [place] [address] * (ABNORMAL) Respiratory pathogen panel Nasopharyngeal (02/05/2024 4:27 PM CAREER PROFESSIONAL) [facility] Influenza A RNA Not Detected Not Detected [facility] Influenza B RNA Not Detected Not Detected [facility] RSV RNA Not Detected Not Detected [facility] COVID-19 RNA Detected(A) Not Detected [facility] Coronavirus 229E RNA Not Detected Not Detected [facility] Coronavirus HKU1 RNA Not Detected Not Detected [facility] Coronavirus NL63 RNA Not Detected Not Detected [facility] Coronavirus OC43 RNA Not Detected Not Detected [facility] Adenovirus DNA Not Detected Not Detected [facility] Metapneumovirus RNA Not Detected Not Detected [facility] Rhinovirus/Enterov irus RNA Not Detected Not Detected [facility] Parainfluenza 1 RNA Not Detected Not Detected [facility] Parainfluenza 2 RNA Not Detected Not Detected [facility] Parainfluenza 3 RNA Not Detected Not Detected [facility] Parainfluenza 4 RNA Not Detected Not Detected [facility] B. pertussis DNA Not Detected Not Detected [facility] B. parapertussis DNA Not Detected Not Detected [facility] C. pneumoniae DNA Not Detected Not Detected [facility] M. pneumoniae DNA Not Detected Not Detected [facility] Comment: Interpretive Data The [employer] FilmArray Respiratory Panel (RP2.1) assay is a [...] assay has FDA clearance for testing of [employer] swabs. The performance characteristics of this assay have been determined by [facility]. Current interpretive data was last revised on 2020. Nasopharyngeal 02/05/2024 4: 27 PM CAREER PROFESSIONAL 02/05/2024 4:30 PM CAREER PROFESSIONAL Jaqui PEREZ [facility] - 02/05/2024 5:27 PM CAREER PROFESSIONAL Is the Patient experiencing symptoms consistent with COVID?->Unknown Surveillance testing for transplant patient?->No Quynh Merchant MD LAB MICROBIOLOGY - GENERAL ORD ERABLES Final Result ANA [facility] [address] Department [place] [address] [facility] * TRANSTHORACIC ECHO (TTE) COMPLETE W DOPPLER/CF WO CONTRAST (02/05/2024 2:34 PM CAREER PROFESSIONAL) Anatomical Region Laterality Modality Ultrasound 02/05/2024 11:4 7 AM CAREER PROFESSIONAL Narrative 02/05/2024 7:[address] [facility] [address] [place] [address] ECHOCARDIOGRAM Patient Name: LILIANA AMANDA F : 1945 Study Date: 02/05/2024 11:47:52 AM Gender: M Tech: [employer] Location: [id number] Ref Provider: QUYNH MERCHANT Height(Cm): 180 BSA: [...] not well visualized. Exam Interpreted: Read by Cat Swamper of the day to expedite patient care. [...] valve. Electronically Signed By: Brenton Cantu MD [facility] 2024-02-05 19:19:58 CAREER PROFESSIONAL Procedure Note Brenton Cantu MD - 02/05/2024 [place] [id number] [place] [address] ECHOCARDIOGRAM Patient Name: LILIANA AMANDA F : 1945 Study Date: 02/05/2024 11:47:52 AM Gender: M Tech: [facility] Location: [address] Ref Provider: QUYNH MERCHANT Height(Cm): 180 [...] not well visualized. Exam Interpreted: Read by Cat Swamper of the day to expedite patient care. [...] valve. Electronically Signed By: Brenton Cantu MD [facility] 2024-02-05 19:19:58 CAREER PROFESSIONAL Quynh Merchant MD CV ECHO PROCEDURES Final Resul t * ECG 12 lead (02/05/2024 12:49 PM CAREER PROFESSIONAL) 02/05/2024 12:4 9 PM CAREER PROFESSIONAL Narrative [facility] - 02/05/2024 9:31 PM CAREER PROFESSIONAL Vent Rate: 70 bpm RR Interval: 848 msec DC Interval: 204 msec QRS Duration: 120 msec QT Interval: 375 msec QTC Interval: 396 msec P-R-T Edmore: 42 - -57 - 117 degrees IMPRESSION: SINUS RHYTHM LEFT ANTERIOR FASCICULAR BLOCK [QRS AXIS <= -45, QR IN I, RS IN II] ST DEVIATION AND MODERATE T-WAVE ABNORMALITY, CONSIDER LATERAL ISCHEMIA [-0.1+ mV T WAVE IN I/aVL/V5/V6] ABNORMAL ECG Electronically Signed By: Rocky Oscar MD, [facility] Quynh Merchant MD ECG ORDERABLES Final Result [facility] * POCT glucose (02/05/2024 12:37 PM CAREER PROFESSIONAL) Pathologist [facility] Glucose, POC 131 70 - 199 mg/dL Comment: For Glucose values <35 mg/dl when Hematocrit is >60 mg/dl,the test may not accurately detect significant hypoglycemia,and testing in the Laboratory should be considered if clinically indicated. Blood 02/05/2024 12:3 7 PM CAREER PROFESSIONAL 02/05/2024 12:37 PM CAREER PROFESSIONAL Quynh Merchant MD LAB POCT ORDERABLES - DEVICE F inal Result [facility] [address] Department [place] [address] * (ABNORMAL) Troponin T high-sensitivity (02/05/2024 10:09 AM CAREER PROFESSIONAL) Trop T hs 61(H) <=22 ng/L Comment: Interpretive Data For further hscTnT resources including the diagnostic algorithm and an aid in interpretation, copy and paste this link: https://nrl.testcatalog.org/show/hsTrop Current Interpretive Data last revised 2020. Blood 02/05/2024 10:0 9 AM CAREER PROFESSIONAL 02/05/2024 10:21 AM CAREER PROFESSIONAL Quynh Merchant MD LAB BLOOD ORDERABLES Final Res ult Performing Organization Address City/[facility] Co de Phone Number [facility] [address] Department of Laboratories [place], [place] [id number] * Thyroid Function [place] (02/05/2024 10:09 AM CAREER PROFESSIONAL) TSH 1.12 0.30 - 4.20 mcIUnit/mL Blood 02/05/2024 10:0 9 AM CAREER PROFESSIONAL 02/05/2024 10:21 AM CAREER PROFESSIONAL Quynh Merchant MD LAB BLOOD ORDERABLES Final Res ult Performing Organization Address [place]/[facility] Co de Phone Number [facility] [address] [employer] [place], [place] [id number] * (ABNORMAL) Lipid panel (02/05/2024 10:09 AM CAREER PROFESSIONAL) Cholesterol 222(H) 30 - 199 mg/dL Comment: [...] on 2017. Triglycerides 114 <=149 mg/dL [facility] Comment: Interpretive Data Ages < or [...] revised on 2017. HDL 45 >=40 mg/dL [facility] Comment: Interpretive Data Ages < [...] on 2017. LDL, calculated 156(H) <=129 mg/dL [facility] Comment: Interpretive Data Ages < [...] revised on 2023. Non-HDL Cholesterol 177 mg/dL [facility] Comment: Interpretive Data Ages < [...] last revised on 2017. Chol/HDL ratio 5 [facility] Blood 02/05/2024 10:0 9 AM CAREER PROFESSIONAL 02/05/2024 10:21 AM CAREER PROFESSIONAL us Quynh Merchant MD LAB BLOOD ORDERABLES Final Res ult [facility] [address] Department [place] [address] * XR Chest 1 Vw (02/05/2024 9:41 AM CAREER PROFESSIONAL) Anatomical Region Laterality Modality Body, Chest N/A Computed Radiogr aphy 02/05/2024 9:47 AM CAREER PROFESSIONAL Impressions 02/05/2024 9:47 AM CAREER PROFESSIONAL The lines are small. There is no pneumonic consolidation, pleural effusion, pulmonary edema or pneumothorax. Heart and mediastinal contours are within normal limits. Electronically signed by: Portillo Herring MD, PHD Narrative 02/05/2024 9:47 AM CAREER PROFESSIONAL EXAMINATION: XR CHEST 1 VIEW HISTORY: hypoxia [...] (ABNORMAL) Troponin T high-sensitivity (02/05/2024 8:47 AM CAREER PROFESSIONAL) Pathologist [facility] Trop T hs 60(H) <=22 ng/L Comment: Interpretive Data For further hscTnT resources including the diagnostic algorithm and an aid in interpretation, copy and paste this link: https://nrl.testcatalog.org/show/hsTrop Current Interpretive Data last revised 2020. Blood 02/05/2024 8:47 AM CAREER PROFESSIONAL 02/05/2024 8:47 AM CAREER PROFESSIONAL Quynh Merchant MD LAB BLOOD ORDERABLES Final Res ult Performing Organization Address [place]/[facility] Co de Phone Number [facility] [address] [place] [address] * Lactate (02/05/2024 7:05 AM CAREER PROFESSIONAL) [facility] Lactate 1.0 0.7 - 2.0 mmol/L Blood 02/05/2024 7:05 AM CAREER PROFESSIONAL 02/05/2024 7:05 AM CAREER PROFESSIONAL Samir Salazar DO LAB BLOOD ORDERABLES F inal Result Performing Organization Address [place] Co de Phone Number [facility] [address] [place] [address] * (ABNORMAL) eGFR (02/05/2024 7:05 AM CAREER PROFESSIONAL) [facility] eGFR 43(L) >=60 mL/min/1. 73 m2 Comment: [...] last reviewed 2021. Blood 02/05/2024 7:05 AM CAREER PROFESSIONAL 02/05/2024 7:13 AM CAREER PROFESSIONAL us Samir Salazar DO LAB BLOOD ORDERABLES F inal Result [facility] [address] Department [place] [address] * (ABNORMAL) Differential, auto (02/05/2024 7:05 AM CAREER PROFESSIONAL) Neutrophil abs 3.4 1.5 - 6.5 K/cumm Imm gran abs 0.0 0.0 - 0.1 K/cumm [facility] Lymphocyte abs 0.7(L) 0.8 - 3.3 K/cumm [facility] Monocyte abs 0.7 0.2 - 0.8 K/cumm [facility] Eosinophil abs 0.0 0.0 - 0.5 K/cumm [facility] Basophil abs 0.0 0.0 - 0.1 K/cumm [facility] Neutrophil pct 71.0 % [facility] Comment: Interpretive Data Percent cell count reference ranges are not reported, since discordance with absolute values may lead to misinterpretation of CBC data. Current Interpretive Data was last revised on 2017. Imm gran pct 0.2 % [facility] Comment: Interpretive Data Percent cell count reference ranges are not reported, since discordance with absolute values may lead to misinterpretation of CBC data. Current Interpretive Data was last revised on 2017. Lymphocyte pct 14.3 % [facility] Comment: Interpretive Data Percent cell count reference ranges are not reported, since discordance with absolute values may lead to misinterpretation of CBC data. Current Interpretive Data was last revised on 2017. Monocyte pct 14.1 % [facility] Comment: Interpretive Data Percent cell count reference ranges are not reported, since discordance with absolute values may lead to misinterpretation of CBC data. Current Interpretive Data was last revised on 2017. Eosinophil pct 0.0 % [facility] Comment: Interpretive Data Percent cell count reference ranges are not reported, since discordance with absolute values may lead to misinterpretation of CBC data. Current Interpretive Data was last revised on 2017. Basophil pct 0.4 % [facility] Comment: Interpretive Data Percent cell count reference ranges are not reported, since discordance with absolute values may lead to misinterpretation of CBC data. Current Interpretive Data was last revised on 2017. Blood 02/05/2024 7:05 AM CAREER PROFESSIONAL 02/05/2024 7:05 AM CAREER PROFESSIONAL us Samir Salazar DO LAB BLOOD ORDERABLES F inal Result [facility] [address] Department [place] [address] * (ABNORMAL) CBC with auto differential (02/05/2024 7:05 AM CAREER PROFESSIONAL) WBC 4.8 3.8 - 9.9 K/cumm Hgb 13.7 13.0 - 17.5 g/dL [facility] Hct 40.3 38.9 - 50.3 % [facility] Plt 115(L) 150 - 400 K/cumm [facility] MPV 12.8(H) 9.1 - 12.3 fL [facility] RBC 4.18(L) 4.30 - 5.80 M/cumm [facility] MCV 96.4 81.3 - 96.4 fL [facility] MCH 32.8 27.1 - 33.3 pg [facility] MCHC 34.0 32.3 - 35.7 g/dL [facility] RDW CV 13.2 11.1 - 14.9 % [facility] RDW SD 47.3 35.7 - 48.1 fL [facility] NRBC abs 0.00 0.00 - 0.01 K/cumm [facility] Blood 02/05/2024 7:05 AM CAREER PROFESSIONAL 02/05/2024 7:05 AM CAREER PROFESSIONAL us Samir Salazar DO LAB BLOOD ORDERABLES F inal Result [facility] [address] Department [place] [address] * (ABNORMAL) Comprehensive metabolic panel (02/05/2024 7:05 AM CAREER PROFESSIONAL) Sodium 142 135 - 145 mmol/L Potassium, pl 4.3 3.3 - 4.9 mmol/L [facility] Comment:Hemolyzed; potassium value may be falsely elevated by as much as 0.6 - 1.0 mmol/L. Suggest redraw and reanalysis Chloride 108 97 - 110 mmol/L [facility] CO2 24 22 - 32 mmol/L [facility] Anion gap 10 2 - 15 mmol/L [facility] BUN 23 6 - 25 mg/dL [facility] Creatinine 1.62(H) 0.80 - 1.30 mg/dL [facility] Glucose 107 70 - 199 mg/dL [facility] Comment: Interpretive Data Fasting glucose [...] 2022. Calcium 8.9 8.5 - 10.3 mg/dL [facility] Bilirubin, total 0.7 0.1 - 1.2 mg/dL [facility] Protein, pl 6.3(L) 6.5 - 8.5 g/dL [facility] Albumin 3.8 3.5 - 5.0 g/dL [facility] Alk phos 40 40 - 130 Units/L [facility] ALT 23 7 - 55 Units/L [facility] Comment:Moderately Hemolyzed Specimen AST 53(H) 10 - 50 Units/L [facility] Comment:Moderately Hemolyzed Specimen Blood 02/05/2024 7:05 AM CAREER PROFESSIONAL 02/05/2024 7:05 AM CAREER PROFESSIONAL Samir Salazar DO LAB BLOOD ORDERABLES F inal Result Performing Organization Address [place] Co de Phone Number [facility] [address] [place] [address] * (ABNORMAL) Hemoglobin A1c (05/16/2023 4:38 AM CDT) [facility] Hgb A1C 6.8(H) 4.0 - 5.6 % Estimated Average Glucose 148 mg/dL [facility] Comment: The ADA recommends reporting an estimated Average Glucose (eAG) with all Hemoglobin A1c results using the equation derived from a study of 507 normal and diabetic adults. Minority populations were underrepresented and children were not included. (Diabetes Care 31:0424-9059, 2008). The eAG is not equivalent to a fasting glucose. Blood 05/16/2023 4:38 AM CDT 05/16/2023 5:21 AM CDT Kanchan Merchant DO LAB BLOOD ORDERABLES Final Result Performing Organization Address City/[facility]/ZIP Co de Phone Number [facility] [address] [place] [address] from Last 3 Months or Most Recently Relevant to Health Maintenance Insurance [employer] [place] [address] [place] [employer] [place] [place] [address] Advance Directives For more information, please contact: [phone] * Full Code (Latest Code Status on File) Date Activated Date Inactivated Comments 02/05/2024 6:07 AM 02/09/2024 3:45 PM * Full Code Date Activated Date Inactivated Comments 05/15/2023 7:34 PM 05/16/2023 10:03 PM Care Teams Glass Curvature Gauger Relationship Specialty Start Date End Date Ministerio Harrison MD [address] [place] [address] PCP - General Family Medicine 02/08/24 Kit Alcantar MD [facility]0 [facility] [address] [address] Consulting Physician Pulmonary Disease 12/07/22
--- OUTSIDE RECORDS SUMMARY | 2024-05-02 13:40 | XMS_ITS | Encounter Summary ---
Author Organization [facility] Address [facility] [place] [address] Care Team Providers Care Telegraphic Typewriter Mechanic Name Role Phone Yovanny Archer PA-C Primary Care Provider Ministerio Harrison MD Primary Care Provider [phone] Encounter Details Date Type Department Care Team (Late Contact Info) Description 05/28/2023 RECUPYL Message Enc [facility] Multispecialty Care - [facility] [address] [phone] Joanna, [facility] Provider Add to HIPPA Social History [...] on file Legal Sex Male 11:11 PM COOK FAST FOOD Gender Identity Not on file Sexual Orientation Not on file documented as of this encounter Plan of Treatment Upcoming Encounters Date Type Department Care Team (Late Contact Info) Description 02/12/2025 1:00 PM COOK FAST FOOD Office Visit [address] [place] [address] Pati Longo, AMELIANP [address] [place] [phone] documented as of this encounter Visit Diagnoses Not on filedocumented in this encounter Care Teams Telegraphic Typewriter Mechanic Relationship Specialty Start Date End Date Yovanny Archer PA-C [address] [place] [address] PCP - General PHYSICIAN SPEECH PROFESSOR 06/30/22 12/14/23 Ministerio Harrison MD [address] [facility] [address] [place] [phone] PCP - General FAMILY PRACTICE 12/15/23 documented as of this encounter
--- OUTSIDE RECORDS SUMMARY | 2024-05-02 13:40 | XMS_ITS | Encounter Summary ---
Author Organization [facility] Address [address] [place] [address] Care Team Providers Care Librarian Helper Name Role Phone Yovanny Archer PA-C Primary Care Provider [phone] Ministerio Harrison MD Primary Care Provider [phone] Encounter Details Date Type Department Care Team (Late Contact Info) Description 05/17/2023 MyChart Message Enc [facility] Nephrology Specialty Clinic - [address] [place] [address] Maile Gay MD [address] [place] [phone] Recent Hospital Stay Social History Tobacco Use [...] on file 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 Gender Identity Not on file Sexual Orientation Not on file documented as of this encounter Plan of Treatment Upcoming Encounters Date Type Department Care Team (Late Contact Info) Description 02/12/2025 1:00 PM PAVING STONE INSTALLER Office Visit [facility] Cancer [address] [place] [address] Pati Longo APNP [address] [place] [phone] documented as of this encounter Visit Diagnoses Not on filedocumented in this encounter Care Teams Librarian Helper Relationship Specialty Start Date End Date Yovanny Archer PACristianoC [address] [place], [place] [phone] PCP - General PHYSICIAN METAL SHAPING MACHINE OPERATOR 06/30/22 12/14/23 Ministerio Harrison MD [address] [place] [address] PCP - General FAMILY PRACTICE 12/15/23 documented as of this encounter
--- OUTSIDE RECORDS SUMMARY | 2024-05-02 13:40 | XMS_ITS | Encounter Summary ---
Author Organization [facility] Address [address] [place] [address] Care Team Providers Care Evs Attendant Name Role Phone Yovanny Archer PA-C Primary Care Provider Ministerio Harrison MD Primary Care Provider [phone] Encounter Details Date Type Department Care Team (Late Contact Info) Description 07/26/[address] 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 Gender Identity Not on file Sexual Orientation Not on file documented as of this encounter Plan of Treatment Upcoming Encounters Date Type Department Care Team (Late Contact Info) Description 02/12/2025 1:00 PM GRAPHITE PAN DRIER TENDER Office Visit [facility] [address] [place] [address] Pati Longo APNP [address] [place] [phone] documented as of this encounter Visit Diagnoses Not on filedocumented in this encounter Care Teams Evs Attendant Relationship Specialty Start Date End Date Yovanny Archer PA-C [address] [place] [address] PCP - General PHYSICIAN CINDER CREW WORKER 06/30/22 12/14/23 Ministerio Harrison MD [address] [place] [address] PCP - General FAMILY PRACTICE 12/15/23 documented as of this encounter
--- OUTSIDE RECORDS SUMMARY | 2024-05-02 13:40 | XMS_ITS | Clinical Summary ---
Author Organization [facility] Address [address] [place] [address] Care Team Providers Care Clay Dry Press Operator Name Role Phone Ministerio Harrison MD Primary Care Provider [phone] Allergies Active Allergy Reactions Criticality Noted Date [...] Department Care Team Description 04/14/2024 8:00 AM CANDLE MAKER - 04/14/2024 11:59 PM CANDLE MAKER Hospital Encounter [facility] [place] [address] Zulay Mcmanus FNP-BC Discharge Disposition: Home or Self Care (Routine Discharge) 04/14/2024 Orders [place] [facility] [place] [address] Zulay Mcmanus FNP-BC 04/14/2024 Travel 02/01/2024 1:10 PM CANDLE MAKER - 02/01/2024 11:59 PM CANDLE MAKER Hospital Encounter [facility] [place] [address] Stephany English MD Discharge Disposition: Home or Self Care (Routine Discharge) 02/01/2024 12:00 PM CANDLE MAKER Initial Consult [facility] [place] [address] Stephany English MD New Patient (PE) 02/01/2024 Orders Only [facility] [place] [address] Stephany English MD 02/01/2024 Orders Only [facility] [place] [address] Stephany English MD 02/01/2024 Travel from Last [...] on file 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 Gender Identity Not on file Sexual Orientation Not on file Last Filed Vital Signs Vital Sign Reading Time Taken Comments Blood Pressure 132/74 02/01/2024 12:14 PM CANDLE MAKER Pulse 56 02/01/2024 12:14 PM CANDLE MAKER Temperature 36.1 C (96.9 F) 02/01/2024 12:14 PM CANDLE MAKER Respiratory Rate 18 02/01/2024 12:14 PM CANDLE MAKER Oxygen Saturation 99% 02/01/2024 12:14 PM CANDLE MAKER Inhaled Oxygen Concentration - - Weight 76.3 kg (168 lb 3.2 oz) 02/01/2024 12:14 PM CANDLE MAKER Height 172.7 cm (5' 8 ) 02/01/2024 12:14 PM CANDLE MAKER Body Mass Index 25.57 02/01/2024 12:14 PM CANDLE MAKER Plan of Treatment Upcoming Encounters Date Type Department Care Team (Late st Contact Info) Description 02/12/2025 1:00 PM CANDLE MAKER Office Visit [address] [place] [address] Pati Longo, APNP [address] [place] [phone] Health Maintenance Due Date Last Done [...] exists Influenza Adult (#1) 2023 PHQ-2 (Physician [place]) 03/08/2024 01/26/2023 Meningococcal B Vaccine Aged Out [...] URINALYSIS AUTO W/MICRO Routine 04/14/2024 8:30 AM CANDLE MAKER Hyperlipidemia ALBUMIN URINE RANDOM W/CREATININE Routine 04/14/2024 8:30 AM CANDLE MAKER Hyperlipidemia HEMOGLOBIN, GLYCOSYLATED Routine 04/14/2024 8:28 AM CANDLE MAKER VITAMIN D, 25 OH Routine 04/14/2024 8:28 AM CANDLE MAKER MAGNESIUM Routine 04/14/2024 8:28 AM CANDLE MAKER Hyperlipidemia FOLIC ACID SERUM Routine 04/14/2024 8:28 AM CANDLE MAKER Hyperlipidemia VITAMIN B-12 Routine 04/14/2024 8:28 AM CANDLE MAKER Hyperlipidemia LIPID PANEL Routine 04/14/2024 8:28 AM CANDLE MAKER Hyperlipidemia THYROID STIM HORMONE TSH Routine 04/14/2024 8:28 AM CANDLE MAKER Hyperlipidemia COMPREHENSIVE METABOLIC PANEL Routine 04/14/2024 8:28 AM CANDLE MAKER Hyperlipidemia CBC W/DIFF AUTOMATED Routine 04/14/2024 8:28 AM CANDLE MAKER Hyperlipidemia FERRITIN Routine 02/01/2024 1:32 PM CANDLE MAKER Abnormal blood chemistry HEMOCHROMATOSIS DNA Routine 02/01/2024 1 :32 PM CANDLE MAKER 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 IRON SAT PANEL (IRON,IBC,%SAT) Routine 02/01/2024 1:32 PM CANDLE MAKER History of pulmonary embolus (PE) Other specified abnormal findings of blood chemistry PROSTATE SPECIFIC ANTIGEN,TOTAL Routine 02/01/2024 1:32 PM CANDLE MAKER History of pulmonary embolus (PE) Other terminal computer operator (current) drug therapy COMPREHENSIVE METABOLIC PANEL Routine 02/01/2024 1:32 PM CANDLE MAKER History of pulmonary embolus (PE) CBC W/DIFF AUTOMATED Routine 02/01/2024 1:32 PM CANDLE MAKER History of pulmonary embolus (PE) from Last 3 Months Results * (ABNORMAL) URINALYSIS (04/14/2024 8:30 AM CANDLE MAKER) COLOR (U) DARK YELLOW 04/14/2024 8:59 AM CANDLE MAKER [facility] TRANSPARENCY CLOUDY 04/14/2024 8:59 AM CANDLE MAKER [facility] SPECIFIC GRAVITY (U) 1.020 1.000 - 1.025 04/14/2024 8:59 AM CANDLE MAKER [facility] U PH 7.0 5.0 - 8.0 04/14/2024 8:59 AM CANDLE MAKER [facility] LEUKOCYTES (U) NEGATIVE NEGATIVE 04/14/2024 8:59 AM CANDLE MAKER [facility] NITRITES NEGATIVE NEGATIVE 04/14/2024 8:59 AM CANDLE MAKER [facility] PROTEIN RANDOM (U) 2+(A) NEGATIVE 04/14/2024 8:59 AM CANDLE MAKER [facility] GLUCOSE (U) NEGATIVE NEGATIVE 04/14/2024 8:59 AM CANDLE MAKER [facility] KETONES MG/DL (U) NEGATIVE NEGATIVE 04/14/2024 8:59 AM CANDLE MAKER [facility] UROBILINOGEN 0.2 <1.0 EU/DL 04/14/2024 8:59 AM CANDLE MAKER [facility] BILIRUBIN (U) NEGATIVE NEGATIVE 04/14/2024 8:59 AM CANDLE MAKER [facility] BLOOD (U) 3+(A) NEGATIVE 04/14/2024 8:59 AM CANDLE MAKER [facility] WBC/HPF RARE(A) 0 - 5 /HPF 04/14/2024 8:59 AM CANDLE MAKER [facility] RBC/HPF 50-100(A) 0 - 5 /HPF 04/14/2024 8:59 AM CANDLE MAKER [facility] AMORPHOUS SEDIMENT PHOSPHATES 04/14/2024 8:59 AM CANDLE MAKER [facility] COMMENT (U) TOTAL URINE VOLUME IS 3.0 MLS. 04/14/2024 8:59 AM CANDLE MAKER [facility] URINE SPECIMEN OBTAINED BY CLEAN CATCH PROCEDURE / Unknown 04/14/2024 8:30 AM CANDLE MAKER Zulay Mcmanus SIDING COREBOARD INSPECTOR-BC URINE ORDERABLES Final Result Performing Organization Address [facility] [place] [address], * (ABNORMAL) ALBUMIN CREATININE URINE RANDOM (04/14/2024 8:30 AM CANDLE MAKER) ALBUMIN (U) 14.2 MG/DL 04/14/2024 9:14 AM [facility] Comment:REFERENCE RANGE NOT ESTABLISHED CREATININE RANDOM (U) 122.8 MG/DL 04/14/2024 9:14 AM [facility] Comment:REFERENCE RANGE NOT ESTABLISHED ALBUMIN/CREAT RATIO 115.7(H) <30 MG/G 04/14/2024 9:14 AM [facility] Comment: NORMAL TO MILDLY INCREASED ALBUMINURIA: <30 MG/G MODERATELY INCREASED ALBUMINURIA: 30 TO 300 MG/G SEVERELY INCREASED ALBUMINURIA: >300 MG/G PER KDIGO URINE SPECIMEN / Unknown 04/14/2024 8:30 AM CANDLE MAKER Zulay Mcmanus SIDING COREBOARD INSPECTOR-BC URINE ORDERABLES Final Result Performing Organization Address [facility] Co de Phone Number [facility] [address] [place] [address], [place] [phone] * (ABNORMAL) HEMOGLOBIN, GLYCOSYLATED (04/14/2024 8:28 AM CANDLE MAKER) HGB A1C 6.1(H) <5.7 % 04/14/2024 7:04 PM CANDLE MAKER [facility] ESTIMATED AVG GLUCOSE 128(H) 74 - 114 MG/DL 04/14/2024 7:[address] [facility] 04/14/2024 8:28 AM CANDLE MAKER Zulay Lujansolitario [facility] Final Result Performing Organization Address City/[facility] Co de Phone Number [facility] [address] [place] [address], [place] [phone] * VITAMIN B-12 (04/14/2024 8:28 AM CANDLE MAKER) Pathologist [facility] VITAMIN B12 S/P/B 227 193 - 986 PG/ML 04/14/2024 4:[address] [facility] 04/14/2024 8:28 AM CANDLE MAKER Zulay Andrews Yonathan [facility] Final Result Performing Organization Address [facility] de Phone Number [facility] [address] [place] [address], [place] [phone] * (ABNORMAL) COMPREHENSIVE METABOLIC PANEL (04/14/2024 8:28 AM CANDLE MAKER) Only the most recent of2 resultswithin the time period is included. SODIUM S/P/B 149(H) 136 - 145 MMOL/L 04/14/2024 9:26 AM [facility] POTASSIUM S/P/B 4.2 3.5 - 5.1 MMOL/L 04/14/2024 9:26 AM [facility] CHLORIDE S/P/B 111(H) 98 - 107 MMOL/L 04/14/2024 9:26 AM [facility] CO2 30.6 21.0 - 32.0 MMOL/L 04/14/2024 9:26 AM [facility] GLUCOSE 117(H) 70 - 99 MG/DL 04/14/2024 9:26 AM [facility] Comment: FASTING GLUCOSE 100 TO 125 MG/DL IS CONSISTENT WITH IMPAIRED FASTING GLUCOSE. FASTING GLUCOSE >125 MG/DL IS CONSISTENT WITH DIABETES. RANDOM GLUCOSE >200 MG/DL WITH HYPERGLYCEMIC SYMPTOMS IS CONSISTENT WITH DIABETES. PER ADA GUIDELINES BUN 26(H) 6 - 24 MG/DL 04/14/2024 9:26 AM [facility] CREATININE S/P/B 1.39(H) 0.70 - 1.30 MG/DL 04/14/2024 9:26 AM [facility] CALCIUM S/P/B 9.0 8.4 - 10.5 MG/DL 04/14/2024 9:26 AM [facility] BILIRUBIN TOTAL S/P/B 0.9 0.2 - 1.0 MG/DL 04/14/2024 9:26 AM [facility] Comment: THIS ASSAY IS NOT RECOMMENDED FOR PATIENTS UNDERGOING TREATMENT WITH ELTROMBOPAG DUE TO THE POTENTIAL FOR FALSELY ELEVATED RESULTS. ALKALINE PHOSPHATASE S/P/B 42(L) 45 - 115 U/L 04/14/2024 9:26 AM [facility] AST 14(L) 15 - 37 U/L 04/14/2024 9:26 AM [facility] ALT 20 16 - 63 U/L 04/14/2024 9:26 AM [facility] TOTAL PROTEIN S/P/B 7.2 6.4 - 8.2 G/DL 04/14/2024 9:26 AM [facility] ALBUMIN S/P/B 3.7 3.4 - 5.0 G/DL 04/14/2024 9:26 AM [facility] ANION GAP 7.4 5.0 - 15.0 MMOL/L 04/14/2024 9:26 AM [facility] OSMOLALITY (CALC) 314 MOSM/KG 025 9:26 AM [facility] Comment:REFERENCE RANGE NOT ESTABLISHED GFR ESTIMATE 51(L) >89 ML/MIN/1. 73 M2 04/14/2024 9:26 AM CANDLE MAKER [facility] GFR NOTES GFR REFERENCE S: 04/14/2024 9:26 AM CANDLE MAKER [facility] Comment: THE ESTIMATED GFR IS [...] FAILURE: <15 ml/min/1.73 m2 04/14/2024 8:28 AM CANDLE MAKER Zulay Mcmanus [facility] Final Result [facility] [place] [address], * LIPID PANEL (04/14/2024 8:28 AM CANDLE MAKER) CHOLESTEROL 258 MG/DL 04/14/2024 12:[address] [facility] Comment:HIGH: > OR = 240 TRIGLYCERIDES 145 MG/DL 04/14/2024 12:[address] [facility] Comment:<150 NORMAL HDL 55 >39 MG/DL 04/14/2024 12:[address] [facility] LDL-C 174 MG/DL 04/14/2024 12:[address] [facility] Comment:160-189 HIGH VLDL CALCULATION 29 MG/DL 04/14/19 12:[address] [facility] Comment:REFERENCE RANGE NOT ESTABLISHED CHOL/HDL RATIO 4.7 04/14/2024 12:[address] [facility] Comment:REFERENCE RANGE NOT ESTABLISHED LDL/HDL 3.2 04/14/2024 12:27 PM CANDLE MAKER [facility] Comment:REFERENCE RANGE NOT ESTABLISHED NON HDL CHOLESTEROL 203 MG/DL 04/14/2024 12:27 PM CANDLE MAKER [facility] Comment:REFERENCE RANGE NOT ESTABLISHED 04/14/2024 8:28 AM CANDLE MAKER Zulay Lujansolitario [facility] Final Result Performing Organization Address [facility]/ZIP Co de Phone Number [facility] [address] [place] [address], [place] [phone] * FOLIC ACID SERUM (04/14/2024 8:28 AM CANDLE MAKER) Pathologist [facility] FOLATE 8.4 3.1 - 17.5 NG/ML 04/14/2024 4:01 PM CANDLE MAKER [facility] 04/14/2024 8:28 AM CANDLE MAKER Zulay Andrews Yonathan [facility] Final Result Performing Organization Address [facility] de Phone Number [facility] [address] [place] [address], [place] [phone] * (ABNORMAL) CBC W/DIFF AUTOMATED (04/14/2024 8:28 AM CANDLE MAKER) Only the most recent of2 resultswithin the time period is included. WBC 4.70 4.00 - 10.80 x10'3/uL 04/14/2024 8:42 AM CANDLE MAKER [facility] RBC 4.55 4.50 - 6.10 x10'6/uL 04/14/2024 8:42 AM [facility] HGB 14.6 13.0 - 18.0 G/DL 04/14/2024 8:42 AM [facility] HCT 43.1 37.0 - 52.0 % 04/14/2024 8:42 AM [facility] MCV 94.7 78.0 - 100.0 FL 04/14/2024 8:42 AM [facility] MCH 32.1(H) 27.0 - 31.0 PG 04/14/2024 8:42 AM [facility] MCHC 33.9 33.0 - 36.0 G/DL 04/14/2024 8:42 AM [facility] RDW 13.2 11.5 - 14.5 % 04/14/2024 8:42 AM [facility] PLT 131(L) 150 - 350 x10'3/uL 04/14/2024 8:42 AM [facility] MPV 12.4(H) 7.4 - 10.4 FL 04/14/2024 8:42 AM [facility] CBC COMMENT NORMAL REFERENCE RANGE NOT ESTABLISHED FOR THE PROPORTIONAL LEUKOCYTE DIFFERENTIAL. 04/14/2024 8:42 AM [facility] NEUTROPHILS % 66.4 % 04/14/2024 8:42 AM [facility] LYMPHOCYTES % 20.0 % 04/14/2024 8:42 AM [facility] MONOCYTES % 10.2 % 04/14/2024 8:42 AM [facility] EOSINOPHILS % 2.8 % 04/14/2024 8:42 AM [facility] BASOPHILS % 0.4 % 04/14/2024 8:42 AM [facility] IMMATURE GRANS % 0.2 % 04/14/19 8:42 AM [facility] NRBC % 0.0 % 04/14/2024 8:42 AM [facility] ABS. NEUTROPHILS 3.12 1.60 - 8.30 x10'3/uL 04/14/2024 8:42 AM [facility] ABS. LYMPHOCYTES 0.94 0.80 - 4.70 x10'3/uL 04/14/2024 8:42 AM [facility] ABS. MONOCYTES 0.48 0.00 - 1.50 x10'3/uL 04/14/2024 8:42 AM [facility] ABS. EOSINOPHILS 0.13 0.00 - 0.40 x10'3/uL 04/14/2024 8:42 AM CANDLE MAKER [facility] ABS. BASOPHILS 0.02 0.00 - 0.20 x10'3/uL 04/14/2024 8:42 AM CANDLE MAKER [facility] ABS. IMMATURE GRANULOCYTES 0.01 0.00 - 0.03 x10'3/uL 04/14/2024 8:42 AM CANDLE MAKER [facility] ABS. NUCLEATED RBC'S 0.00 0.00 - 0.01 x10'3/uL 04/14/2024 8:42 AM CANDLE MAKER [facility] 04/14/2024 8:28 AM CANDLE MAKER Zulay Mcmanus [facility] Final Result Performing Organization Address [facility]/ZIP Co de Phone Number [facility] [address] [place] [address], * THYROID STIM HORMONE TSH (04/14/2024 8:28 AM CANDLE MAKER) TSH 2.852 0.358 - 3.740 uIU/ML 04/14/2024 9:26 AM [facility] Comment: ASSAY PERFORMED BY CHEMILUMINESCENT IMMUNOASSAY METHODOLOGY USING [employer]EM[employer] DIMENSION REAGENT. PATIENT RESULTS DETERMINED BY ASSAYS FROM DIFFERENT MANUFACTURERS AND/OR BY DIFFERENT METHODS MAY NOT BE COMPARABLE. 04/14/2024 8:28 AM CANDLE MAKER Zulay Mcmanus [facility] Final Result Performing Organization Address [facility]/ZIP Co de Phone Number [facility] [address] [place] [address], * VITAMIN D, 25 OH (04/14/2024 8:28 AM CANDLE MAKER) VITAMIN D 25 HYDROXY TOTAL S/P/B 35.9 20.0 - 50.0 NG/ML 04/14/2024 6:55 PM CANDLE MAKER [facility] Comment: <10 ng/mL (Severe deficiency) 10 TO 19 ng/mL (Mild to Moderate deficiency) 20 TO 50 ng/mL (Optimum levels) 51 TO 80 ng/mL (Increased risk of hypercalciuria) >80 ng/mL (Toxicity possible) 04/14/2024 8:28 AM CANDLE MAKER Zulay Broussardkadie SIDING COREBOARD INSPECTOR- LABORATORY Final Result Performing Organization Address City/[facility]/ZIP Co de Phone Number [facility] [address] [place] [address], [place] [phone] * MAGNESIUM (04/14/2024 8:28 AM CANDLE MAKER) Pathologist [facility] MAGNESIUM 1.9 1.8 - 2.4 MG/DL 04/14/2024 9:26 AM CANDLE MAKER [facility] 04/14/2024 8:28 AM CANDLE MAKER Zulay Lujansolitario [facility] Final Result Performing Organization Address City/[facility] Co de Phone Number [facility] [address] [place] [address], [place] [phone] * HEMOCHROMATOSIS DNA (02/01/2024 1:32 PM CANDLE MAKER) Pathologist [facility] HEMOCHROMATOSIS DNA REPORT 02/16 12:22 PM CANDLE MAKER [employer] [facility] [place] Comment: RESULT: HETEROZYGOUS FOR THE [...] variants in the HFE gene, C282Y (NM [id number]: c.845G>A, p.[id number]) and H63D (NM [id number]: c.187C>G, p.[id number]), that are commonly associated with HH. These [...] Health care providers, please contact your local [employer]' genetic counselor or call [phone] ( ) for assistance with the interpretation of these results. This test was developed and its analytical performance characteristics have been determined by [employer] [facility]. It has not been cleared or approved by FDA. This assay has been validated pursuant to the CLIA regulations and is used for clinical purposes. For more information, please refer to http://education.[employer].Applied [employer]oresearch/faq/hemochro matosis. (This link is being provided for informational/educational purposes only.) A portion of the testing was performed at [facility]. Reviewed and signed by Laboratory results and submitted clinical information reviewed by Pamella Chavez, Ph.D., KRISTIN, Signed on 02/17/2024 at 08:58 Test performed by [facility] [address] [place] [address] Convenience Store Clerk: Argelia Melgar MD,PHD,GOLDIE Test Reported by [facility], [employer] [facility], [address] [place] [address] Irving Duque M.D., Ph.D., Director of Laboratories , [facility] [id number] 02/01/2024 1:32 PM CANDLE MAKER Stephany English MD LABORATORY Final Result [employer] [address] , [place] [phone] * IRON SATURATION PNL (FE/TIBC/SAT) (02/01/2024 1:32 PM CANDLE MAKER) IRON 134 65 - 175 MCG/DL 02/01/2024 2:30 PM CANDLE MAKER [facility] IRON BINDING CAPACITY 335 250 - 450 MCG/DL 02/01/2024 2:30 PM CANDLE MAKER [facility] IRON SATURATION 40 % 2:30 PM CANDLE MAKER [facility] Comment:REFERENCE RANGE NOT ESTABLISHED 02/01/2024 1:32 PM CANDLE MAKER Stephany English MD LABORATORY Final Result [facility] [address] [place] [address], [place] [phone] * PROSTATE SPECIFIC ANTIGEN, DIAG (02/01/2024 1:32 PM CANDLE MAKER) PSA 0.37 <4.00 NG/ML 02/01/2024 2:04 PM CANDLE MAKER [facility] Comment: ASSAY PERFORMED BY ENZYME IMMUNOASSAY METHODOLOGY USING [employer] DIMENSION REAGENT. PATIENT RESULTS DETERMINED BY ASSAYS FROM DIFFERENT MANUFACTURERS AND/OR BY DIFFERENT METHODS MAY NOT BE COMPARABLE. 02/01/2024 1:32 PM CANDLE MAKER Stephany English MD LABORATORY Final Result [facility] [address] [place] [address], [place] [phone] * FERRITIN (02/01/2024 1:32 PM CANDLE MAKER) FERRITIN 59.4 26 - 388 NG/ML 02/01/2024 2:04 PM CANDLE MAKER [facility] 02/01/2024 1:32 PM CANDLE MAKER Stephany English MD LABORATORY Final Result Performing Organization Address City/[facility]/ZIP Co de Phone Number [facility] [address] [place] [address], from Last 3 Months Insurance [facility] OFFICE OF COMMUNITY CARE Care Teams Clay Dry Press Operator Relationship Specialty Start Date End Date Ministerio Harrison MD [address] [facility] [address] [place] [address] PCP - General FAMILY PRACTICE 12/15/23
--- OUTSIDE RECORDS SUMMARY | 2024-05-02 13:40 | XMS_ITS | Clinical Summary ---
Author Organization [employer] Address [address] [facility] Attn: Epic Prelude ADT CORI TEJEDA [id number] Care Team Providers Care Display Department Manager Name Role Phone Unavailable Primary Care Provider Unavailabl e Social History Tobacco Use Types Packs/Day Years Used Date Smoking Tobacco: Never Assessed Sex and Gender Information Value Date Recorded Sex Assigned at Not on file Legal Sex Male 3:24 AM CHILD AND FAMILY SERVICES SPECIALIST Gender Identity Not on file Sexual [...]
== END 2024-05-02 11:54 | disposition home or self-care (01) ==
PROVIDERS: Emergency Provider Emergency Medicine
DX: M10.072 Idiopathic gout, left ankle and foot (principal); E11.9 Type 2 diabetes mellitus without complications; G40.909 Epilepsy, unspecified, not intractable, without status epilepticus
CPT/HCPCS: 73630; 99283

== ENCOUNTER 2024-08-09 12:32 | Emergency (ER) | payer OTHER, SELFPAY ==
[2024-08-09] VITALS (12 sets, daily range): BP systolic 138–155; BP diastolic 78–91; PULSE 48–57; RESP 14–20; TEMP 36.5–36.6; O2SAT 88–95
--- NOTE | ~2024-08-09 | XR_ITS ---
EXAMINATION: XR chest 1V portable 08/09/2024 13:38 INDICATION: Hypoxia PROCEDURE: AP portable chest COMPARISON: 02/04/2024 FINDINGS: The lungs are clear. The cardiomediastinal silhouette is within normal limits. There are no pleural effusions. There is no pneumothorax suspected. IMPRESSION: 1: NO ACUTE CARDIOPULMONARY DISEASE. Reviewed, dictated and finalized at location A.
--- OUTSIDE RECORDS SUMMARY | 2024-08-09 12:40 | XMS_ITS | Encounter Summary ---
Author Organization [employer] Address [address] [place] [address] Care Team Providers Care Pc Support Specialist Name Role Phone Unavailable Primary Care Provider Unavailabl e Encounter Details Date Type Department Care Team (Late st Contact Info) Description 03/20/2004 Outpatient [facility] [address] [facility] [place], [place] [id number] Guillaume Mancilla MD Social History Tobacco Use Types Packs/Day Years Used Date Smoking Tobacco: Never Assessed Sex and Gender Information Value Date Recorded Sex Assigned at Not on file Legal Sex Male 3:24 AM BISQUE CLEANER Gender Identity Not on file Sexual Orientation Not on file documented as of this encounter Plan of Treatment Not on file documented as of this encounter Visit Diagnoses Not on filedocumented in this encounter
--- OUTSIDE RECORDS SUMMARY | 2024-08-09 12:40 | XMS_ITS | Clinical Summary ---
Author Organization [facility] [address] Address [facility] [place] [address] Care Team Providers Care Biofuels Production Technician Name Role Phone Kit Alcantar MD Unavailable [phone] Ministerio Harrison MD Primary Care Provider [phone] Allergies Active Allergy Reactions Criticality Noted Date [...] 2 (two) times a day with meals 3 Active ascorbic acid (VITAMIN C) 100 mg tablet Take 2 tablets (200 mg total) by mouth daily Active quercetin 500 mg capsule Take 1,000 mg by mouth daily Active lisinopriL (PRINIVIL,ZESTR IL) 20 mg tablet Take 1 tablet (20 mg total) by mouth daily Active Active Problems Problem Noted Date Diagnosed Date Pneumonia due to COVID-19 virus 02/08/2024 Age-related physical debility 02/08/2024 MN, acute, non ST segment elevation 02/05/2024 Pneumonia of left lower lobe due to infectious o rganism 02/05/2024 History of pulmonary embolism 05/16/2023 Aneurysm of basilar artery 05/16/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, right 05/16/2023 Diabetes mellitus type II, non insulin dependent 05/16/2023 Transient ischemic attack (TIA) 05/15/2023 Elevated prostate specific antigen (PSA) 014 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 Immunizations Immunization Administration Dates Next Due Moderna SARS-CoV-2 Monovalen t Vaccination (12+ YRS) 07/16/2021,01/29/2021,05/16/2020,04/18 Pneumococcal Polysaccharide PPV23 03/08/1949 Td, adsorbed 03/08/2001 Surgical History Surgery Date Site/Laterality Comments [place] CHOLECYSTECTOMY Cholecystectomy - (Added by TW Conv) [...] drink = 0.6 oz pur e alcohol) [facility] Utilities Answer Date Recorded In the past 12 months has th e [employer], gas, oil, or water [email or web address] threatened to shut off services in your [...] often do you attend chur ch or zoroastrian services? Never 02/08/2024 Do you belong to any clubs o r organizations such as methodist groups, unions, fraternal or athletic groups, or [...] any time in the past 12 m [facility], were you homeless or living in a residential (including now)? No 02/08/2024 Personal Safety Answer Date Recorded Have you ever been in or are you currently in a harmful physical or emotional relationship or is someone making you feel afraid or unsafe? Denies 02/05/2024 Sex and Gender Information Value Date Recorded Sex Assigned at Not on file Legal Sex Male 1:21 AM BLENDING TECHNICIAN Gender Identity Not on file Sexual Orientation Not on file Obstetrics History Last Filed Vital Signs Vital Sign Reading Time Taken Comments Blood Pressure 154/62 02/09/2024 8:12 AM BLENDING TECHNICIAN Pulse 50 02/09/2024 8:12 AM BLENDING TECHNICIAN Temperature 36.6 C (97.9 F) 02/09/2024 8:12 AM BLENDING TECHNICIAN Respiratory Rate 18 02/09/2024 8:12 AM BLENDING TECHNICIAN Oxygen Saturation 92% 02/09/2024 8:12 AM BLENDING TECHNICIAN Inhaled Oxygen Concentration - - Weight 79 kg (174 lb 2.6 oz) 02/08/2024 11:00 AM BLENDING TECHNICIAN Height 180.3 cm (5' 11) 02/08/2024 11:00 AM BLENDING TECHNICIAN Body Mass Index 24.29 02/08/2024 11:00 AM BLENDING TECHNICIAN Plan of Treatment Health Maintenance Due Date [...] 2023 01/19/2022, 07/16/2021, 01/29/2021, Additional history exists Hemoglobin A1C 11/16/2023 05/16/2023 Influenza Vaccine (Season Ended) 2024 02/02/20 22, 12/06/2021 Lipid Panel 02/04/2025 02/05/2024, 05/16/2023 eGFR 02/07/2025 02/08/2024, 04/2023, 02/06/2024, Additional history exists Fall Risk Assessment 02/08/2025 02/09/2024 Procedures Procedure Name Priority Date/Time Associated Diagnosis Comments EGFR Routine 02/08/2024 4:35 AM BLENDING TECHNICIAN LIPID PANEL Routine 02/05/2024 10:09 AM BLENDING TECHNICIAN HEMOGLOBIN A1C Routine 05/16/2023 4:38 AM CDT from Last 3 Months or Most Recently Relevant to Health Maintenance Results * (ABNORMAL) eGFR (02/08/2024 4:35 AM BLENDING TECHNICIAN) eGFR 54(L) >=60 mL/min/1. 73 m2 Comment: [...] last reviewed 2021. Blood 02/08/2024 4:35 AM BLENDING TECHNICIAN 02/08/2024 5:59 AM BLENDING TECHNICIAN us Shantel Merchant MD LAB BLOOD ORDERABLES Final Res ult [facility] [address] [place] [address] * (ABNORMAL) Lipid panel (02/05/2024 10:09 AM BLENDING TECHNICIAN) Cholesterol 222(H) 30 - 199 mg/dL Comment: [...] revised on 2017. Triglycerides 114 <=149 mg/dL [facility] Comment: Interpretive Data Ages < or = [...] revised on 2017. HDL 45 >=40 mg/dL [facility] Comment: Interpretive Data Ages < or = [...] on 2017. LDL, calculated 156(H) <=129 mg/dL [facility] Comment: Interpretive Data Ages < or = [...] NCEP Expert Panel. Circulation 2004;110:227 3. Joseluis Hill et al. DUANE Cardiol. 2019July 06;5(5):540-548. doi: 10.1001/jamacardio.2020.0013 Current Interpretive Data was last revised on 2023. Non-HDL Cholesterol 177 mg/dL [facility] Comment: Interpretive Data Ages < or = [...] last revised on 2017. Chol/HDL ratio 5 [facility] Blood 02/05/2024 10:0 9 AM BLENDING TECHNICIAN 02/05/2024 10:21 AM BLENDING TECHNICIAN us Shantel Merchant MD LAB BLOOD ORDERABLES Final Res ult Performing Organization Address City/State/[facility] Co de Phone Number [facility] [address] [place] [address] * (ABNORMAL) Hemoglobin A1c (05/16/2023 4:38 AM CDT) Hgb A1C 6.8(H) 4.0 - 5.6 % Estimated Average Glucose 148 mg/dL [facility] Comment: The ADA recommends reporting an estimated Average Glucose (eAG) with all Hemoglobin A1c results using the equation derived from a study of 507 normal and diabetic adults. Minority populations were underrepresented and children were not included. (Diabetes Care 31:8675-7625, 2008). The eAG is not equivalent to a fasting glucose. Blood 05/16/2023 4:38 AM CDT 05/16/2023 5:21 AM CDT Kanchan Merchant DO LAB BLOOD ORDERABLES Final Result Performing Organization Address [facility] de Phone Number [facility] [address] [place] [address] from Last 3 Months or Most Recently Relevant to Health Maintenance Insurance [place] [facility]IC[facility] ADVANT[facility] Address: [address] [address] [place] [address] [place] [facility] [employer] [employer] MEDICARE ADVANTAGE [facility] Address: [facility] [address] [place] [address] Advance Directives For more information, please contact: [phone] * Full Code (Latest Code Status on File) Date Activated Date Inactivated Comments 02/05/2024 6:07 AM 02/09/2024 3:45 PM * Full Code Date Activated Date Inactivated Comments 05/15/2023 7:34 PM 05/16/2023 10:03 PM Care Teams Biofuels Production Technician Relationship Specialty Start Date End Date Ministerio Harrison MD [address] [place] [address] PCP - General Family Medicine 02/08/24 Kit Alcantar MD [facility] [address] [address] Consulting Physician Pulmonary Disease 12/07/22
--- OUTSIDE RECORDS SUMMARY | 2024-08-09 12:40 | XMS_ITS | Data Portability ---
Author Organization [facility], [address] [facility] Neurology ([place]) Address [address]th [place] [address] Care Team Providers Care Offset Printer Name Role Phone NIURKA BOYD Primary Care Provider NIURKA BOYD Referring Provider [phone] Assessment Encounter Date Assessment Date Assessment LastModified [...] angiogram of his head and neck at [facility]. I think we need some baseline [...] his continenc e. Thank you [id number] [place] [address] Ericka Weaverdith, [address], [place], [address], 4 09:21:52 hematolog ist referral - Patient with history of pulmonary embolism. Admitted to [facility]. His pulmonolo gist is Kit Alcantar with [facility] health[facility] e and [facility] y physician s. I saw him for the first time today and he is using me as a primary care doctor because he has to come up here to [facility] to get his blood work done through the [facility]. Need to know if he needs lifelong anticoagu lation or if 6-month treatment is adequate. Thank you 2023 024 jarod Dennison MD, [address], [place], [address], 4 14:55:[address] referral - Patient with a history of seizure disorder for many years and needs follow-up for his seizures. Had an evaluatio n in May at [facility]. I am his new primary care doctor in this spring feel little annoyed because [facility]. [facility] primary care doctor and gets his blood work done through [facility] but all of his specialis ts are in the [place] region. He has been maintaine d on [facility] 2023 024 MICHELE Not available 15:30:46 [...] history of pulm onary embolism. Admitted to [facility]. His dyer and washer is Kit Alcantar with [facility] and [facility] physicians. I saw him for the first time today and he is using me as a primary care doctor because he has to come up here to [place] to get his blood work done through the [facility]. Need to know if he needs lifelong anticoagulation or if 6-month treatment is adequate. Thank you Referring Physician: Niurka Boyd [facility], Encounter Date: 10/12/2023 Neurologist Referral for Sei zure disorder Patient with a history of seizure disorder for many years and needs follow-up for his seizures. Had an evaluation in May at [facility]. I am his new primary care doctor in this spring feel little annoyed because he had [facility]. He wants 1 primary care doctor and gets his blood work done through [place] but all of his specialists are in the [place] region. He has been maintained on [facility] Referring Physician: Niurka Boyd Family Medicine, Encounter Date: 10/12/2023 Results Created Date Observation Date Name Description Value Unit Range Abnormal Flag Note LastModifiedBy Organization Detail LastModifiedTime Result Notes None recorded. Problems Name Problem SNOMED Code Status Onset Date Resolution Date Notes Provider Name and Address Organization Details Recorded Time Urinary incontinence 573323282 Active 2023 Niurka Boyd MD [address] [place] [address], [address] [place] [address] 4 14:32:26 Seizure disorder 932909615 Active 2023 Niurka Boyd MD [address] , [facility] [place], [address], [facility] 4 14:32:39 Pulmonary embolism 03620622 Active 2023 Niurka Boyd MD [address], [facility] [place], [address], [facility] 4 14:32:49 Male urinary stress incontinence 569654528 Active 2023 Niurka Boyd MD [address] , [facility] [place], [address], [facility] 4 14:35:53 Allergic rhinitis 03259101 Active 2023 [facility] 4 12:48:24 Transient ischemia 06231089 Active 2023 [facility] 4 09:40:39 Seizure 80925298 Active 2023 [facility] 4 06:59:46 Hypertensive disorder 23666358 Active 2023 [facility] 4 07:01:23 Hyperlipidemia 75863088 Active 2023 [facility] 4 07:01:33 Type 2 diabetes mellitus 40991647 Active 2023 [facility] 4 07:01:48 Mixed conductive and sensorineural hearing loss, bilateral 795356636 Active 2023 [facility] 4 07:02:07 History of malignant neoplasm of prostate 193791733 Active 2023 [facility] 4 07:02:24 Tremor 73116080 Active 2023 RIGHT HAND [facility] 4 07:03:05 Notes:Some problems listed i n Document: #[id number] could not be added to this patient's chart. Please review this document and add these problems to the patient's chart manually as needed. Problem Notes None recorded. Procedures Surgical History [...] Name and Address Organization Details Recorded Time 8851148 tramadol Not available Not available Not available Not available 04/07/20232020 54003 RxNorm Not Available [facility] 04:28:59 Medications Name Sig Start Date Stop Date [...] e 50 mcg/actua tion nasal spray,oscar pension [place] 2 sprays every day by intranas al [...] Updated DateTime 4 172.72 cm 26.1 kg/m2 38012.1 g 67 /min 94 % 94 % 110 mm[Hg] 72 mm[Hg] Anushka Arreola [facility] 4 12:21:30 Date Recorded Body height Body mass index (BMI) Body weight Heart rate Oxygen saturation Oxygen saturation in Arterial blood by Pulse oximetry Systolic blood pressure Diastolic blood pressure Provider Name and Address Organization Details Last Updated DateTime 4 172.72 cm 25.7 kg/m2 80470.3 9 g 67 /min 90 % 90 % 116 mm[Hg] 82 mm[Hg] Liz Newell [facility] 4 16:00:08 Social History Question Answer Notes LastModified by Organizat ion Details LastModified Time Tobacco Smoking Status Never Smoker Not Available Health Note 11/10/2023 14:47:03 Do You Have An Advance Directive? No [email or web address] Information not available 11/10/2023 What Is Your Level Of Caffeine Consumption? None [email or web address] Information not available 11/10/2023 How Many Times Per Week Do You Exercise? 3-4 Times Per Week [email or web address] Information not available 11/10/2023 Do You Have A Medical Power Of Construction Cost Estimator? Yes [email or web address] Information not available 11/10/2023 What Was The Date Of Your Most Recent Tobacco Screening? 11/16/2023 [email or web address] Information not available 11/10/2023 What Is Your Relationship Status? [email or web address] Information not available 11/10/2023 Sex: Unknown Functional Status Question Answer Note LastModified by Organizat ion Details LastModified Time Do you use any illicit or recreational drugs? No [email or web address] Information not available 11/10/2023 What is your level of alcohol consumption? None [email or web address] Information not available 11/10/2023 Are you currently employed? No [email or web address] Information not available 11/10/2023 What is your occupation? Retired [email or web address] Information not available 11/10/2023 What is your exercise level? Occasional [email or web address] [...] disorder [email or web address] Not available 2023 14:47:01 Son Hypercholest erolemia [email or web address] Not available 2023 14:47:01 Medical History Condition Response Attention-deficit Hyperactivity Disorder N High Blood Pressure Y Thyroid Problems N COPD N Depression N Anemia N Diabetes Y Anxiety Disorder N Bleeding Disorder N Arthritis N Hyperlipidemia N Cancer Y Stroke N Asthma N Seizures Y Heart Disease N Fibromyalgia N Osteoporosis N Kidney Disease Y Past Encounters Encounter ID Performer Location Encounter Start Date Encounter Closed Date Diagnosis/Indication Diagnosis SNOMED-CT Code Diagnosis ICD10 Code Diagnosis Note [id number] Niurka Boyd MD [address] [place] [facility] ([place]) [address] [place] [address] 10/12/2023 11:56:02 10/12/2023 13:42:10 Seizure disorder 626767641 G40.909 Pulmonary embolism 22658 003 I26.99 Male urina ry stress incontinence 600322344 N39.3 Adult [facility] th examination 428433478 Z00.00 Hypertensive disorder 38 021247 I10 History of malignant neoplasm of prostate 208665237 Z85.46 Type 2 christiano betes mellitus 15311944 E11.9 [id number] Yovanny Ball MD [address] Neurology ([place]) [address] [place] [address] 11/16/2023 15:46:26 11/16/2023 16:43:44 Seizure disorder 857482778 G40.909 Long-term current use of anticoagulant 320867737 Z79.01 Additional diagnosis detail: long-term (current) use of anticoagul ants Health Concerns Section Related Observation LastModified by Organization Detai ls LastModified Time None Recorded Concern Status LastModified by Organization Details LastModified Time None Recorded Advance Directives Directive N: Payers Insurance Date Sequence Insurance Name Policy Number Policy Doe Covered Member ID Doe Member ID Guarantor Name 02/15/2024 1 [facility] (MEDICARE REPLACEMENT/A DVANTAGE - PPO) [id number] Cecilio Amanda [id number] Cecilio Amanda 02/15/2024 [employer] [place] [facility]) Cecilio Amanda [id number] Cecilio Amanda Notes Date Note Type Note Provider Name and Address Organization Details Recorded Time 10/12/2023 text/html Seizure disorder , pulmonary embolism, male urinary stress incontinence, hypertension, history of prostate cancer, type 2 diabetes. The patient is here to establish me as PCP. He had been getting his primary care through the [facility] here in [place]. He had been in the [place] for four years. He lives in [place], [place] and gets most all of his healthcare in that region. It is usually the [facility] Healthcare system associated with [facility]. At the [facility], he would get a new nurse practitioner every time he came, and so there was no continuity. This past May, there was a question of TIA versus a seizure disorder. He had evaluation at [facility], which no one has been able to [...] approximately sometime in June and was in [facility] for that. He has a dyer and washer that he follows with, but now needs hematology evaluation to see if he can stop his anticoagulation in six months or not.elham Boyd MD [address] [place] [address], [phone], [facility] 10/15/2023 00:53:22 11/16/2023 text/html CHIEF COMPLAINT:Seizure disorder [...] He ended up in a hospital in [place]. Workup there was unremarkable other than a [...] done at[facility] Yovanny Ball MD [address] [place] [address], [address], [facility] 11/17/2023 15:29:54
--- OUTSIDE RECORDS SUMMARY | 2024-08-09 12:40 | XMS_ITS | Clinical Summary ---
Author Organization [employer] Address [address] [facility] [address] Attn: Epic Prelude ADT CORI TEJEDA [address] Care Team Providers Care Material Control Manager Name Role Phone Unavailable Primary Care Provider Unavailabl e Social History Tobacco Use Types Packs/Day Years Used Date Smoking Tobacco: Never Assessed Sex and Gender Information Value Date Recorded Sex Assigned at Not on file Legal Sex Male 3:24 AM STAFF RADIOGRAPHER Gender Identity Not on file Sexual Orientation Not on file Plan of Treatment Health Maintenance Due Date Last Done Comments DTAP/TDAP/TD VACCINES (1 - Tdap) 08/07/1962 PNEUMOCOCCAL VACCINE 50+ YEARS (1 of 1 - PCV) 08/07/18 94 ZOSTER VACCINE (1 of 2) 08/07/1993 RSV VACCINE (60+ or ) (1 - 1-dose 75+ series) 08/07/2018 INFLUENZA VACCINE (#1) 2023
--- OUTSIDE RECORDS SUMMARY | 2024-08-09 12:40 | XMS_ITS | Referral Summary ---
Author Organization [facility] [address] Address [facility] [place] [address] Care Team Providers Care Netbackup Admin Name Role Phone Kit Alcantar MD Unavailable [phone] Ministerio Harrison MD Primary Care Provider [phone] Allergies Active Allergy Reactions Criticality Noted Date [...] COVID-19 virus 02/08/2024 Age-related physical debility 02/08/2024 DC, acute, non ST segment elevation 02/05/2024 Pneumonia [...] drink = 0.6 oz pur e alcohol) [facility] Utilities Answer Date Recorded In the past 12 months has [employer], [employer], oil, or water [employer] threatened to shut off services in your [...] week 02/08/2024 How often do you attend [facility] or quaker services? Never 02/08/2024 Do you belong to any clubs o r organizations such as buddhist groups, unions, fraternal or athletic groups, or [...] any time in the past 12 m [facility], were you homeless or living in a long term (including now)? No 02/08/2024 Personal Safety Answer Date Recorded Have you ever been in or are you currently in a harmful physical or emotional relationship or is someone making you feel afraid or unsafe? Denies 02/05/2024 Sex and Gender Information Value Date Recorded Sex Assigned at Not on file Legal Sex Male 1:21 AM HOME CARE AND HOME HEALTH AIDES TEACHER Gender Identity Not on file Sexual Orientation Not on file Last Filed Vital Signs Vital Sign Reading Time Taken Comments Blood Pressure 154/62 02/09/2024 8:12 AM HOME CARE AND HOME HEALTH AIDES TEACHER Pulse 50 02/09/2024 8:12 AM HOME CARE AND HOME HEALTH AIDES TEACHER Temperature 36.6 C (97.9 F) 02/09/2024 8:12 AM HOME CARE AND HOME HEALTH AIDES TEACHER Respiratory Rate 18 02/09/2024 8:12 AM HOME CARE AND HOME HEALTH AIDES TEACHER Oxygen Saturation 92% 02/09/2024 8:12 AM HOME CARE AND HOME HEALTH AIDES TEACHER Inhaled Oxygen Concentration - - Weight 79 kg (174 lb 2.6 oz) 02/08/2024 11:00 AM HOME CARE AND HOME HEALTH AIDES TEACHER Height 180.3 cm (5' 11) 02/08/2024 11:00 AM HOME CARE AND HOME HEALTH AIDES TEACHER Body Mass Index 24.29 02/08/2024 11:00 AM HOME CARE AND HOME HEALTH AIDES TEACHER Plan of Treatment Not on file Procedures Procedure Name Priority Date/Time Associated Diagnosis Comments EGFR Routine 02/08/2024 4:35 AM HOME CARE AND HOME HEALTH AIDES TEACHER LIPID PANEL Routine 02/05/2024 10:09 AM HOME CARE AND HOME HEALTH AIDES TEACHER HEMOGLOBIN A1C Routine 05/16/2023 4:38 AM CDT from Last 3 Months or Most Recently Relevant to Health Maintenance Results * (ABNORMAL) eGFR (02/08/2024 4:35 AM HOME CARE AND HOME HEALTH AIDES TEACHER) eGFR 54(L) >=60 mL/min/1. 73 m2 Comment: [...] last reviewed 2021. Blood 02/08/2024 4:35 AM HOME CARE AND HOME HEALTH AIDES TEACHER 02/08/2024 5:59 AM HOME CARE AND HOME HEALTH AIDES TEACHER us Shantel Merchant MD LAB BLOOD ORDERABLES Final Res ult [facility] [address] Department [place] [address] * (ABNORMAL) Lipid panel (02/05/2024 10:09 AM HOME CARE AND HOME HEALTH AIDES TEACHER) Cholesterol 222(H) 30 - 199 mg/dL Comment: [...] revised on 2017. Triglycerides 114 <=149 mg/dL [facility] Comment: Interpretive Data Ages < or [...] revised on 2017. HDL 45 >=40 mg/dL [facility] Comment: Interpretive Data Ages < or [...] on 2017. LDL, calculated 156(H) <=129 mg/dL [facility] Comment: Interpretive Data Ages < or [...] revised on 2023. Non-HDL Cholesterol 177 mg/dL [facility] Comment: Interpretive Data Ages < or [...] last revised on 2017. Chol/HDL ratio 5 [facility] Blood 02/05/2024 10:0 9 AM HOME CARE AND HOME HEALTH AIDES TEACHER 02/05/2024 10:21 AM HOME CARE AND HOME HEALTH AIDES TEACHER us Shantel Merchant MD LAB BLOOD ORDERABLES Final Res ult [facility] [address] [employer] [place] [address] * (ABNORMAL) Hemoglobin A1c (05/16/2023 4:38 AM CDT) Hgb A1C 6.8(H) 4.0 - 5.6 % Estimated Average Glucose 148 mg/dL [facility] Comment: The ADA recommends reporting an estimated Average Glucose (eAG) with all Hemoglobin A1c results using the equation derived from a study of 507 normal and diabetic adults. Minority populations were underrepresented and children were not included. (Diabetes Care 31:4568-5088, 2008). The eAG is not equivalent to a fasting glucose. Blood 05/16/2023 4:38 AM CDT 05/16/2023 5:21 AM CDT Kanchan Merchant DO LAB BLOOD ORDERABLES Final Result Performing Organization Address [facility] de Phone Number [facility] [address] Department [employer] [place] [address] from Last 3 Months or Most Recently Relevant to Health Maintenance Insurance [facility] MEDICARE ADVANTAGE [facility] Member Subscriber Plan / Payer (Ef fective 2004-Present) Name:Cecilio Amanda Relation to Subscriber:Self Name:Cecilio Amanda Payer ID:[id number] Group ID:Not on file Type:OTHER GOVERNMENT Address: [facility] [id number] MEDICARE ADVANTAGE Advance Directives For more information, please contact: [phone] * Full Code (Latest Code Status on File) Date Activated Date Inactivated Comments 02/05/2024 6:07 AM 02/09/2024 3:45 PM * Full Code Date Activated Date Inactivated Comments 05/15/2023 7:34 PM 05/16/2023 10:03 PM Care Teams Netbackup Admin Relationship Specialty Start Date End Date Ministerio Harrison MD [address] [place] [id number] PCP - General Family Medicine 02/08/24 Kit Alcantar MD [address] [facility] [address] [address] Consulting Physician Pulmonary Disease 12/07/22
--- OUTSIDE RECORDS SUMMARY | 2024-08-09 12:40 | XMS_ITS | Patient Health Record ---
Author Organization [facility] Address [address] [place], [place] [id number] Care Team Providers Care Sports Equipment Supervisor Name Role Phone LUCIA CALDERON Unavailable Unavailable [...] Insured Coverage Start Date Coverage End Date [facility] [address] [address] [place] [address] [id number] Cecilio Amanda Self - patient is the insured Medical (General) History Medical History History ICD Code kidney stones Diabetic hypertension varicose veins Leg/Feet cramps
--- OUTSIDE RECORDS SUMMARY | 2024-08-09 12:40 | XMS_ITS | Patient Health Record ---
Author Organization [facility] Address [address] [address] Support Name Relationship Address Phone LILIANA URBANO Guarantor Unknown [phone] Reason For Referral No Information Problems Problem Type SNOMED Code ICD Code Onset Dates Problem Status W/U Status Risk Notes Problem Inguinal hernia (196181312) Unilateral inguinal hernia, without obstruction or gangrene, not specified as recurrent (K40.90) Active confirmed [facility]-[id number] -[place] Descriptio n:Inguinal hernia Plan Of Treatment No Information Insurance Providers Payer Name Payer Address Payer Phone Subscriber Number Group Number Insured Name Patient Relationship to Insured Coverage Start Date Coverage End Date [employer] /Medicare Part B [facility] [address] [place] [phone] [id number] LILIANA URBANO Self - patient is the insured
--- NOTE | 2024-08-09 13:02 | ED_ITS ---
HPI - SOB/Dyspnea General Chief Complaint: Shortness of Breath/Dyspnea Stated Complaint: dizzy; low O2 Time Seen by Provider: 08/09/24 13:02 Source: patient Mode of arrival: ambulatory Limitations: no limitations History of Present Illness HPI Narrative: 79-year-old male, Nonsmoker with a history of hypertension, diabetes mellitus, dyslipidemia, CKD, seizure disorder, prostate cancer status post prostatectomy,PE diagnosed on 10/28 on [facility]ina presents to the ED with -- dizziness/ lightheadedness which is worse on standing up from a sitting position. This has been going on for the past few weeks. No chest pain or shortness of breath. No nausea / vomiting/ diarrhea. -- Shortness of breath.Fluctuation of his oxygen saturations. The saturations ranged from 88-95% with most of the readings above 90%. The patient is not on any supplemental oxygen. -- Bradycardia with a heart rate between 50-60. MD elicited complaint: shortness of breath Pertinent past history: PE Onset (ago): week(s) Timing: intermittent Severity: mild Exacerbating factors: movement Relieving factors: nothing Known history of: PE Associated symptoms: denies other symptoms Treatment prior to arrival: none Related Data Home oxygen amount: none Home Medications ?Medication ?Instructions ?Recorded ?Confirmed ?Last Taken ?Type amlodipine 10 mg tablet 10 mg PO DAILY 10/22/22 02/05/24 Unknown History cholecalciferol (vitamin D3) 25 25 mcg PO DAILY 10/22/22 02/05/24 Unknown History mcg (1,000 unit) capsule ezetimibe 10 mg tablet 10 mg PO DAILY 10/22/22 02/05/24 Unknown History fluticasone propionate 50 1 spray intranasal DAILY 10/22/22 02/05/24 Unknown History mcg/actuation nasal spray,suspension lisinopril 20 mg tablet 20 mg PO DAILY 10/22/22 02/05/24 Unknown History loratadine 10 mg tablet 10 mg PO DAILY 10/22/22 02/05/24 Unknown History Allergies Allergy/AdvReac Type Severity Reaction Status Date / Time cyclobenzaprine (From Allergy Unknown Verified 05/02/24 11:15 Flexeril) diclofenac (From Cataflam) Allergy Rash Verified 05/02/24 11:15 tramadol Allergy Rash Verified 05/02/24 11:15 atorvastatin AdvReac Cough Verified 05/02/24 11:15 erythromycin base AdvReac Rash Verified 05/02/24 11:15 Review of Systems 2 Review of Systems: All systems reviewed & are unremarkable except as noted in HPI and below Constitutional: Constitutional: Reports as per HPI and Reports no additional constitutional complaints Eyes: Eyes: Reports as per HPI and Reports no additional eye complaints ENT: Reports system reviewed and no additional complaints, except as documented and Reports as per HPI Cardiovascular: Cardiovascular: Reports as per HPI, Reports no additional cardiovascular complaints and Reports slow heart rate Respiratory: Respiratory: Reports as per HPI, Reports no additional respiratory complaints and Reports dyspnea Gastrointestinal: Gastrointestinal: Reports as per HPI and Reports no additional gastrointestinal complaints Genitourinary: Genitourinary: Reports no additional male genitourinary complaints and Reports as per HPI Musculoskeletal: Musculoskeletal: Reports no additional musculoskeletal complaints and Reports as per HPI Integumentary/Breasts: Skin/Breast: Reports system reviewed and no additional complaints, except as docu and Reports as per HPI Neurologic: Reports system reviewed and no additional complaints, except as documented and Reports as per HPI Psychiatric: Psychiatric: Reports no additional psychiatric complaints and Reports as per HPI Endocrine: Endocrine: Reports no additional endocrine complaints and Reports as per HPI Hematologic/Lymphatic: Hematologic/Lymphatic: Reports no additional hematologic/lymphatic complaints and Reports as per HPI Allergic/Immunologic: Allergic/Immunologic: Reports no additional allergic/immunologic complaints and Reports as per HPI PMF Past Medical History Medical History (Updated 08/09/24 @ 14:37 by Aguilar Maxwell MD) Pulmonary edema Seizure disorder (07/20/14) Type 2 diabetes mellitus without complication, without long-term current use of insulin Family History Family History Sibling Family history of malignant neoplasm of breast Other Diabetes mellitus Social History Social History Smoking status: Never smoker Second hand tobacco smoke exposure: No Alcohol intake: never Substance use: never Substance use type: does not use Lack of Transportation: No Lack of Food: Never True Current Housing: I Have Housing Concerned About Future Housing: No Difficulty Paying Gas/Electric Bills: No Difficulty Paying for Meds: No Currently Unemployed: No Education: High School Diploma/GED Difficulty w/ Childcare or Family Care: No Spiritual care concerns: No Exam 2 Narrative: patient is orthostatic with a decrease of blood pressure of 11 mm of Hg and an increase in heart rate of 11 on standing from a sitting position in addition to lightheadedness. Const: General: no acute distress Orientation/consciousness: patient oriented x3 Limitations: no limitations HENMT: Head: normal to inspection Ears: external ears normal F renny/Nose/Sinus: Normal external nose present Face and sinus: normal facial exam Mouth: Yes Normal oral and palatal mucosa present Throat: posterior oropharynx normal Eyes: Conjunctivae: conjunctivae normal Pupils: Equal, round and reactive pupils present EOM: EOMs intact bilaterally Direct Ophthalmoscopy: no photophobia Neck: Neck: normal visual inspection, no lymphadenopathy and no meningeal signs Chest: Chest palpation & inspection: normal inspection of the chest Resp: Effort & Inspection: normal respiratory effort Auscultation: clear to auscultation bilaterally Cardio: Rate: regular rate Rhythm: regular rhythm GI: GI Palp: Yes Soft to palpation Auscultation: normal bowel sounds O ther: No tenderness/rigidity / rebound. : General: Yes no CVA tenderness Back/Spine/Pelvis: Back: no CVA tenderness Skin: General skin exam: normal color Rashes: no rashes Wounds: no wounds Neuro: General: patient oriented x3, moves all extremities, no meningeal signs, no focal motor deficits and CN's II-XI intact bilaterally Cranial nerves: Yes Nystagmus not present Speech: normal speech Gait exam (Neuro): Normal gait present Extrem: General: normal to inspection and no clubbing, cyanosis or edema Psych: Mental Status: mental status grossly normal Affect: normal affect Attitude: cooperative Course Course Emergency Course: Orthostatic hypotension-- Patient becomes lightheaded on standing up and the lightheadedness gets better in a few Seconds. bradycardia-- with heart rate going down as low as 47 during his ER stay. The patient is not on any beta-blockers or rate-controlling medications. His electrolytes are stable. Advised him to follow-up with cardiology. patient wants to follow-up with his primary care physician to find a tip fixer. CKD thrombocytopenia Vital Signs Vital signs: Vital Signs Temperature 36.6 C 08/09/24 12:32 Pulse Rate 56 L 08/09/24 12:32 Respiratory Rate 14 08/09/24 12:32 Blood Pressure 145/89 H 08/09/24 12:32 Pulse Oximetry 92 08/09/24 12:32 Oxygen Delivery Room Air 08/09/24 12:32 Temperature 36.6 C 08/09/24 12:32 Pulse Rate 48 L 08/09/24 14:00 Respiratory Rate 17 08/09/24 14:00 Blood Pressure 140/88 08/09/24 14:00 Pulse Oximetry 90 08/09/24 14:00 Oxygen Delivery Room Air 08/09/24 12:40 MDM - SOB/Dyspnea MDM Narrative Medical decision making narrative: bradycardia orthostatic hypotension CKD thrombocytopenia Differential Diagnosis Differential diagnosis: Likely congestive heart failure Medical Records Attestation: I reviewed the patient's medical records. Lab Data Attestation: I reviewed the patient's lab results. 08/09/24 13:38 08/09/24 13:37 Labs: Lab Results 08/09/24 08/09/24 08/09/24 Range/Units 13:21 13:37 13:38 WBC 4.9 (4.8-10.8) K/mm3 RBC 4.59 L (4.70-6.10) M/mm3 Hgb 14.6 (12.4-15.3) g/dL Hct 43.6 (37.0-46.0) % MCV 95.0 (78.0-102.0) fL MCH 31.8 H (27.0-31.0) pg MCHC 33.5 (32-36) g/dL RDW 12.9 (11.6-14.4) % Plt Count 129 L (150-420) K/mm3 MPV 12.2 H (8.7-11.0) fl Immature Gran % (Auto) 0.2 H (0.0-0.0) % Neut % (Auto) 63.9 (50.0-70.0) % Lymph % (Auto) 21.1 (18.0-42.0) % [place] % (Auto) 11.9 H (2.0-11.0) % Eos % (Auto) 2.7 (1.0-6.0) % Baso % (Auto) 0.2 (0.0-1.0) % Lymph # (Auto) 1.03 L (1.10-4.50) K/mm3 [place] # (Auto) 0.58 (0.10-0.90) K/mm3 Eos # (Auto) 0.13 (0.02-0.50) K/mm3 Baso # (Auto) 0.01 (0.00-0.10) K/mm3 Abs Immat Gran (auto) 0.01 H (0.00-0.00) K/mm3 Absolute Neuts (auto) 3.13 (1.70-7.20) K/mm3 Absolute Nucleated RBC 0.00 (0.00-0.00) K/mm3 Nucleated RBC % 0.0 (0-0.0) % Sodium 145 (137-145) mmol/L Potassium 4.3 (3.4-5.0) mmol/L Chloride 111 H (98-107) mmol/L Carbon Dioxide 28 (22-30) mmol/L Anion Gap 6 (4-12) mmol/L BUN 21 H (9-20) mg/dL Creatinine 1.36 H (0.7-1.3) mg/dL Estim Creat Clear Calc 37 ml/min Estimated GFR 50 L (59 - ) Glucose 94 (65-110) mg/dL Calculated Osmolality 303 H (285-295) mOsm/kg Uric Acid 8.7 H (3.5-8.5) mg/dL Calcium 9.4 (8.4-10.2) mg/dL Total Bilirubin 1.2 (0.2-1.3) mg/dL AST 25 (17-59) U/L ALT 17 (6-50) U/L Alkaline Phosphatase 49 (38-126) U/L Troponin I < 0.012 (0.000-0.034) ng/mL NT-Pro-B Natriuret Pep 196 H (19.9-100) pg/mL Total Protein 7.0 (6.3-8.2) g/dL Albumin 4.1 (3.5-5.1) g/dL TSH 2.040 (0.465-4.680) uIU/mL Urine Color Light yellow (Yellow) Urine Appearance Clear (Clear) Urine pH 6.0 (5.0-8.0) Ur Specific [place] 1.010 (1.010-1.020) Urine Protein Negative (Negative) Urine Glucose (UA) Negative (Negative) Urine Ketones Negative (Negative) Ur Blood (Man) 3+ H (Negative) Urine Nitrate Negative (Negative) Urine Bilirubin Negative (Negative) Urine Urobilinogen 0.2 (0.2-1.0) mg/dL Leukocyte Esterase Rfl Negative (Negative) YEN/UL Urine RBC >100 H (0-2) /hpf Urine WBC 0-3 (0-3) /hpf Ur Squamous Epith Cells Rare (Few) /hpf Urine Bacteria Trace (None) /hpf ECG Data EKG #1: ECG completion date: 08/09/24 ECG completion time: 13:31 Interpretation: sinus bradycardia. Left axis deviation. ST deviation and T inversion in [address] elevation. Discharge Plan Discharge Clinical Impression: Thrombocytopenia, Orthostatic hypotension, Bradycardia Chronic kidney disease Qualifiers: Chronic kidney disease stage: stage 3 (moderate) Chronic kidney disease stage 3 subtype: stage 3a (GFR 45-59) Qualified Code(s): N18.31 - Chronic kidney disease, stage 3a Gout Qualifiers: Gout site: multiple sites Gout etiology: unspecified cause Chronicity: u nspecified Qualified Code(s): M10.9 - Gout, unspecified Hematuria Qualifiers: Hematuria type: unspecified type Qualified Code(s): R31.9 - Hematuria, unspecified Patient Disposition: Home Condition: Stable Instructions: Antibiotic Form, Hypotension (ED), Bradycardia (ED) Patient Language: Qatari Prescriptions: New allopurinol 100 mg tablet 100 mg PO .3 times a week Qty: 30 0RF No Action fluticasone propionate 50 mcg/actuation [place],Suspension 1 spray INTRANASAL DAILY Rx Instructions: administer into each nostril at bedtime albuterol sulfate 90 mcg/actuation HFA aerosol inhaler 2 puff inhalation QID PRN (Reason: shortness of breath or wheezing) Qty: 8.5 0RF colchicine 0.6 mg capsule 0.6 mg PO DAILY 5 Days Qty: 7 0RF Rx Instructions: take 2 now, then one in 2 hours, then one daily indomethacin 25 mg capsule 25 mg PO TID PRN (Reason: pain) Qty: 20 0RF Rx Instructions: administer with food or milk prednisone 20 mg tablet 40 mg PO DAILY 3 Days Qty: 6 0RF lisinopril 20 mg tablet 20 mg PO DAILY Rx Instructions: 20 mg; ezetimibe 10 mg tablet 10 mg PO DAILY amlodipine 10 mg tablet 10 mg PO DAILY cholecalciferol (vitamin D3) 25 mcg (1,000 unit) capsule 25 mcg PO DAILY loratadine 10 mg tablet 10 mg PO DAILY levetiracetam 750 mg tablet See Rx Instructions .ROUTE .COMPLEX Qty: 180 3RF Dose Instruction: TAKE 1 TABLET BY MOUTH EVERY 12 HOURS Rx Instructions: TAKE 1 TABLET BY MOUTH EVERY 12 HOURS metformin 500 mg tablet See Rx Instructions .ROUTE .COMPLEX Qty: 180 3RF Dose Instruction: TAKE 1 TABLET BY MOUTH TWO TIMES DAILY Rx Instructions: TAKE 1 TABLET BY MOUTH TWO TIMES DAILY Eliquis DVT-PE Treat 30D Start 5 mg (74 tabs) tablets,dose pack See Rx Instructions .ROUTE .COMPLEX Qty: 74 0RF Rx Instructions: orally per package directions Follow-up/Referrals: [facility] [Primary Care Provider] - Time of Disposition: 14:40
--- NOTE | 2024-08-09 13:20 | ECG_ITS ---
Test Date: 2024-08-09 13:31:27 Measurements Intervals [place] Rate: 51 P: 38 CA: 184 QRS: -28 QRSD: 128 T: 118 QT: 418 QTc: 385 Interpretive Statements SINUS BRADYCARDIA WITH SINUS ARRHYTHMIA INCOMPLETE LEFT BUNDLE BRANCH BLOCK ST-T WAVE ABNORMALITY IN HIGH LATERAL LEADS- CONSIDER ISCHEMIA BASELINE WANDER- I, II, III, AVL, V2 ABNORMAL ECG Compared to ECG 02/04/2024 22:17:03 HEART RATE HAS DECREASED INCOMPLETE LEFT BUNDLE BRANCH BLOCK Possible ischemia now present Electronically Signed On 08-09-2024 14:19:20 CDT by Amos Velasquez D.O.
--- OUTSIDE RECORDS SUMMARY | 2024-08-09 13:26 | XMS_ITS | Clinical Summary ---
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
--- OUTSIDE RECORDS SUMMARY | 2024-08-09 13:26 | XMS_ITS | Encounter Summary ---
Author Organization [employer] Address [address] [place] [address] Care Team Providers Care Mechanical Cad Drafter Name Role Phone Unavailable Primary Care Provider Unavailabl e Encounter Details Date Type Department Care Team (Late st Contact Info) Description 03/20/2004 Out[facility] [address] [facility] 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
--- OUTSIDE RECORDS SUMMARY | 2024-08-09 13:26 | XMS_ITS | Referral Summary ---
Author Organization [facility] [address] Address [facility] [place] [address] Care Team Providers Care Rotary Shear Worker Helper Name Role Phone Kit Alcantar MD Unavailable [phone] Ministerio Harrison MD Primary Care Provider [phone] Allergies Active Allergy Reactions Criticality Noted Date [...] COVID-19 virus 02/08/2024 Age-related physical debility 02/08/2024 [place], acute, non ST segment elevation 02/05/2024 Pneumonia [...] Recorded In the past 12 months has [email or web address], [employer] ?, oil, or water [employer] threatened to shut off services in your [...] week 02/08/2024 How often do you attend [facility] or yarsani services? Never 02/08/2024 Do you belong to any clubs o r organizations such as druze groups, unions, fraternal or athletic groups, or [...] any time in the past 12 m [facility], were you homeless or living in a mcc (including now)? No 02/08/2024 Personal Safety Answer Date Recorded Have you ever been in or are you currently in a harmful physical or emotional relationship or is someone making you feel afraid or unsafe? Denies 02/05/2024 Sex and Gender Information Value Date Recorded Sex Assigned at Not on file Legal Sex Male 1:21 AM STEAM AND POWER SUPERINTENDENT Gender Identity Not on file Sexual Orientation Not on file Last Filed Vital Signs Vital Sign Reading Time Taken Comments Blood Pressure 154/62 02/09/2024 8:12 AM STEAM AND POWER SUPERINTENDENT Pulse 50 02/09/2024 8:12 AM STEAM AND POWER SUPERINTENDENT Temperature 36.6 C (97.9 F) 02/09/2024 8:12 AM STEAM AND POWER SUPERINTENDENT Respiratory Rate 18 02/09/2024 8:12 AM STEAM AND POWER SUPERINTENDENT Oxygen Saturation 92% 02/09/2024 8:12 AM STEAM AND POWER SUPERINTENDENT Inhaled Oxygen Concentration - - Weight 79 kg (174 lb 2.6 oz) 02/08/2024 11:00 AM STEAM AND POWER SUPERINTENDENT Height 180.3 cm (5' 11) 02/08/2024 11:00 AM STEAM AND POWER SUPERINTENDENT Body Mass Index 24.29 02/08/2024 11:00 AM STEAM AND POWER SUPERINTENDENT Plan of Treatment Not on file Procedures Procedure Name Priority Date/Time Associated Diagnosis Comments EGFR Routine 02/08/2024 4:35 AM STEAM AND POWER SUPERINTENDENT LIPID PANEL Routine 02/05/2024 10:09 AM STEAM AND POWER SUPERINTENDENT HEMOGLOBIN A1C Routine 05/16/2023 4:38 AM CDT from Last 3 Months or Most Recently Relevant to Health Maintenance Results * (ABNORMAL) eGFR (02/08/2024 4:35 AM STEAM AND POWER SUPERINTENDENT) eGFR 54(L) >=60 mL/min/1. 73 m2 Comment: [...] last reviewed 2021. Blood 02/08/2024 4:35 AM STEAM AND POWER SUPERINTENDENT 02/08/2024 5:59 AM STEAM AND POWER SUPERINTENDENT us Shantel Merchant MD LAB BLOOD ORDERABLES Final Res ult [facility] [address] [place] [address] * (ABNORMAL) Lipid panel (02/05/2024 10:09 AM STEAM AND POWER SUPERINTENDENT) Cholesterol 222(H) 30 - 199 mg/dL Comment: [...] revised on 2017. Triglycerides 114 <=149 mg/dL [facility] Comment: Interpretive Data Ages < or = [...] revised on 2017. HDL 45 >=40 mg/dL [facility] Comment: Interpretive Data Ages < or = [...] on 2017. LDL, calculated 156(H) <=129 mg/dL [facility] Comment: Interpretive Data Ages < or = [...] revised on 2023. Non-HDL Cholesterol 177 mg/dL [facility] Comment: Interpretive Data Ages < or = [...] last revised on 2017. Chol/HDL ratio 5 [facility] Blood 02/05/2024 10:0 9 AM STEAM AND POWER SUPERINTENDENT 02/05/2024 10:21 AM STEAM AND POWER SUPERINTENDENT us Shantel Merchant MD LAB BLOOD ORDERABLES Final Res ult [facility] [address] [facility] [place] [address] * (ABNORMAL) Hemoglobin A1c (05/16/2023 4:38 AM CDT) Hgb A1C 6.8(H) 4.0 - 5.6 % Estimated Average Glucose 148 mg/dL [facility] Comment: The ADA recommends reporting an estimated Average Glucose (eAG) with all Hemoglobin A1c results using the equation derived from a study of 507 normal and diabetic adults. Minority populations were underrepresented and children were not included. (Diabetes Care 31:2863-6004, 2008). The eAG is not equivalent to a fasting glucose. Blood 05/16/2023 4:38 AM CDT 05/16/2023 5:21 AM CDT Kanchan Merchant DO LAB BLOOD ORDERABLES Final Result Performing Organization Address [facility] de Phone Number [facility] [address] [place] [address] from Last 3 Months or Most Recently Relevant to Health Maintenance Insurance [facility] MEDICARE ADVANTAGE [facility] Member Subscriber Plan / Payer (Ef fective 2004-Present) Name:Cecilio Amanda Relation to Subscriber:Self Name:Cecilio Amanda Payer ID:[id number] Group ID:Not on file Type:OTHER GOVERNMENT Address: [facility] [id number] MEDICARE ADVANTAGE Advance Directives For more information, please contact: [phone] * Full Code (Latest Code Status on File) Date Activated Date Inactivated Comments 02/05/2024 6:07 AM 02/09/2024 3:45 PM * Full Code Date Activated Date Inactivated Comments 05/15/2023 7:34 PM 05/16/2023 10:03 PM Care Teams Rotary Shear Worker Helper Relationship Specialty Start Date End Date Ministerio Harrison MD [address] [place] [address] PCP - General Family Medicine 02/08/24 Kit Alcantar MD [address] [facility] [address] [address] Consulting Physician Pulmonary Disease 12/07/22
--- OUTSIDE RECORDS SUMMARY | 2024-08-09 13:26 | XMS_ITS | Clinical Summary ---
Author Organization [facility] [address] [place] Address [facility] [place] [address] Care Team Providers Care Title I Instructional Assistant Name Role Phone Kit Alcantar MD Unavailable Ministerio Harrison MD Primary Care Provider [phone] Allergies Active Allergy Reactions Criticality Noted Date [...] COVID-19 virus 02/08/2024 Age-related physical debility 02/08/2024 [place], acute, non ST segment elevation 02/05/2024 Pneumonia [...] 03/08/2001 Surgical History Surgery Date Site/Laterality Comments [place] CHOLECYSTECTOMY Cholecystectomy - (Added by [facility]) [...] drink = 0.6 oz pur e alcohol) [facility] Utilities Answer Date Recorded In the past 12 months has th e [employer], gas, oil, or water [employer] threatened to shut off services in your [...] often do you attend chur ch or hoahaoism services? Never 02/08/2024 Do you belong to any clubs o r organizations such as yazdanism groups, unions, fraternal or athletic groups, or [...] any time in the past 12 m [facility], were you homeless or living in a longterm (including now)? No 02/08/2024 Personal Safety Answer Date Recorded Have you ever been in or are you currently in a harmful physical or emotional relationship or is someone making you feel afraid or unsafe? Denies 02/05/2024 Sex and Gender Information Value Date Recorded Sex Assigned at Not on file Legal Sex Male 1:21 AM IT DESKTOP SUPPORT SPECIALIST Gender Identity Not on file Sexual Orientation Not on file Obstetrics History Last Filed Vital Signs Vital Sign Reading Time Taken Comments Blood Pressure 154/62 02/09/2024 8:12 AM IT DESKTOP SUPPORT SPECIALIST Pulse 50 02/09/2024 8:12 AM IT DESKTOP SUPPORT SPECIALIST Temperature 36.6 C (97.9 F) 02/09/2024 8:12 AM IT DESKTOP SUPPORT SPECIALIST Respiratory Rate 18 02/09/2024 8:12 AM IT DESKTOP SUPPORT SPECIALIST Oxygen Saturation 92% 02/09/2024 8:12 AM IT DESKTOP SUPPORT SPECIALIST Inhaled Oxygen Concentration - - Weight 79 kg (174 lb 2.6 oz) 02/08/2024 11:00 AM IT DESKTOP SUPPORT SPECIALIST Height 180.3 cm (5' 11) 02/08/2024 11:00 AM IT DESKTOP SUPPORT SPECIALIST Body Mass Index 24.29 02/08/2024 11:00 AM IT DESKTOP SUPPORT SPECIALIST Plan of Treatment Health Maintenance Due Date [...] Diagnosis Comments EGFR Routine 02/08/2024 4:35 AM IT DESKTOP SUPPORT SPECIALIST LIPID PANEL Routine 02/05/2024 10:09 AM IT DESKTOP SUPPORT SPECIALIST HEMOGLOBIN A1C Routine 05/16/2023 4:38 AM CDT from Last 3 Months or Most Recently Relevant to Health Maintenance Results * (ABNORMAL) eGFR (02/08/2024 4:35 AM IT DESKTOP SUPPORT SPECIALIST) eGFR 54(L) >=60 mL/min/1. 73 m2 Comment: [...] last reviewed 2021. Blood 02/08/2024 4:35 AM IT DESKTOP SUPPORT SPECIALIST 02/08/2024 5:59 AM IT DESKTOP SUPPORT SPECIALIST us Shantel Merchant MD LAB BLOOD ORDERABLES Final Res ult [facility] [address] Department [place] [address] * (ABNORMAL) Lipid panel (02/05/2024 10:09 AM IT DESKTOP SUPPORT SPECIALIST) Cholesterol 222(H) 30 - 199 mg/dL [...] revised on 2017. Triglycerides 114 <=149 mg/dL [facility] Comment: Interpretive Data Ages < or = [...] revised on 2017. HDL 45 >=40 mg/dL [facility] Comment: Interpretive Data Ages < or = [...] on 2017. LDL, calculated 156(H) <=129 mg/dL [facility] Comment: Interpretive Data Ages < or = [...] revised on 2023. Non-HDL Cholesterol 177 mg/dL [facility] Comment: Interpretive Data Ages < or = [...] last revised on 2017. Chol/HDL ratio 5 [facility] Blood 02/05/2024 10:0 9 AM IT DESKTOP SUPPORT SPECIALIST 02/05/2024 10:21 AM IT DESKTOP SUPPORT SPECIALIST us Shantel Merchant MD LAB BLOOD ORDERABLES Final Res ult Performing Organization Address City/State/[facility] Co de Phone Number [facility] [address] [place] [address] * (ABNORMAL) Hemoglobin A1c (05/16/2023 4:38 AM CDT) Hgb A1C 6.8(H) 4.0 - 5.6 % Estimated Average Glucose 148 mg/dL [facility] Comment: The ADA recommends reporting an estimated Average Glucose (eAG) with all Hemoglobin A1c results using the equation derived from a study of 507 normal and diabetic adults. Minority populations were underrepresented and children were not included. (Diabetes Care 31:3835-2910, 2008). The eAG is not equivalent to a fasting glucose. Blood 05/16/2023 4:38 AM CDT 05/16/2023 5:21 AM CDT Kanchan Merchant DO LAB BLOOD ORDERABLES Final Result Performing Organization Address [facility] de Phone Number [facility] [address] [place] [address] from Last 3 Months or Most Recently Relevant to Health Maintenance Insurance [place] [facility] MEDICARE ADVANTAGE HEALTH SYSTEM [facility] MEDIC[facility] Address: [address] [address] [place] [address] [place] [facility] [employer] MEDICARE ADVANTAGE [facility] MEDIC[facility] Address: [facility] [address] [place] [address] Advance Directives For more information, please contact: [phone] * Full Code (Latest Code Status on File) Date Activated Date Inactivated Comments 02/05/2024 6:07 AM 02/09/2024 3:45 PM * Full Code Date Activated Date Inactivated Comments 05/15/2023 7:34 PM 05/16/2023 10:03 PM Care Teams Title I Instructional Assistant Relationship Specialty Start Date End Date Ministerio Harrison MD [address] [place] [address] PCP - General Family Medicine 02/08/24 Kit Alcantar MD [facility] [address] [address] Consulting Physician Pulmonary Disease 12/07/22
[2024-08-09 13:42] LABS: Basophils Absolute Auto 0.01 K/mm3 (0.00-0.10); Basophils Percent Auto 0.2 % (0.0-1.0); Eosinophils Absolute Auto 0.13 K/mm3 (0.02-0.50); Eosinophils Percent Auto 2.7 % (1.0-6.0); Hematocrit 43.6 % (37.0-46.0); Hemoglobin 14.6 g/dL (12.4-15.3); Immature Granulocyte Absolute 0.01 K/mm3 (0.00-0.00); Immature Granulocyte Percent A 0.2 % (0.0-0.0); Lymphocytes Absolute Auto 1.03 K/mm3 (1.10-4.50); Lymphocytes Percent Auto 21.1 % (18.0-42.0); Mean Corpuscular HGB Conc 33.5 g/dL (32-36); Mean Corpuscular Hemoglobin 31.8 pg (27.0-31.0); Mean Platelet Volume 12.2 fl (8.7-11.0); Monocytes Absolute Auto 0.58 K/mm3 (0.10-0.90); Monocytes Percent Auto 11.9 % (2.0-11.0); Neutrophils Absolute Auto 3.13 K/mm3 (1.70-7.20); Neutrophils Percent Auto 63.9 % (50.0-70.0); Platelet Count Result 129 K/mm3 (150-420); Red Blood Count 4.59 M/mm3 (4.70-6.10); Red Cell Distribution Width 12.9 % (11.6-14.4); White Blood Count 4.9 K/mm3 (4.8-10.8)
[2024-08-09 13:55] LABS: Alanine Aminotransferase 17 U/L (6-50); Albumin Level 4.1 g/dL (3.5-5.1); Alkaline Phosphatase 49 U/L (38-126); Anion Gap 6 mmol/L (4-12); Aspartate Amino Transferase 25 U/L (17-59); Bilirubin,Total 1.2 mg/dL (0.2-1.3); Blood Urea Nitrogen 21 mg/dL (9-20); Calcium 9.4 mg/dL (8.4-10.2); Carbon Dioxide 28 mmol/L (22-30); Chloride 111 mmol/L (98-107); Estimated CRCL calculation 37 ml/min; Estimated Glomerular Filt Rate 50; Glucose 94 mg/dL (65-110); Osmolality Calculated 303 mOsm/kg (285-295); Potassium 4.3 mmol/L (3.4-5.0); Sodium 145 mmol/L (137-145); Uric Acid 8.7 mg/dL (3.5-8.5)
[2024-08-09 14:07] LABS: NT Pro B Type Natriuretic Pept 196 pg/mL (19.9-100); Troponin I < 0.012 ng/mL (0.000-0.034)
[2024-08-09 14:16] LABS: Add Urine Microscopic? YES; Appearance Urine Clear (Clear); Bilirubin Urine Negative (Negative); Blood Urine 3+ (Negative); Color Urine Light Yellow (Yellow); Glucose Urine UA Negative (Negative); Ketones Urine Negative (Negative); Leukocyte Esterase Ur Negative LEU/UL (Negative); Nitrate Urine Negative (Negative); Protein Urine Negative (Negative); Urobilinogen Urine 0.2 mg/dL (0.2-1.0)
[2024-08-09 14:24] LABS: Bacteria Urine Trace /hpf; RBC Urine >100 /hpf (0-2); Squamous Epithelial Cell Urine Rare /hpf (Few); WBC Urine 0-3 /hpf (0-3)
== END 2024-08-09 14:44 | disposition home or self-care (01) ==
PROVIDERS: Emergency Provider Internal Medicine Critical Care Medicine
DX: D69.6 Thrombocytopenia, unspecified (principal); I95.1 Orthostatic hypotension; R00.1 Bradycardia, unspecified; E11.22 Type 2 diabetes mellitus with diabetic chronic kidney disease; I12.9 Hypertensive chronic kidney disease with stage 1 through stage 4 chronic kidney disease, or unspecified chronic kidney disease; N18.31 Chronic kidney disease, stage 3a; M10.9 Gout, unspecified; R31.9 Hematuria, unspecified; E78.5 Hyperlipidemia, unspecified; Z79.01 Long term (current) use of anticoagulants; Z85.46 Personal history of malignant neoplasm of prostate
CPT/HCPCS: 36415; 71045; 80053; 81001; 83880; 84443; 84484; 84550; 85025; 93005; 99284